=== PATIENT | female | born 1930 | race Caucasian/White ===

== ENCOUNTER 2016-08-04 22:02 | Inpatient (IN) | payer OTHER, BC ==
[2016-08-04] MEDS ORDERED: ONDANSETRON 4 MG/2 ML VIAL ONE (22:06)
[2016-08-04] MEDS ORDERED: FUROSEMIDE 40 MG/4 ML INJECTABLE VIAL ONE (22:06)
[2016-08-04] MEDS ORDERED: ALBUTEROL SO4 2.5/IPRATROPIUM 0.5 INH SOL 3 ML VIAL.NEB. NEB ONE ×3 (22:08→22:37)
--- NOTE | 2016-08-04 22:11 | PDOC ---
History of Present Illness <Lizette Ray - Last Filed: 08/05/16 00:10> - History of Present Illness Initial Comments: 08/04/16 22:55 The patient is a 85 year old female, with a significant past medical history of Afib (on pradaxa), possible CHF, hypertension, hyperlipidemia, and Gout, who presents to the emergency department with worsening shortness of breath since when she was on a cruise. She states she was on a cruise to [place] when she began to feel short of breath. She reports docking and going to a hospital where she was treated with 650 mg of levaquin. She states her symptoms have not subsided since the onset, and has worsened this evening. She states she was seen at her doctors office a week ago and started on furosemide. As per ems the patients O2 Saturation was 95% and brought up to 100% with use of Bipap. EMS reports administering 125 mg solumedrol in route after hearing bibasilar rales and rhonchi on lung exam. The patient reports feeling nauseous and was witnessed vomiting in the ER. She denies chest pain, headache and dizziness. She denies fever, chills, diarrhea and constipation. She denies dysuria, frequency, urgency and hematuria. Allergies: NKDA Past surgical history: cholecystectomy, right mastectomy, b/l cataract Social history: denies toxic habits PCP - Dr. Feliz Parker Target Protection Specialist: Dr. Askew <Cleo Funes - Last Filed: 08/05/16 00:16> - General Stated Complaint: DIFFICULTY BREATHING Time Seen by Provider: 08/04/16 22:11 Past History - Past Medical History Anemia: No Asthma: No Cancer: Yes (HX OF BREAST CANCER) Cardiac Disorders: Yes (AF, ASHD) CVA: No COPD: No CHF: No Dementia: No Diabetes: No GI Disorders: No Disorders: No HTN: Yes Hypercholesterolemia: Yes Liver Disease: Yes (HEPATITIS - ABNORMAL LFT) Seizures: No Thyroid Disease: No - Surgical History Abdominal Surgery: No Appendectomy: No Cardiac Surgery: Yes Cholecystectomy: No Lung Surgery: No Neurologic Surgery: No Orthopedic Surgery: No - Psycho/Social/Smoking Cessation Hx Smoking History: Former smoker Have you smoked in the past 12 months: No If you are a former smoker, when did you quit?: 45 YEARS Hx Alcohol Use: Yes (GLASS OF WINE EVERY NIGHT) Drug/Substance Use Hx: No <CoryLizette Sheron - Last Filed: 08/05/16 00:10> <Cleo Funes - Last Filed: 08/05/16 00:16> - Past Medical History Allergies/Adverse Reactions: Allergies Allergy/AdvReac Type Severity Reaction Status Date / Time codeine [Codeine] Allergy Severe Verified 08/04/16 22:15 timolol [Timolol] Allergy Verified 08/04/16 22:15 Home Medications: Ambulatory Orders Allopurinol [Zyloprim] 100 mg PO DAILY 04/27/12 Atorvastatin Calcium [Lipitor] 10 mg PO HS 04/27/12 Cholecalciferol (Vitamin D3) [Vitamin D3] 1,000 unit PO BID 04/27/12 Dabigatran Etexilate Mesylate [Pradaxa] 150 mg PO BID 04/27/12 Flecainide Acetate [Flecainide Acetate -] 100 mg PO BID 04/27/12 Quinapril HCl [Accupril] 20 mg PO DAILY 04/27/12 Review of Systems - Review of Systems Able to Perform ROS?: Yes Comments:: 08/04/16 22:55 CONSTITUTIONAL: Absent: fever, chills, diaphoresis, generalized weakness, malaise, loss of appetite HEENT: Absent: rhinorrhea, nasal congestion, throat pain, throat swelling, difficulty swallowing, mouth swelling, ear pain, eye pain, visual Changes CARDIOVASCULAR: Absent: chest pain, syncope, palpitations, irregular heart rate, lightheadedness , peripheral edema RESPIRATORY: (+) shortness of breath, Absent: cough, dyspnea with exertion, orthopnea, wheezing, stridor, hemoptysis GASTROINTESTINAL: Absent: abdominal pain, abdominal distension, nausea, vomiting, diarrhea, constipation, melena, hematochezia GENITOURINARY: Absent: dysuria, frequency, urgency, hesitancy, hematuria, flank pain, genital pain MUSCULOSKELETAL: Absent: myalgia, arthralgia, joint swelling SKIN: Absent: rash, itching, pallor HEMATOLOGIC/IMMUNOLOGIC: Absent: easy bleeding, easy bruising, lymphadenopathy, frequent infections ENDOCRINE: Absent: unexplained weight gain, unexplained weight loss, heat intolerance, cold intolerance NEUROLOGIC: Absent: headache, focal weakness or paresthesias, dizziness, unsteady gait, seizure, mental status changes, bladder or bowel incontinence PSYCHIATRIC: Absent: anxiety, depression, suicidal or homicidal ideation, hallucinations. <Cleo Funes - Last Filed: 08/05/16 00:16> *Physical Exam - Vital Signs Last Vital Signs Temp Pulse Resp BP Pulse Ox 120 H 22 159/116 95 08/04/16 22:12 08/04/16 22:12 08/04/16 22:12 08/04/16 22:12 - Physical Exam Comments: 08/04/16 22:55 GENERAL: Well developed, well nourished. Awake and alert. HEENT: Normocephalic, atraumatic. PERRLA, EOMI. No conjunctival pallor. Sclera are non- icteric. Moist mucous membranes. Oropharynx is clear. NECK: Supple. Full ROM. No JVD. Carotid pulses 2+ and symmetric, without bruits. No thyromegaly. No lymphadenopathy. CARDIOVASCULAR: Regular rate and rhythm. No murmurs, rubs, or gallops. Distal pulses are 2+ and symmetric. PULMONARY: (+) Diffuse wheezing bilaterally. No rales or rhonchi. ABDOMINAL: Soft. Non-tender. Non-distended. No rebound or guarding. No organomegaly. Normoactive bowel sounds. MUSCULOSKELETAL Normal range of motion at all joints. No bony deformities or tenderness. No CVA tenderness. EXTREMITIES: No cyanosis. No clubbing. No edema. No calf tenderness. SKIN: Warm and dry. Normal capillary refill. No rashes. No jaundice. NEUROLOGICAL: Alert, awake, appropriate. Cranial nerves 2-12 intact. Normoreflexic in the upper and lower extremities. Normal speech. Toes are down-going bilaterally. Gait is normal without ataxia. PSYCHIATRIC: Cooperative. Good eye contact. Appropriate mood and affect. <Cleo Funes - Last Filed: 08/05/16 00:16> Heart Score/ECG Review - ECG Intrepretation Comment:: 08/04/16 23:05 EKG was read by Dr. Ray at 22:40 Impression: Atrial fibrillation with rapid ventricular response. ST & T wave abnormality, consider ischemia <Cleo Funes - Last Filed: 08/05/16 00:16> ED Treatment Course - LABORATORY CBC & Chemistry Diagram: 08/04/16 22:30 08/04/16 22:15 <Lizette Ray - Last Filed: 08/05/16 00:10> - LABORATORY CBC & Chemistry Diagram: 08/04/16 22:30 08/04/16 22:15 - ADDITIONAL ORDERS Additional order review: 08/04/16 22:30 RBC 5.40 H MCV 93.7 MCHC 32.1 RDW 14.7 MPV 9.6 Neutrophils % 81.9 Lymphocytes % 10.8 Monocytes % 6.7 Eosinophils % 0.1 Basophils % 0.5 <Cleo Funes - Last Filed: 08/05/16 00:16> Medical Decision Making - Medical Decision Making 08/04/16 23:56 Dr. Parker was paged at this time requesting a call back for doctor to doctor consult. Dr. Barry is director employee communications and will return our call as soon as possible. 08/05/16 00:16 Dr. Barry returned the call, the patient's case was discussed, and he accepts the patient's admission to telemtry. <Cleo Funes - Last Filed: 08/05/16 00:16> *DC/Admit/Observation/Transfer - Discharge Dispostion Admit: Yes <Lizette Ray - Last Filed: 08/05/16 00:10> - Attestations Scribe Attestion: 08/04/16 22:56 Documentation prepared by Cleo Funes, acting as territory sales manager medical for Lizette Ray MD <Cleo Funes - Last Filed: 08/05/16 00:16> Diagnosis at time of Disposition: Chronic atrial fibrillation CHF (congestive heart failure) Qualifiers: Congestive heart failure type: unspecified congestive heart failure type Congestive heart failure chronicity: acute Qualified Code(s): I50.9 - Heart failure, unspecified COPD (chronic obstructive pulmonary disease) Qualifiers: COPD type: unspecified COPD Qualified Code(s): J44.9 - Chronic obstructive pulmonary disease, unspecified - Referrals Referrals: Feliz Parker MD [Primary Care Provider] -
[2016-08-04] MEDS ORDERED: MAGNESIUM SULF 50% (8.12 MEQ/2 ML-1 GM VIAL) IVPB ONE (22:15)
[2016-08-04 22:30] VITALS: BMI 23.1
[2016-08-04] MEDS ORDERED: MAGNESIUM SULF 50% (8.12 MEQ/2 ML-1 GM VIAL) ONE (22:36)
[2016-08-04 22:43] LABS: BASOPHIL 0.5 % (0-2.0); EOSINOPHIL 0.1 % (0-4.5); MCH 30.1 pg (25.7-33.7); MCHC 32.1 g/dl (32.0-36.0); MEAN CELL VOLUME 93.7 fl (80-96); MEAN PLT VOLUME 9.6 fl (7.5-11.1); NEUTROPHILS 81.9 % (42.8-82.8); PLATELET COUNT 239 K/MM3 (134-434); RDW 14.7 % (11.6-15.6); WHITE BLOOD COUNT 13.5 K/mm3 (4.0-10.0)
[2016-08-04 23:21] LABS: INR 1.45 (0.82-1.09); PROTHROMBIN TIME (PATIENT) 16.1 SEC (9.98-11.88)
[2016-08-04 23:21] LABS: ALBUMIN 3.8 g/dl (3.4-5.0); ALK PHOS 151 U/L (45-117); ANION GAP 13 (8-16); BILIRUBIN,TOTAL 0.8 mg/dL (0.2-1.0); CALCIUM 9.6 mg/dL (8.5-10.1); CO2 24 mmol/L (21-32); CREATININE 0.8 mg/dL (0.55-1.02); GLUCOSE,RANDOM 184 mg/dL (74-106); SGOT/AST 24 U/L (15-37); SGPT/ALT 44 U/L (12-78); TOT PROT 6.9 g/dl (6.4-8.2)
[2016-08-04 23:24] LABS: TROPONIN I 0.06 ng/ml (0.00-0.05)
[2016-08-04] MEDS ORDERED: ONDANSETRON 4 MG/2 ML VIAL IVPUSH ONE (23:56)
[2016-08-05] MEDS ORDERED: ALBUTEROL SO4 2.5/IPRATROPIUM 0.5 INH SOL 3 ML VIAL.NEB. NEB PRN (00:15)
[2016-08-05] MEDS ORDERED: PIPERACILLIN/TAZOB 2.25 GM 50 ML IVPB ONE (00:45)
[2016-08-05] MEDS ORDERED: PIPERACILLIN/TAZOB 4.5 GM 100 ML IVPB ONE (01:03)
[2016-08-05 01:40] LABS: URINE APPEARANCE CLEAR; URINE BILIRUBIN NEGATIVE (NEGATIVE); URINE BLOOD NEGATIVE (NEGATIVE); URINE COLOR STRAW; URINE GLUCOSE (UA) NEGATIVE (NEGATIVE); URINE KETONE NEGATIVE (NEGATIVE); URINE LEUK ESTERASE NEGATIVE (NEGATIVE); URINE NITRITE NEGATIVE (NEGATIVE); URINE PROTEIN NEGATIVE (NEGATIVE); URINE UROBILINOGEN NEGATIVE E.U./dl (0.2-1.0)
[2016-08-05] MEDS ORDERED: ACETAMINOPHEN 325 MG TABLET (FP) ONE (01:57)
[2016-08-05] MEDS ORDERED: PIPERACILLIN/TAZOB 2.25 GM 50 ML IVPB SCH (02:00)
[2016-08-05] MEDS: ALBUTEROL SO4 2.5/IPRATROPIUM 0.5 INH SOL 3 ML VIAL.NEB. NEB SCH ×3 (06:30→18:54)
[2016-08-05 09:21] LABS: TROPONIN I 0.22 ng/ml (0.00-0.05)
[2016-08-05] MEDS ORDERED: PT OWN MED DRAWER 7, Y5N ONE ×3 (10:30→21:20)
[2016-08-05] MEDS: CHOLECALCIFEROL (VITAMIN D3) 1,000 UNIT TABLET (FP) PO SCH ×2 (10:42→21:23)
[2016-08-05] MEDS: methylPREDNISolone NA SUCC 125 MG/2 ML VIAL IVPB SCH ×2 (10:43→21:24)
[2016-08-05] MEDS: QUINAPRIL HCL 20 MG TABLET (FP) PO SCH (10:43)
[2016-08-05] MEDS: FUROSEMIDE 40 MG/4 ML INJECTABLE VIAL IVPUSH SCH (10:43)
[2016-08-05] MEDS: DABIGATRAN ETEXILATE MESYLATE 150 MG CAPSULE PO SCH ×2 (10:43→21:23)
[2016-08-05] MEDS: ALLOPURINOL 100 MG TABLET (FP) PO SCH (10:44)
[2016-08-05] MEDS: FLECAINIDE ACETATE 100 MG TABLET PO SCH ×2 (10:44→21:23)
--- NOTE | 2016-08-05 12:03 | CON.CARD ---
Cardiology Consult (text) - Consultation Consultation Note: cc: sob, cough hpi: 85 f hx afib, hld, htn, breast ca here with sob, cough. Was on cruise last week and developed sob, cough. Seen by berny WILLETT and given course of abx. Sxs persisted when came home and progressed to productive cough and chest congestion despite abx and increased lasix. Due to worsening sxs came to ER. No cp, dizzy, loc, pnd, orthopnea, le edema. Found to have bl pna, now on iv abx. Sees dr garza for cardio. pmh: per hpi psh: cholecystectomy, cataract surgery social: ex tob fam: no premature cad ros: per hpi; no nvd, rash, wt loss, gib, hematuria, vision changes, muscle pain meds: Medication Instructions Recorded Allopurinol [Zyloprim] 100 mg PO DAILY 04/27/12 Atorvastatin Calcium [Lipitor] 10 mg PO HS 04/27/12 Cholecalciferol (Vitamin D3) 1,000 unit PO BID 04/27/12 [Vitamin D3] Dabigatran Etexilate Mesylate 150 mg PO BID 04/27/12 [Pradaxa] Flecainide Acetate [Flecainide 100 mg PO BID 04/27/12 Acetate -] Quinapril HCl [Accupril] 20 mg PO DAILY 04/27/12 pe: Vital Signs Period Temp Pulse Resp BP Sys/Bender Pulse Ox Last 24 Hr 97 F-97.8 F 90-120 20-22 91-159/57-116 95-100 nad, no jvd irreg, s1s2 no mrg scattered rhonchi bl, nl eff no le e/c/c abd nt nd pos bs aaox3 no jaundice diaphoresis pos dp pt no carotid bruits Laboratory Last Values WBC 13.5 K/mm3 (4.0-10.0) H 08/04/16 22:30 RBC 5.40 M/mm3 (3.60-5.2) H 08/04/16 22:30 Hgb 16.3 GM/dL (10.7-15.3) H 08/04/16 22:30 Hct 50.6 % (32.4-45.2) H 08/04/16 22:30 MCV 93.7 fl (80-96) 08/04/16 22:30 MCHC 32.1 g/dl (32.0-36.0) 08/04/16 22:30 RDW 14.7 % (11.6-15.6) 08/04/16 22:30 Plt Count 239 K/MM3 (134-434) 08/04/16 22:30 MPV 9.6 fl (7.5-11.1) 08/04/16 22:30 Neutrophils % 81.9 % (42.8-82.8) 08/04/16 22:30 Lymphocytes % 10.8 % (8-40) 08/04/16 22:30 Monocytes % 6.7 % (3.8-10.2) 08/04/16 22:30 Eosinophils % 0.1 % (0-4.5) 08/04/16 22:30 Basophils % 0.5 % (0-2.0) 08/04/16 22:30 INR 1.45 (0.82-1.09) H 08/04/16 22:30 Sodium 139 mmol/L (136-145) 08/04/16 22:15 Potassium 3.9 mmol/L (3.5-5.1) 08/04/16 22:15 Chloride 102 mmol/L (98-107) 08/04/16 22:15 Carbon Dioxide 24 mmol/L (21-32) 08/04/16 22:15 Anion Gap 13 (8-16) 08/04/16 22:15 BUN 25 mg/dL (7-18) H 08/04/16 22:15 Creatinine 0.8 mg/dL (0.55-1.02) 08/04/16 22:15 Creat Clearance w eGFR > 60 (>60) 08/04/16 22:15 Random Glucose 184 mg/dL (74-106) H 08/04/16 22:15 Calcium 9.6 mg/dL (8.5-10.1) 08/04/16 22:15 Total Bilirubin 0.8 mg/dL (0.2-1.0) 08/04/16 22:15 AST 24 U/L (15-37) 08/04/16 22:15 ALT 44 U/L (12-78) 08/04/16 22:15 Alkaline Phosphatase 151 U/L (45-117) H 08/04/16 22:15 Creatine Kinase 37 IU/L (26-192) 08/05/16 08:15 Troponin I 0.22 ng/ml (0.00-0.05) H 08/05/16 08:15 B-Natriuretic Peptide 4713.17 pg/ml (5-450) H 08/04/16 23:47 Total Protein 6.9 g/dl (6.4-8.2) 08/04/16 22:15 Albumin 3.8 g/dl (3.4-5.0) 08/04/16 22:15 Urine Color Straw 08/05/16 01:20 Urine Appearance Clear 08/05/16 01:20 Urine pH 5.0 (5.0-8.0) 08/05/16 01:20 Ur Specific [place] 1.008 (1.001-1.035) 08/05/16 01:20 Urine Protein Negative (NEGATIVE) 08/05/16 01:20 Urine Glucose (UA) Negative (NEGATIVE) 08/05/16 01:20 Urine Ketones Negative (NEGATIVE) 08/05/16 01:20 Urine Blood Negative (NEGATIVE) 08/05/16 01:20 Urine Nitrite Negative (NEGATIVE) 08/05/16 01:20 Urine Bilirubin Negative (NEGATIVE) 08/05/16 01:20 Urine Urobilinogen Negative E.U./dl (0.2-1.0) 08/05/16 01:20 Ur Leukocyte Esterase Negative (NEGATIVE) 08/05/16 01:20 cath 10/2009: non obstructive cad echo 03/2015: tds, nl lv/rv, mild lae, no sig valve path tele: afib, rate controlled ecg 08/04/16: afib, vr 110, nonspecific lateral st-t changes, nl qtc, no sig change 07/27/16 cxr: bl pna a/p: 85 f hx afib, hld, htn, breast ca here with sob, cough. sob, cough, pna, acute diastolic chf: -pt here with bl pna, likely main cause of sxs. cont abx. -likely some superimposed pulm congestion from dchf (elevated bnp also) as well so cont lasix iv for now, monitor daily chem7 -check updated echo afib: -has had several jorge/dccv in past but now back in afib -rate controlled but pt symptomatic in afib so plan was to cont her flecainide and have outpt jorge/dccv this wednesday -for now will cont current flecainide and monitor resp status--if stable will proceed with jorge/dccv wednesday as inpt -monitor on tele -cont home pradaxa hld: -cont statin htn: -stable on home meds elevated trops: -borderline elevated trops with nl ck and flat trend, not consistent with acs -ecg similar to priors -cont to trend ce's -check echo, monitor on tele
[2016-08-05] MEDS ORDERED: PIPERACILLIN/TAZOB 2.25 GM/50 ML PRE-DOCKED BAG IVPB ONE (12:45)
--- NOTE | 2016-08-05 12:59 | HP ---
Admitting History and Physical - Primary Care Physician PCP: Feliz Parker - Admission Chief Complaint: I was coughing and could not breathe History of Present Illness: Mrs Vasquez is a very pleasant 85 year old female who comes in with shortness of breath and coughing. She was recently on a cruise to [place] and after five days began to become very short of breath. She was seen on the ship and was started on levaquin and steroids. She was instructed to go to the hospital in [place] where she was seen. She was continued on levaquin and steroids and cleared to fly back. She was not feeling better and was seen as an outpatient. She was felt to have fluid overload and was given lasix. She lost 7lbs and was feeling better. However on Wednesday she began to feel worse again. She had cough productive of yellow sputum and also developed laryngitis. She began to have worsening shortness of breath and came in for further evaluation. She denies fevers, chills, chest pain, nausea, vomiting, diarrhea, constipation, difficulty or pain on urination, or current leg swelling. Her breathing is feeling better after being on BiPap overnight. History Source: Patient Limitations to Obtaining History: No Limitations - Past Medical History Cardiovascular: Yes: AFIB, CAD, HTN, Hyperlipdemia Gastrointestinal: Yes: GERD Rheumatology: Yes: Gout - Past Surgical History Past Surgical History: Yes: Appendectomy, Cholecystectomy - Smoking History Smoking history: Former smoker Have you smoked in the past 12 months: No If you are a former smoker, when did you quit?: 45 YEARS - Alcohol/Substance Use Hx Alcohol Use: Yes (GLASS OF WINE EVERY NIGHT) History of Substance Use: reports: None - Social History Usual Living Arrangement: Yes: With Spouse ADL: Independent History of Recent Travel: Yes Home Medications - Allergies Allergies/Adverse Reactions: Allergies Allergy/AdvReac Type Severity Reaction Status Date / Time codeine [Codeine] Allergy Severe Verified 08/04/16 22:15 timolol [Timolol] Allergy Verified 08/04/16 22:15 - Home Medications Home Medications: Ambulatory Orders Allopurinol [Zyloprim] 100 mg PO DAILY 04/27/12 Atorvastatin Calcium [Lipitor] 10 mg PO HS 04/27/12 Cholecalciferol (Vitamin D3) [Vitamin D3] 1,000 unit PO BID 04/27/12 Dabigatran Etexilate Mesylate [Pradaxa] 150 mg PO BID 04/27/12 Flecainide Acetate [Flecainide Acetate -] 100 mg PO BID 04/27/12 Quinapril HCl [Accupril] 20 mg PO DAILY 04/27/12 Family Disease History - Family Disease History Family History: Unremarkable Review of Systems Findings/Remarks: Full review of systems obtained, as per HPI and otherwise negative Physical Examination Vital Signs: Vital Signs Temperature 97 F L 08/05/16 05:00 Pulse Rate 90 08/05/16 12:04 Respiratory Rate 20 08/05/16 05:00 Blood Pressure 133/70 08/05/16 05:00 O2 Sat by Pulse Oximetry (%) 96 08/05/16 12:04 Problem List - Problems (1) Acute respiratory failure Assessment/Plan: -patient presents with hypoxic respiratory failure -? cardiac or infectious -weaned off of bipap -on antibiotics -cardiology and pulmonary following -continue nasal cannula Code(s): J96.00 - ACUTE RESPIRATORY FAILURE, UNSP W HYPOXIA OR HYPERCAPNIA Qualifiers: Respiratory failure complication: hypoxia Qualified Code(s): J96.01 - Acute respiratory failure with hypoxia (2) CHF (congestive heart failure) Assessment/Plan: -cardiology following -on IV lasix -monitor renal function Code(s): I50.9 - HEART FAILURE, UNSPECIFIED Qualifiers: Congestive heart failure type: unspecified congestive heart failure type Congestive heart failure chronicity: acute Qualified Code(s): I50.9 - Heart failure, unspecified (3) COPD (chronic obstructive pulmonary disease) Assessment/Plan: -on solumedrol -continue duonebs -wean oxygen as tolerated -pulmonary consulted Code(s): J44.9 - CHRONIC OBSTRUCTIVE PULMONARY DISEASE, UNSPECIFIED Qualifiers : COPD type: unspecified COPD Qualified Code(s): J44.9 - Chronic obstructive pulmonary disease, unspecified (4) Chronic atrial fibrillation Assessment/Plan: -continue flecainide and pradaxa Code(s): I48.2 - CHRONIC ATRIAL FIBRILLATION (5) Pneumonia Assessment/Plan: -unclear if current pneumonia or treated pnuemonia -also viral vs bacterial -ID consult Code(s): J18.9 - PNEUMONIA, UNSPECIFIED ORGANISM (6) HTN (hypertension) Assessment/Plan: -continue quinapril Code(s): I10 - ESSENTIAL (PRIMARY) HYPERTENSION (7) HLD (hyperlipidemia) Assessment/Plan: -continue statin Code(s): E78.5 - HYPERLIPIDEMIA, UNSPECIFIED (8) Gout Assessment/Plan: -continue allopurinol Code(s): M10.9 - GOUT, UNSPECIFIED
--- NOTE | 2016-08-05 13:08 | CON.PULM ---
Consult Reason for Consultation:: Dyspnea - History of Present Illness Chief Complaint: Shortness of breath History of Present Illness: 85 year old lady with history PAF, mild COPD, and H/O breast carcinoma developed increasing shortness of breath and cough while on a cruise. In [place] she was evaluated and treated with a course of oral steriods, Levaquin 750 mg x 5 days, and bronchodilators. She traveled home to [place] and was given diuretics by Dr. Parker one week ago .Oral steriod tx was completed about 5 days ago. PT. developed increasing, dyspnea, cough productive of yellow sputum and wheezing and was admitted. Pt put on BIPAP overnight.Today pt feels improved with decreased dyspnea. She has chest tightness. No hemoptysis. PMH: approx 6 mm lingular nodule- stable in size over multiple years ([id number]) approx.20 year pack year history cigarette smoking (stopped 1968) PAF- s/p cardioversion x 2;last time 2013 Anticoagulation with Pradaxa Breast Carcinoma Gout Polysomnography 02/2014: no evidence DEANNA (AHI 0) - History Source History Provided By: Patient, Medical Record Limitations to Obtaining History: No Limitations - Past Medical History Cardio/Vascular: Yes: AFIB, CAD, HTN, Hyperlipdemia Gastrointestinal: Yes: GERD Rheumatology: Yes: Gout - Past Surgical History Past Surgical History: Yes: Appendectomy, Cholecystectomy - Alcohol/Substance Use Hx Alcohol Use: Yes (GLASS OF WINE EVERY NIGHT) History of Substance Use: reports: None - Smoking History Smoking history: Former smoker Have you smoked in the past 12 months: No If you are a former smoker, when did you quit?: 45 YEARS - Social History ADL: Independent History of Recent Travel: Yes Home Medications - Allergies Allergies/Adverse Reactions: Allergies Allergy/AdvReac Type Severity Reaction Status Date / Time codeine [Codeine] Allergy Severe Verified 08/04/16 22:15 timolol [Timolol] Allergy Verified 08/04/16 22:15 - Home Medications Home Medications: Ambulatory Orders Allopurinol [Zyloprim] 100 mg PO DAILY 04/27/12 Atorvastatin Calcium [Lipitor] 10 mg PO HS 04/27/12 Cholecalciferol (Vitamin D3) [Vitamin D3] 1,000 unit PO BID 04/27/12 Dabigatran Etexilate Mesylate [Pradaxa] 150 mg PO BID 04/27/12 Flecainide Acetate [Flecainide Acetate -] 100 mg PO BID 04/27/12 Quinapril HCl [Accupril] 20 mg PO DAILY 04/27/12 Review of Systems - Review of Systems Constitutional: reports: Fever. denies: Chills HENT: reports: Hearing Loss Cardiovascular: reports: Edema, Palpitations, Shortness of Breath. denies: Chest Pain Respiratory: reports: Cough, SOB, Wheezing. denies: Hemoptysis Gastrointestinal: denies: Abdominal Pain, Rectal Bleeding, Vomiting Blood Neurological: denies: Confusion, Headache, Syncope Physical Exam Vital Sings: Vital Signs Temperature 97 F L 08/05/16 05:00 Pulse Rate 90 08/05/16 12:04 Respiratory Rate 20 08/05/16 05:00 Blood Pressure 133/70 08/05/16 05:00 O2 Sat by Pulse Oximetry (%) 96 08/05/16 12:04 Constitutional: Yes: Mild Distress Eyes: No: Sclera Icterus HENT: Yes: Atraumatic, Normocephalic Neck: Yes: Supple, Trachea Midline Cardiovascular: Yes: Pulse Irregular. No: JVD Respiratory: Yes: Rales (both bases right> left), Rhonchi (scattered), Wheezes ( bilateral) ...Percussion: No: Dullnes, Hyperresonance ...Clubbing: No Gastrointestinal: Yes: Soft. No: Hepatomegaly, Splenomegaly, Tenderness Extremities: No: Calf Tenderness Edema: No Neurological: Yes: Alert, Oriented Imaging - Results Chest X-ray: Report Reviewed, Image Reviewed (Portable CVXR: bilateral infiltrates-most dense left mid lung field periperally. Left upper lung field clear; suggestive PNA and CHF) Problem List - Problems (1) Acute respiratory failure Code(s): J96.00 - ACUTE RESPIRATORY FAILURE, UNSP W HYPOXIA OR HYPERCAPNIA Qualifiers: Respiratory failure complication: hypoxia Qualified Code(s): J96.01 - Acute respiratory failure with hypoxia (2) Acute exacerbation of chronic obstructive pulmonary disease Code(s): J44.1 - CHRONIC OBSTRUCTIVE PULMONARY DISEASE W (ACUTE) EXACERBATION (3) CHF (congestive heart failure) Code(s): I50.9 - HEART FAILURE, UNSPECIFIED Qualifiers: Congestive heart failure type: unspecified congestive heart failure type Congestive heart failure chronicity: acute Qualified Code(s): I50.9 - Heart failure, unspecified (4) Pneumonia Code(s): J18.9 - PNEUMONIA, UNSPECIFIED ORGANISM (5) Paroxysmal atrial fibrillation Code(s): I48.0 - PAROXYSMAL ATRIAL FIBRILLATION Assessment/Plan 85 year old lady with: Acute Respiratory Failure-required BIPAP over night: now improved and off BIPAP. Respiratory failure on admission due to a combination of COPD, pulmonary edema and probable pneumonia Acute Exacerbation COPD secondary to respiratory infection-possibly viral. CHF: improving post diuretics Pneumonia: Paroxysmal Atrial Fibrillation on Pradaxa Suggest: Antibiotics per I.D. O2 to maintain SaO2>90 Inhaled bronchodilators Diuretic anticoagulation ? cardioversion when medically stable IV steriods with tapering Repeat CXR-if infiltrates persist post diuresis will get CT chest. Thank you for referring this patient for consultation.
--- NOTE | 2016-08-05 13:40 | EKG ---
Test Reason : Blood Pressure : / mmHG Vent. Rate : 110 BPM Atrial Rate : 082 BPM P-R Int : 000 ms QRS Dur : 112 ms QT Int : 360 ms P-R-T Axes : 000 029 131 degrees QTc Int : 487 ms ATRIAL FIBRILLATION WITH RAPID VENTRICULAR RESPONSE ABNORMAL ECG WHEN COMPARED WITH ECG OF 05-APR-2014 14:31, ATRIAL FIBRILLATION HAS REPLACED SINUS RHYTHM VENT. RATE HAS INCREASED BY [address] NOW DEPRESSED IN INFERIOR LEADS Confirmed by ORLANDO MONTANEZ MD ([id number]) on 08/05/2016 1:40:38 PM Referred By: Confirmed By:ORLANDO MONTANEZ MD
[2016-08-05 16:22] LABS: TROPONIN I 0.15 ng/ml (0.00-0.05)
--- NOTE | 2016-08-05 16:46 | PN ---
Progress Note (short form) - Note Progress Note: ID consult dictated imp/reccd recent cruise to [place] recent levaquin 750 daily for 5 days and steroids- completed levaquin on now with yellow sputum, SOB, chest congestion for last two days needed bipap yesterday now better pneumonia chf copd vanco/zosyn cultures urinary antigen influenza screen repeat cxray in am consider chest ct in am d/w pulmonary
[2016-08-05] MEDS: VANCOMYCIN 1 GRAM (PRE-DOCKED) 1,000 MG/250 ML BAG IVPB SCH (16:55)
--- NOTE | 2016-08-05 17:50 | CONS ---
DATE OF CONSULTATION: DATE OF DICTATION: 08/05/2016 INFECTIOUS DISEASE CONSULTATION REQUESTING PHYSICIAN: Aki Pepper M.D. HISTORY OF PRESENT ILLNESS: This is an 85-year-old woman. She recently went on a cruise to [place] with her , they left on the and returned on the . After about 5-6 days on the cruise ship, she started having trouble with her breathing. She was treated on the ship with nebulizers. When they reached port in [place] on the , she went to the hospital there. She was placed on Levaquin 750 mg daily for 5 days along with a 5-day course of prednisone, and then she flew back to the , and she was cleared for discharge. She was told they were concerned that she was developing pneumonia. After discharge home, she saw her doctor a week ago, last Wednesday she was started on Lasix, and it was noted at that time she had swelling of both her legs, so she was taking her Lasix and Levaquin and steroids along with her usual medications. She completed the Levaquin on . The leg swelling improved with the diuretics. She dropped about 7 pounds, and she had less edema. She overall felt well and was on a prednisone taper throughout the weekend. She saw her chief librarian branch on Wednesday, who scheduled her for an elective cardioversion this week. Over the course of the weekend, she started feeling short of breath again. She started having nausea and yellow sputum. She has no hemoptysis. She also developed laryngitis. She denies any fevers, chills, chest pain. Per the ER note, there was 1 episode of vomiting. She was treated with BiPAP overnight and is feeling markedly improved. As well, she received steroids and was started on piperacillin and tazobactam. PAST MEDICAL HISTORY: Notable for atrial fibrillation, coronary artery disease, hypertension, hyperlipidemia. There is a history of GERD and gout. SURGICAL HISTORY: Notable for appendectomy and cholecystectomy. She has a history of breast cancer as well. ALLERGIES: CODEINE and TIMOLOL. MEDICATION: As an outpatient include allopurinol, Lipitor, vitamin D, Pradaxa, flecainide, and Accupril. She has had 2 prior cardioversions that have failed. FAMILY HISTORY: No history of smoking use. SOCIAL HISTORY: She is . Former tobacco user, stopped like 30 years ago. She is a former nurse. Her steroid use has been very intermittent in the past. Currently she is resting quite comfortably. She is up to date on vaccines. PHYSICAL EXAMINATION: Vital signs: Temperature 97.6, pulse 85, blood pressure 125/75, respiratory rate 20. She is saturating 96% on 2 L. HEENT: Normocephalic. Eyes are anicteric. She has no thrush. Neck: Supple. Lungs: Crackles throughout. Heart: Regular rate and rhythm. Abdomen: Soft, nontender. Extremities: Trace edema. LABORATORY: White count 13.5, hemoglobin 16.3, platelets 239. INR 1.4. BUN and creatinine are 25 and 0.8 with an alkaline phosphatase of 151. Troponins are 0.15. Her BNP is 4713. Urinalysis is negative. Blood cultures are pending. Chest x-ray is notable for bilateral infiltrates, interstitial and air space as well. IMPRESSION: In summary, this is an 85-year-old woman with pneumonia status post recent course of Levaquin with probably chronic obstructive pulmonary disease and congestive heart failure complicating the situation. Given the recent Levaquin use, would treat her with vancomycin and Zosyn at this time. Would obtain urinary legionella and pneumococcal antigen. Would also obtain a sputum culture as well as an influenza screen. Further recommendations to follow based on her clinical course. She is being treated with steroids and diuretics as well, and reports clinical improvement. Further recommendations to follow. Asha [id number]
[2016-08-05] MEDS: ACETAMINOPHEN 325 MG TABLET (FP) PO PRN (18:56)
[2016-08-05] MEDS: PIPERACILLIN/TAZOB 3.375 GM/50 ML PRE-DOCKED IVPB SCH (18:57)
[2016-08-05] MEDS: ATORVASTATIN CA 10 MG TABLET (FP) PO SCH (21:23)
[2016-08-05] MEDS: DORZOLAMIDE 2% HCL OPHTHALMIC SOLUTION 10 ML BOTTLE OU SCH (22:59)
[2016-08-06] MEDS: ALBUTEROL SO4 2.5/IPRATROPIUM 0.5 INH SOL 3 ML VIAL.NEB. NEB SCH ×5 (00:20→23:40)
[2016-08-06] MEDS: PIPERACILLIN/TAZOB 3.375 GM/50 ML PRE-DOCKED IVPB SCH ×2 (02:26→10:04)
[2016-08-06 07:36] LABS: MEAN PLT VOLUME 9.3 fl (7.5-11.1); NEUTROPHILS 94.7 % (42.8-82.8); PLATELET COUNT 154 K/MM3 (134-434); RDW 14.3 % (11.6-15.6); WHITE BLOOD COUNT 11.6 K/mm3 (4.0-10.0)
[2016-08-06 08:22] LABS: CALCIUM 8.5 mg/dL (8.5-10.1); CREATININE 0.8 mg/dL (0.55-1.02)
[2016-08-06] MEDS ORDERED: methylPREDNISolone NA SUCC 125 MG/2 ML VIAL ONE (09:34)
[2016-08-06] MEDS ORDERED: PT OWN MED DRAWER 7, Y5N ONE ×2 (09:36→22:05)
--- NOTE | 2016-08-06 10:00 | PN ---
Progress Note, Physician Chief Complaint: Very SOB Couph dry BIBAP Never febrile - Current Medication List Current Medications: Active Medications Acetaminophen (Tylenol -) 650 mg PO Q6H PRN PRN Reason: FEVER OR PAIN Last Admin: 08/05/16 18:56 Dose: 650 mg Albuterol/Ipratropium (Duoneb -) 1 amp NEB Q4H PRN PRN Reason: SHORT OF BREATH/WHEEZING Albuterol/Ipratropium (Duoneb -) 1 amp NEB QIDR [facility] Last Admin: 08/06/16 06:10 Dose: 1 amp Allopurinol (Zyloprim -) 100 mg PO DAILY [facility] Last Admin: 08/05/16 10:44 Dose: 100 mg Atorvastatin Calcium (Lipitor -) 10 mg PO HS [facility] Last Admin: 08/05/16 21:23 Dose: 10 mg Cholecalciferol (Vitamin D3 -) 1,000 unit PO BID [facility] Last Admin: 08/05/16 21:23 Dose: 1,000 unit Dabigatran (Pradaxa -) 150 mg PO BID [facility] Last Admin: 08/05/16 21:23 Dose: 150 mg Dorzolamide HCl (Trusopt 2%) 1 drop OU BID [facility] Last Admin: 08/05/16 22:59 Dose: 1 drop Flecainide Acetate (Tambacor -) 100 mg PO BID [facility] Last Admin: 08/05/16 21:23 Dose: 100 mg Furosemide (Lasix Injection -) 40 mg IVPUSH DAILY [facility] Last Admin: 08/05/16 10:43 Dose: 40 mg Methylprednisolone Sodium Succinate (Solu-Medrol -) 80 mg IVPB BID [facility] Last Admin: 08/05/16 21:24 Dose: 80 mg Piperacillin Sod/Tazobactam Sod (Zosyn 3.375gm Ivpb (Pre-Docked)) 3.375 gm IVPB Q8H-IV [facility] Last Admin: 08/06/16 02:26 Dose: 3.375 gm Quinapril HCl (Accupril -) 20 mg PO DAILY [facility] Last Admin: 08/05/16 10:43 Dose: 20 mg Vancomycin HCl (Vancomycin (Pre-Docked)) 1,000 mg IVPB Q24H [facility] Last Admin: 08/05/16 16:55 Dose: 1,000 mg - Objective Vital Signs: Vital Signs Temperature 98.5 F 08/06/16 08:10 Pulse Rate 100 H 08/06/16 08:10 Respiratory Rate 22 08/06/16 08:13 Blood Pressure 129/76 08/06/16 08:10 O2 Sat by Pulse Oximetry (%) 99 08/06/16 08:13 Constitutional: Yes: Moderate Distress Neck: Yes: WNL, Supple Cardiovascular: Yes: Pulse Irregular, S1, S2. No: Murmur Respiratory: Yes: WNL, Regular, CTA Bilaterally, Rhonchi, SOB. No: Rales Gastrointestinal: Yes: WNL, Normal Bowel Sounds, Soft. No: Tenderness, Tenderness, Epigastrium, Tenderness, Rebound Edema: No Labs: CBC, BMP 08/06/16 05:35 08/06/16 05:35 INR, PTT INR 1.45 (0.82-1.09) H 08/04/16 22:30 Assessment/Plan Assessment Pulmonary congestion has improved Unclear if pneumonia or all Congestive hear failure Plan Chest xray improving Will deescalate therapy Ceftriaxone 1 gra daily Lashanda WILLETT
[2016-08-06] MEDS: DABIGATRAN ETEXILATE MESYLATE 150 MG CAPSULE PO SCH ×2 (10:02→22:07)
[2016-08-06] MEDS: ALLOPURINOL 100 MG TABLET (FP) PO SCH (10:03)
[2016-08-06] MEDS: CHOLECALCIFEROL (VITAMIN D3) 1,000 UNIT TABLET (FP) PO SCH ×2 (10:03→22:06)
[2016-08-06] MEDS: FLECAINIDE ACETATE 100 MG TABLET PO SCH ×2 (10:03→22:07)
[2016-08-06] MEDS: methylPREDNISolone NA SUCC 125 MG/2 ML VIAL IVPB SCH ×2 (10:04→22:07)
[2016-08-06] MEDS: QUINAPRIL HCL 20 MG TABLET (FP) PO SCH (10:05)
[2016-08-06] MEDS: FUROSEMIDE 40 MG/4 ML INJECTABLE VIAL IVPUSH SCH ×2 (10:05→22:06)
[2016-08-06] MEDS: DORZOLAMIDE 2% HCL OPHTHALMIC SOLUTION 10 ML BOTTLE OU SCH ×2 (10:06→22:13)
[2016-08-06] MEDS ORDERED: CEFTRIAXONE 1 GM in DEXTROSE 5%-WATER - 50 ML IVPB SCH (10:15)
[2016-08-06] MEDS ORDERED: POTASSIUM CHLORIDE TABS 20 MEQ TABLET.ER (FP) PO ONE ×2 (10:44→15:00)
--- NOTE | 2016-08-06 10:51 | PN ---
Progress Note (short form) - Note Progress Note: s: still with sob and cough; no cp palps dizzy; requiring occ bipap o: Vital Signs Period Temp Pulse Resp BP Sys/Bender Pulse Ox Last 24 Hr 97.0 F-99.2 F 88-130 18-22 102-132/64-76 95-99 nad, no jvd irreg, s1s2 no mrg scattered rhonchi bl, nl eff no le e/c/c aaox3 no jaundice diaphoresis Current Medications Generic Name Dose Route Start Last Admin Trade Name Freq PRN Reason Stop Dose Admin Acetaminophen 650 mg 08/05/16 18:13 08/05/16 18:56 Tylenol - PO 650 mg Q6H PRN Administration FEVER OR PAIN Albuterol/Ipratropium 1 amp 08/05/16 00:15 Duoneb - NEB Q4H PRN SHORT OF BREATH/WHEEZING Albuterol/Ipratropium 1 amp 08/05/16 06:00 08/06/16 06:10 Duoneb - NEB 1 amp QIDR [facility] Administration Allopurinol 100 mg 08/05/16 10:00 08/06/16 10:03 Zyloprim - PO 100 mg DAILY [facility] Administration Atorvastatin Calcium 10 mg 08/05/16 22:00 08/05/16 21:23 Lipitor - PO 10 mg HS [facility] Administration Ceftriaxone Sodium 1 gm 08/06/16 10:15 Rocephin 1gm Ivpb (Pre-Docked) IVPB DAILY [facility] Cholecalciferol 1,000 unit 08/05/16 10:00 08/06/16 10:03 Vitamin D3 - PO 1,000 unit BID [facility] Administration Dabigatran 150 mg 08/05/16 10:00 08/06/16 10:02 Pradaxa - PO 150 mg BID [facility] Administration Dorzolamide HCl 1 drop 08/05/16 22:00 08/06/16 10:06 Trusopt 2% OU 1 drop BID [facility] Administration Flecainide Acetate 100 mg 08/05/16 10:00 08/06/16 10:03 Tambacor - PO 100 mg BID [facility] Administration Furosemide 40 mg 08/05/16 10:00 08/06/16 10:05 Lasix Injection - IVPUSH 40 mg DAILY [facility] Administration Furosemide 40 mg 08/06/16 16:00 Lasix Injection - IVPUSH 08/06/16 16:01 ONCE ONE Methylprednisolone Sodium Succinate 80 mg 08/05/16 10:00 08/06/16 10:04 Solu-Medrol - IVPB 80 mg BID [facility] Administration Potassium Chloride 40 meq 08/06/16 10:44 K-Dur - PO 08/06/16 10:45 ONCE ONE Potassium Chloride 40 meq 08/06/16 15:00 K-Dur - PO 08/06/16 15:01 ONCE ONE Quinapril HCl 20 mg 08/05/16 10:00 08/06/16 10:05 Accupril - PO 20 mg DAILY [facility] Administration Vancomycin HCl 1,000 mg 08/05/16 16:00 08/05/16 16:55 Vancomycin (Pre-Docked) IVPB 1,000 mg Q24H [facility] Administration CBC, BMP 08/06/16 05:35 08/06/16 05:35 cath 10/2009: non obstructive cad echo 03/2015: tds, nl lv/rv, mild lae, no sig valve path echo 08/2016: nl lv/rv, mod dwayne, mod-sev mr/tr, nl rvsp, mild-mod ar tele: afib, rate controlled ecg 08/04/16: afib, vr 110, nonspecific lateral st-t changes, nl qtc, no sig change 07/27/16 a/p: 85 f hx afib, hld, htn, breast ca here with sob, cough. sob, cough, pna, acute diastolic chf: -pt here with pna and dchf -after iv lasix cxr today shows improved congestion so will cont with iv lasix and give 40 bid today as she is still sob/congested. monitor daily chem7 -cont abx per ID as well afib: -has had several jorge/dccv in past but now back in afib -rate controlled but pt symptomatic in afib so plan was to cont her flecainide and have outpt jorge/dccv tomorrow -for now will cont current flecainide and monitor resp status--if improved will proceed with jorge/dccv tomorrow as inpt (will keep npo tonight in case) -monitor on tele -cont home pradaxa hld: -cont statin htn: -stable on home meds elevated trops: -borderline elevated trops with nl ck and flat trend, not consistent with acs -ecg similar to priors -echo with nl lvef, no wma's
[2016-08-06] MEDS: cefTRIAXone 1 GM/50 ML BAG (PRE-DOCKED) IVPB SCH (11:46)
[2016-08-06] MEDS: ACETAMINOPHEN 325 MG TABLET (FP) PO PRN (12:03)
--- NOTE | 2016-08-06 14:36 | PN ---
Progress Note, Physician Chief Complaint: Mrs Vasquez says she has coughing and shortness of breath with talking and minimal activity. No cp or n/v. - Current Medication List Current Medications: Active Medications Acetaminophen (Tylenol -) 650 mg PO Q6H PRN PRN Reason: FEVER OR PAIN Last Admin: 08/06/16 12:03 Dose: 650 mg Albuterol/Ipratropium (Duoneb -) 1 amp NEB Q4H PRN PRN Reason: SHORT OF BREATH/WHEEZING Albuterol/Ipratropium (Duoneb -) 1 amp NEB QIDR [facility] Last Admin: 08/06/16 12:29 Dose: 1 amp Allopurinol (Zyloprim -) 100 mg PO DAILY [facility] Last Admin: 08/06/16 10:03 Dose: 100 mg Atorvastatin Calcium (Lipitor -) 10 mg PO HS [facility] Last Admin: 08/05/16 21:23 Dose: 10 mg Ceftriaxone Sodium (Rocephin 1gm Ivpb (Pre-Docked)) 1 gm IVPB DAILY [facility] Last Admin: 08/06/16 11:46 Dose: 1 gm Cholecalciferol (Vitamin D3 -) 1,000 unit PO BID [facility] Last Admin: 08/06/16 10:03 Dose: 1,000 unit Dabigatran (Pradaxa -) 150 mg PO BID [facility] Last Admin: 08/06/16 10:02 Dose: 150 mg Dorzolamide HCl (Trusopt 2%) 1 drop OU BID [facility] Last Admin: 08/06/16 10:06 Dose: 1 drop Flecainide Acetate (Tambacor -) 100 mg PO BID [facility] Last Admin: 08/06/16 10:03 Dose: 100 mg Furosemide (Lasix Injection -) 40 mg IVPUSH DAILY [facility] Last Admin: 08/06/16 10:05 Dose: 40 mg Furosemide (Lasix Injection -) 40 mg IVPUSH ONCE ONE Stop: 08/06/16 16:01 Methylprednisolone Sodium Succinate (Solu-Medrol -) 80 mg IVPB BID [facility] Last Admin: 08/06/16 10:04 Dose: 80 mg Potassium Chloride (K-Dur -) 40 meq PO ONCE ONE Stop: 08/06/16 15:01 Quinapril HCl (Accupril -) 20 mg PO DAILY [facility] Last Admin: 08/06/16 10:05 Dose: 20 mg Vancomycin HCl (Vancomycin (Pre-Docked)) 1,000 mg IVPB Q24H [facility] Last Admin: 08/05/16 16:55 Dose: 1,000 mg - Objective Vital Signs: Vital Signs Temperature 98.4 F 08/06/16 12:59 Pulse Rate 101 H 08/06/16 12:59 Respiratory Rate 18 08/06/16 12:59 Blood Pressure 148/91 08/06/16 12:59 O2 Sat by Pulse Oximetry (%) 99 08/06/16 13:02 Constitutional: Yes: Well Nourished, No Distress, Calm Cardiovascular: Yes: Tachycardia, Pulse Irregular. No: Gallop, Murmur, Rub Respiratory: Yes: Regular, On Nasal O2, Rhonchi, Wheezes. No: Rales Gastrointestinal: Yes: Normal Bowel Sounds, Soft. No: Distention, Tenderness Extremities: Yes: WNL Edema: No Labs: CBC, BMP 08/06/16 05:35 08/06/16 05:35 INR, PTT INR 1.45 (0.82-1.09) H 08/04/16 22:30 Problem List - Problems (1) Acute respiratory failure Code(s): J96.00 - ACUTE RESPIRATORY FAILURE, UNSP W HYPOXIA OR HYPERCAPNIA Qualifiers: Respiratory failure complication: hypoxia Qualified Code(s): J96.01 - Acute respiratory failure with hypoxia (2) CHF (congestive heart failure) Code(s): I50.9 - HEART FAILURE, UNSPECIFIED Qualifiers: Congestive heart failure type: unspecified congestive heart failure type Congestive heart failure chronicity: acute Qualified Code(s): I50.9 - Heart failure, unspecified (3) COPD (chronic obstructive pulmonary disease) Code(s): J44.9 - CHRONIC OBSTRUCTIVE PULMONARY DISEASE, UNSPECIFIED Qualifiers : COPD type: unspecified COPD Qualified Code(s): J44.9 - Chronic obstructive pulmonary disease, unspecified (4) Chronic atrial fibrillation Code(s): I48.2 - CHRONIC ATRIAL FIBRILLATION (5) Pneumonia Code(s): J18.9 - PNEUMONIA, UNSPECIFIED ORGANISM (6) HTN (hypertension) Code(s): I10 - ESSENTIAL (PRIMARY) HYPERTENSION (7) HLD (hyperlipidemia) Code(s): E78.5 - HYPERLIPIDEMIA, UNSPECIFIED (8) Gout Code(s): M10.9 - GOUT, UNSPECIFIED Assessment/Plan (1) Acute respiratory failure Assessment/Plan: -appreciate pulmonary assistance -was on bipap this morning, now on NC -continue solumedrol -continue duonebs Code(s): J96.00 - ACUTE RESPIRATORY FAILURE, UNSP W HYPOXIA OR HYPERCAPNIA Qualifiers: Respiratory failure complication: hypoxia Qualified Code(s): J96.01 - Acute respiratory failure with hypoxia (2) CHF (congestive heart failure) Assessment/Plan: -chest x-ray improved -cardiology following and note reviewed -continue IV lasix Code(s): I50.9 - HEART FAILURE, UNSPECIFIED Qualifiers: Congestive heart failure type: unspecified congestive heart failure type Congestive heart failure chronicity: acute Qualified Code(s): I50.9 - Heart failure, unspecified (3) COPD (chronic obstructive pulmonary disease) Assessment/Plan: -pulmonary following -still with significant shortness of breath -continue oxygen support -continue solumedrol and duonebs Code(s): J44.9 - CHRONIC OBSTRUCTIVE PULMONARY DISEASE, UNSPECIFIED Qualifiers : COPD type: unspecified COPD Qualified Code(s): J44.9 - Chronic obstructive pulmonary disease, unspecified (4) Chronic atrial fibrillation Assessment/Plan: -continue flecainide and pradaxa -possible cardioversion per cardiology Code(s): I48.2 - CHRONIC ATRIAL FIBRILLATION (5) Pneumonia Assessment/Plan: -appreciate ID assistance -checking flu swab -zosyn changed to rocephin -continue vancomycin Code(s): J18.9 - PNEUMONIA, UNSPECIFIED ORGANISM (6) HTN (hypertension) Assessment/Plan: -continue quinapril Code(s): I10 - ESSENTIAL (PRIMARY) HYPERTENSION (7) HLD (hyperlipidemia) Assessment/Plan: -continue statin Code(s): E78.5 - HYPERLIPIDEMIA, UNSPECIFIED (8) Gout Assessment/Plan: -continue allopurinol Code(s): M10.9 - GOUT, UNSPECIFIED
[2016-08-06] MEDS ORDERED: FUROSEMIDE 40 MG/4 ML INJECTABLE VIAL IVPUSH ONE (16:00)
[2016-08-06] MEDS: VANCOMYCIN 1 GRAM (PRE-DOCKED) 1,000 MG/250 ML BAG IVPB SCH (16:19)
--- NOTE | 2016-08-06 17:45 | PN ---
Progress Note, Physician History of Present Illness: Pt more dyspneic this A.M. and needed BIPAP. Dyspnea improved after second dose Lasix this afternoon. Currently mildly dyspneic sitting up in a chair. - Current Medication List Current Medications: Active Medications Acetaminophen (Tylenol -) 650 mg PO Q6H PRN PRN Reason: FEVER OR PAIN Last Admin: 08/06/16 12:03 Dose: 650 mg Albuterol/Ipratropium (Duoneb -) 1 amp NEB Q4H PRN PRN Reason: SHORT OF BREATH/WHEEZING Albuterol/Ipratropium (Duoneb -) 1 amp NEB QIDR [facility] Last Admin: 08/06/16 12:29 Dose: 1 amp Allopurinol (Zyloprim -) 100 mg PO DAILY [facility] Last Admin: 08/06/16 10:03 Dose: 100 mg Atorvastatin Calcium (Lipitor -) 10 mg PO HS [facility] Last Admin: 08/05/16 21:23 Dose: 10 mg Ceftriaxone Sodium (Rocephin 1gm Ivpb (Pre-Docked)) 1 gm IVPB DAILY [facility] Last Admin: 08/06/16 11:46 Dose: 1 gm Cholecalciferol (Vitamin D3 -) 1,000 unit PO BID [facility] Last Admin: 08/06/16 10:03 Dose: 1,000 unit Dabigatran (Pradaxa -) 150 mg PO BID [facility] Last Admin: 08/06/16 10:02 Dose: 150 mg Dorzolamide HCl (Trusopt 2%) 1 drop OU BID [facility] Last Admin: 08/06/16 10:06 Dose: 1 drop Flecainide Acetate (Tambacor -) 100 mg PO BID [facility] Last Admin: 08/06/16 10:03 Dose: 100 mg Furosemide (Lasix Injection -) 40 mg IVPUSH DAILY [facility] Last Admin: 08/06/16 10:05 Dose: 40 mg Methylprednisolone Sodium Succinate (Solu-Medrol -) 80 mg IVPB BID [facility] Last Admin: 08/06/16 10:04 Dose: 80 mg Quinapril HCl (Accupril -) 20 mg PO DAILY [facility] Last Admin: 08/06/16 10:05 Dose: 20 mg Vancomycin HCl (Vancomycin (Pre-Docked)) 1,000 mg IVPB Q24H [facility] Last Admin: 08/06/16 16:19 Dose: 1,000 mg - Objective Vital Signs: Vital Signs Temperature 98.8 F 08/06/16 16:09 Pulse Rate 110 H 08/06/16 16:09 Respiratory Rate 20 08/06/16 16:09 Blood Pressure 120/78 08/06/16 16:09 O2 Sat by Pulse Oximetry (%) 99 08/06/16 13:02 Constitutional: Yes: No Distress Eyes: Yes: Conjunctiva Clear. No: Sclera Icterus HENT: Yes: Atraumatic, Normocephalic Neck: Yes: Supple, Trachea Midline Cardiovascular: Yes: Pulse Irregular Respiratory: Yes: Diminished (bilateral) Gastrointestinal: Yes: Soft. No: Tenderness Edema: No Neurological: Yes: Alert, Oriented Labs: CBC, BMP 08/06/16 05:35 08/06/16 05:35 INR, PTT INR 1.45 (0.82-1.09) H 08/04/16 22:30 - ....Imaging Chest X-ray: Report Reviewed, Image Reviewed (bilateral effusions/infiltrate/ congestion somewhat improved compared to yesterday.) Problem List - Problems (1) Acute respiratory failure Code(s): J96.00 - ACUTE RESPIRATORY FAILURE, UNSP W HYPOXIA OR HYPERCAPNIA Qualifiers: Respiratory failure complication: hypoxia Qualified Code(s): J96.01 - Acute respiratory failure with hypoxia (2) Acute exacerbation of chronic obstructive pulmonary disease Code(s): J44.1 - CHRONIC OBSTRUCTIVE PULMONARY DISEASE W (ACUTE) EXACERBATION (3) CHF (congestive heart failure) Code(s): I50.9 - HEART FAILURE, UNSPECIFIED Qualifiers: Congestive heart failure type: unspecified congestive heart failure type Congestive heart failure chronicity: acute Qualified Code(s): I50.9 - Heart failure, unspecified (4) Pneumonia Code(s): J18.9 - PNEUMONIA, UNSPECIFIED ORGANISM (5) Paroxysmal atrial fibrillation Code(s): I48.0 - PAROXYSMAL ATRIAL FIBRILLATION Assessment/Plan 85 year old lady with: CHF-CXR with some improvement this A.M. but pt had significant dyspnea this A.M. (requiring BIPAP) and improved this afternoon after second dose Furosemide. CHF appears to be a major factor in her dyspnea:will increase diuretic and get CT Chest in order to better visualize how much of the radiographic findings are due to pneumonia. Acute Exacerbation COPD secondary to respiratory infection-possibly viral. Pneumonia-case discussed with Dr. Pyle-antibiotic coverage to be narrowed Paroxysmal Atrial Fibrillation on Pradaxa Suggest: Antibiotics per I.D. O2 to maintain SaO2>90 Inhaled bronchodilators Diuretic anticoagulation ? cardioversion when medically stable IV steriods with tapering Furosemide BID CT Chest without contrast
[2016-08-06] MEDS: ATORVASTATIN CA 10 MG TABLET (FP) PO SCH (22:06)
[2016-08-07] MEDS: ALBUTEROL SO4 2.5/IPRATROPIUM 0.5 INH SOL 3 ML VIAL.NEB. NEB SCH ×4 (06:27→23:31)
[2016-08-07] MEDS: FUROSEMIDE 40 MG/4 ML INJECTABLE VIAL IVPUSH SCH ×2 (07:02→14:03)
[2016-08-07] MEDS ORDERED: PT OWN MED DRAWER 7, Y5N ONE ×3 (07:19→21:56)
[2016-08-07 07:55] LABS: BASOPHIL 0.1 % (0-2.0); MCH 30.5 pg (25.7-33.7); MCHC 32.3 g/dl (32.0-36.0); MEAN CELL VOLUME 94.4 fl (80-96); MEAN PLT VOLUME 9.8 fl (7.5-11.1); NEUTROPHILS 93.2 % (42.8-82.8); PLATELET COUNT 153 K/MM3 (134-434); RDW 14.3 % (11.6-15.6); WHITE BLOOD COUNT 9.8 K/mm3 (4.0-10.0)
[2016-08-07 08:38] LABS: CALCIUM 9.2 mg/dL (8.5-10.1)
[2016-08-07 08:43] LABS: CREATININE 0.8 mg/dL (0.55-1.02); MAGNESIUM 2.1 mg/dL (1.8-2.4); PHOSPHOROUS 3.9 mg/dL (2.5-4.9)
[2016-08-07] MEDS ORDERED: POTASSIUM CHLORIDE TABS 20 MEQ TABLET.ER (FP) PO ONE (09:10)
[2016-08-07] MEDS: methylPREDNISolone NA SUCC 125 MG/2 ML VIAL IVPB SCH (09:44)
[2016-08-07] MEDS: cefTRIAXone 1 GM/50 ML BAG (PRE-DOCKED) IVPB SCH (09:44)
[2016-08-07] MEDS: DORZOLAMIDE 2% HCL OPHTHALMIC SOLUTION 10 ML BOTTLE OU SCH ×2 (09:45→23:12)
[2016-08-07] MEDS: CHOLECALCIFEROL (VITAMIN D3) 1,000 UNIT TABLET (FP) PO SCH ×2 (09:45→23:08)
[2016-08-07] MEDS: QUINAPRIL HCL 20 MG TABLET (FP) PO SCH (09:45)
[2016-08-07] MEDS: ALLOPURINOL 100 MG TABLET (FP) PO SCH (09:45)
[2016-08-07] MEDS: DABIGATRAN ETEXILATE MESYLATE 150 MG CAPSULE PO SCH ×2 (09:48→23:08)
[2016-08-07] MEDS: FLECAINIDE ACETATE 100 MG TABLET PO SCH ×2 (09:48→23:11)
--- NOTE | 2016-08-07 10:35 | PN ---
Progress Note (short form) - Note Progress Note: breathing improved still with dry cough, sob with minimal effort chest ct with patchy airspace opacities bilateral Vital Signs Period Temp Pulse Resp BP Sys/Bender Pulse Ox Last 24 Hr 97.2 F-98.8 F 101-110 18-22 115-150/66-100 98-100 cor-rrr lungs decreased bs at bases abd soft,nt ext no edema CBC, BMP 08/07/16 05:36 08/07/16 05:36 Microbiology 08/04/16 22:30 Blood - Peripheral Venous Blood Culture - Preliminary NO GROWTH OBTAINED AFTER 48 HOURS, INCUBATION TO CONTINUE FOR 3 DAYS. 08/04/16 23:00 Blood - Peripheral Venous Blood Culture - Preliminary NO GROWTH OBTAINED AFTER 48 HOURS, INCUBATION TO CONTINUE FOR 3 DAYS. 08/05/16 05:35 Nasopharyngeal Swab Respiratory Virus Panel - Preliminary 08/05/16 23:00 Urine For Antigen Detection Legionella Antigen - Final 08/05/16 23:00 Urine For Antigen Detection Streptococcus pneumoniae Antigen (M - Final 08/05/16 05:35 Nasopharyngeal Swab Influenza Types A,B Antigen (DREAD) - Final 08/05/16 05:35 Nasopharyngeal Swab - Final a/p CHF/Pneumonia continue rocephin f/u cultures
--- NOTE | 2016-08-07 10:39 | PN ---
Progress Note (short form) - Note Progress Note: s: still with sob and cough, on nc now but needed bipap overnight; no cp palps dizzy o: Vital Signs Period Temp Pulse Resp BP Sys/Bender Pulse Ox Last 24 Hr 97.2 F-98.8 F 101-110 18-22 115-150/66-100 98-100 nad, no jvd irreg, s1s2 no mrg scattered rhonchi bl, nl eff no le e/c/c aaox3 no jaundice diaphoresis Current Medications Generic Name Dose Route Start Last Admin Trade Name Freq PRN Reason Stop Dose Admin Acetaminophen 650 mg 08/05/16 18:13 08/06/16 12:03 Tylenol - PO 650 mg Q6H PRN Administration FEVER OR PAIN Albuterol/Ipratropium 1 amp 08/05/16 00:15 Duoneb - NEB Q4H PRN SHORT OF BREATH/WHEEZING Albuterol/Ipratropium 1 amp 08/05/16 06:00 08/07/16 06:27 Duoneb - NEB 1 amp QIDR [facility] Administration Allopurinol 100 mg 08/05/16 10:00 08/07/16 09:45 Zyloprim - PO 100 mg DAILY [facility] Administration Atorvastatin Calcium 10 mg 08/05/16 22:00 08/06/16 22:06 Lipitor - PO 10 mg HS [facility] Administration Ceftriaxone Sodium 1 gm 08/06/16 10:15 08/07/16 09:44 Rocephin 1gm Ivpb (Pre-Docked) IVPB 1 gm DAILY [facility] Administration Cholecalciferol 1,000 unit 08/05/16 10:00 08/07/16 09:45 Vitamin D3 - PO 1,000 unit BID [facility] Administration Dabigatran 150 mg 08/05/16 10:00 08/07/16 09:48 Pradaxa - PO 150 mg BID [facility] Administration Dorzolamide HCl 1 drop 08/05/16 22:00 08/07/16 09:45 Trusopt 2% OU 1 drop BID [facility] Administration Flecainide Acetate 100 mg 08/05/16 10:00 08/07/16 09:48 Tambacor - PO 100 mg BID [facility] Administration Furosemide 40 mg 08/06/16 22:00 08/07/16 07:02 Lasix Injection - IVPUSH 40 mg BIDLASIX [facility] Administration Methylprednisolone Sodium Succinate 80 mg 08/05/16 10:00 08/07/16 09:44 Solu-Medrol - IVPB 80 mg BID [facility] Administration Quinapril HCl 20 mg 08/05/16 10:00 08/07/16 09:45 Accupril - PO 20 mg DAILY [facility] Administration CBC, BMP 08/07/16 05:36 08/07/16 05:36 cath 10/2009: non obstructive cad echo 03/2015: tds, nl lv/rv, mild lae, no sig valve path echo 08/2016: nl lv/rv, mod dwayne, mod-sev mr/tr, nl rvsp, mild-mod ar...on my review trace ar, mod mr, mild tr tele: afib, rate controlled ecg 08/04/16: afib, vr 110, nonspecific lateral st-t changes, nl qtc, no sig change 07/27/16 ct chest: bl pna, no chf a/p: 85 f hx afib, hld, htn, breast ca here with sob, cough. sob, cough, pna, acute diastolic chf: -pt here with pna and dchf, getting iv abx, steroids, iv lasix -ct chest 08/06/16 reports bl pna, no chf -echo 08/2016 reports: nl lv/rv, mod dwayne, mod-sev mr/tr, nl rvsp, mild-mod ar....on my review only trace ar, mod mr, mild tr -can continue iv lasix for now, monitor daily chem7, reduce dose if cr starts to rise -cont abx per ID as well afib: -has had several jorge/dccv in past but now back in afib -rate controlled but pt symptomatic in afib so plan was to cont her flecainide and have outpt jorge/dccv this week but was admitted for pna/chf instead -for now will cont current flecainide and monitor resp status--when improved will proceed with jorge/dccv (inpt vs outpt depending on clinical course) -monitor on tele -cont home pradaxa hld: -cont statin htn: -stable on home meds elevated trops: -borderline elevated trops with nl ck and flat trend, not consistent with acs -ecg similar to priors -echo with nl lvef, no wma's
--- NOTE | 2016-08-07 12:55 | PN ---
Progress Note, Physician Chief Complaint: Mrs Vasquez complains of cramping, says she is very constipated and uncomfortable. Says her breathing is slightly improved. No cp. - Current Medication List Current Medications: Active Medications Acetaminophen (Tylenol -) 650 mg PO Q6H PRN PRN Reason: FEVER OR PAIN Last Admin: 08/06/16 12:03 Dose: 650 mg Albuterol/Ipratropium (Duoneb -) 1 amp NEB Q4H PRN PRN Reason: SHORT OF BREATH/WHEEZING Albuterol/Ipratropium (Duoneb -) 1 amp NEB QIDR [facility] Last Admin: 08/07/16 06:27 Dose: 1 amp Allopurinol (Zyloprim -) 100 mg PO DAILY [facility] Last Admin: 08/07/16 09:45 Dose: 100 mg Atorvastatin Calcium (Lipitor -) 10 mg PO HS [facility] Last Admin: 08/06/16 22:06 Dose: 10 mg Ceftriaxone Sodium (Rocephin 1gm Ivpb (Pre-Docked)) 1 gm IVPB DAILY [facility] Last Admin: 08/07/16 09:44 Dose: 1 gm Cholecalciferol (Vitamin D3 -) 1,000 unit PO BID [facility] Last Admin: 08/07/16 09:45 Dose: 1,000 unit Dabigatran (Pradaxa -) 150 mg PO BID [facility] Last Admin: 08/07/16 09:48 Dose: 150 mg Dorzolamide HCl (Trusopt 2%) 1 drop OU BID [facility] Last Admin: 08/07/16 09:45 Dose: 1 drop Flecainide Acetate (Tambacor -) 100 mg PO BID [facility] Last Admin: 08/07/16 09:48 Dose: 100 mg Furosemide (Lasix Injection -) 40 mg IVPUSH BIDLASIX [facility] Last Admin: 08/07/16 07:02 Dose: 40 mg Methylprednisolone Sodium Succinate (Solu-Medrol -) 80 mg IVPB BID [facility] Last Admin: 08/07/16 09:44 Dose: 80 mg Quinapril HCl (Accupril -) 20 mg PO DAILY [facility] Last Admin: 08/07/16 09:45 Dose: 20 mg - Objective Vital Signs: Vital Signs Temperature 97.2 F L 08/07/16 07:56 Pulse Rate 110 H 08/07/16 07:56 Respiratory Rate 20 08/07/16 07:59 Blood Pressure 140/79 08/07/16 07:56 O2 Sat by Pulse Oximetry (%) 98 08/07/16 07:59 Constitutional: Yes: Well Nourished, Mild Distress Cardiovascular: Yes: Pulse Irregular. No: Gallop, Murmur, Rub Respiratory: Yes: On Nasal O2, Rhonchi, Tachypnea, Wheezes Gastrointestinal: Yes: Normal Bowel Sounds, Soft, Distention (slight). No: Tenderness Extremities: Yes: WNL Edema: No Labs: CBC, BMP 08/07/16 05:36 08/07/16 05:36 INR, PTT INR 1.45 (0.82-1.09) H 08/04/16 22:30 Problem List - Problems (1) Acute respiratory failure Code(s): J96.00 - ACUTE RESPIRATORY FAILURE, UNSP W HYPOXIA OR HYPERCAPNIA Qualifiers: Respiratory failure complication: hypoxia Qualified Code(s): J96.01 - Acute respiratory failure with hypoxia (2) CHF (congestive heart failure) Code(s): I50.9 - HEART FAILURE, UNSPECIFIED Qualifiers: Congestive heart failure type: unspecified congestive heart failure type Congestive heart failure chronicity: acute Qualified Code(s): I50.9 - Heart failure, unspecified (3) COPD (chronic obstructive pulmonary disease) Code(s): J44.9 - CHRONIC OBSTRUCTIVE PULMONARY DISEASE, UNSPECIFIED Qualifiers : COPD type: unspecified COPD Qualified Code(s): J44.9 - Chronic obstructive pulmonary disease, unspecified (4) Chronic atrial fibrillation Code(s): I48.2 - CHRONIC ATRIAL FIBRILLATION (5) Pneumonia Code(s): J18.9 - PNEUMONIA, UNSPECIFIED ORGANISM (6) HTN (hypertension) Code(s): I10 - ESSENTIAL (PRIMARY) HYPERTENSION (7) HLD (hyperlipidemia) Code(s): E78.5 - HYPERLIPIDEMIA, UNSPECIFIED (8) Gout Code(s): M10.9 - GOUT, UNSPECIFIED Assessment/Plan (1) Acute respiratory failure Assessment/Plan: -pulmonary following -on nasal cannula -secondary to pneumonia and COPD exacerbation -slowly improving Code(s): J96.00 - ACUTE RESPIRATORY FAILURE, UNSP W HYPOXIA OR HYPERCAPNIA Qualifiers: Respiratory failure complication: hypoxia Qualified Code(s): J96.01 - Acute respiratory failure with hypoxia (2) CHF (congestive heart failure) Assessment/Plan: -cardiology following and note reviewed -continue IV lasix -monitor renal function Code(s): I50.9 - HEART FAILURE, UNSPECIFIED Qualifiers: Congestive heart failure type: unspecified congestive heart failure type Congestive heart failure chronicity: acute Qualified Code(s): I50.9 - Heart failure, unspecified (3) COPD (chronic obstructive pulmonary disease) Assessment/Plan: -pulmonary following and case discussed -still with significant shortness of breath -continue oxygen support -continue solumedrol and duonebs Code(s): J44.9 - CHRONIC OBSTRUCTIVE PULMONARY DISEASE, UNSPECIFIED Qualifiers : COPD type: unspecified COPD Qualified Code(s): J44.9 - Chronic obstructive pulmonary disease, unspecified (4) Chronic atrial fibrillation Assessment/Plan: -continue flecainide and pradaxa -possible cardioversion per cardiology when lungs stabilize Code(s): I48.2 - CHRONIC ATRIAL FIBRILLATION (5) Pneumonia Assessment/Plan: -appreciate ID assistance -flu swab negative -vancomycin stopped -continue rocephin Code(s): J18.9 - PNEUMONIA, UNSPECIFIED ORGANISM (6) HTN (hypertension) Assessment/Plan: -continue quinapril Code(s): I10 - ESSENTIAL (PRIMARY) HYPERTENSION (7) HLD (hyperlipidemia) Assessment/Plan: -continue statin Code(s): E78.5 - HYPERLIPIDEMIA, UNSPECIFIED (8) Gout Assessment/Plan: -continue allopurinol Code(s): M10.9 - GOUT, UNSPECIFIED (9) Constipation -added miralax and colace -mineral oil enema
[2016-08-07] MEDS ORDERED: MINERAL OIL ENEMA 133 ML ENEMA PR ONE (13:10)
[2016-08-07] MEDS: POLYETHYLENE GLYCOL 3350 119 GM BTL PO SCH ×2 (13:42→23:11)
[2016-08-07] MEDS: DOCUSATE SODIUM 100 MG CAPSULE (FP) PO SCH ×2 (13:42→23:08)
[2016-08-07] MEDS: ATORVASTATIN CA 10 MG TABLET (FP) PO SCH (23:08)
[2016-08-08] MEDS: ALBUTEROL SO4 2.5/IPRATROPIUM 0.5 INH SOL 3 ML VIAL.NEB. NEB SCH ×3 (06:12→18:56)
[2016-08-08] MEDS: DOCUSATE SODIUM 100 MG CAPSULE (FP) PO SCH ×4 (06:22→21:40)
[2016-08-08 07:50] LABS: BASOPHIL 0.1 % (0-2.0); MCH 30.5 pg (25.7-33.7); MCHC 32.4 g/dl (32.0-36.0); MEAN CELL VOLUME 93.9 fl (80-96); MEAN PLT VOLUME 9.7 fl (7.5-11.1); NEUTROPHILS 89.5 % (42.8-82.8); PLATELET COUNT 148 K/MM3 (134-434); RDW 14.2 % (11.6-15.6); WHITE BLOOD COUNT 10.7 K/mm3 (4.0-10.0)
[2016-08-08] MEDS ORDERED: PT OWN MED DRAWER 7, Y5N ONE ×2 (09:11→20:36)
[2016-08-08 09:12] LABS: CALCIUM 9.1 mg/dL (8.5-10.1); CREATININE 0.7 mg/dL (0.55-1.02); MAGNESIUM 2.1 mg/dL (1.8-2.4); PHOSPHOROUS 3.8 mg/dL (2.5-4.9)
[2016-08-08] MEDS: ALLOPURINOL 100 MG TABLET (FP) PO SCH (09:14)
[2016-08-08] MEDS: CHOLECALCIFEROL (VITAMIN D3) 1,000 UNIT TABLET (FP) PO SCH ×2 (09:16→21:40)
[2016-08-08] MEDS: POLYETHYLENE GLYCOL 3350 119 GM BTL PO SCH ×2 (09:17→21:40)
[2016-08-08] MEDS: QUINAPRIL HCL 20 MG TABLET (FP) PO SCH (09:17)
[2016-08-08] MEDS: FUROSEMIDE 40 MG/4 ML INJECTABLE VIAL IVPUSH SCH (09:17)
[2016-08-08] MEDS: methylPREDNISolone NA SUCC 125 MG/2 ML VIAL IVPB SCH ×2 (09:18→21:40)
[2016-08-08] MEDS: cefTRIAXone 1 GM/50 ML BAG (PRE-DOCKED) IVPB SCH (09:18)
[2016-08-08] MEDS: FLECAINIDE ACETATE 100 MG TABLET PO SCH ×2 (09:18→21:49)
[2016-08-08] MEDS: DABIGATRAN ETEXILATE MESYLATE 150 MG CAPSULE PO SCH ×2 (09:18→21:53)
[2016-08-08] MEDS: DORZOLAMIDE 2% HCL OPHTHALMIC SOLUTION 10 ML BOTTLE OU SCH ×2 (09:21→21:58)
--- NOTE | 2016-08-08 10:43 | PN ---
Progress Note, Physician Chief Complaint: Still SOB on any exertion but had large BM. History of Present Illness: Patient admitted with severe SOB and Rapid A. Fib is being treated for probable bilateral Pneumonia as per Chest CAT Scan. On IV antibiotics and finally had large BM and feels a little better. Sore throat complicated by thrush. Used BiPaP at nite. Had Echo showing moderate to severe MR and TR but right sided pressure normal which I would not expect. - Current Medication List Current Medications: Active Medications Acetaminophen (Tylenol -) 650 mg PO Q6H PRN PRN Reason: FEVER OR PAIN Last Admin: 08/06/16 12:03 Dose: 650 mg Albuterol/Ipratropium (Duoneb -) 1 amp NEB Q4H PRN PRN Reason: SHORT OF BREATH/WHEEZING Albuterol/Ipratropium (Duoneb -) 1 amp NEB QIDR [facility] Last Admin: 08/08/16 06:12 Dose: 1 amp Allopurinol (Zyloprim -) 100 mg PO DAILY [facility] Last Admin: 08/08/16 09:14 Dose: 100 mg Atorvastatin Calcium (Lipitor -) 10 mg PO HS [facility] Last Admin: 08/07/16 23:08 Dose: 10 mg Ceftriaxone Sodium (Rocephin 1gm Ivpb (Pre-Docked)) 1 gm IVPB DAILY [facility] Last Admin: 08/08/16 09:18 Dose: 1 gm Cholecalciferol (Vitamin D3 -) 1,000 unit PO BID [facility] Last Admin: 08/08/16 09:16 Dose: 1,000 unit Dabigatran (Pradaxa -) 150 mg PO BID [facility] Last Admin: 08/08/16 09:18 Dose: 150 mg Docusate Sodium (Colace -) 100 mg PO TID [facility] Last Admin: 08/08/16 06:22 Dose: 100 mg Dorzolamide HCl (Trusopt 2%) 1 drop OU BID [facility] Last Admin: 08/08/16 09:21 Dose: 1 drop Flecainide Acetate (Tambacor -) 100 mg PO BID [facility] Last Admin: 08/08/16 09:18 Dose: 100 mg Furosemide (Lasix Injection -) 40 mg IVPUSH DAILY [facility] Last Admin: 08/08/16 09:17 Dose: 40 mg Methylprednisolone Sodium Succinate (Solu-Medrol -) 60 mg IVPB BID [facility] Last Admin: 08/08/16 09:18 Dose: 60 mg Polyethylene Glycol (Miralax (For Daily Use) -) 17 gm PO BID [facility] Last Admin: 08/08/16 09:17 Dose: Not Given Quinapril HCl (Accupril -) 20 mg PO DAILY [facility] Last Admin: 08/08/16 09:17 Dose: 20 mg - Objective Vital Signs: Vital Signs Temperature 98.2 F 08/08/16 09:05 Pulse Rate 106 H 08/08/16 09:05 Respiratory Rate 20 08/08/16 09:05 Blood Pressure 120/77 08/08/16 09:05 O2 Sat by Pulse Oximetry (%) 97 08/08/16 06:14 Constitutional: Yes: Calm Eyes: Yes: PERRL HENT: Yes: Thrush Cardiovascular: Yes: Pulse Irregular Respiratory: Yes: Diminished, Rhonchi (few on both sides) Gastrointestinal: Yes: Soft. No: Distention, Tenderness Genitourinary: No: Ochoa Present Edema: No Neurological: Yes: Alert, Oriented Labs: CBC, BMP 08/08/16 05:55 08/08/16 05:55 INR, PTT INR 1.45 (0.82-1.09) H 08/04/16 22:30 - ....Imaging Cat Scan: Report Reviewed EKG: Report Reviewed (Echo noted) Problem List - Problems (1) Pneumonia Assessment/Plan: Documented on Chest CT scan. On IV antibiotics and followed by Pulmonary MD. Code(s): J18.9 - PNEUMONIA, UNSPECIFIED ORGANISM Qualifiers: Laterality: bilateral (2) Acute exacerbation of chronic obstructive pulmonary disease Assessment/Plan: On IV antibiotics and steroids. Slightly less SOB but needed BiPaP at nite. Code(s): J44.1 - CHRONIC OBSTRUCTIVE PULMONARY DISEASE W (ACUTE) EXACERBATION (3) CHF (congestive heart failure) Assessment/Plan: No pedal edema but on IV Lasix and nota great deal of urinary output. Code(s): I50.9 - HEART FAILURE, UNSPECIFIED Qualifiers: Congestive heart failure type: unspecified congestive heart failure type Congestive heart failure chronicity: acute Qualified Code(s): I50.9 - Heart failure, unspecified (4) Chronic atrial fibrillation Assessment/Plan: On Pradaxa; followed by Cardiology; Troponins were elevated on admission. Code(s): I48.2 - CHRONIC ATRIAL FIBRILLATION (5) HTN (hypertension) Assessment/Plan: Stable on Rx. Code(s): I10 - ESSENTIAL (PRIMARY) HYPERTENSION (6) Thrush Assessment/Plan: Nystatin ordered Code(s): B37.0 - CANDIDAL STOMATITIS
--- NOTE | 2016-08-08 11:37 | PN ---
Progress Note, Physician History of Present Illness: Awake, responsive + dry cough Dyspneic at rest No c/o chest pain Afebrile - Current Medication List Current Medications: Active Medications Acetaminophen (Tylenol -) 650 mg PO Q6H PRN PRN Reason: FEVER OR PAIN Last Admin: 08/06/16 12:03 Dose: 650 mg Albuterol/Ipratropium (Duoneb -) 1 amp NEB Q4H PRN PRN Reason: SHORT OF BREATH/WHEEZING Albuterol/Ipratropium (Duoneb -) 1 amp NEB QIDR [facility] Last Admin: 08/08/16 06:12 Dose: 1 amp Allopurinol (Zyloprim -) 100 mg PO DAILY [facility] Last Admin: 08/08/16 09:14 Dose: 100 mg Atorvastatin Calcium (Lipitor -) 10 mg PO HS [facility] Last Admin: 08/07/16 23:08 Dose: 10 mg Ceftriaxone Sodium (Rocephin 1gm Ivpb (Pre-Docked)) 1 gm IVPB DAILY [facility] Last Admin: 08/08/16 09:18 Dose: 1 gm Cholecalciferol (Vitamin D3 -) 1,000 unit PO BID [facility] Last Admin: 08/08/16 09:16 Dose: 1,000 unit Dabigatran (Pradaxa -) 150 mg PO BID [facility] Last Admin: 08/08/16 09:18 Dose: 150 mg Docusate Sodium (Colace -) 100 mg PO TID [facility] Last Admin: 08/08/16 06:22 Dose: 100 mg Dorzolamide HCl (Trusopt 2%) 1 drop OU BID [facility] Last Admin: 08/08/16 09:21 Dose: 1 drop Flecainide Acetate (Tambacor -) 100 mg PO BID [facility] Last Admin: 08/08/16 09:18 Dose: 100 mg Furosemide (Lasix Injection -) 40 mg IVPUSH DAILY [facility] Last Admin: 08/08/16 09:17 Dose: 40 mg Methylprednisolone Sodium Succinate (Solu-Medrol -) 60 mg IVPB BID [facility] Last Admin: 08/08/16 09:18 Dose: 60 mg Nystatin (Nystatin Oral Suspension -) 500,000 units PO Q6HPO [facility] Polyethylene Glycol (Miralax (For Daily Use) -) 17 gm PO BID [facility] Last Admin: 08/08/16 09:17 Dose: Not Given Quinapril HCl (Accupril -) 20 mg PO DAILY [facility] Last Admin: 08/08/16 09:17 Dose: 20 mg - Objective Vital Signs: Vital Signs Temperature 98.2 F 08/08/16 09:05 Pulse Rate 106 H 08/08/16 09:05 Respiratory Rate 20 08/08/16 09:05 Blood Pressure 120/77 08/08/16 09:05 O2 Sat by Pulse Oximetry (%) 97 08/08/16 09:00 Constitutional: Yes: No Distress Eyes: Yes: Conjunctiva Clear Cardiovascular: Yes: S1, S2. No: Regular Rate and Rhythm Respiratory: Yes: Rhonchi Gastrointestinal: Yes: Normal Bowel Sounds, Soft. No: Tenderness Edema: No Labs: CBC, BMP 08/08/16 05:55 08/08/16 05:55 INR, PTT INR 1.45 (0.82-1.09) H 08/04/16 22:30 Assessment/Plan Bilateral pneumonia COPD CHF Continue empiric ceftriaxone
[2016-08-08] MEDS: NYSTATIN 500,000 UNITS/5 ML SUSPENSION PO SCH ×2 (13:16→17:09)
--- NOTE | 2016-08-08 13:16 | PN ---
Progress Note (short form) - Note Progress Note: CC: Sob s: still with sob and cough, on nc. sob again overnight, improved with bipap. + sweats. chronic orthostatic sx's unchanged. no cp palps orthopnea. received bid lasix yesterday, today written for daily lasix. o: Current Medications Acetaminophen (Tylenol -) 650 mg PO Q6H PRN PRN Reason: FEVER OR PAIN Last Admin: 08/06/16 12:03 Dose: 650 mg Albuterol/Ipratropium (Duoneb -) 1 amp NEB Q4H PRN PRN Reason: SHORT OF BREATH/WHEEZING Albuterol/Ipratropium (Duoneb -) 1 amp NEB QIDR [facility] Last Admin: 08/08/16 11:11 Dose: 1 amp Allopurinol (Zyloprim -) 100 mg PO DAILY [facility] Last Admin: 08/08/16 09:14 Dose: 100 mg Atorvastatin Calcium (Lipitor -) 10 mg PO HS [facility] Last Admin: 08/07/16 23:08 Dose: 10 mg Ceftriaxone Sodium (Rocephin 1gm Ivpb (Pre-Docked)) 1 gm IVPB DAILY [facility] Last Admin: 08/08/16 09:18 Dose: 1 gm Cholecalciferol (Vitamin D3 -) 1,000 unit PO BID [facility] Last Admin: 08/08/16 09:16 Dose: 1,000 unit Dabigatran (Pradaxa -) 150 mg PO BID [facility] Last Admin: 08/08/16 09:18 Dose: 150 mg Docusate Sodium (Colace -) 100 mg PO TID [facility] Last Admin: 08/08/16 06:22 Dose: 100 mg Dorzolamide HCl (Trusopt 2%) 1 drop OU BID [facility] Last Admin: 08/08/16 09:21 Dose: 1 drop Flecainide Acetate (Tambacor -) 100 mg PO BID [facility] Last Admin: 08/08/16 09:18 Dose: 100 mg Furosemide (Lasix Injection -) 40 mg IVPUSH DAILY [facility] Last Admin: 08/08/16 09:17 Dose: 40 mg Methylprednisolone Sodium Succinate (Solu-Medrol -) 60 mg IVPB BID [facility] Last Admin: 08/08/16 09:18 Dose: 60 mg Nystatin (Nystatin Oral Suspension -) 500,000 units PO Q6HPO [facility] Polyethylene Glycol (Miralax (For Daily Use) -) 17 gm PO BID [facility] Last Admin: 08/08/16 09:17 Dose: Not Given Quinapril HCl (Accupril -) 20 mg PO DAILY [facility] Last Admin: 08/08/16 09:17 Dose: 20 mg Vital Signs - 24 hr 08/07/16 08/07/16 08/07/16 14:35 17:15 18:00 Temperature 97.3 F L 97.0 F L Pulse Rate 96 H 99 H Respiratory 20 19 Rate Blood Pressure 130/78 124/73 O2 Sat by Pulse 98 Oximetry (%) 08/07/16 08/07/16 08/07/16 21:00 22:00 22:37 Temperature 97.5 F L Pulse Rate 95 H Respiratory 20 Rate Blood Pressure 127/75 O2 Sat by Pulse 97 97 97 Oximetry (%) 08/08/16 08/08/16 08/08/16 02:00 06:00 06:14 Temperature 97.8 F 97.7 F Pulse Rate 100 H 68 Respiratory 20 16 Rate Blood Pressure 116/89 140/78 O2 Sat by Pulse 97 Oximetry (%) 08/08/16 08/08/16 08/08/16 09:00 09:05 10:00 Temperature 98.2 F Pulse Rate 106 H Respiratory 20 Rate Blood Pressure 120/77 O2 Sat by Pulse 97 97 Oximetry (%) Intake & Output 08/06/16 08/07/16 08/08/16 08/09/16 07:59 07:59 07:59 07:59 Intake Total 360 700 720 Output Total 1850 400 Balance 360 -1150 320 Weight 136 lb 2 oz 0 oz 136 lb 3 oz nad, no jvd irreg, s1s2 no mrg scattered rhonchi bl, nl eff no le e/c/c aaox3 no jaundice diaphoresis CBC, BMP 08/08/16 05:55 08/08/16 05:55 cath 10/2009: non obstructive cad echo 03/2015: tds, nl lv/rv, mild lae, no sig valve path echo 08/2016: nl lv/rv, mod dwayne, mod-sev mr/tr, nl rvsp, mild-mod ar...on my review trace ar, mod mr, mild tr tele: afib, rate controlled around 100's. ecg 08/04/16: afib, vr 110, nonspecific lateral st-t changes, nl qtc, no sig change 07/27/16 ct chest: bl pna, no chf a/p: 85 f hx afib, hld, htn, breast ca here with sob, cough. sob, cough, pna, acute diastolic chf: -pt here with pna and dchf, getting iv abx, steroids, iv lasix -ct chest 08/06/16 reports bl pna, no chf -echo 08/2016 reports: nl lv/rv, mod dwayne, mod-sev mr/tr, nl rvsp, mild-mod ar....on my review only trace ar, mod mr, mild tr -on daily lasix, but received bid lasix on 08/07 (weight unchanged today). Can continue iv lasix for now while on IV steroids, but low threshold to stop if cr starts to rise, orthostatic sx's worsen or bp drops. con't daily weights and monitor daily chem7 -cont abx per ID as well afib: -has had several jorge/dccv in past but now back in afib -rate controlled but pt symptomatic in afib so plan was to cont her flecainide and have outpt jorge/dccv this week but was admitted for pna/chf instead -for now will cont current flecainide and monitor resp status--when improved will proceed with jorge/dccv (inpt vs outpt depending on clinical course) -monitor on tele -cont home pradaxa hld: -cont statin htn: -stable on home meds elevated trops: -borderline elevated trops with nl ck and flat trend, not consistent with acs -ecg similar to priors -echo with nl lvef, no wma's
[2016-08-08] MEDS: ATORVASTATIN CA 10 MG TABLET (FP) PO SCH (21:40)
[2016-08-09] MEDS: ALBUTEROL SO4 2.5/IPRATROPIUM 0.5 INH SOL 3 ML VIAL.NEB. NEB SCH ×5 (00:26→18:15)
[2016-08-09] MEDS: DOCUSATE SODIUM 100 MG CAPSULE (FP) PO SCH ×3 (06:09→21:27)
[2016-08-09] MEDS: NYSTATIN 500,000 UNITS/5 ML SUSPENSION PO SCH ×3 (06:09→13:50)
[2016-08-09 08:15] LABS: MCH 30.6 pg (25.7-33.7); MCHC 32.8 g/dl (32.0-36.0); MEAN CELL VOLUME 93.2 fl (80-96); MEAN PLT VOLUME 9.6 fl (7.5-11.1); NEUTROPHILS 93.9 % (42.8-82.8); PLATELET COUNT 151 K/MM3 (134-434)
[2016-08-09 08:51] LABS: CALCIUM 8.9 mg/dL (8.5-10.1); CREATININE 0.6 mg/dL (0.55-1.02)
[2016-08-09] MEDS: cefTRIAXone 1 GM/50 ML BAG (PRE-DOCKED) IVPB SCH (09:42)
[2016-08-09] MEDS: FUROSEMIDE 40 MG/4 ML INJECTABLE VIAL IVPUSH SCH (09:45)
[2016-08-09] MEDS: QUINAPRIL HCL 20 MG TABLET (FP) PO SCH (09:45)
[2016-08-09] MEDS: methylPREDNISolone NA SUCC 125 MG/2 ML VIAL IVPB SCH ×2 (09:45→21:28)
[2016-08-09] MEDS: DORZOLAMIDE 2% HCL OPHTHALMIC SOLUTION 10 ML BOTTLE OU SCH ×2 (09:46→21:29)
[2016-08-09] MEDS: POLYETHYLENE GLYCOL 3350 119 GM BTL PO SCH ×2 (09:46→21:28)
[2016-08-09] MEDS: DABIGATRAN ETEXILATE MESYLATE 150 MG CAPSULE PO SCH ×2 (09:46→21:28)
[2016-08-09] MEDS: ALLOPURINOL 100 MG TABLET (FP) PO SCH (09:47)
[2016-08-09] MEDS: CHOLECALCIFEROL (VITAMIN D3) 1,000 UNIT TABLET (FP) PO SCH ×2 (09:47→21:28)
[2016-08-09] MEDS: FLECAINIDE ACETATE 100 MG TABLET PO SCH ×2 (10:21→21:28)
--- NOTE | 2016-08-09 11:26 | PN ---
Progress Note, Physician Chief Complaint: Tired, coughing and was not able to sleep last estrellita. History of Present Illness: Patient with COPD came to ER with severe SOB and rapid A. Fib . Workup revealed bilateral infiltrates, acute exacerbation of COPD and moderate to severe MR and TR on Echo. She is is still coughing and SOB but doesn't feel as sick as she was in the ER. Followed by Pulmonary, ID and Cardiology MD's. - Current Medication List Current Medications: Active Medications Acetaminophen (Tylenol -) 650 mg PO Q6H PRN PRN Reason: FEVER OR PAIN Last Admin: 08/06/16 12:03 Dose: 650 mg Albuterol/Ipratropium (Duoneb -) 1 amp NEB Q4H PRN PRN Reason: SHORT OF BREATH/WHEEZING Albuterol/Ipratropium (Duoneb -) 1 amp NEB QIDR [facility] Last Admin: 08/09/16 06:22 Dose: 1 amp Allopurinol (Zyloprim -) 100 mg PO DAILY [facility] Last Admin: 08/09/16 09:47 Dose: 100 mg Atorvastatin Calcium (Lipitor -) 10 mg PO HS [facility] Last Admin: 08/08/16 21:40 Dose: 10 mg Ceftriaxone Sodium (Rocephin 1gm Ivpb (Pre-Docked)) 1 gm IVPB DAILY [facility] Last Admin: 08/09/16 09:42 Dose: 1 gm Cholecalciferol (Vitamin D3 -) 1,000 unit PO BID [facility] Last Admin: 08/09/16 09:47 Dose: 1,000 unit Dabigatran (Pradaxa -) 150 mg PO BID [facility] Last Admin: 08/09/16 09:46 Dose: 150 mg Docusate Sodium (Colace -) 100 mg PO TID [facility] Last Admin: 08/09/16 06:09 Dose: 100 mg Dorzolamide HCl (Trusopt 2%) 1 drop OU BID [facility] Last Admin: 08/09/16 09:46 Dose: 1 drop Flecainide Acetate (Tambacor -) 100 mg PO BID [facility] Last Admin: 08/09/16 10:21 Dose: 100 mg Furosemide (Lasix Injection -) 40 mg IVPUSH DAILY [facility] Last Admin: 08/09/16 09:45 Dose: 40 mg Methylprednisolone Sodium Succinate (Solu-Medrol -) 60 mg IVPB BID [facility] Last Admin: 08/09/16 09:45 Dose: 60 mg Nystatin (Nystatin Oral Suspension -) 500,000 units PO Q6HPO [facility] Last Admin: 08/09/16 06:09 Dose: 500,000 units Polyethylene Glycol (Miralax (For Daily Use) -) 17 gm PO BID [facility] Last Admin: 08/09/16 09:46 Dose: 17 grams Quinapril HCl (Accupril -) 20 mg PO DAILY [facility] Last Admin: 08/09/16 09:45 Dose: 20 mg - Objective Vital Signs: Vital Signs Temperature 97.4 F L 08/09/16 05:57 Pulse Rate 101 H 08/09/16 09:41 Respiratory Rate 24 08/09/16 09:41 Blood Pressure 120/57 08/09/16 09:41 O2 Sat by Pulse Oximetry (%) 98 08/08/16 20:00 Constitutional: Yes: Mild Distress Eyes: Yes: Conjunctiva Clear Cardiovascular: Yes: Pulse Irregular Respiratory: Yes: Rales, Rhonchi (both bases) Gastrointestinal: Yes: Soft. No: Tenderness Genitourinary: No: Ochoa Present Edema: No Neurological: Yes: Alert, Oriented Labs: CBC, BMP 08/09/16 05:50 08/09/16 05:50 INR, PTT INR 1.45 (0.82-1.09) H 08/04/16 22:30 Problem List - Problems (1) Pneumonia Assessment/Plan: Very slow to clear with continuing rales and rhonchi in both lung echeverria. On IV antibiotics as per ID MD. Code(s): J18.9 - PNEUMONIA, UNSPECIFIED ORGANISM Qualifiers: Laterality: bilateral (2) Acute exacerbation of chronic obstructive pulmonary disease Assessment/Plan: On IV steroids. Code(s): J44.1 - CHRONIC OBSTRUCTIVE PULMONARY DISEASE W (ACUTE) EXACERBATION (3) CHF (congestive heart failure) Assessment/Plan: Seen by Dr. Bone; Echo noted. Code(s): I50.9 - HEART FAILURE, UNSPECIFIED Qualifiers: Congestive heart failure type: unspecified congestive heart failure type Congestive heart failure chronicity: acute Qualified Code(s): I50.9 - Heart failure, unspecified (4) Chronic atrial fibrillation Assessment/Plan: On Rx with Pradaxa Code(s): I48.2 - CHRONIC ATRIAL FIBRILLATION (5) HTN (hypertension) Assessment/Plan: Stable. Code(s): I10 - ESSENTIAL (PRIMARY) HYPERTENSION (6) Thrush Code(s): B37.0 - CANDIDAL STOMATITIS
[2016-08-09] MEDS ORDERED: POTASSIUM CHLORIDE 40 MEQ/30 ML UNIT DOSE CUP PO ONE (13:23)
--- NOTE | 2016-08-09 13:30 | PN ---
Progress Note (short form) - Note Progress Note: CC: Sob s: still with sob and cough, on nc. sob again overnight, not as much improvement with bipap. chronic orthostatic sx's unchanged. no cp palps. possible orthopnea states breathing better sitting up. o: Current Medications Acetaminophen (Tylenol -) 650 mg PO Q6H PRN PRN Reason: FEVER OR PAIN Last Admin: 08/06/16 12:03 Dose: 650 mg Albuterol/Ipratropium (Duoneb -) 1 amp NEB Q4H PRN PRN Reason: SHORT OF BREATH/WHEEZING Albuterol/Ipratropium (Duoneb -) 1 amp NEB QIDR [facility] Last Admin: 08/09/16 12:45 Dose: 1 amp Allopurinol (Zyloprim -) 100 mg PO DAILY [facility] Last Admin: 08/09/16 09:47 Dose: 100 mg Atorvastatin Calcium (Lipitor -) 10 mg PO HS [facility] Last Admin: 08/08/16 21:40 Dose: 10 mg Ceftriaxone Sodium (Rocephin 1gm Ivpb (Pre-Docked)) 1 gm IVPB DAILY [facility] Last Admin: 08/09/16 09:42 Dose: 1 gm Cholecalciferol (Vitamin D3 -) 1,000 unit PO BID [facility] Last Admin: 08/09/16 09:47 Dose: 1,000 unit Dabigatran (Pradaxa -) 150 mg PO BID [facility] Last Admin: 08/09/16 09:46 Dose: 150 mg Docusate Sodium (Colace -) 100 mg PO TID [facility] Last Admin: 08/09/16 06:09 Dose: 100 mg Dorzolamide HCl (Trusopt 2%) 1 drop OU BID [facility] Last Admin: 08/09/16 09:46 Dose: 1 drop Flecainide Acetate (Tambacor -) 100 mg PO BID [facility] Last Admin: 08/09/16 10:21 Dose: 100 mg Furosemide (Lasix Injection -) 40 mg IVPUSH DAILY [facility] Last Admin: 08/09/16 09:45 Dose: 40 mg Methylprednisolone Sodium Succinate (Solu-Medrol -) 60 mg IVPB BID [facility] Last Admin: 08/09/16 09:45 Dose: 60 mg Nystatin (Nystatin Oral Suspension -) 500,000 units PO Q6HPO [facility] Last Admin: 08/09/16 06:09 Dose: 500,000 units Polyethylene Glycol (Miralax (For Daily Use) -) 17 gm PO BID [facility] Last Admin: 08/09/16 09:46 Dose: 17 grams Potassium Chloride (Kcl Oral Solution -) 40 meq PO ONCE ONE Stop: 08/09/16 13:24 Quinapril HCl (Accupril -) 20 mg PO DAILY [facility] Last Admin: 08/09/16 09:45 Dose: 20 mg Vital Signs - 24 hr 08/08/16 08/08/16 08/08/16 14:16 17:00 18:56 Temperature 98.5 F 97.0 F L Pulse Rate 98 H 94 H Respiratory 22 18 Rate Blood Pressure 114/65 138/76 O2 Sat by Pulse 100 Oximetry (%) 08/08/16 08/09/16 08/09/16 20:00 00:46 01:59 Temperature 97.3 F L 97 F L Pulse Rate 86 98 H 107 H Respiratory 18 20 20 Rate Blood Pressure 145/77 130/70 138/85 O2 Sat by Pulse 98 Oximetry (%) 08/09/16 08/09/16 05:57 09:41 Temperature 97.4 F L Pulse Rate 104 H 101 H Respiratory 18 24 Rate Blood Pressure 140/82 120/57 O2 Sat by Pulse Oximetry (%) Intake & Output 08/07/16 08/08/16 08/09/16 08/10/16 07:59 07:59 07:59 07:59 Intake Total 700 720 410 Output Total 1850 400 500 Balance -1150 320 -90 Weight 0 oz 136 lb 3 oz nad, no jvd irreg, s1s2 no mrg scattered rhonchi bl, nl eff no le e/c/c aaox3 no jaundice diaphoresis CBC, BMP 08/09/16 05:50 08/09/16 05:50 Laboratory Tests 08/09/16 05:50 Hemoglobin A1c % 6.5 H cath 10/2009: non obstructive cad echo 03/2015: tds, nl lv/rv, mild lae, no sig valve path echo 08/2016: nl lv/rv, mod dwayne, mod-sev mr/tr, nl rvsp, mild-mod ar...on my review trace ar, mod mr, mild tr tele: afib, rate controlled around 100's. ecg 1/31/17: afib, vr 110, nonspecific lateral st-t changes, nl qtc, no sig change 07/27/16 ct chest: bl pna, no chf a/p: 85 f hx afib, hld, htn, breast ca here with sob, cough. sob, cough, pna, acute diastolic chf: -pt here with pna and dchf, getting iv abx, steroids, iv lasix -ct chest 08/06/16 reports bl pna, no chf -echo 08/2016 reports: nl lv/rv, mod dwayne, mod-sev mr/tr, nl rvsp, mild-mod ar....on my review only trace ar, mod mr, mild tr -on daily lasix, but received bid lasix on 08/07 (weight unchanged today). Can continue iv lasix for now while on IV steroids, but low threshold to stop if cr starts to rise, orthostatic sx's worsen or bp drops. Daily weights and monitor daily chem7 -cont abx per ID as well afib: -has had several jorge/dccv in past but now back in afib -rate controlled but pt symptomatic in afib so plan was to cont her flecainide and have outpt jorge/dccv this week but was admitted for pna/chf instead -for now will cont current flecainide and monitor resp status--when improved will proceed with jorge/dccv (inpt vs outpt depending on clinical course) -monitor on tele -cont home pradaxa hld: -cont statin htn: -stable on home meds elevated trops: -borderline elevated trops with nl ck and flat trend, not consistent with acs -ecg similar to priors -echo with nl lvef, no wma's
[2016-08-09] MEDS ORDERED: POTASSIUM CHLORIDE 40 MEQ/30 ML UNIT DOSE CUP ONE (13:53)
[2016-08-09] MEDS ORDERED: PT OWN MED DRAWER 7, Y5N ONE (20:43)
[2016-08-09] MEDS: ATORVASTATIN CA 10 MG TABLET (FP) PO SCH (21:27)
[2016-08-10] MEDS: DOCUSATE SODIUM 100 MG CAPSULE (FP) PO SCH ×3 (06:14→21:49)
[2016-08-10] MEDS: NYSTATIN 500,000 UNITS/5 ML SUSPENSION PO SCH ×4 (06:14→18:04)
[2016-08-10 07:13] LABS: BASOPHIL 0.1 % (0-2.0); MCH 30.9 pg (25.7-33.7); MCHC 33.2 g/dl (32.0-36.0); MEAN CELL VOLUME 93.1 fl (80-96); MEAN PLT VOLUME 9.7 fl (7.5-11.1); NEUTROPHILS 93.9 % (42.8-82.8); PLATELET COUNT 163 K/MM3 (134-434); RDW 13.9 % (11.6-15.6); WHITE BLOOD COUNT 9.2 K/mm3 (4.0-10.0)
[2016-08-10 07:43] LABS: CALCIUM 9.3 mg/dL (8.5-10.1); CREATININE 0.8 mg/dL (0.55-1.02)
--- NOTE | 2016-08-10 09:20 | PN ---
Progress Note, Physician Chief Complaint: resp distress/pna History of Present Illness: having coughing fits today, can't bring up any phlegm; no cp, palpit, syncoe - Current Medication List Current Medications: Active Medications Acetaminophen (Tylenol -) 650 mg PO Q6H PRN PRN Reason: FEVER OR PAIN Last Admin: 08/06/16 12:03 Dose: 650 mg Albuterol/Ipratropium (Duoneb -) 1 amp NEB Q4H PRN PRN Reason: SHORT OF BREATH/WHEEZING Albuterol/Ipratropium (Duoneb -) 1 amp NEB QIDR [facility] Last Admin: 08/10/16 00:00 Dose: 1 amp Allopurinol (Zyloprim -) 100 mg PO DAILY [facility] Last Admin: 08/09/16 09:47 Dose: 100 mg Atorvastatin Calcium (Lipitor -) 10 mg PO HS [facility] Last Admin: 08/09/16 21:27 Dose: 10 mg Ceftriaxone Sodium (Rocephin 1gm Ivpb (Pre-Docked)) 1 gm IVPB DAILY [facility] Last Admin: 08/09/16 09:42 Dose: 1 gm Cholecalciferol (Vitamin D3 -) 1,000 unit PO BID [facility] Last Admin: 08/09/16 21:28 Dose: 1,000 unit Dabigatran (Pradaxa -) 150 mg PO BID [facility] Last Admin: 08/09/16 21:28 Dose: 150 mg Docusate Sodium (Colace -) 100 mg PO TID [facility] Last Admin: 08/10/16 06:14 Dose: 100 mg Dorzolamide HCl (Trusopt 2%) 1 drop OU BID [facility] Last Admin: 08/09/16 21:29 Dose: 1 drop Flecainide Acetate (Tambacor -) 100 mg PO BID [facility] Last Admin: 08/09/16 21:28 Dose: 100 mg Furosemide (Lasix Injection -) 40 mg IVPUSH DAILY [facility] Last Admin: 08/09/16 09:45 Dose: 40 mg Methylprednisolone Sodium Succinate (Solu-Medrol -) 60 mg IVPB BID [facility] Last Admin: 08/09/16 21:28 Dose: 60 mg Nystatin (Nystatin Oral Suspension -) 500,000 units PO Q6HPO [facility] Last Admin: 08/10/16 06:14 Dose: 500,000 units Polyethylene Glycol (Miralax (For Daily Use) -) 17 gm PO BID [facility] Last Admin: 08/09/16 21:28 Dose: Not Given Quinapril HCl (Accupril -) 20 mg PO DAILY [facility] Last Admin: 08/09/16 09:45 Dose: 20 mg - Objective Vital Signs: Vital Signs Temperature 97.8 F 08/10/16 06:00 Pulse Rate 102 H 08/10/16 06:00 Respiratory Rate 18 08/10/16 06:00 Blood Pressure 152/86 08/10/16 06:00 O2 Sat by Pulse Oximetry (%) 97 08/09/16 22:00 Constitutional: Yes: Well Nourished, No Distress, Calm Cardiovascular: Yes: Pulse Irregular, S1, S2. No: JVD, Gallop, Murmur Respiratory: Yes: Regular, Rhonchi, Wheezes (scattered/brief). No: Accessory Muscle Use, Rales Extremities: No: Cold Edema: No Neurological: Yes: Alert, Oriented Psychiatric: No: Agitated Labs: CBC, BMP 08/10/16 05:35 08/10/16 05:35 INR, PTT INR 1.45 (0.82-1.09) H 08/04/16 22:30 - ....Imaging Chest X-ray: Report Reviewed, Image Reviewed EKG: Other (tele: afib, good HRs) Assessment/Plan echo 03/2015: tds, nl lv/rv, mild lae, no sig valve path echo 08/2016: nl lv/rv, mod dwayne, mod-sev mr/tr, nl rvsp, mild-mod ar...on my review trace ar, mod mr, mild tr tele: afib, rate controlled around 100's. ecg 08/04/16: afib, vr 110, nonspecific lateral st-t changes, nl qtc, no sig change 07/27/16 ct chest: bl pna, no chf a/p: 85 f hx afib, hld, htn, breast ca here with sob, cough. a.e. copd, bilat PNA, acute diastolic chf: -developed acute HFpEF on cruise, ? triggered by pneumonitis then--7 lb wt loss in few days on lasix 20 qd in office -now here with worsening resp status, mostly due to recurrent lung infxn/a.e. copd--abx, iv steroids, BDs per pulm/ID -ct chest 08/06/16 reports bl pna, no chf -suspect "mod-sev" MR and TR on echo report here is over-read--no prior h/o signif valve dysfunction--will await JORGE at time of cardioversion for more accurate assesment of valves -continuing iv lasix while on IV steroids, but low threshold to stop if cr starts to rise, orthostatic sx's worsen or bp drops. -bun trending up --? steroid effect; bicarb up slightly; Na down slightly today- -if trend continues tomorrow, will probably change to po lasix (want to wait until clearly vol depletion trend to make sure chf is as optimized as possible) -08/10 cxr reviewed: infiltrates improving bilat (mirella on R lower/mid lung echeverria) , ? if vascular redistrib present -? mucolytic/chest PT--per dr luna afib: -has had several jorge/dccv in past but now back in afib, on maintenance flecainide 100 bid x several years -for JORGE/DCCV once resp status improved (inpt vs outpt depending on clinical course) -monitor on tele -cont home pradaxa hld: -cont statin htn: -stable on home meds elevated trops: -intermediate-range trops without accompanying s/sx to suggest ACS -ecg similar to priors -echo with nl lvef, no wma's
--- NOTE | 2016-08-10 09:50 | PN ---
Progress Note, Physician History of Present Illness: Pt less dyspneic though used Bipap for several hours last night. No chest pain. Little sputum production - Current Medication List Current Medications: Active Medications Acetaminophen (Tylenol -) 650 mg PO Q6H PRN PRN Reason: FEVER OR PAIN Last Admin: 08/06/16 12:03 Dose: 650 mg Albuterol/Ipratropium (Duoneb -) 1 amp NEB Q4H PRN PRN Reason: SHORT OF BREATH/WHEEZING Albuterol/Ipratropium (Duoneb -) 1 amp NEB QIDR [facility] Last Admin: 08/10/16 00:00 Dose: 1 amp Allopurinol (Zyloprim -) 100 mg PO DAILY [facility] Last Admin: 08/09/16 09:47 Dose: 100 mg Atorvastatin Calcium (Lipitor -) 10 mg PO HS [facility] Last Admin: 08/09/16 21:27 Dose: 10 mg Ceftriaxone Sodium (Rocephin 1gm Ivpb (Pre-Docked)) 1 gm IVPB DAILY [facility] Last Admin: 08/09/16 09:42 Dose: 1 gm Cholecalciferol (Vitamin D3 -) 1,000 unit PO BID [facility] Last Admin: 08/09/16 21:28 Dose: 1,000 unit Dabigatran (Pradaxa -) 150 mg PO BID [facility] Last Admin: 08/09/16 21:28 Dose: 150 mg Docusate Sodium (Colace -) 100 mg PO TID [facility] Last Admin: 08/10/16 06:14 Dose: 100 mg Dorzolamide HCl (Trusopt 2%) 1 drop OU BID [facility] Last Admin: 08/09/16 21:29 Dose: 1 drop Flecainide Acetate (Tambacor -) 100 mg PO BID [facility] Last Admin: 08/09/16 21:28 Dose: 100 mg Furosemide (Lasix Injection -) 40 mg IVPUSH DAILY [facility] Last Admin: 08/09/16 09:45 Dose: 40 mg Methylprednisolone Sodium Succinate (Solu-Medrol -) 60 mg IVPB BID [facility] Last Admin: 08/09/16 21:28 Dose: 60 mg Nystatin (Nystatin Oral Suspension -) 500,000 units PO Q6HPO [facility] Last Admin: 08/10/16 06:14 Dose: 500,000 units Polyethylene Glycol (Miralax (For Daily Use) -) 17 gm PO BID [facility] Last Admin: 02/05/17 21:28 Dose: Not Given Quinapril HCl (Accupril -) 20 mg PO DAILY [facility] Last Admin: 08/09/16 09:45 Dose: 20 mg - Objective Vital Signs: Vital Signs Temperature 97.8 F 08/10/16 06:00 Pulse Rate 102 H 08/10/16 06:00 Respiratory Rate 18 08/10/16 06:00 Blood Pressure 152/86 08/10/16 06:00 O2 Sat by Pulse Oximetry (%) 97 08/09/16 22:00 Constitutional: Yes: Mild Distress (secondary to cough) Eyes: No: Sclera Icterus HENT: Yes: Atraumatic, Normocephalic Neck: Yes: Supple, Trachea Midline Cardiovascular: Yes: Pulse Irregular Respiratory: Yes: Rhonchi (bilateral) Gastrointestinal: Yes: Soft. No: Tenderness Extremities: No: Calf Tenderness Edema: No Neurological: Yes: Alert, Oriented Labs: CBC, BMP 08/10/16 05:35 08/10/16 05:35 INR, PTT INR 1.45 (0.82-1.09) H 08/04/16 22:30 Problem List - Problems (1) Acute respiratory failure Code(s): J96.00 - ACUTE RESPIRATORY FAILURE, UNSP W HYPOXIA OR HYPERCAPNIA Qualifiers: Respiratory failure complication: hypoxia Qualified Code(s): J96.01 - Acute respiratory failure with hypoxia (2) Acute exacerbation of chronic obstructive pulmonary disease Code(s): J44.1 - CHRONIC OBSTRUCTIVE PULMONARY DISEASE W (ACUTE) EXACERBATION (3) CHF (congestive heart failure) Code(s): I50.9 - HEART FAILURE, UNSPECIFIED Qualifiers: Congestive heart failure type: unspecified congestive heart failure type Congestive heart failure chronicity: acute Qualified Code(s): I50.9 - Heart failure, unspecified (4) Pneumonia Code(s): J18.9 - PNEUMONIA, UNSPECIFIED ORGANISM Qualifiers: Laterality: bilateral (5) Paroxysmal atrial fibrillation Code(s): I48.0 - PAROXYSMAL ATRIAL FIBRILLATION Assessment/Plan 85 year old lady with: Acute Exacerbation COPD secondary to respiratory infection-probably viral and CHF CHF- appears improved clinically but will repeat CXR Pneumonia Paroxysmal Atrial Fibrillation on Pradaxa Suggest: Antibiotics per I.D. O2 to maintain SaO2>90 Inhaled bronchodilators Diuretic anticoagulation ? cardioversion when medically stable IV steriods CXR
[2016-08-10] MEDS ORDERED: PT OWN MED DRAWER 7, Y5N ONE ×2 (10:18→21:13)
[2016-08-10] MEDS: FUROSEMIDE 40 MG/4 ML INJECTABLE VIAL IVPUSH SCH (11:08)
[2016-08-10] MEDS: POLYETHYLENE GLYCOL 3350 119 GM BTL PO SCH ×2 (11:08→21:49)
[2016-08-10] MEDS: QUINAPRIL HCL 20 MG TABLET (FP) PO SCH (11:08)
[2016-08-10] MEDS: cefTRIAXone 1 GM/50 ML BAG (PRE-DOCKED) IVPB SCH (11:11)
[2016-08-10] MEDS: DABIGATRAN ETEXILATE MESYLATE 150 MG CAPSULE PO SCH ×2 (11:11→21:50)
[2016-08-10] MEDS: methylPREDNISolone NA SUCC 125 MG/2 ML VIAL IVPB SCH ×2 (11:11→21:50)
[2016-08-10] MEDS: FLECAINIDE ACETATE 100 MG TABLET PO SCH ×2 (11:11→21:49)
[2016-08-10] MEDS: ALLOPURINOL 100 MG TABLET (FP) PO SCH (11:12)
[2016-08-10] MEDS: CHOLECALCIFEROL (VITAMIN D3) 1,000 UNIT TABLET (FP) PO SCH ×2 (11:12→21:49)
[2016-08-10] MEDS: DORZOLAMIDE 2% HCL OPHTHALMIC SOLUTION 10 ML BOTTLE OU SCH ×2 (11:12→21:50)
[2016-08-10] MEDS: ALBUTEROL SO4 2.5/IPRATROPIUM 0.5 INH SOL 3 ML VIAL.NEB. NEB SCH ×3 (11:54→17:40)
--- NOTE | 2016-08-10 14:06 | PN ---
Progress Note (short form) - Note Progress Note: still with episodes of dry cough, when she coughs she can't catch her breath used bipap last night Vital Signs Period Temp Pulse Resp BP Sys/Bender Pulse Ox Last 24 Hr 97.2 F-98.1 F 85-110 2-22 122-152/64-87 97-98 cor-rrr lungs decreased bs at bases abd soft,nt ext no edema CBC, BMP 08/10/16 05:35 08/10/16 05:35 Microbiology 08/04/16 22:30 Blood - Peripheral Venous Blood Culture - Final NO GROWTH AFTER 5 DAYS INCUBATION 08/04/16 23:00 Blood - Peripheral Venous Blood Culture - Final NO GROWTH AFTER 5 DAYS INCUBATION 08/07/16 13:00 Sputum - Expectorated Gram Stain - Final 08/07/16 13:00 Sputum - Expectorated Sputum Culture - Final NORMAL RESPIRATORY CORA 08/05/16 05:35 Nasopharyngeal Swab Respiratory Virus Panel - Preliminary 08/05/16 23:00 Urine For Antigen Detection Legionella Antigen - Final 08/05/16 23:00 Urine For Antigen Detection Streptococcus pneumoniae Antigen (M - Final 08/05/16 05:35 Nasopharyngeal Swab Influenza Types A,B Antigen (DREAD) - Final 08/05/16 05:35 Nasopharyngeal Swab - Final cxray improved a/p chf pneumonia copd improved continue ceftriaxone day #6 antibiotics, d/c antibiotics after am dose
--- NOTE | 2016-08-10 15:32 | PN ---
Progress Note, Physician Chief Complaint: Mrs Vasquez says she is having bronchospasms but she is feeling much improved from last week. Breathing is much better. No cp or n/v. - Current Medication List Current Medications: Active Medications Acetaminophen (Tylenol -) 650 mg PO Q6H PRN PRN Reason: FEVER OR PAIN Last Admin: 08/06/16 12:03 Dose: 650 mg Albuterol/Ipratropium (Duoneb -) 1 amp NEB Q4H PRN PRN Reason: SHORT OF BREATH/WHEEZING Albuterol/Ipratropium (Duoneb -) 1 amp NEB QIDR [facility] Last Admin: 08/10/16 11:54 Dose: 1 amp Allopurinol (Zyloprim -) 100 mg PO DAILY [facility] Last Admin: 08/10/16 11:12 Dose: 100 mg Atorvastatin Calcium (Lipitor -) 10 mg PO HS [facility] Last Admin: 08/09/16 21:27 Dose: 10 mg Ceftriaxone Sodium (Rocephin 1gm Ivpb (Pre-Docked)) 1 gm IVPB DAILY [facility] Last Admin: 08/10/16 11:11 Dose: 1 gm Cholecalciferol (Vitamin D3 -) 1,000 unit PO BID [facility] Last Admin: 08/10/16 11:12 Dose: 1,000 unit Dabigatran (Pradaxa -) 150 mg PO BID [facility] Last Admin: 08/10/16 11:11 Dose: 150 mg Docusate Sodium (Colace -) 100 mg PO TID [facility] Last Admin: 08/10/16 06:14 Dose: 100 mg Dorzolamide HCl (Trusopt 2%) 1 drop OU BID [facility] Last Admin: 08/10/16 11:12 Dose: 1 drop Flecainide Acetate (Tambacor -) 100 mg PO BID [facility] Last Admin: 08/10/16 11:11 Dose: 100 mg Furosemide (Lasix Injection -) 40 mg IVPUSH DAILY [facility] Last Admin: 08/10/16 11:08 Dose: 40 mg Methylprednisolone Sodium Succinate (Solu-Medrol -) 60 mg IVPB BID [facility] Last Admin: 08/10/16 11:11 Dose: 60 mg Nystatin (Nystatin Oral Suspension -) 500,000 units PO Q6HPO [facility] Last Admin: 08/10/16 11:07 Dose: 500,000 units Polyethylene Glycol (Miralax (For Daily Use) -) 17 gm PO BID [facility] Last Admin: 08/10/16 11:08 Dose: 17 grams Quinapril HCl (Accupril -) 20 mg PO DAILY [facility] Last Admin: 08/10/16 11:08 Dose: 20 mg - Objective Vital Signs: Vital Signs Temperature 98.0 F 08/10/16 14:04 Pulse Rate 93 H 08/10/16 14:04 Respiratory Rate 20 08/10/16 14:04 Blood Pressure 109/54 08/10/16 14:04 O2 Sat by Pulse Oximetry (%) 97 08/10/16 13:58 Constitutional: Yes: Well Nourished, No Distress, Calm Cardiovascular: Yes: Regular Rate and Rhythm. No: Gallop, Murmur, Rub Respiratory: Yes: Regular, On Nasal O2, Rhonchi, Wheezes. No: Rales Gastrointestinal: Yes: Normal Bowel Sounds, Soft. No: Distention, Tenderness Extremities: Yes: WNL Edema: No Labs: CBC, BMP 08/10/16 05:35 08/10/16 05:35 INR, PTT INR 1.45 (0.82-1.09) H 08/04/16 22:30 Problem List - Problems (1) Acute respiratory failure Code(s): J96.00 - ACUTE RESPIRATORY FAILURE, UNSP W HYPOXIA OR HYPERCAPNIA Qualifiers: Respiratory failure complication: hypoxia Qualified Code(s): J96.01 - Acute respiratory failure with hypoxia (2) CHF (congestive heart failure) Code(s): I50.9 - HEART FAILURE, UNSPECIFIED Qualifiers: Congestive heart failure type: unspecified congestive heart failure type Congestive heart failure chronicity: acute Qualified Code(s): I50.9 - Heart failure, unspecified (3) COPD (chronic obstructive pulmonary disease) Code(s): J44.9 - CHRONIC OBSTRUCTIVE PULMONARY DISEASE, UNSPECIFIED Qualifiers : COPD type: unspecified COPD Qualified Code(s): J44.9 - Chronic obstructive pulmonary disease, unspecified (4) Chronic atrial fibrillation Code(s): I48.2 - CHRONIC ATRIAL FIBRILLATION (5) Pneumonia Code(s): J18.9 - PNEUMONIA, UNSPECIFIED ORGANISM Qualifiers: Laterality: bilateral (6) HTN (hypertension) Code(s): I10 - ESSENTIAL (PRIMARY) HYPERTENSION (7) HLD (hyperlipidemia) Code(s): E78.5 - HYPERLIPIDEMIA, UNSPECIFIED (8) Gout Code(s): M10.9 - GOUT, UNSPECIFIED Assessment/Plan (1) Acute respiratory failure Assessment/Plan: -much improved today -pulmonary following -continue solumedrol per pulmonary -continue duonebs Code(s): J96.00 - ACUTE RESPIRATORY FAILURE, UNSP W HYPOXIA OR HYPERCAPNIA Qualifiers: Respiratory failure complication: hypoxia Qualified Code(s): J96.01 - Acute respiratory failure with hypoxia (2) CHF (congestive heart failure) Assessment/Plan: -cardiology following and note reviewed -continue IV lasix -monitor renal function Code(s): I50.9 - HEART FAILURE, UNSPECIFIED Qualifiers: Congestive heart failure type: unspecified congestive heart failure type Congestive heart failure chronicity: acute Qualified Code(s): I50.9 - Heart failure, unspecified (3) COPD (chronic obstructive pulmonary disease) Assessment/Plan: -much improved -continue solumedrol and duonebs -continue oxygen Code(s): J44.9 - CHRONIC OBSTRUCTIVE PULMONARY DISEASE, UNSPECIFIED Qualifiers : COPD type: unspecified COPD Qualified Code(s): J44.9 - Chronic obstructive pulmonary disease, unspecified (4) Chronic atrial fibrillation Assessment/Plan: -continue flecainide and pradaxa -cardioversion per cardiology Code(s): I48.2 - CHRONIC ATRIAL FIBRILLATION (5) Pneumonia Assessment/Plan: -appreciate ID assistance -continue rocephin currently Code(s): J18.9 - PNEUMONIA, UNSPECIFIED ORGANISM (6) HTN (hypertension) Assessment/Plan: -continue quinapril Code(s): I10 - ESSENTIAL (PRIMARY) HYPERTENSION (7) HLD (hyperlipidemia) Assessment/Plan: -continue statin Code(s): E78.5 - HYPERLIPIDEMIA, UNSPECIFIED (8) Gout Assessment/Plan: -continue allopurinol Code(s): M10.9 - GOUT, UNSPECIFIED (9) Constipation -resolved
[2016-08-10] MEDS: ATORVASTATIN CA 10 MG TABLET (FP) PO SCH (21:49)
[2016-08-11] MEDS: NYSTATIN 500,000 UNITS/5 ML SUSPENSION PO SCH ×4 (00:10→17:27)
[2016-08-11] MEDS: ALBUTEROL SO4 2.5/IPRATROPIUM 0.5 INH SOL 3 ML VIAL.NEB. NEB SCH ×4 (06:00→19:00)
[2016-08-11] MEDS: DOCUSATE SODIUM 100 MG CAPSULE (FP) PO SCH ×3 (06:30→22:10)
[2016-08-11 07:22] LABS: MCH 30.6 pg (25.7-33.7); MCHC 32.7 g/dl (32.0-36.0); MEAN CELL VOLUME 93.6 fl (80-96); MEAN PLT VOLUME 9.6 fl (7.5-11.1); NEUTROPHILS 94.3 % (42.8-82.8); PLATELET COUNT 172 K/MM3 (134-434); RDW 14.1 % (11.6-15.6); WHITE BLOOD COUNT 11.4 K/mm3 (4.0-10.0)
[2016-08-11 07:38] LABS: CALCIUM 8.7 mg/dL (8.5-10.1); CREATININE 0.8 mg/dL (0.55-1.02); MAGNESIUM 1.9 mg/dL (1.8-2.4); PHOSPHOROUS 3.6 mg/dL (2.5-4.9)
[2016-08-11] MEDS ORDERED: PT OWN MED DRAWER 7, Y5N ONE ×3 (08:33→22:07)
[2016-08-11] MEDS: POLYETHYLENE GLYCOL 3350 119 GM BTL PO SCH ×2 (09:44→22:10)
[2016-08-11] MEDS: FUROSEMIDE 40 MG/4 ML INJECTABLE VIAL IVPUSH SCH (09:44)
[2016-08-11] MEDS: QUINAPRIL HCL 20 MG TABLET (FP) PO SCH (09:44)
[2016-08-11] MEDS: FLECAINIDE ACETATE 100 MG TABLET PO SCH ×2 (09:45→22:10)
[2016-08-11] MEDS: DORZOLAMIDE 2% HCL OPHTHALMIC SOLUTION 10 ML BOTTLE OU SCH ×2 (09:45→22:10)
[2016-08-11] MEDS: DABIGATRAN ETEXILATE MESYLATE 150 MG CAPSULE PO SCH ×2 (09:45→22:10)
[2016-08-11] MEDS: methylPREDNISolone NA SUCC 125 MG/2 ML VIAL IVPB SCH ×2 (09:45→22:10)
[2016-08-11] MEDS: cefTRIAXone 1 GM/50 ML BAG (PRE-DOCKED) IVPB SCH (09:45)
[2016-08-11] MEDS: ALLOPURINOL 100 MG TABLET (FP) PO SCH (09:50)
[2016-08-11] MEDS: CHOLECALCIFEROL (VITAMIN D3) 1,000 UNIT TABLET (FP) PO SCH ×2 (09:50→22:17)
--- NOTE | 2016-08-11 10:54 | PN ---
Progress Note (short form) - Note Progress Note: still with episodes of dry cough, when she coughs she can't catch her breath used bipap last night Vital Signs Period Temp Pulse Resp BP Sys/Bender Pulse Ox Last 24 Hr 98.0 F-98.7 F 88-101 18-20 107-147/54-87 94-97 cor-rrr lungs bibasilar crackles abd soft,nt ext no edema CBC, BMP 08/11/16 05:35 08/11/16 05:35 Microbiology 08/05/16 05:35 Nasopharyngeal Swab Respiratory Virus Panel - Preliminary 08/04/16 22:30 Blood - Peripheral Venous Blood Culture - Final NO GROWTH AFTER 5 DAYS INCUBATION 08/04/16 23:00 Blood - Peripheral Venous Blood Culture - Final NO GROWTH AFTER 5 DAYS INCUBATION 08/07/16 13:00 Sputum - Expectorated Gram Stain - Final 08/07/16 13:00 Sputum - Expectorated Sputum Culture - Final NORMAL RESPIRATORY CORA 08/05/16 23:00 Urine For Antigen Detection Legionella Antigen - Final 08/05/16 23:00 Urine For Antigen Detection Streptococcus pneumoniae Antigen (M - Final 08/05/16 05:35 Nasopharyngeal Swab Influenza Types A,B Antigen (DREAD) - Final 08/05/16 05:35 Nasopharyngeal Swab - Final cxray improved a/p chf pneumonia copd positive RSV- suspect this is the etiology for her bronchospasm and cough improved continue ceftriaxone day #7 antibiotics, d/c antibiotics today
--- NOTE | 2016-08-11 11:31 | PN ---
Progress Note (short form) - Note Progress Note: Chief Complaint: resp distress/pna History of Present Illness: still coughing, can't bring up any phlegm; no cp, palpit, syncope. chronic orthostatic sx's unchanged. Current Medications Acetaminophen (Tylenol -) 650 mg PO Q6H PRN PRN Reason: FEVER OR PAIN Last Admin: 08/06/16 12:03 Dose: 650 mg Albuterol/Ipratropium (Duoneb -) 1 amp NEB Q4H PRN PRN Reason: SHORT OF BREATH/WHEEZING Last Admin: 08/11/16 09:00 Dose: 1 amp Albuterol/Ipratropium (Duoneb -) 1 amp NEB QIDR [facility] Last Admin: 08/11/16 00:00 Dose: 1 amp Allopurinol (Zyloprim -) 100 mg PO DAILY [facility] Last Admin: 08/11/16 09:50 Dose: 100 mg Atorvastatin Calcium (Lipitor -) 10 mg PO HS [facility] Last Admin: 08/10/16 21:49 Dose: 10 mg Cholecalciferol (Vitamin D3 -) 1,000 unit PO BID [facility] Last Admin: 08/11/16 09:50 Dose: 1,000 unit Dabigatran (Pradaxa -) 150 mg PO BID [facility] Last Admin: 08/11/16 09:45 Dose: 150 mg Docusate Sodium (Colace -) 100 mg PO TID [facility] Last Admin: 08/11/16 06:30 Dose: 100 mg Dorzolamide HCl (Trusopt 2%) 1 drop OU BID [facility] Last Admin: 08/11/16 09:45 Dose: 1 drop Flecainide Acetate (Tambacor -) 100 mg PO BID [facility] Last Admin: 08/11/16 09:45 Dose: 100 mg Furosemide (Lasix Injection -) 40 mg IVPUSH DAILY [facility] Last Admin: 08/11/16 09:44 Dose: 40 mg Methylprednisolone Sodium Succinate (Solu-Medrol -) 60 mg IVPB BID [facility] Last Admin: 08/11/16 09:45 Dose: 60 mg Nystatin (Nystatin Oral Suspension -) 500,000 units PO Q6HPO [facility] Last Admin: 08/11/16 06:30 Dose: 500,000 units Polyethylene Glycol (Miralax (For Daily Use) -) 17 gm PO BID [facility] Last Admin: 08/11/16 09:44 Dose: 17 grams Quinapril HCl (Accupril -) 20 mg PO DAILY [facility] Last Admin: 08/11/16 09:44 Dose: 20 mg Vital Signs - 24 hr 08/10/16 08/10/16 08/10/16 13:58 14:04 16:00 Temperature 98.0 F Pulse Rate 88 93 H Respiratory 20 Rate Blood Pressure 109/54 O2 Sat by Pulse 97 97 Oximetry (%) 08/10/16 08/10/16 08/10/16 18:00 21:00 22:00 Temperature 98.4 F Pulse Rate 99 H 98 H Respiratory 18 20 Rate Blood Pressure 135/83 107/73 O2 Sat by Pulse 94 L Oximetry (%) 08/11/16 02:34 Temperature 98.7 F Pulse Rate 101 H Respiratory 20 Rate Blood Pressure 147/87 O2 Sat by Pulse Oximetry (%) Intake & Output 08/09/16 08/10/16 08/11/16 08/12/16 07:59 07:59 07:59 07:59 Intake Total 410 1150 1180 Output Total 500 650 Balance -90 500 1180 Weight 137 lb 135 lb 8 oz Constitutional: Yes: Well Nourished, No Distress, Calm Cardiovascular: Yes: Pulse Irregular, S1, S2. No: JVD, Gallop, Murmur Respiratory: Yes: Regular, Rhonchi, Wheezes (scattered/brief). No: Accessory Muscle Use, Rales Extremities: No: Cold Edema: No Neurological: Yes: Alert, Oriented Psychiatric: No: Agitated Labs: CBC, BMP 08/11/16 05:35 08/11/16 05:35 - ....Imaging Chest X-ray: Report Reviewed, Image Reviewed EKG: Other (tele: afib, HRs 90's-100's) Assessment/Plan echo 03/2015: tds, nl lv/rv, mild lae, no sig valve path echo 08/2016: nl lv/rv, mod dwayne, mod-sev mr/tr, nl rvsp, mild-mod ar...on my review trace ar, mod mr, mild tr tele: afib, rate controlled around 100's. ecg 08/04/16: afib, vr 110, nonspecific lateral st-t changes, nl qtc, no sig change 07/27/16 ct chest: bl pna, no chf a/p: 85 f hx afib, hld, htn, breast ca here with sob, cough. a.e. copd, bilat PNA (+ RSV), acute diastolic chf: -developed acute HFpEF on cruise, ? triggered by pneumonitis then--7 lb wt loss in few days on lasix 20 qd in office -now here with worsening resp status, mostly due to recurrent lung infxn/a.e. copd--abx, iv steroids, BDs per pulm/ID -ct chest 08/06/16 reports bl pna, no chf -suspect "mod-sev" MR and TR on echo report here is over-read--no prior h/o signif valve dysfunction--will await JORGE at time of cardioversion for more accurate assesment of valves -continuing iv lasix while on IV steroids, but low threshold to stop if cr starts to rise, orthostatic sx's worsen or bp drops. -bun trending up --? steroid effect; bicarb up slightly; Na down slightly today- -if trend continues tomorrow, will probably change to po lasix (want to wait until clearly vol depletion trend to make sure chf is as optimized as possible) -08/10 cxr reviewed: infiltrates improving bilat (mirella on R lower/mid lung ceheverria) , ? if vascular redistrib present -? mucolytic/chest PT--per dr luna - 08/11: sodium and bp dropping. + RSV. Euvolemic. Will stop IV lasix. afib: -has had several jorge/dccv in past but now back in afib, on maintenance flecainide 100 bid x several years. Reasonable rate control given clinical condition. -for JORGE/DCCV once resp status improved (inpt vs outpt depending on clinical course) -monitor on tele -cont home pradaxa hld: -cont statin htn: -stable on home meds. stopping lasix as mentioned above. elevated trops: -intermediate-range trops without accompanying s/sx to suggest ACS -ecg similar to priors -echo with nl lvef, no wma's
--- NOTE | 2016-08-11 11:48 | PN ---
Progress Note, Physician Chief Complaint: Mrs Vasquez says she is having coughing with deep breathing, cough is non- productive. Still feeling very weak. States her breathing is improved, except when she is coughing. No cp or n/v. - Current Medication List Current Medications: Active Medications Acetaminophen (Tylenol -) 650 mg PO Q6H PRN PRN Reason: FEVER OR PAIN Last Admin: 08/06/16 12:03 Dose: 650 mg Albuterol/Ipratropium (Duoneb -) 1 amp NEB Q4H PRN PRN Reason: SHORT OF BREATH/WHEEZING Last Admin: 08/11/16 09:00 Dose: 1 amp Albuterol/Ipratropium (Duoneb -) 1 amp NEB QIDR [facility] Last Admin: 08/11/16 11:31 Dose: 1 amp Allopurinol (Zyloprim -) 100 mg PO DAILY [facility] Last Admin: 08/11/16 09:50 Dose: 100 mg Atorvastatin Calcium (Lipitor -) 10 mg PO HS [facility] Last Admin: 08/10/16 21:49 Dose: 10 mg Cholecalciferol (Vitamin D3 -) 1,000 unit PO BID [facility] Last Admin: 08/11/16 09:50 Dose: 1,000 unit Dabigatran (Pradaxa -) 150 mg PO BID [facility] Last Admin: 08/11/16 09:45 Dose: 150 mg Docusate Sodium (Colace -) 100 mg PO TID [facility] Last Admin: 08/11/16 06:30 Dose: 100 mg Dorzolamide HCl (Trusopt 2%) 1 drop OU BID [facility] Last Admin: 08/11/16 09:45 Dose: 1 drop Flecainide Acetate (Tambacor -) 100 mg PO BID [facility] Last Admin: 08/11/16 09:45 Dose: 100 mg Methylprednisolone Sodium Succinate (Solu-Medrol -) 60 mg IVPB BID [facility] Last Admin: 08/11/16 09:45 Dose: 60 mg Nystatin (Nystatin Oral Suspension -) 500,000 units PO Q6HPO [facility] Last Admin: 08/11/16 06:30 Dose: 500,000 units Polyethylene Glycol (Miralax (For Daily Use) -) 17 gm PO BID [facility] Last Admin: 08/11/16 09:44 Dose: 17 grams Quinapril HCl (Accupril -) 20 mg PO DAILY [facility] Last Admin: 08/11/16 09:44 Dose: 20 mg - Objective Vital Signs: Vital Signs Temperature 98.7 F 08/11/16 02:34 Pulse Rate 101 H 08/11/16 02:34 Respiratory Rate 20 08/11/16 02:34 Blood Pressure 147/87 08/11/16 02:34 O2 Sat by Pulse Oximetry (%) 94 L 08/10/16 21:00 Constitutional: Yes: Well Nourished, No Distress, Calm Cardiovascular: Yes: Pulse Irregular. No: Gallop, Murmur, Rub Respiratory: Yes: Regular, CTA Bilaterally, On Nasal O2, Other (fair air movement but still tight). No: Rales, Rhonchi, Wheezes Gastrointestinal: Yes: Normal Bowel Sounds, Soft. No: Distention, Tenderness Extremities: Yes: WNL Edema: No Labs: CBC, BMP 08/11/16 05:35 08/11/16 05:35 INR, PTT INR 1.45 (0.82-1.09) H 08/04/16 22:30 Problem List - Problems (1) Acute respiratory failure Code(s): J96.00 - ACUTE RESPIRATORY FAILURE, UNSP W HYPOXIA OR HYPERCAPNIA Qualifiers: Respiratory failure complication: hypoxia Qualified Code(s): J96.01 - Acute respiratory failure with hypoxia (2) CHF (congestive heart failure) Code(s): I50.9 - HEART FAILURE, UNSPECIFIED Qualifiers: Congestive heart failure type: unspecified congestive heart failure type Congestive heart failure chronicity: acute Qualified Code(s): I50.9 - Heart failure, unspecified (3) COPD (chronic obstructive pulmonary disease) Code(s): J44.9 - CHRONIC OBSTRUCTIVE PULMONARY DISEASE, UNSPECIFIED Qualifiers : COPD type: COPD with acute exacerbation Qualified Code(s): J44.1 - Chronic obstructive pulmonary disease with (acute) exacerbation (4) Chronic atrial fibrillation Code(s): I48.2 - CHRONIC ATRIAL FIBRILLATION (5) Pneumonia Code(s): J18.9 - PNEUMONIA, UNSPECIFIED ORGANISM Qualifiers: Laterality: bilateral (6) HTN (hypertension) Code(s): I10 - ESSENTIAL (PRIMARY) HYPERTENSION (7) HLD (hyperlipidemia) Code(s): E78.5 - HYPERLIPIDEMIA, UNSPECIFIED (8) Gout Code(s): M10.9 - GOUT, UNSPECIFIED Assessment/Plan (1) Acute respiratory failure Assessment/Plan: -continues to improve -still requiring oxygen -continue solumedrol and duonebs per pulmonary Code(s): J96.00 - ACUTE RESPIRATORY FAILURE, UNSP W HYPOXIA OR HYPERCAPNIA Qualifiers: Respiratory failure complication: hypoxia Qualified Code(s): J96.01 - Acute respiratory failure with hypoxia (2) CHF (congestive heart failure) Assessment/Plan: -euvolemic -case d/w cardiology -can stop IV lasix today Code(s): I50.9 - HEART FAILURE, UNSPECIFIED Qualifiers: Congestive heart failure type: unspecified congestive heart failure type Congestive heart failure chronicity: acute Qualified Code(s): I50.9 - Heart failure, unspecified (3) COPD (chronic obstructive pulmonary disease) with exacerbation Assessment/Plan: -improving but still significant -continue duonebs and solumedrol Code(s): J44.9 - CHRONIC OBSTRUCTIVE PULMONARY DISEASE, UNSPECIFIED Qualifiers : COPD type: unspecified COPD Qualified Code(s): J44.9 - Chronic obstructive pulmonary disease, unspecified (4) Chronic atrial fibrillation Assessment/Plan: -continue flecainide and pradaxa -cardioversion per cardiology Code(s): I48.2 - CHRONIC ATRIAL FIBRILLATION (5) Pneumonia Assessment/Plan: -secondary to RSV -case d/w Dr Cerrato -can stop rocephin Code(s): J18.9 - PNEUMONIA, UNSPECIFIED ORGANISM (6) HTN (hypertension) Assessment/Plan: -continue quinapril Code(s): I10 - ESSENTIAL (PRIMARY) HYPERTENSION (7) HLD (hyperlipidemia) Assessment/Plan: -continue statin Code(s): E78.5 - HYPERLIPIDEMIA, UNSPECIFIED (8) Gout Assessment/Plan: -continue allopurinol Code(s): M10.9 - GOUT, UNSPECIFIED (9) Constipation -resolved
--- NOTE | 2016-08-11 12:57 | PN ---
Progress Note, Physician History of Present Illness: Pt less short of breath but still has episodes of frequent non-productive cough. No chest pain or palpitations. - Current Medication List Current Medications: Active Medications Acetaminophen (Tylenol -) 650 mg PO Q6H PRN PRN Reason: FEVER OR PAIN Last Admin: 08/06/16 12:03 Dose: 650 mg Albuterol/Ipratropium (Duoneb -) 1 amp NEB Q4H PRN PRN Reason: SHORT OF BREATH/WHEEZING Last Admin: 08/11/16 09:00 Dose: 1 amp Albuterol/Ipratropium (Duoneb -) 1 amp NEB QIDR [facility] Last Admin: 08/11/16 11:31 Dose: 1 amp Allopurinol (Zyloprim -) 100 mg PO DAILY [facility] Last Admin: 08/11/16 09:50 Dose: 100 mg Atorvastatin Calcium (Lipitor -) 10 mg PO HS [facility] Last Admin: 08/10/16 21:49 Dose: 10 mg Cholecalciferol (Vitamin D3 -) 1,000 unit PO BID [facility] Last Admin: 08/11/16 09:50 Dose: 1,000 unit Dabigatran (Pradaxa -) 150 mg PO BID [facility] Last Admin: 08/11/16 09:45 Dose: 150 mg Docusate Sodium (Colace -) 100 mg PO TID [facility] Last Admin: 08/11/16 06:30 Dose: 100 mg Dorzolamide HCl (Trusopt 2%) 1 drop OU BID [facility] Last Admin: 08/11/16 09:45 Dose: 1 drop Flecainide Acetate (Tambacor -) 100 mg PO BID [facility] Last Admin: 08/11/16 09:45 Dose: 100 mg Methylprednisolone Sodium Succinate (Solu-Medrol -) 60 mg IVPB BID [facility] Last Admin: 08/11/16 09:45 Dose: 60 mg Nystatin (Nystatin Oral Suspension -) 500,000 units PO Q6HPO [facility] Last Admin: 08/11/16 06:30 Dose: 500,000 units Polyethylene Glycol (Miralax (For Daily Use) -) 17 gm PO BID [facility] Last Admin: 08/11/16 09:44 Dose: 17 grams Quinapril HCl (Accupril -) 20 mg PO DAILY [facility] Last Admin: 08/11/16 09:44 Dose: 20 mg - Objective Vital Signs: Vital Signs Temperature 98.8 F 08/11/16 10:00 Pulse Rate 102 H 08/11/16 10:00 Respiratory Rate 20 08/11/16 10:00 Blood Pressure 148/79 08/11/16 10:00 O2 Sat by Pulse Oximetry (%) 96 08/11/16 09:00 Constitutional: Yes: No Distress Eyes: No: Sclera Icterus HENT: Yes: Atraumatic Neck: Yes: Supple, Trachea Midline Cardiovascular: Yes: Pulse Irregular. No: JVD Respiratory: Yes: Rhonchi (scattered bilateral) Gastrointestinal: Yes: Soft. No: Tenderness Edema: No Neurological: Yes: Alert, Oriented Labs: CBC, BMP 08/11/16 05:35 08/11/16 05:35 INR, PTT INR 1.45 (0.82-1.09) H 08/04/16 22:30 - ....Imaging Chest X-ray: Report Reviewed, Image Reviewed (improved aeration, atelecatasis/ infiltrates right base> left base) Problem List - Problems (1) Acute respiratory failure Code(s): J96.00 - ACUTE RESPIRATORY FAILURE, UNSP W HYPOXIA OR HYPERCAPNIA Qualifiers: Respiratory failure complication: hypoxia Qualified Code(s): J96.01 - Acute respiratory failure with hypoxia (2) Acute exacerbation of chronic obstructive pulmonary disease Code(s): J44.1 - CHRONIC OBSTRUCTIVE PULMONARY DISEASE W (ACUTE) EXACERBATION (3) CHF (congestive heart failure) Code(s): I50.9 - HEART FAILURE, UNSPECIFIED Qualifiers: Congestive heart failure type: unspecified congestive heart failure type Congestive heart failure chronicity: acute Qualified Code(s): I50.9 - Heart failure, unspecified (4) Pneumonia Code(s): J18.9 - PNEUMONIA, UNSPECIFIED ORGANISM Qualifiers: Laterality: bilateral (5) Paroxysmal atrial fibrillation Code(s): I48.0 - PAROXYSMAL ATRIAL FIBRILLATION Assessment/Plan 85 year old lady with: Acute Exacerbation COPD secondary to respiratory infection-probably viral- and also CHF CHF- improved: pt is off diuretic Pneumonia Paroxysmal Atrial Fibrillation on Pradaxa Suggest: O2 to maintain SaO2>90 Inhaled bronchodilators anticoagulation ? cardioversion when medically stable IV steriods Bedside spirometry
[2016-08-11] MEDS: ATORVASTATIN CA 10 MG TABLET (FP) PO SCH (22:10)
[2016-08-12 00:06] LABS: INFLUENZA ANTIBODY TYPE B 1:32 (Neg:<1:8)
[2016-08-12] MEDS: NYSTATIN 500,000 UNITS/5 ML SUSPENSION PO SCH ×4 (01:40→17:32)
[2016-08-12] MEDS: ALBUTEROL SO4 2.5/IPRATROPIUM 0.5 INH SOL 3 ML VIAL.NEB. NEB SCH ×3 (06:10→11:20)
[2016-08-12] MEDS: DOCUSATE SODIUM 100 MG CAPSULE (FP) PO SCH ×3 (06:24→22:25)
[2016-08-12 07:50] LABS: MCH 30.5 pg (25.7-33.7); MCHC 32.6 g/dl (32.0-36.0); MEAN CELL VOLUME 93.4 fl (80-96); MEAN PLT VOLUME 9.5 fl (7.5-11.1); NEUTROPHILS 91.3 % (42.8-82.8); PLATELET COUNT 173 K/MM3 (134-434); WHITE BLOOD COUNT 9.3 K/mm3 (4.0-10.0)
[2016-08-12 08:33] LABS: CALCIUM 9.3 mg/dL (8.5-10.1); CREATININE 0.9 mg/dL (0.55-1.02); MAGNESIUM 2.1 mg/dL (1.8-2.4); PHOSPHOROUS 4.2 mg/dL (2.5-4.9)
[2016-08-12] MEDS: CHOLECALCIFEROL (VITAMIN D3) 1,000 UNIT TABLET (FP) PO SCH ×2 (10:21→22:26)
[2016-08-12] MEDS: QUINAPRIL HCL 20 MG TABLET (FP) PO SCH (10:23)
[2016-08-12] MEDS: POLYETHYLENE GLYCOL 3350 119 GM BTL PO SCH ×2 (10:24→22:26)
[2016-08-12] MEDS: DABIGATRAN ETEXILATE MESYLATE 150 MG CAPSULE PO SCH ×2 (10:26→22:25)
[2016-08-12] MEDS: methylPREDNISolone NA SUCC 125 MG/2 ML VIAL IVPB SCH ×2 (10:27→22:26)
[2016-08-12] MEDS: ALLOPURINOL 100 MG TABLET (FP) PO SCH (10:29)
[2016-08-12] MEDS: DORZOLAMIDE 2% HCL OPHTHALMIC SOLUTION 10 ML BOTTLE OU SCH ×2 (10:34→22:26)
--- NOTE | 2016-08-12 10:35 | PN ---
Progress Note (short form) - Note Progress Note: s: no cp palps dizzy; still with cough and sob but improving; still needed bipap last night and on nc today o: Vital Signs Period Temp Pulse Resp BP Sys/Bender Pulse Ox Last 24 Hr 97.2 F-98.2 F 89-113 20-20 109-142/64-85 95-98 Constitutional: Yes: Well Nourished, No Distress, Calm Cardiovascular: Yes: Pulse Irregular, S1, S2. No: JVD, Gallop, Murmur Respiratory: Yes: Regular, Rhonchi, Wheezes (scattered/brief). No: Accessory Muscle Use, Rales Extremities: No: Cold Edema: No e/c/c Neurological: Yes: Alert, Oriented Psychiatric: No: Agitated no jaundice diaphoresis Current Medications Generic Name Dose Route Start Last Admin Trade Name Freq PRN Reason Stop Dose Admin Acetaminophen 650 mg 08/05/16 18:13 08/06/16 12:03 Tylenol - PO 650 mg Q6H PRN Administration FEVER OR PAIN Albuterol/Ipratropium 1 amp 08/05/16 00:15 08/11/16 09:00 Duoneb - NEB 1 amp Q4H PRN Administration SHORT OF BREATH/WHEEZING Albuterol/Ipratropium 1 amp 08/05/16 06:00 08/12/16 06:10 Duoneb - NEB 1 amp QIDR [facility] Administration Allopurinol 100 mg 08/05/16 10:00 08/12/16 10:29 Zyloprim - PO 100 mg DAILY [facility] Administration Atorvastatin Calcium 10 mg 08/05/16 22:00 08/11/16 22:10 Lipitor - PO 10 mg HS [facility] Administration Cholecalciferol 1,000 unit 08/05/16 10:00 08/12/16 10:21 Vitamin D3 - PO 1,000 unit BID [facility] Administration Dabigatran 150 mg 08/05/16 10:00 08/12/16 10:26 Pradaxa - PO 150 mg BID [facility] Administration Docusate Sodium 100 mg 08/07/16 14:00 08/12/16 06:24 Colace - PO 100 mg TID [facility] Administration Dorzolamide HCl 1 drop 08/05/16 22:00 08/11/16 22:10 Trusopt 2% OU 1 drop BID [facility] Administration Flecainide Acetate 100 mg 08/05/16 10:00 08/11/16 22:10 Tambacor - PO 100 mg BID [facility] Administration Methylprednisolone Sodium Succinate 60 mg 08/07/16 22:46 08/12/16 10:27 Solu-Medrol - IVPB 60 mg BID [facility] Administration Nystatin 500,000 units 08/08/16 12:00 08/12/16 06:24 Nystatin Oral Suspension - PO 500,000 units Q6HPO [facility] Administration Polyethylene Glycol 17 gm 08/07/16 13:15 08/12/16 10:24 Miralax (For Daily Use) - PO 17 grams BID [facility] Administration Quinapril HCl 20 mg 08/05/16 10:00 08/12/16 10:23 Accupril - PO 20 mg DAILY [facility] Administration CBC, BMP 08/12/16 05:45 08/12/16 08:20 EKG: Other (tele: afib, HRs 90's-100's) echo 03/2015: tds, nl lv/rv, mild lae, no sig valve path echo 08/2016: nl lv/rv, mod dwayne, mod-sev mr/tr, nl rvsp, mild-mod ar...on my review trace ar, mod mr, mild tr tele: afib, rate controlled around 100's. ecg 08/04/16: afib, vr 110, nonspecific lateral st-t changes, nl qtc, no sig change 07/27/16 ct chest: bl pna, no chf a/p: 85 f hx afib, hld, htn, breast ca here with sob, cough. a.e. copd, bilat PNA (+ RSV), acute diastolic chf: -developed acute HFpEF on cruise, ? triggered by pneumonitis then--7 lb wt loss in few days on lasix 20 qd in office -now here with worsening resp status, mostly due to recurrent lung infxn/a.e. copd--abx, iv steroids, BDs per pulm/ID -ct chest 08/06/16 reports bl pna, no chf -suspect "mod-sev" MR and TR on echo report here is over-read--no prior h/o signif valve dysfunction--will await JORGE at time of cardioversion for more accurate assesment of valves -got iv lasix initially until showed signs of vol depletion, now lasix stopped. Will hold home po lasix for now as well. afib: -has had several jorge/dccv in past but now back in afib, on maintenance flecainide 100 bid x several years. Reasonable rate control given clinical condition. -for JORGE/DCCV once resp status improved (inpt vs outpt depending on clinical course) -monitor on tele -cont home pradaxa hld: -cont statin htn: -stable on home meds. elevated trops: -intermediate-range trops without accompanying s/sx to suggest ACS -ecg similar to priors -echo with nl lvef, no wma's
[2016-08-12] MEDS: FLECAINIDE ACETATE 100 MG TABLET PO SCH ×2 (10:40→22:26)
--- NOTE | 2016-08-12 11:48 | PN ---
Progress Note (short form) - Note Progress Note: still with episodes of dry cough, but improved ambulated with PT used bipap last night Vital Signs Period Temp Pulse Resp BP Sys/Bender Pulse Ox Last 24 Hr 97.2 F-98.2 F 89-113 20-28 109-142/64-85 95-98 cor-rrr lungs scattered rhonchi abd soft,nt ext no edema CBC, BMP 08/12/16 05:45 08/12/16 08:20 cxray improved a/p chf pneumonia copd positive RSV- suspect this is the etiology for her bronchospasm and cough improving stable off antibiotics please call back if needed d/w Dr Pepper
--- NOTE | 2016-08-12 11:56 | PN ---
Progress Note, Physician Chief Complaint: Mrs Vasquez says she is feeling better, having less bronchospasm. Walking with PT without difficulty. Still with some shortness of breath but improved. No cp or n/v. - Current Medication List Current Medications: Active Medications Acetaminophen (Tylenol -) 650 mg PO Q6H PRN PRN Reason: FEVER OR PAIN Last Admin: 08/06/16 12:03 Dose: 650 mg Albuterol/Ipratropium (Duoneb -) 1 amp NEB Q4H PRN PRN Reason: SHORT OF BREATH/WHEEZING Last Admin: 08/11/16 09:00 Dose: 1 amp Albuterol/Ipratropium (Duoneb -) 1 amp NEB QIDR [facility] Last Admin: 08/12/16 11:20 Dose: 1 amp Allopurinol (Zyloprim -) 100 mg PO DAILY [facility] Last Admin: 08/12/16 10:29 Dose: 100 mg Atorvastatin Calcium (Lipitor -) 10 mg PO HS [facility] Last Admin: 08/11/16 22:10 Dose: 10 mg Cholecalciferol (Vitamin D3 -) 1,000 unit PO BID [facility] Last Admin: 08/12/16 10:21 Dose: 1,000 unit Dabigatran (Pradaxa -) 150 mg PO BID [facility] Last Admin: 08/12/16 10:26 Dose: 150 mg Docusate Sodium (Colace -) 100 mg PO TID [facility] Last Admin: 08/12/16 06:24 Dose: 100 mg Dorzolamide HCl (Trusopt 2%) 1 drop OU BID [facility] Last Admin: 08/12/16 10:34 Dose: 1 drop Flecainide Acetate (Tambacor -) 100 mg PO BID [facility] Last Admin: 08/12/16 10:40 Dose: 100 mg Methylprednisolone Sodium Succinate (Solu-Medrol -) 60 mg IVPB BID [facility] Last Admin: 08/12/16 10:27 Dose: 60 mg Nystatin (Nystatin Oral Suspension -) 500,000 units PO Q6HPO [facility] Last Admin: 08/12/16 06:24 Dose: 500,000 units Polyethylene Glycol (Miralax (For Daily Use) -) 17 gm PO BID [facility] Last Admin: 08/12/16 10:24 Dose: 17 grams Quinapril HCl (Accupril -) 20 mg PO DAILY [facility] Last Admin: 08/12/16 10:23 Dose: 20 mg - Objective Vital Signs: Vital Signs Temperature 98.1 F 08/12/16 09:40 Pulse Rate 92 H 08/12/16 10:32 Respiratory Rate 28 H 08/12/16 09:40 Blood Pressure 135/84 08/12/16 09:40 O2 Sat by Pulse Oximetry (%) 98 08/12/16 10:32 Constitutional: Yes: Well Nourished, No Distress, Calm Cardiovascular: Yes: Pulse Irregular. No: Gallop, Murmur, Rub Respiratory: Yes: Regular, Cough (dry), On Nasal O2, Rhonchi (coarse), Other ( improving air movement). No: Rales, Wheezes Gastrointestinal: Yes: Normal Bowel Sounds, Soft. No: Distention, Tenderness Extremities: Yes: WNL Edema: No Labs: CBC, BMP 08/12/16 05:45 08/12/16 08:20 INR, PTT INR 1.45 (0.82-1.09) H 08/04/16 22:30 Problem List - Problems (1) Acute respiratory failure Code(s): J96.00 - ACUTE RESPIRATORY FAILURE, UNSP W HYPOXIA OR HYPERCAPNIA Qualifiers: Respiratory failure complication: hypoxia Qualified Code(s): J96.01 - Acute respiratory failure with hypoxia (2) CHF (congestive heart failure) Code(s): I50.9 - HEART FAILURE, UNSPECIFIED Qualifiers: Congestive heart failure type: unspecified congestive heart failure type Congestive heart failure chronicity: acute Qualified Code(s): I50.9 - Heart failure, unspecified (3) COPD (chronic obstructive pulmonary disease) Code(s): J44.9 - CHRONIC OBSTRUCTIVE PULMONARY DISEASE, UNSPECIFIED Qualifiers : COPD type: COPD with acute exacerbation Qualified Code(s): J44.1 - Chronic obstructive pulmonary disease with (acute) exacerbation (4) Chronic atrial fibrillation Code(s): I48.2 - CHRONIC ATRIAL FIBRILLATION (5) Pneumonia Code(s): J18.9 - PNEUMONIA, UNSPECIFIED ORGANISM Qualifiers: Laterality: bilateral (6) HTN (hypertension) Code(s): I10 - ESSENTIAL (PRIMARY) HYPERTENSION (7) HLD (hyperlipidemia) Code(s): E78.5 - HYPERLIPIDEMIA, UNSPECIFIED (8) Gout Code(s): M10.9 - GOUT, UNSPECIFIED Assessment/Plan (1) Acute respiratory failure Assessment/Plan: -continues to improve -still requiring oxygen -continue solumedrol and duonebs per pulmonary Code(s): J96.00 - ACUTE RESPIRATORY FAILURE, UNSP W HYPOXIA OR HYPERCAPNIA Qualifiers: Respiratory failure complication: hypoxia Qualified Code(s): J96.01 - Acute respiratory failure with hypoxia (2) CHF (congestive heart failure) Assessment/Plan: -euvolemic -currently holding oral lasix Code(s): I50.9 - HEART FAILURE, UNSPECIFIED Qualifiers: Congestive heart failure type: unspecified congestive heart failure type Congestive heart failure chronicity: acute Qualified Code(s): I50.9 - Heart failure, unspecified (3) COPD (chronic obstructive pulmonary disease) with exacerbation Assessment/Plan: -continues to improve today -continue duonebs and solumedrol Code(s): J44.9 - CHRONIC OBSTRUCTIVE PULMONARY DISEASE, UNSPECIFIED Qualifiers : COPD type: unspecified COPD Qualified Code(s): J44.9 - Chronic obstructive pulmonary disease, unspecified (4) Chronic atrial fibrillation Assessment/Plan: -continue flecainide and pradaxa -cardioversion per cardiology Code(s): I48.2 - CHRONIC ATRIAL FIBRILLATION (5) Pneumonia Assessment/Plan: -secondary to RSV -case d/w Dr Cerrato -supportive care -influenza titers noted, but lower suspicion this is influenza Code(s): J18.9 - PNEUMONIA, UNSPECIFIED ORGANISM (6) HTN (hypertension) Assessment/Plan: -continue quinapril Code(s): I10 - ESSENTIAL (PRIMARY) HYPERTENSION (7) HLD (hyperlipidemia) Assessment/Plan: -continue statin Code(s): E78.5 - HYPERLIPIDEMIA, UNSPECIFIED (8) Gout Assessment/Plan: -continue allopurinol Code(s): M10.9 - GOUT, UNSPECIFIED (9) Constipation -resolved
--- NOTE | 2016-08-12 15:40 | PN ---
Progress Note, Physician History of Present Illness: Pt less short of breath but still has episodes of frequent non-productive cough. No chest pain or palpitations. She was able to walk on the [place]. - Current Medication List Current Medications: Active Medications Acetaminophen (Tylenol -) 650 mg PO Q6H PRN PRN Reason: FEVER OR PAIN Last Admin: 08/06/16 12:03 Dose: 650 mg Albuterol/Ipratropium (Duoneb -) 1 amp NEB Q4H PRN PRN Reason: SHORT OF BREATH/WHEEZING Last Admin: 08/11/16 09:00 Dose: 1 amp Albuterol/Ipratropium (Duoneb -) 1 amp NEB QIDR [facility] Last Admin: 08/12/16 11:20 Dose: 1 amp Allopurinol (Zyloprim -) 100 mg PO DAILY [facility] Last Admin: 08/12/16 10:29 Dose: 100 mg Atorvastatin Calcium (Lipitor -) 10 mg PO HS [facility] Last Admin: 08/11/16 22:10 Dose: 10 mg Cholecalciferol (Vitamin D3 -) 1,000 unit PO BID [facility] Last Admin: 08/12/16 10:21 Dose: 1,000 unit Dabigatran (Pradaxa -) 150 mg PO BID [facility] Last Admin: 08/12/16 10:26 Dose: 150 mg Docusate Sodium (Colace -) 100 mg PO TID [facility] Last Admin: 08/12/16 14:35 Dose: 100 mg Dorzolamide HCl (Trusopt 2%) 1 drop OU BID [facility] Last Admin: 08/12/16 10:34 Dose: 1 drop Flecainide Acetate (Tambacor -) 100 mg PO BID [facility] Last Admin: 08/12/16 10:40 Dose: 100 mg Methylprednisolone Sodium Succinate (Solu-Medrol -) 60 mg IVPB BID [facility] Last Admin: 08/12/16 10:27 Dose: 60 mg Nystatin (Nystatin Oral Suspension -) 500,000 units PO Q6HPO [facility] Last Admin: 08/12/16 12:59 Dose: 500,000 units Polyethylene Glycol (Miralax (For Daily Use) -) 17 gm PO BID [facility] Last Admin: 08/12/16 10:24 Dose: 17 grams Quinapril HCl (Accupril -) 20 mg PO DAILY [facility] Last Admin: 08/12/16 10:23 Dose: 20 mg - Objective Vital Signs: Vital Signs Temperature 98.2 F 08/12/16 14:00 Pulse Rate 96 H 08/12/16 14:00 Respiratory Rate 22 08/12/16 14:00 Blood Pressure 129/72 08/12/16 14:00 O2 Sat by Pulse Oximetry (%) 99 08/12/16 12:05 Constitutional: Yes: Mild Distress (intermittantly secondary to non-productive cough) Eyes: No: Sclera Icterus HENT: Yes: Atraumatic, Normocephalic Neck: Yes: Supple, Trachea Midline Cardiovascular: Yes: Pulse Irregular Respiratory: Yes: CTA Bilaterally Edema: No Labs: CBC, BMP 08/12/16 05:45 08/12/16 08:20 INR, PTT INR 1.45 (0.82-1.09) H 08/04/16 22:30 Problem List - Problems (1) Acute respiratory failure Code(s): J96.00 - ACUTE RESPIRATORY FAILURE, UNSP W HYPOXIA OR HYPERCAPNIA Qualifiers: Respiratory failure complication: hypoxia Qualified Code(s): J96.01 - Acute respiratory failure with hypoxia (2) Acute exacerbation of chronic obstructive pulmonary disease Code(s): J44.1 - CHRONIC OBSTRUCTIVE PULMONARY DISEASE W (ACUTE) EXACERBATION (3) CHF (congestive heart failure) Code(s): I50.9 - HEART FAILURE, UNSPECIFIED Qualifiers: Congestive heart failure type: unspecified congestive heart failure type Congestive heart failure chronicity: acute Qualified Code(s): I50.9 - Heart failure, unspecified (4) Pneumonia Code(s): J18.9 - PNEUMONIA, UNSPECIFIED ORGANISM Qualifiers: Laterality: bilateral (5) Paroxysmal atrial fibrillation Code(s): I48.0 - PAROXYSMAL ATRIAL FIBRILLATION Assessment/Plan 85 year old lady with: Acute Exacerbation COPD secondary to respiratory infection-probably viral CHF- improved: pt is off diuretic Pneumonia Paroxysmal Atrial Fibrillation on Pradaxa Suggest: O2 to maintain SaO2>90 Inhaled bronchodilators anticoagulation ? cardioversion when medically stable IV steriods Bedside spirometry
[2016-08-12] MEDS ORDERED: ALBUTEROL SO4 0.083% IH SOL 2.5 MG/3 ML VIAL.NEB. NEB PRN (15:47)
[2016-08-12] MEDS: TIOTROPIUM BROMIDE 18 MCG/INH (DEVICE W/ 5 CAPSULES) IH SCH ×2 (17:32→17:37)
[2016-08-12] MEDS: ARFORMOTEROL TARTRATE 15 MCG/2 ML VIAL NEB SCH (21:46)
[2016-08-12] MEDS ORDERED: PT OWN MED DRAWER 7, Y5N ONE (22:23)
[2016-08-12] MEDS: ATORVASTATIN CA 10 MG TABLET (FP) PO SCH (22:26)
[2016-08-13] MEDS: NYSTATIN 500,000 UNITS/5 ML SUSPENSION PO SCH ×4 (00:39→18:22)
[2016-08-13] MEDS: DOCUSATE SODIUM 100 MG CAPSULE (FP) PO SCH ×3 (05:41→21:33)
[2016-08-13 08:30] LABS: MCH 30.5 pg (25.7-33.7); MCHC 32.7 g/dl (32.0-36.0); MEAN CELL VOLUME 93.1 fl (80-96); MEAN PLT VOLUME 9.6 fl (7.5-11.1); NEUTROPHILS 91.9 % (42.8-82.8); PLATELET COUNT 196 K/MM3 (134-434)
--- NOTE | 2016-08-13 08:45 | PN ---
Progress Note (short form) - Note Progress Note: s: no cp palps dizzy; still with cough and sob but improving; still needed bipap last night and on nc today o: Vital Signs Period Temp Pulse Resp BP Sys/Bender Pulse Ox Last 24 Hr 96.1 F-98.2 F 83-111 20-28 115-148/58-84 95-99 Constitutional: Yes: Well Nourished, No Distress, Calm Cardiovascular: Yes: Pulse Irregular, S1, S2. No: JVD, Gallop, Murmur Respiratory: Yes: Regular, Rhonchi, Wheezes (scattered/brief). No: Accessory Muscle Use, Rales Extremities: No: Cold Edema: No e/c/c Neurological: Yes: Alert, Oriented Psychiatric: No: Agitated no jaundice diaphoresis Current Medications Generic Name Dose Route Start Last Admin Trade Name Freq PRN Reason Stop Dose Admin Acetaminophen 650 mg 08/05/16 18:13 08/06/16 12:03 Tylenol - PO 650 mg Q6H PRN Administration FEVER OR PAIN Albuterol Sulfate 1 amp 08/12/16 15:47 Ventolin 0.083% Nebulizer Soln - NEB Q4H PRN SHORT OF BREATH/WHEEZING Allopurinol 100 mg 08/05/16 10:00 08/12/16 10:29 Zyloprim - PO 100 mg DAILY [facility] Administration Arformoterol Tartrate 1 amp 08/12/16 22:00 08/12/16 21:46 Brovana (Restricted To Pulmonology/Resp) - NEB 1 amp BID [facility] Administration Atorvastatin Calcium 10 mg 08/05/16 22:00 08/12/16 22:26 Lipitor - PO 10 mg HS [facility] Administration Cholecalciferol 1,000 unit 08/05/16 10:00 08/12/16 22:26 Vitamin D3 - PO 1,000 unit BID [facility] Administration Dabigatran 150 mg 08/05/16 10:00 08/12/16 22:25 Pradaxa - PO 150 mg BID [facility] Administration Docusate Sodium 100 mg 08/07/16 14:00 08/13/16 05:41 Colace - PO 100 mg TID [facility] Administration Dorzolamide HCl 1 drop 08/05/16 22:00 08/12/16 22:26 Trusopt 2% OU 1 drop BID [facility] Administration Flecainide Acetate 100 mg 08/05/16 10:00 08/12/16 22:26 Tambacor - PO 100 mg BID [facility] Administration Methylprednisolone Sodium Succinate 60 mg 08/07/16 22:46 08/12/16 22:26 Solu-Medrol - IVPB 60 mg BID [facility] Administration Nystatin 500,000 units 08/08/16 12:00 08/13/16 05:41 Nystatin Oral Suspension - PO 500,000 units Q6HPO [facility] Administration Polyethylene Glycol 17 gm 08/07/16 13:15 08/12/16 22:26 Miralax (For Daily Use) - PO 17 grams BID [facility] Administration Quinapril HCl 20 mg 08/05/16 10:00 08/12/16 10:23 Accupril - PO 20 mg DAILY [facility] Administration Tiotropium [place] 1 puff 08/12/16 15:45 08/12/16 17:37 Spiriva - IH Not Given DAILY [facility] CBC, BMP 08/13/16 06:00 (tele: afib,rate controlled) echo 03/2015: tds, nl lv/rv, mild lae, no sig valve path echo 08/2016: nl lv/rv, mod dwayne, mod-sev mr/tr, nl rvsp, mild-mod ar...on my review trace ar, mod mr, mild tr tele: afib, rate controlled around 100's. ecg 08/04/16: afib, vr 110, nonspecific lateral st-t changes, nl qtc, no sig change 07/27/16 ct chest: bl pna, no chf a/p: 85 f hx afib, hld, htn, breast ca here with sob, cough. a.e. copd, bilat PNA (+ RSV), acute diastolic chf: -developed acute HFpEF on cruise, ? triggered by pneumonitis then--7 lb wt loss in few days on lasix 20 qd in office -now here with worsening resp status, mostly due to recurrent lung infxn/a.e. copd--abx, iv steroids, BDs per pulm/ID -ct chest 08/06/16 reports bl pna, no chf -suspect "mod-sev" MR and TR on echo report here is over-read--no prior h/o signif valve dysfunction--will await JORGE at time of cardioversion for more accurate assesment of valves -got iv lasix initially until showed signs of vol depletion, now lasix stopped. Will hold home po lasix for now as well. afib: -has had several jorge/dccv in past but now back in afib, on maintenance flecainide 100 bid x several years. Reasonable rate control given clinical condition. -for JORGE/DCCV once resp status improved (inpt vs outpt depending on clinical course) -monitor on tele -cont home pradaxa hld: -cont statin htn: -stable on home meds. elevated trops: -intermediate-range trops without accompanying s/sx to suggest ACS -ecg similar to priors -echo with nl lvef, no wma's
[2016-08-13 08:57] LABS: CALCIUM 8.5 mg/dL (8.5-10.1); MAGNESIUM 2.2 mg/dL (1.8-2.4)
[2016-08-13 08:59] LABS: CREATININE 0.8 mg/dL (0.55-1.02); PHOSPHOROUS 4.1 mg/dL (2.5-4.9)
[2016-08-13] MEDS: ARFORMOTEROL TARTRATE 15 MCG/2 ML VIAL NEB SCH ×2 (09:19→22:50)
[2016-08-13] MEDS ORDERED: PT OWN MED DRAWER 7, Y5N ONE ×2 (09:44→21:27)
[2016-08-13] MEDS: methylPREDNISolone NA SUCC 125 MG/2 ML VIAL IVPB SCH ×2 (09:51→21:34)
[2016-08-13] MEDS: TIOTROPIUM BROMIDE 18 MCG/INH (DEVICE W/ 5 CAPSULES) IH SCH (09:51)
[2016-08-13] MEDS: DORZOLAMIDE 2% HCL OPHTHALMIC SOLUTION 10 ML BOTTLE OU SCH ×2 (09:51→21:35)
[2016-08-13] MEDS: ALLOPURINOL 100 MG TABLET (FP) PO SCH (09:52)
[2016-08-13] MEDS: POLYETHYLENE GLYCOL 3350 119 GM BTL PO SCH ×2 (09:52→21:34)
[2016-08-13] MEDS: DABIGATRAN ETEXILATE MESYLATE 150 MG CAPSULE PO SCH ×2 (09:52→21:34)
[2016-08-13] MEDS: CHOLECALCIFEROL (VITAMIN D3) 1,000 UNIT TABLET (FP) PO SCH ×2 (09:52→21:35)
[2016-08-13] MEDS: QUINAPRIL HCL 20 MG TABLET (FP) PO SCH (09:52)
[2016-08-13] MEDS: FLECAINIDE ACETATE 100 MG TABLET PO SCH ×2 (09:53→21:35)
--- NOTE | 2016-08-13 10:48 | PN ---
Progress Note (short form) - Note Progress Note: Patient seen and examined Chart reviewed at length. Patient and recent history well known to me. Currently sitting up in bed with less dyspnea and cough after having received a respiratory treatment one hour ago. Still having a difficult time sleeping due to cough and congestion with improvement after utilizing the Bi-Pap apparatus. No new chest discomfort or pre-syncope. Labs and franchise consultant notes appreciated. Selected Entries 08/13/16 08/13/16 06:06 09:00 Temperature 98.2 F Pulse Rate 110 H Respiratory 19 Rate Blood Pressure 122/56 O2 Sat by Pulse 99 Oximetry (%) Oxygen Delivery Nasal Cannula Method Oxygen Flow 3 Rate Laboratory Tests 08/13/16 08/13/16 06:00 06:00 WBC 9.0 Hgb 14.0 Hct 42.7 Plt Count 196 Sodium 136 Potassium 4.4 Chloride 97 L Carbon Dioxide 29 BUN 27 H Creatinine 0.8 Random Glucose 233 H Calcium 8.5 Phosphorus 4.1 Magnesium 2.2 Chest Scattered rhonchi reduced this AM (one hour after nebulizer therapy) with minimal end-expiratory wheezing Cough decreased Cor Irregular Telemetry Afib with rates in 90-100 range Abd Soft Mildly distended Non-tender Ext No edema Less dependent rubor Neuro No new focal deficit Assessment and Plan Pneumonitis Bilateral infiltrates on CT likley related to RSV infection Respiratory insufficiency Improved Stilll requires Bi-Pap therapy at night CHF Diastolic dysfunction Now off of furosemide AFib Chronic persistent May be another contributing factor to recent CHF, along with the pneumonitis. 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
[2016-08-13] MEDS: ATORVASTATIN CA 10 MG TABLET (FP) PO SCH (21:34)
[2016-08-14] MEDS: NYSTATIN 500,000 UNITS/5 ML SUSPENSION PO SCH ×4 (00:30→17:58)
[2016-08-14] MEDS: DOCUSATE SODIUM 100 MG CAPSULE (FP) PO SCH ×3 (06:03→22:13)
[2016-08-14 07:11] LABS: BASOPHIL 0.1 % (0-2.0); MCH 30.2 pg (25.7-33.7); MCHC 32.6 g/dl (32.0-36.0); MEAN CELL VOLUME 92.9 fl (80-96); MEAN PLT VOLUME 9.3 fl (7.5-11.1); NEUTROPHILS 91.8 % (42.8-82.8); PLATELET COUNT 212 K/MM3 (134-434); RDW 13.8 % (11.6-15.6); WHITE BLOOD COUNT 9.9 K/mm3 (4.0-10.0)
[2016-08-14 07:44] LABS: ALBUMIN 2.8 g/dl (3.4-5.0); ANION GAP 10 (8-16); CALCIUM 8.5 mg/dL (8.5-10.1); CO2 28 mmol/L (21-32); GLUCOSE,RANDOM 243 mg/dL (74-106); SGOT/AST 18 U/L (15-37); SGPT/ALT 64 U/L (12-78)
[2016-08-14 07:46] LABS: ALK PHOS 122 U/L (45-117); BILIRUBIN,TOTAL 0.9 mg/dL (0.2-1.0); CREATININE 0.8 mg/dL (0.55-1.02); TOT PROT 5.3 g/dl (6.4-8.2)
[2016-08-14] MEDS: methylPREDNISolone NA SUCC 125 MG/2 ML VIAL IVPB SCH (10:00)
[2016-08-14] MEDS: CHOLECALCIFEROL (VITAMIN D3) 1,000 UNIT TABLET (FP) PO SCH ×2 (10:00→22:14)
[2016-08-14] MEDS: FLECAINIDE ACETATE 50 MG TABLET PO SCH ×2 (10:00→22:14)
[2016-08-14] MEDS: DABIGATRAN ETEXILATE MESYLATE 150 MG CAPSULE PO SCH ×2 (10:00→22:13)
[2016-08-14] MEDS: QUINAPRIL HCL 20 MG TABLET (FP) PO SCH (10:00)
[2016-08-14] MEDS: DORZOLAMIDE 2% HCL OPHTHALMIC SOLUTION 10 ML BOTTLE OU SCH ×2 (10:00→22:14)
[2016-08-14] MEDS: ALLOPURINOL 100 MG TABLET (FP) PO SCH (10:00)
[2016-08-14] MEDS ORDERED: ARFORMOTEROL TARTRATE 15 MCG/2 ML VIAL NEB ONE (10:18)
--- NOTE | 2016-08-14 10:27 | PN ---
Progress Note (short form) - Note Progress Note: Patient seen and examined Chart reviewed at length. Patient and recent history well known to me. Currently sitting up on bedside commode with less dyspnea and cough, overall. Les difficulty sleeping due to cough and congestion with improvement after utilizing the Bi-Pap apparatus, although required a shorter course last PM. No new chest discomfort or pre-syncope. Labs and senior management consultant notes appreciated. Selected Entries 08/14/16 06:00 Temperature 97.2 F L Pulse Rate 86 Respiratory 20 Rate Blood Pressure 132/88 Weight 135 lb Laboratory Tests 08/14/16 08/14/16 05:35 05:35 WBC 9.9 Hgb 14.2 Hct 43.6 Plt Count 212 Sodium 135 L Potassium 4.3 Chloride 97 L Carbon Dioxide 28 BUN 27 H Creatinine 0.8 Random Glucose 243 H Calcium 8.5 Total Bilirubin 0.9 AST 18 D ALT 64 D Alkaline Phosphatase 122 H Total Protein 5.3 L D Albumin 2.8 L D Chest Scattered rhonchi reduced again this AM with minimal end-expiratory wheezing Cough decreased Cor Irregular Telemetry Afib with rates in 80-100 range Abd Soft Mildly distended Non-tender Ext No edema Less dependent rubor Neuro No new focal deficit Assessment and Plan Pneumonitis Bilateral infiltrates on CT likley related to RSV infection Respiratory insufficiency Improved Stilll requires Bi-Pap therapy at night CHF Diastolic dysfunction Now off of furosemide AFib Chronic persistent May be another contributing factor to recent CHF, along with the pneumonitis. 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
[2016-08-14] MEDS: ARFORMOTEROL TARTRATE 15 MCG/2 ML VIAL NEB SCH ×2 (10:52→22:53)
--- NOTE | 2016-08-14 11:34 | PN ---
Progress Note (short form) - Note Progress Note: s: no cp palps dizzy; cough and sob cont to improve; still used bipap overnight but only briefly o: Vital Signs Period Temp Pulse Resp BP Sys/Bender Pulse Ox Last 24 Hr 97.2 F-97.9 F 75-94 18-20 111-132/48-88 96-99 Constitutional: Yes: Well Nourished, No Distress, Calm Cardiovascular: Yes: Pulse Irregular, S1, S2. No: JVD, Gallop, Murmur Respiratory: Yes: cta bl nl eff. No: Accessory Muscle Use, Rales Extremities: No: Cold Edema: No e/c/c Neurological: Yes: Alert, Oriented Psychiatric: No: Agitated no jaundice diaphoresis Current Medications Generic Name Dose Route Start Last Admin Trade Name Freq PRN Reason Stop Dose Admin Acetaminophen 650 mg 08/05/16 18:13 08/06/16 12:03 Tylenol - PO 650 mg Q6H PRN Administration FEVER OR PAIN Albuterol Sulfate 1 amp 08/12/16 15:47 Ventolin 0.083% Nebulizer Soln - NEB Q4H PRN SHORT OF BREATH/WHEEZING Allopurinol 100 mg 08/05/16 10:00 08/13/16 09:52 Zyloprim - PO 100 mg DAILY [facility] Administration Arformoterol Tartrate 1 amp 08/12/16 22:00 08/13/16 22:50 Brovana (Restricted To Pulmonology/Resp) - NEB 1 amp BID [facility] Administration Atorvastatin Calcium 10 mg 08/05/16 22:00 08/13/16 21:34 Lipitor - PO 10 mg HS [facility] Administration Cholecalciferol 1,000 unit 08/05/16 10:00 08/13/16 21:35 Vitamin D3 - PO 1,000 unit BID [facility] Administration Dabigatran 150 mg 08/05/16 10:00 08/13/16 21:34 Pradaxa - PO 150 mg BID [facility] Administration Docusate Sodium 100 mg 08/07/16 14:00 08/14/16 06:03 Colace - PO 100 mg TID [facility] Administration Dorzolamide HCl 1 drop 08/05/16 22:00 08/13/16 21:35 Trusopt 2% OU 1 drop BID [facility] Administration Flecainide Acetate 100 mg 08/14/16 10:00 Tambacor - PO BID [facility] Methylprednisolone Sodium Succinate 40 mg 08/14/16 11:00 Solu-Medrol - IVPB BID [facility] Nystatin 500,000 units 08/08/16 12:00 08/14/16 06:00 Nystatin Oral Suspension - PO 500,000 units Q6HPO [facility] Administration Polyethylene Glycol 17 gm 08/07/16 13:15 08/13/16 21:34 Miralax (For Daily Use) - PO 17 grams BID [facility] Administration Quinapril HCl 20 mg 08/05/16 10:00 08/13/16 09:52 Accupril - PO 20 mg DAILY [facility] Administration Tiotropium [place] 1 puff 08/12/16 15:45 08/13/16 09:51 Spiriva - IH Not Given DAILY [facility] CBC, BMP 08/14/16 05:35 08/14/16 05:35 tele: afib,rate controlled echo 03/2015: tds, nl lv/rv, mild lae, no sig valve path echo 08/2016: nl lv/rv, mod dwayne, mod-sev mr/tr, nl rvsp, mild-mod ar...on my review trace ar, mod mr, mild tr tele: afib, rate controlled around 100's. ecg 08/04/16: afib, vr 110, nonspecific lateral st-t changes, nl qtc, no sig change 07/27/16 ct chest: bl pna, no chf a/p: 85 f hx afib, hld, htn, breast ca here with sob, cough. a.e. copd, bilat PNA (+ RSV), acute diastolic chf: -developed acute HFpEF on cruise, ? triggered by pneumonitis then--7 lb wt loss in few days on lasix 20 qd in office -now here with worsening resp status, mostly due to recurrent lung infxn/a.e. copd--abx, iv steroids, BDs per pulm/ID -ct chest 08/06/16 reports bl pna, no chf -suspect "mod-sev" MR and TR on echo report here is over-read--no prior h/o signif valve dysfunction--will await JORGE at time of cardioversion for more accurate assesment of valves -got iv lasix initially until showed signs of vol depletion, now lasix stopped. afib: -has had several jorge/dccv in past but now back in afib, on maintenance flecainide 100 bid x several years. Rate controlled here. -plan is for JORGE/DCCV once resp status improved. likely would be ready for next week. possibly could be done as inpt if still here through the weekend, otherwise will be arranged as outpt (this was original plan and rate is controlled here) -cont home pradaxa hld: -cont statin htn: -stable on home meds. elevated trops: -intermediate-range trops without accompanying s/sx to suggest ACS -ecg similar to priors -echo with nl lvef, no wma's
[2016-08-14] MEDS: TIOTROPIUM BROMIDE 18 MCG/INH (DEVICE W/ 5 CAPSULES) IH SCH (12:16)
[2016-08-14] MEDS: POLYETHYLENE GLYCOL 3350 119 GM BTL PO SCH ×2 (12:16→22:13)
[2016-08-14] MEDS: methylPREDNISolone NA SUCC 40 MG/1 ML VIAL IVPB SCH ×2 (12:19→22:13)
--- NOTE | 2016-08-14 15:46 | PN ---
Progress Note, Physician History of Present Illness: Dyspnea and cough decreased - Current Medication List Current Medications: Active Medications Acetaminophen (Tylenol -) 650 mg PO Q6H PRN PRN Reason: FEVER OR PAIN Last Admin: 08/06/16 12:03 Dose: 650 mg Albuterol Sulfate (Ventolin 0.083% Nebulizer Soln -) 1 amp NEB Q4H PRN PRN Reason: SHORT OF BREATH/WHEEZING Allopurinol (Zyloprim -) 100 mg PO DAILY [facility] Last Admin: 08/14/16 10:00 Dose: 100 mg Arformoterol Tartrate (Brovana (Restricted To Pulmonology/Resp) -) 1 amp NEB BID [facility] Last Admin: 08/14/16 10:52 Dose: 1 amp Atorvastatin Calcium (Lipitor -) 10 mg PO HS [facility] Last Admin: 08/13/16 21:34 Dose: 10 mg Cholecalciferol (Vitamin D3 -) 1,000 unit PO BID [facility] Last Admin: 08/14/16 10:00 Dose: 1,000 unit Dabigatran (Pradaxa -) 150 mg PO BID [facility] Last Admin: 08/14/16 10:00 Dose: 150 mg Docusate Sodium (Colace -) 100 mg PO TID [facility] Last Admin: 08/14/16 13:23 Dose: Not Given Dorzolamide HCl (Trusopt 2%) 1 drop OU BID [facility] Last Admin: 08/14/16 10:00 Dose: 1 drop Flecainide Acetate (Tambacor -) 100 mg PO BID [facility] Last Admin: 08/14/16 10:00 Dose: 100 mg Methylprednisolone Sodium Succinate (Solu-Medrol -) 40 mg IVPB BID [facility] Last Admin: 08/14/16 12:19 Dose: Not Given Nystatin (Nystatin Oral Suspension -) 500,000 units PO Q6HPO [facility] Last Admin: 08/14/16 12:19 Dose: Not Given Polyethylene Glycol (Miralax (For Daily Use) -) 17 gm PO BID [facility] Last Admin: 08/14/16 12:16 Dose: Not Given Quinapril HCl (Accupril -) 20 mg PO DAILY [facility] Last Admin: 08/14/16 10:00 Dose: 20 mg Tiotropium [place] (Spiriva -) 1 puff IH DAILY [facility] Last Admin: 08/14/16 12:16 Dose: Not Given - Objective Vital Signs: Vital Signs Temperature 98 F 08/14/16 10:00 Pulse Rate 93 H 08/14/16 14:35 Respiratory Rate 18 08/14/16 10:00 Blood Pressure 130/76 08/14/16 10:00 O2 Sat by Pulse Oximetry (%) 96 08/14/16 14:35 Constitutional: Yes: No Distress Eyes: No: Sclera Icterus HENT: Yes: Normocephalic Neck: Yes: Supple, Trachea Midline Cardiovascular: Yes: Pulse Irregular. No: JVD Respiratory: Yes: CTA Bilaterally Gastrointestinal: Yes: Soft Extremities: No: Calf Tenderness Edema: No Neurological: Yes: Alert, Oriented Labs: CBC, BMP 08/14/16 05:35 08/14/16 05:35 INR, PTT INR 1.45 (0.82-1.09) H 08/04/16 22:30 Problem List - Problems (1) Acute respiratory failure Code(s): J96.00 - ACUTE RESPIRATORY FAILURE, UNSP W HYPOXIA OR HYPERCAPNIA Qualifiers: Respiratory failure complication: hypoxia Qualified Code(s): J96.01 - Acute respiratory failure with hypoxia (2) Acute exacerbation of chronic obstructive pulmonary disease Code(s): J44.1 - CHRONIC OBSTRUCTIVE PULMONARY DISEASE W (ACUTE) EXACERBATION (3) CHF (congestive heart failure) Code(s): I50.9 - HEART FAILURE, UNSPECIFIED Qualifiers: Congestive heart failure type: unspecified congestive heart failure type Congestive heart failure chronicity: acute Qualified Code(s): I50.9 - Heart failure, unspecified (4) Pneumonia Code(s): J18.9 - PNEUMONIA, UNSPECIFIED ORGANISM Qualifiers: Laterality: bilateral (5) Paroxysmal atrial fibrillation Code(s): I48.0 - PAROXYSMAL ATRIAL FIBRILLATION Assessment/Plan 85 year old lady with: Acute Exacerbation COPD secondary to respiratory infection-probably viral. Respiratory status improving. Spirometry close to normal. CHF- improved: pt is off diuretic Pneumonia Paroxysmal Atrial Fibrillation on Pradaxa Suggest: O2 to maintain SaO2>90 Inhaled bronchodilators anticoagulation ? cardioversion when medically stable Steriod taper in progress CXR
[2016-08-14] MEDS ORDERED: PT OWN MED DRAWER 7, Y5N ONE (22:10)
[2016-08-14] MEDS: ATORVASTATIN CA 10 MG TABLET (FP) PO SCH (22:13)
[2016-08-15] MEDS: NYSTATIN 500,000 UNITS/5 ML SUSPENSION PO SCH ×5 (00:40→21:53)
[2016-08-15] MEDS: DOCUSATE SODIUM 100 MG CAPSULE (FP) PO SCH ×3 (06:15→21:50)
[2016-08-15 07:44] LABS: BASOPHIL 0.1 % (0-2.0); MCH 30.5 pg (25.7-33.7); MCHC 32.8 g/dl (32.0-36.0); MEAN CELL VOLUME 92.9 fl (80-96); MEAN PLT VOLUME 9.4 fl (7.5-11.1); NEUTROPHILS 90.1 % (42.8-82.8); PLATELET COUNT 220 K/MM3 (134-434); RDW 13.9 % (11.6-15.6)
[2016-08-15 08:18] LABS: ALBUMIN 2.7 g/dl (3.4-5.0); ALK PHOS 124 U/L (45-117); ANION GAP 11 (8-16); BILIRUBIN,TOTAL 0.8 mg/dL (0.2-1.0); CALCIUM 8.6 mg/dL (8.5-10.1); CO2 28 mmol/L (21-32); CREATININE 0.8 mg/dL (0.55-1.02); GLUCOSE,RANDOM 198 mg/dL (74-106); MAGNESIUM 2.2 mg/dL (1.8-2.4); SGOT/AST 16 U/L (15-37); SGPT/ALT 59 U/L (12-78); TOT PROT 4.9 g/dl (6.4-8.2)
--- NOTE | 2016-08-15 08:19 | PN ---
Progress Note, Physician Chief Complaint: copd History of Present Illness: cough better, bringing up the phlegm now; much less sob, walking longer in halls; no palpit, cp - Current Medication List Current Medications: Active Medications Acetaminophen (Tylenol -) 650 mg PO Q6H PRN PRN Reason: FEVER OR PAIN Last Admin: 08/06/16 12:03 Dose: 650 mg Albuterol Sulfate (Ventolin 0.083% Nebulizer Soln -) 1 amp NEB Q4H PRN PRN Reason: SHORT OF BREATH/WHEEZING Allopurinol (Zyloprim -) 100 mg PO DAILY [facility] Last Admin: 08/14/16 10:00 Dose: 100 mg Arformoterol Tartrate (Brovana (Restricted To Pulmonology/Resp) -) 1 amp NEB BID [facility] Last Admin: 08/14/16 22:53 Dose: 1 amp Atorvastatin Calcium (Lipitor -) 10 mg PO HS [facility] Last Admin: 08/14/16 22:13 Dose: 10 mg Cholecalciferol (Vitamin D3 -) 1,000 unit PO BID [facility] Last Admin: 08/14/16 22:14 Dose: 1,000 unit Dabigatran (Pradaxa -) 150 mg PO BID [facility] Last Admin: 08/14/16 22:13 Dose: 150 mg Docusate Sodium (Colace -) 100 mg PO TID [facility] Last Admin: 08/15/16 06:15 Dose: Not Given Dorzolamide HCl (Trusopt 2%) 1 drop OU BID [facility] Last Admin: 08/14/16 22:14 Dose: 1 drop Flecainide Acetate (Tambacor -) 100 mg PO BID [facility] Last Admin: 08/14/16 22:14 Dose: 100 mg Methylprednisolone Sodium Succinate (Solu-Medrol -) 40 mg IVPB BID [facility] Last Admin: 08/14/16 22:13 Dose: 40 mg Nystatin (Nystatin Oral Suspension -) 500,000 units PO Q6HPO [facility] Last Admin: 08/15/16 06:14 Dose: 500,000 units Polyethylene Glycol (Miralax (For Daily Use) -) 17 gm PO BID [facility] Last Admin: 08/14/16 22:13 Dose: Not Given Quinapril HCl (Accupril -) 20 mg PO DAILY [facility] Last Admin: 08/14/16 10:00 Dose: 20 mg Tiotropium [place] (Spiriva -) 1 puff IH DAILY [facility] Last Admin: 08/14/16 12:16 Dose: Not Given - Objective Vital Signs: Vital Signs Temperature 97.0 F L 08/15/16 05:49 Pulse Rate 84 08/15/16 05:49 Respiratory Rate 20 08/15/16 05:49 Blood Pressure 131/77 08/15/16 05:49 O2 Sat by Pulse Oximetry (%) 100 08/14/16 22:00 Constitutional: Yes: Well Nourished, No Distress, Calm Cardiovascular: Yes: Pulse Irregular, S1, S2. No: Gallop, Murmur Respiratory: Yes: Regular. No: Accessory Muscle Use, Rales, Wheezes Extremities: No: Cold Edema: No Neurological: Yes: Alert, Oriented Psychiatric: No: Agitated Labs: CBC, BMP 08/15/16 06:00 INR, PTT INR 1.45 (0.82-1.09) H 08/04/16 22:30 - ....Imaging EKG: Other (tele: AF, good HRs) Assessment/Plan echo 03/2015: tds, nl lv/rv, mild lae, no sig valve path echo 08/2016: nl lv/rv, mod dwayne, mod-sev mr/tr, nl rvsp, mild-mod ar...on my review trace ar, mod mr, mild tr ct chest: bl pna, no chf a/p: 85 f hx afib, hld, htn, breast ca here with sob, cough. a.e. copd, bilat PNA (+ RSV), acute diastolic chf: -developed acute HFpEF on [place], ? triggered by pneumonitis then--7 lb wt loss in few days at home in response to lasix 20 qd when got back from cruise -admitted currently with worsening resp status, mostly due to recurrent lung infxn/a.e. 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 on echo report here is over-read--no prior h/o signif valve dysfunction and no pathological sounding murmurs on exam--will await JORGE at time of cardioversion for more accurate assesment of valves -BNP 4K here, no priors to compare -rx'd with iv lasix initially (40 iv qd) until labs began to trend in direction of vol depletion (with wt stable, down from prior)--now lasix on hold afib: -has had several jorge/dccv in past but now back in afib, on maintenance flecainide 100 bid x several years. Rate controlled here. -plan is for JORGE/DCCV once resp status improved--given this is completely elective, i would prefer her phlegm/cough is minimal prior to proceeding-- suspect will not be ready until wed or next week...will do as outpt if ready to go home sooner -cont home pradaxa hld: -cont statin htn: -stable on home meds. elevated trops: -intermediate-range trops without accompanying s/sx to suggest ACS -ecg similar to priors -echo with nl lvef, no wma's
[2016-08-15] MEDS: POLYETHYLENE GLYCOL 3350 119 GM BTL PO SCH ×2 (09:56→21:50)
[2016-08-15] MEDS: QUINAPRIL HCL 20 MG TABLET (FP) PO SCH (09:56)
[2016-08-15] MEDS: TIOTROPIUM BROMIDE 18 MCG/INH (DEVICE W/ 5 CAPSULES) IH SCH (09:59)
[2016-08-15] MEDS: methylPREDNISolone NA SUCC 40 MG/1 ML VIAL IVPB SCH ×2 (09:59→21:52)
[2016-08-15] MEDS: ALLOPURINOL 100 MG TABLET (FP) PO SCH (10:00)
[2016-08-15] MEDS: CHOLECALCIFEROL (VITAMIN D3) 1,000 UNIT TABLET (FP) PO SCH ×2 (10:00→21:52)
[2016-08-15] MEDS: FLECAINIDE ACETATE 50 MG TABLET PO SCH ×2 (10:00→21:52)
[2016-08-15] MEDS: ARFORMOTEROL TARTRATE 15 MCG/2 ML VIAL NEB SCH ×2 (10:02→21:35)
[2016-08-15] MEDS: DORZOLAMIDE 2% HCL OPHTHALMIC SOLUTION 10 ML BOTTLE OU SCH ×2 (10:07→21:52)
[2016-08-15] MEDS: DABIGATRAN ETEXILATE MESYLATE 150 MG CAPSULE PO SCH ×2 (10:19→21:50)
--- NOTE | 2016-08-15 12:16 | PN ---
Progress Note, Physician Chief Complaint: Patient is feeling less SOB and walking + PT in hallways yesterday. History of Present Illness: Patient admitted with acute illness last week and diagnosed with COPD with Acute Exacerbation, Atrial Fibrillation and Bilateral Pneumonia. Did not use BiPaP last nite and starting to walk + assist with PT. Still on steroid and aerosol Rx. Will probably need SNF post hospital. - Current Medication List Current Medications: Active Medications Acetaminophen (Tylenol -) 650 mg PO Q6H PRN PRN Reason: FEVER OR PAIN Last Admin: 08/06/16 12:03 Dose: 650 mg Albuterol Sulfate (Ventolin 0.083% Nebulizer Soln -) 1 amp NEB Q4H PRN PRN Reason: SHORT OF BREATH/WHEEZING Allopurinol (Zyloprim -) 100 mg PO DAILY [facility] Last Admin: 08/15/16 10:00 Dose: 100 mg Arformoterol Tartrate (Brovana (Restricted To Pulmonology/Resp) -) 1 amp NEB BID [facility] Last Admin: 08/14/16 22:53 Dose: 1 amp Atorvastatin Calcium (Lipitor -) 10 mg PO HS [facility] Last Admin: 08/14/16 22:13 Dose: 10 mg Cholecalciferol (Vitamin D3 -) 1,000 unit PO BID [facility] Last Admin: 08/15/16 10:00 Dose: 1,000 unit Dabigatran (Pradaxa -) 150 mg PO BID [facility] Last Admin: 08/15/16 10:19 Dose: 150 mg Docusate Sodium (Colace -) 100 mg PO TID [facility] Last Admin: 08/15/16 06:15 Dose: Not Given Dorzolamide HCl (Trusopt 2%) 1 drop OU BID [facility] Last Admin: 08/15/16 10:07 Dose: 1 drop Flecainide Acetate (Tambacor -) 100 mg PO BID [facility] Last Admin: 08/15/16 10:00 Dose: 100 mg Methylprednisolone Sodium Succinate (Solu-Medrol -) 40 mg IVPB BID [facility] Last Admin: 08/15/16 09:59 Dose: 40 mg Nystatin (Nystatin Oral Suspension -) 500,000 units PO Q6HPO [facility] Last Admin: 08/15/16 06:14 Dose: 500,000 units Polyethylene Glycol (Miralax (For Daily Use) -) 17 gm PO BID [facility] Last Admin: 08/15/16 09:56 Dose: Not Given Quinapril HCl (Accupril -) 20 mg PO DAILY [facility] Last Admin: 08/15/16 09:56 Dose: 20 mg Tiotropium [place] (Spiriva -) 1 puff IH DAILY [facility] Last Admin: 08/15/16 09:59 Dose: 1 puff - Objective Vital Signs: Vital Signs Temperature 97.0 F L 08/15/16 05:49 Pulse Rate 84 08/15/16 05:49 Respiratory Rate 20 08/15/16 05:49 Blood Pressure 131/77 08/15/16 05:49 O2 Sat by Pulse Oximetry (%) 100 08/14/16 22:00 Constitutional: Yes: Calm, Pallor Cardiovascular: Yes: Pulse Irregular Respiratory: Yes: Diminished, Rales, Rhonchi (few rales and rhonchi at bases on deep inspiration.) Gastrointestinal: Yes: Soft Genitourinary: No: [place] Present Edema: No Neurological: Yes: Alert, Oriented Labs: CBC, BMP 08/15/16 06:00 08/15/16 06:00 INR, PTT INR 1.45 (0.82-1.09) H 08/04/16 22:30 - ....Imaging Chest X-ray: Report Reviewed Problem List - Problems (1) Pneumonia Assessment/Plan: Still with some basilar congestion but afebrile. Code(s): J18.9 - PNEUMONIA, UNSPECIFIED ORGANISM Qualifiers: Laterality: bilateral (2) Acute exacerbation of chronic obstructive pulmonary disease Assessment/Plan: Seen by Pulmonary MD and improving Re: SOB. Code(s): J44.1 - CHRONIC OBSTRUCTIVE PULMONARY DISEASE W (ACUTE) EXACERBATION (3) CHF (congestive heart failure) Assessment/Plan: Followed by Cardiology. Code(s): I50.9 - HEART FAILURE, UNSPECIFIED Qualifiers: Congestive heart failure type: unspecified congestive heart failure type Congestive heart failure chronicity: acute Qualified Code(s): I50.9 - Heart failure, unspecified (4) Chronic atrial fibrillation Assessment/Plan: On NOAC Code(s): I48.2 - CHRONIC ATRIAL FIBRILLATION (5) HTN (hypertension) Assessment/Plan: 130/77 on Rx. Code(s): I10 - ESSENTIAL (PRIMARY) HYPERTENSION (6) Thrush Assessment/Plan: On Rx. Code(s): B37.0 - CANDIDAL STOMATITIS
[2016-08-15] MEDS: ATORVASTATIN CA 10 MG TABLET (FP) PO SCH (21:50)
[2016-08-16] MEDS: NYSTATIN 500,000 UNITS/5 ML SUSPENSION PO SCH ×4 (01:01→17:26)
[2016-08-16] MEDS: DOCUSATE SODIUM 100 MG CAPSULE (FP) PO SCH ×5 (05:48→21:18)
--- NOTE | 2016-08-16 08:39 | PN ---
Progress Note, Physician Chief Complaint: sob History of Present Illness: more sob today; coughing is about the same but feels she isn't able to bring up the phlegm like yesterday; no cp, palpitations no wheezing - Current Medication List Current Medications: Active Medications Acetaminophen (Tylenol -) 650 mg PO Q6H PRN PRN Reason: FEVER OR PAIN Last Admin: 08/06/16 12:03 Dose: 650 mg Albuterol Sulfate (Ventolin 0.083% Nebulizer Soln -) 1 amp NEB Q4H PRN PRN Reason: SHORT OF BREATH/WHEEZING Allopurinol (Zyloprim -) 100 mg PO DAILY [facility] Last Admin: 08/15/16 10:00 Dose: 100 mg Arformoterol Tartrate (Brovana (Restricted To Pulmonology/Resp) -) 1 amp NEB BID [facility] Last Admin: 08/15/16 21:35 Dose: 1 amp Atorvastatin Calcium (Lipitor -) 10 mg PO HS [facility] Last Admin: 08/15/16 21:50 Dose: 10 mg Cholecalciferol (Vitamin D3 -) 1,000 unit PO BID [facility] Last Admin: 08/15/16 21:52 Dose: 1,000 unit Dabigatran (Pradaxa -) 150 mg PO BID [facility] Last Admin: 08/15/16 21:50 Dose: 150 mg Docusate Sodium (Colace -) 100 mg PO TID [facility] Last Admin: 08/16/16 05:49 Dose: Not Given Dorzolamide HCl (Trusopt 2%) 1 drop OU BID [facility] Last Admin: 08/15/16 21:52 Dose: 1 drop Flecainide Acetate (Tambacor -) 100 mg PO BID [facility] Last Admin: 08/15/16 21:52 Dose: 100 mg Methylprednisolone Sodium Succinate (Solu-Medrol -) 40 mg IVPB BID [facility] Last Admin: 08/15/16 21:52 Dose: 40 mg Nystatin (Nystatin Oral Suspension -) 500,000 units PO Q6HPO [facility] Last Admin: 08/16/16 05:48 Dose: 500,000 units Polyethylene Glycol (Miralax (For Daily Use) -) 17 gm PO BID [facility] Last Admin: 08/15/16 21:50 Dose: 17 grams Quinapril HCl (Accupril -) 20 mg PO DAILY [facility] Last Admin: 08/15/16 09:56 Dose: 20 mg Tiotropium [place] (Spiriva -) 1 puff IH DAILY [facility] Last Admin: 08/15/16 09:59 Dose: 1 puff - Objective Vital Signs: Vital Signs Temperature 97.0 F L 08/16/16 05:47 Pulse Rate 90 08/16/16 05:47 Respiratory Rate 20 08/16/16 05:47 Blood Pressure 148/94 08/16/16 05:47 O2 Sat by Pulse Oximetry (%) 98 08/16/16 06:40 Constitutional: Yes: Well Nourished, No Distress, Calm Cardiovascular: Yes: Pulse Irregular, S1, S2. No: JVD, Gallop, Murmur Respiratory: Yes: Regular, CTA Bilaterally. No: Accessory Muscle Use, Rales, Wheezes Extremities: No: Cold Edema: No Neurological: Yes: Alert, Oriented Psychiatric: No: Agitated Labs: CBC, BMP 08/15/16 06:00 08/15/16 06:00 INR, PTT INR 1.45 (0.82-1.09) H 08/04/16 22:30 - ....Imaging EKG: Other (tele: AF, good HRs) Assessment/Plan echo 03/2015: tds, nl lv/rv, mild lae, no sig valve path echo 08/2016: nl lv/rv, mod dwayne, mod-sev mr/tr, nl rvsp, mild-mod ar...on my review trace ar, mod mr, mild tr ct chest: bl pna, no chf a/p: 85 f hx afib, hld, htn, breast ca here with sob, cough. a.e. copd, bilat PNA (+ RSV), acute diastolic chf: -developed acute HFpEF on cruise, ? triggered by pneumonitis then--7 lb wt loss in few days at home in response to lasix 20 qd when got back from cruise -admitted currently with worsening resp status, mostly due to recurrent lung infxn/a.e. 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 on echo report here is over-read--no prior h/o signif valve dysfunction and no pathological sounding murmurs on exam--will await JORGE at time of cardioversion for more accurate assesment of valves -BNP 4K here, no priors to compare -rx'd with iv lasix initially (40 iv qd) until labs began to trend in direction of vol depletion (with wt stable, down from prior)--now lasix on hold -08/16: incr sob today, no JVD and lungs clear without wheezing or rhonchi-- suspect this is sec to waxing and waning airways dz/decr mobilization of phlegm; -will give one dose iv lasix now, cxr being repeated afib: -has had several jorge/dccv in past but now back in afib, on maintenance flecainide 100 bid x several years. Rate controlled here. -plan is for JORGE/DCCV once resp status improved--given this is completely elective, i would prefer her phlegm/cough is minimal prior to proceeding, to minimize risks of aspiration and/or triggering bronchospasm--suspect will not be ready until wed or next week...will do as outpt if ready to go home sooner -cont home pradaxa hld: -cont statin htn: -stable on home meds. elevated trops: -intermediate-range trops without accompanying s/sx to suggest ACS -ecg similar to priors -echo with nl lvef, no wma's
[2016-08-16] MEDS: ARFORMOTEROL TARTRATE 15 MCG/2 ML VIAL NEB SCH ×2 (10:02→21:40)
[2016-08-16] MEDS: QUINAPRIL HCL 20 MG TABLET (FP) PO SCH (10:19)
[2016-08-16] MEDS: POLYETHYLENE GLYCOL 3350 119 GM BTL PO SCH ×2 (10:19→21:18)
[2016-08-16] MEDS: FLECAINIDE ACETATE 50 MG TABLET PO SCH ×2 (10:20→21:19)
[2016-08-16] MEDS: CHOLECALCIFEROL (VITAMIN D3) 1,000 UNIT TABLET (FP) PO SCH ×2 (10:21→21:19)
[2016-08-16] MEDS: DORZOLAMIDE 2% HCL OPHTHALMIC SOLUTION 10 ML BOTTLE OU SCH ×2 (10:28→21:24)
--- NOTE | 2016-08-16 10:43 | PN ---
Progress Note, Physician Chief Complaint: More SOB today. History of Present Illness: Patient with Bilateral pneumonia; A.Fib and COPD with exacerbation feels more SOB today. Didn't sleep well last nite and had some orthopnea. Some coughing when she takes a deep breath.No chest pain; still having periods of rapid A. Fib.on monitor. I believe she has more basilar rales today so I will Rx. with 1 dose 40mg Lasix IV and repeat CXR. - Current Medication List Current Medications: Active Medications Acetaminophen (Tylenol -) 650 mg PO Q6H PRN PRN Reason: FEVER OR PAIN Last Admin: 08/06/16 12:03 Dose: 650 mg Albuterol Sulfate (Ventolin 0.083% Nebulizer Soln -) 1 amp NEB Q4H PRN PRN Reason: SHORT OF BREATH/WHEEZING Allopurinol (Zyloprim -) 100 mg PO DAILY [facility] Last Admin: 08/15/16 10:00 Dose: 100 mg Arformoterol Tartrate (Brovana (Restricted To Pulmonology/Resp) -) 1 amp NEB BID [facility] Last Admin: 08/15/16 21:35 Dose: 1 amp Atorvastatin Calcium (Lipitor -) 10 mg PO HS [facility] Last Admin: 08/15/16 21:50 Dose: 10 mg Cholecalciferol (Vitamin D3 -) 1,000 unit PO BID [facility] Last Admin: 08/15/16 21:52 Dose: 1,000 unit Dabigatran (Pradaxa -) 150 mg PO BID [facility] Last Admin: 08/15/16 21:50 Dose: 150 mg Docusate Sodium (Colace -) 100 mg PO TID [facility] Last Admin: 08/16/16 05:49 Dose: Not Given Dorzolamide HCl (Trusopt 2%) 1 drop OU BID [facility] Last Admin: 08/15/16 21:52 Dose: 1 drop Flecainide [place]etate (Tambacor -) 100 mg PO BID [facility] Last Admin: 08/15/16 21:52 Dose: 100 mg Furosemide (Lasix Injection -) 40 mg IVPUSH ONCE ONE Stop: 08/16/16 10:37 Methylprednisolone Sodium Succinate (Solu-Medrol -) 40 mg IVPB BID [facility] Last Admin: 08/15/16 21:52 Dose: 40 mg Nystatin (Nystatin Oral Suspension -) 500,000 units PO Q6HPO [facility] Last Admin: 08/16/16 05:48 Dose: 500,000 units Polyethylene Glycol (Miralax (For Daily Use) -) 17 gm PO BID [facility] Last Admin: 08/15/16 21:50 Dose: 17 grams Quinapril HCl (Accupril -) 20 mg PO DAILY [facility] Last Admin: 08/15/16 09:56 Dose: 20 mg Tiotropium [place] (Spiriva -) 1 puff IH DAILY [facility] Last Admin: 08/15/16 09:59 Dose: 1 puff - Objective Vital Signs: Vital Signs Temperature 97.0 F L 08/16/16 05:47 Pulse Rate 90 08/16/16 05:47 Respiratory Rate 20 08/16/16 05:47 Blood Pressure 148/94 08/16/16 05:47 O2 Sat by Pulse Oximetry (%) 98 08/16/16 06:40 Constitutional: Yes: Anxious, Mild Distress Cardiovascular: Yes: Tachycardia, Pulse Irregular Respiratory: Yes: Rales (both bases.), SOB Gastrointestinal: Yes: Soft (Had BM) Edema: No Integumentary: Yes: Rash (? eczema lower left leg tibia.) Neurological: Yes: Alert, Oriented Labs: CBC, BMP 08/15/16 06:00 08/15/16 06:00 INR, PTT INR 1.45 (0.82-1.09) H 08/04/16 22:30 Problem List - Problems (1) Pneumonia Assessment/Plan: Off antibiotics but CXR to be repeated due to increasing SOB. Code(s): J18.9 - PNEUMONIA, UNSPECIFIED ORGANISM Qualifiers: Laterality: bilateral (2) Acute exacerbation of chronic obstructive pulmonary disease Assessment/Plan: Still on IV steroids; didn't use BiPaP last nite; still SOB but not wheezing. Code(s): J44.1 - CHRONIC OBSTRUCTIVE PULMONARY DISEASE W (ACUTE) EXACERBATION (3) CHF (congestive heart failure) Assessment/Plan: With SOB and increased rales on exam will give dose of Lasix 40mg IV once. Code(s): I50.9 - HEART FAILURE, UNSPECIFIED Qualifiers: Congestive heart failure type: unspecified congestive heart failure type Congestive heart failure chronicity: acute Qualified Code(s): I50.9 - Heart failure, unspecified (4) Chronic atrial fibrillation Assessment/Plan: Still paroxysms of rapid A. Fib Code(s): I48.2 - CHRONIC ATRIAL FIBRILLATION (5) HTN (hypertension) Assessment/Plan: Stable on Rx. Code(s): I10 - ESSENTIAL (PRIMARY) HYPERTENSION (6) Thrush Assessment/Plan: On Rx. Code(s): B37.0 - CANDIDAL STOMATITIS
[2016-08-16] MEDS ORDERED: FUROSEMIDE 40 MG/4 ML INJECTABLE VIAL IVPUSH ONE (11:00)
[2016-08-16] MEDS: ALLOPURINOL 100 MG TABLET (FP) PO SCH (11:17)
[2016-08-16] MEDS: DABIGATRAN ETEXILATE MESYLATE 150 MG CAPSULE PO SCH ×2 (11:18→21:18)
[2016-08-16] MEDS: methylPREDNISolone NA SUCC 40 MG/1 ML VIAL IVPB SCH ×2 (11:19→21:19)
[2016-08-16] MEDS: TIOTROPIUM BROMIDE 18 MCG/INH (DEVICE W/ 5 CAPSULES) IH SCH (11:28)
[2016-08-16] MEDS ORDERED: PT OWN MED DRAWER 7, Y5N ONE (21:11)
[2016-08-16] MEDS: ATORVASTATIN CA 10 MG TABLET (FP) PO SCH (21:18)
[2016-08-17] MEDS: NYSTATIN 500,000 UNITS/5 ML SUSPENSION PO SCH ×4 (01:10→17:19)
[2016-08-17] MEDS: DOCUSATE SODIUM 100 MG CAPSULE (FP) PO SCH ×3 (05:54→21:32)
[2016-08-17 07:22] LABS: BASOPHIL 0.1 % (0-2.0); MCH 30.7 pg (25.7-33.7); MEAN CELL VOLUME 93.3 fl (80-96); MEAN PLT VOLUME 9.1 fl (7.5-11.1); NEUTROPHILS 92.4 % (42.8-82.8); PLATELET COUNT 219 K/MM3 (134-434); RDW 13.8 % (11.6-15.6); WHITE BLOOD COUNT 11.2 K/mm3 (4.0-10.0)
[2016-08-17 07:47] LABS: CALCIUM 8.6 mg/dL (8.5-10.1); CREATININE 0.9 mg/dL (0.55-1.02)
[2016-08-17] MEDS: ARFORMOTEROL TARTRATE 15 MCG/2 ML VIAL NEB SCH ×2 (09:10→22:25)
--- NOTE | 2016-08-17 09:24 | PN ---
Progress Note, Physician Chief Complaint: PNA, chf History of Present Illness: much less cough; sob resolved vs yest; O2 sat was good in halls ambulating with resp therapy she says no cp, palpit - Current Medication List Current Medications: Active Medications Acetaminophen (Tylenol -) 650 mg PO Q6H PRN PRN Reason: FEVER OR PAIN Last Admin: 08/06/16 12:03 Dose: 650 mg Albuterol Sulfate (Ventolin 0.083% Nebulizer Soln -) 1 amp NEB Q4H PRN PRN Reason: SHORT OF BREATH/WHEEZING Allopurinol (Zyloprim -) 100 mg PO DAILY [facility] Last Admin: 08/16/16 11:17 Dose: 100 mg Arformoterol Tartrate (Brovana (Restricted To Pulmonology/Resp) -) 1 amp NEB BID [facility] Last Admin: 08/16/16 21:40 Dose: 1 amp Atorvastatin Calcium (Lipitor -) 10 mg PO HS [facility] Last Admin: 08/16/16 21:18 Dose: 10 mg Cholecalciferol (Vitamin D3 -) 1,000 unit PO BID [facility] Last Admin: 08/16/16 21:19 Dose: 1,000 unit Dabigatran (Pradaxa -) 150 mg PO BID [facility] Last Admin: 08/16/16 21:18 Dose: 150 mg Docusate Sodium (Colace -) 100 mg PO TID [facility] Last Admin: 08/17/16 05:54 Dose: Not Given Dorzolamide HCl (Trusopt 2%) 1 drop OU BID [facility] Last Admin: 08/16/16 21:24 Dose: 1 drop Flecainide Acetate (Tambacor -) 100 mg PO BID [facility] Last Admin: 08/16/16 21:19 Dose: 100 mg Methylprednisolone Sodium Succinate (Solu-Medrol -) 40 mg IVPB BID [facility] Last Admin: 08/16/16 21:19 Dose: 40 mg Nystatin (Nystatin Oral Suspension -) 500,000 units PO Q6HPO [facility] Last Admin: 08/17/16 05:53 Dose: Not Given Polyethylene Glycol (Miralax (For Daily Use) -) 17 gm PO BID [facility] Last Admin: 08/16/16 21:18 Dose: Not Given Quinapril HCl (Accupril -) 20 mg PO DAILY [facility] Last Admin: 08/16/16 10:19 Dose: 20 mg Tiotropium [place] (Spiriva -) 1 puff IH DAILY [facility] Last Admin: 08/16/16 11:28 Dose: Not Given - Objective Vital Signs: Vital Signs Temperature 97.0 F L 08/17/16 05:54 Pulse Rate 88 08/17/16 05:54 Respiratory Rate 20 08/17/16 05:54 Blood Pressure 127/75 08/17/16 05:54 O2 Sat by Pulse Oximetry (%) 100 08/16/16 22:00 Constitutional: Yes: No Distress, Calm Eyes: No: Sclera Icterus HENT: No: Nasal Congestion Cardiovascular: Yes: Pulse Irregular, S1, S2, Other (PMI non diplaced). No: JVD , Gallop, Murmur Respiratory: Yes: CTA Bilaterally, Rhonchi (few). No: Accessory Muscle Use, Rales, Wheezes Gastrointestinal: Yes: Normal Bowel Sounds, Soft. No: Tenderness Musculoskeletal: Yes: Other (No kyphosis) Extremities: No: Cold Edema: No Integumentary: No: Jaundice Neurological: Yes: Alert, Oriented (x3) Psychiatric: No: Agitated Labs: CBC, BMP 08/17/16 05:35 08/17/16 05:35 INR, PTT INR 1.45 (0.82-1.09) H 08/04/16 22:30 - ....Imaging EKG: Other (tele: AF, HRs good) Assessment/Plan echo 03/2015: tds, nl lv/rv, mild lae, no sig valve path echo 08/2016: nl lv/rv, mod dwayne, mod-sev mr/tr, nl rvsp, mild-mod ar...on my review trace ar, mod mr, mild tr ct chest: bl pna, no chf a/p: 85 f hx afib, hld, htn, breast ca here with sob, cough. a.e. copd, bilat PNA (+ RSV), acute diastolic chf: -developed acute HFpEF on cruise, ? triggered by pneumonitis then--7 lb wt loss in few days at home in response to lasix 20 qd when got back from cruise -admitted currently with worsening resp status, mostly due to recurrent lung infxn/a.e. 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 on echo report here is over-read--no prior h/o signif valve dysfunction and no pathological sounding murmurs on exam--will await JORGE at time of cardioversion for more accurate assesment of valves -BNP 4K here, no priors to compare -rx'd with iv lasix initially (40 iv qd) until labs began to trend in direction of vol depletion (with wt stable, down from prior)--now lasix on hold -08/16: incr sob today, no JVD and lungs clear without wheezing or rhonchi-- suspect this is sec to waxing and waning airways dz/decr mobilization of phlegm; -given one dose iv lasix 40 -CXR was unchanged, with no signs infiltrate or chf -06/16: sob improved s/p lasix, wt down 2 lbs; will cont lasix 40 po daily afib: -has had several jorge/dccv in past but now back in afib, on maintenance flecainide 100 bid x several years. Rate controlled here. -plan is for JORGE/DCCV once resp status improved--given this is completely elective, i would prefer her phlegm/cough is minimal prior to proceeding, to minimize risks of aspiration and/or triggering bronchospasm--will plan to arrange as outpt once resp sx's have completely resolved -cont home pradaxa hld: -cont statin htn: -stable on home meds. elevated trops: -intermediate-range trops without accompanying s/sx to suggest ACS -ecg similar to priors -echo with nl lvef, no wma's
[2016-08-17] MEDS: QUINAPRIL HCL 20 MG TABLET (FP) PO SCH (09:42)
[2016-08-17] MEDS: methylPREDNISolone NA SUCC 40 MG/1 ML VIAL IVPB SCH ×2 (09:42→21:34)
[2016-08-17] MEDS: ALLOPURINOL 100 MG TABLET (FP) PO SCH (09:42)
[2016-08-17] MEDS: DORZOLAMIDE 2% HCL OPHTHALMIC SOLUTION 10 ML BOTTLE OU SCH ×2 (09:44→21:32)
[2016-08-17] MEDS: POLYETHYLENE GLYCOL 3350 119 GM BTL PO SCH ×2 (09:44→21:33)
[2016-08-17] MEDS: TIOTROPIUM BROMIDE 18 MCG/INH (DEVICE W/ 5 CAPSULES) IH SCH (09:44)
[2016-08-17] MEDS: CHOLECALCIFEROL (VITAMIN D3) 1,000 UNIT TABLET (FP) PO SCH ×2 (09:47→21:37)
--- NOTE | 2016-08-17 09:57 | PN ---
Progress Note (short form) - Note Progress Note: Patient seen and examined Chart reviewed at length. Patient and recent history well known to me. Currently sitting up in bed with less dyspnea and cough, overall. Less difficulty sleeping due to cough and congestion with less dependence on the Bi-Pap apparatus. No new chest discomfort or pre-syncope. Labs and consumer services consultant notes appreciated. Selected Entries 08/17/16 08/17/16 06:00 09:00 Pulse Rate 94 H Blood Pressure 154/76 Weight 133 lb Laboratory Tests 08/17/16 08/17/16 05:35 05:35 WBC 11.2 H Hgb 13.7 Hct 41.7 Plt Count 219 Sodium 137 Potassium 4.3 Chloride 96 L Carbon Dioxide 31 BUN 28 H Creatinine 0.9 Random Glucose 221 H Calcium 8.6 Chest Scattered bibasilar rhonchi reduced again this AM with no end-expiratory wheezing Cough decreased Cor Irregular Telemetry Afib with rates in 80-100 range Abd Soft Mildly distended Non-tender Ext No edema Less dependent rubor Neuro No new focal deficit Assessment and Plan Pneumonitis Bilateral infiltrates on CT likely related to RSV infection Improved overall Respiratory insufficiency Improved CHF Diastolic dysfunction Furosemide as needed AFib Chronic persistent May be another contributing factor to recent CHF, along with the pneumonitis. Plan cardioversion as per cardiologists ASHD Recent mild elevation of troponins likely demand ischemia ECHO with normal LVEF and no significant WMAs COPD Underlying pathology with recent exacerbation Taper steroid dose HTN Stable HPL Stable Breast Cancer Bilateral mastectomies Stable Followed at [facility] IGT Exacerbated by corticosteroid use HBA1c elevated at 6.5 will follow Gout Stable Valvular heart disease MR and TR Reassess with CHARLES Continue current Rx Discuss timing of cardioversion
[2016-08-17] MEDS: DABIGATRAN ETEXILATE MESYLATE 150 MG CAPSULE PO SCH ×2 (11:56→21:34)
[2016-08-17] MEDS: FUROSEMIDE 40 MG TABLET (FP) PO SCH (11:56)
[2016-08-17] MEDS: FLECAINIDE ACETATE 50 MG TABLET PO SCH ×2 (11:56→21:36)
--- NOTE | 2016-08-17 15:44 | PN ---
Progress Note, Physician History of Present Illness: Dyspnea and cough decreased, still feels weak. Pt can ambulate . - Current Medication List Current Medications: Active Medications Acetaminophen (Tylenol -) 650 mg PO Q6H PRN PRN Reason: FEVER OR PAIN Last Admin: 08/06/16 12:03 Dose: 650 mg Albuterol Sulfate (Ventolin 0.083% Nebulizer Soln -) 1 amp NEB Q4H PRN PRN Reason: SHORT OF BREATH/WHEEZING Allopurinol (Zyloprim -) 100 mg PO DAILY [facility] Last Admin: 08/17/16 09:42 Dose: 100 mg Arformoterol Tartrate (Brovana (Restricted To Pulmonology/Resp) -) 1 amp NEB BID [facility] Last Admin: 08/17/16 09:10 Dose: 1 amp Atorvastatin Calcium (Lipitor -) 10 mg PO HS [facility] Last Admin: 08/16/16 21:18 Dose: 10 mg Cholecalciferol (Vitamin D3 -) 1,000 unit PO BID [facility] Last Admin: 08/17/16 09:47 Dose: 1,000 unit Dabigatran (Pradaxa -) 150 mg PO BID [facility] Last Admin: 08/17/16 11:56 Dose: 150 mg Docusate Sodium (Colace -) 100 mg PO TID [facility] Last Admin: 08/17/16 14:01 Dose: 100 mg Dorzolamide HCl (Trusopt 2%) 1 drop OU BID [facility] Last Admin: 08/17/16 09:44 Dose: 1 drop Flecainide Acetate (Tambacor -) 100 mg PO BID [facility] Last Admin: 08/17/16 11:56 Dose: 100 mg Furosemide (Lasix -) 40 mg PO DAILY [facility] Last Admin: 08/17/16 11:56 Dose: 40 mg Methylprednisolone Sodium Succinate (Solu-Medrol -) 40 mg IVPB BID [facility] Last Admin: 08/17/16 09:42 Dose: 40 mg Nystatin (Nystatin Oral Suspension -) 500,000 units PO Q6HPO [facility] Last Admin: 08/17/16 11:57 Dose: 500,000 units Polyethylene Glycol (Miralax (For Daily Use) -) 17 gm PO BID [facility] Last Admin: 08/17/16 09:44 Dose: Not Given Quinapril HCl (Accupril -) 20 mg PO DAILY [facility] Last Admin: 08/17/16 09:42 Dose: 20 mg Tiotropium [place] (Spiriva -) 1 puff IH DAILY [facility] Last Admin: 08/17/16 09:44 Dose: Not Given - Objective Vital Signs: Vital Signs Temperature 97.6 F 08/17/16 15:03 Pulse Rate 82 08/17/16 15:03 Respiratory Rate 20 08/17/16 15:03 Blood Pressure 130/78 08/17/16 15:03 O2 Sat by Pulse Oximetry (%) 95 08/17/16 11:27 Constitutional: Yes: No Distress Eyes: Yes: Sclera Icterus HENT: Yes: Atraumatic, Normocephalic Neck: Yes: Supple, Trachea Midline Cardiovascular: Yes: Pulse Irregular. No: JVD Respiratory: Yes: CTA Bilaterally Gastrointestinal: Yes: Soft. No: Tenderness Extremities: No: Calf Tenderness Edema: No Neurological: Yes: Alert, Oriented Labs: CBC, BMP 08/17/16 05:35 08/17/16 05:35 INR, PTT INR 1.45 (0.82-1.09) H 08/04/16 22:30 - ....Imaging Chest X-ray: Report Reviewed, Image Reviewed (improved aeration) Problem List - Problems (1) Acute respiratory failure Code(s): J96.00 - ACUTE RESPIRATORY FAILURE, UNSP W HYPOXIA OR HYPERCAPNIA Qualifiers: Respiratory failure complication: hypoxia Qualified Code(s): J96.01 - Acute respiratory failure with hypoxia (2) Acute exacerbation of chronic obstructive pulmonary disease Code(s): J44.1 - CHRONIC OBSTRUCTIVE PULMONARY DISEASE W (ACUTE) EXACERBATION (3) CHF (congestive heart failure) Code(s): I50.9 - HEART FAILURE, UNSPECIFIED Qualifiers: Congestive heart failure type: unspecified congestive heart failure type Congestive heart failure chronicity: acute Qualified Code(s): I50.9 - Heart failure, unspecified (4) Pneumonia Code(s): J18.9 - PNEUMONIA, UNSPECIFIED ORGANISM Qualifiers: Laterality: bilateral (5) Paroxysmal atrial fibrillation Code(s): I48.0 - PAROXYSMAL ATRIAL FIBRILLATION Assessment/Plan 85 year old lady with: Acute Exacerbation COPD secondary to respiratory infection-probably viral. Respiratory status continues to improve. Spirometry close to normal. CHF- improved: received diuretic Pneumonia Paroxysmal Atrial Fibrillation on Pradaxa Suggest: O2 to maintain SaO2>90 Inhaled bronchodilators anticoagulation ? cardioversion when medically stable Steroid taper in progress
[2016-08-17] MEDS: ATORVASTATIN CA 10 MG TABLET (FP) PO SCH (21:33)
[2016-08-18] MEDS: NYSTATIN 500,000 UNITS/5 ML SUSPENSION PO SCH ×4 (01:01→18:43)
[2016-08-18] MEDS: DOCUSATE SODIUM 100 MG CAPSULE (FP) PO SCH ×3 (06:08→21:32)
[2016-08-18 07:34] LABS: BASOPHIL 0.2 % (0-2.0); MCH 30.5 pg (25.7-33.7); MCHC 33.1 g/dl (32.0-36.0); MEAN CELL VOLUME 91.9 fl (80-96); MEAN PLT VOLUME 8.8 fl (7.5-11.1); NEUTROPHILS 90.6 % (42.8-82.8); PLATELET COUNT 219 K/MM3 (134-434); RDW 13.8 % (11.6-15.6); WHITE BLOOD COUNT 11.5 K/mm3 (4.0-10.0)
[2016-08-18 08:00] LABS: ALBUMIN 2.8 g/dl (3.4-5.0); ANION GAP 9 (8-16); CALCIUM 8.5 mg/dL (8.5-10.1); CO2 28 mmol/L (21-32); CREATININE 0.7 mg/dL (0.55-1.02); GLUCOSE,RANDOM 146 mg/dL (74-106); MAGNESIUM 2.1 mg/dL (1.8-2.4); SGOT/AST 16 U/L (15-37); SGPT/ALT 54 U/L (12-78)
[2016-08-18 08:01] LABS: ALK PHOS 118 U/L (45-117)
--- NOTE | 2016-08-18 08:26 | PN ---
Progress Note (short form) - Note Progress Note: Patient seen and examined Chart reviewed at length. Patient and recent history well known to me. Currently lying supine in bed with less dyspnea and cough, but complaining of dizziness after getting up OOB to go to bathroom. Overall improement in cough and congestion. Not dependent on the Bi-Pap apparatus. No new chest discomfort or pre-syncope. Labs and biztalk consultant notes appreciated. Moved off of telemetry Selected Entries 08/17/16 08/17/16 08/18/16 21:00 22:00 06:00 Temperature 97.9 F Pulse Rate 100 H Respiratory 18 Rate Blood Pressure 166/96 O2 Sat by Pulse 98 Oximetry (%) Oxygen Delivery Room Air Method Weight 131 lb 7 oz Laboratory Tests 08/18/16 05:35 WBC 11.5 H Hgb 13.7 Hct 41.3 Plt Count 219 CMP Pending O2 saturation on RA at rest was 99 with pulse of 90 After walking ( and having to stop to rest several times) the SAO2 fell only to 95 but pulse ramiro to 150 Chest Minimal bibasilar rhonchi reduced again this AM with no end-expiratory wheezing Cough decreased Cor Irregular Abd Soft Mildly distended Non-tender Ext No edema Less dependent rubor Neuro No new focal deficit Assessment and Plan Pneumonitis Bilateral infiltrates on CT likely related to RSV infection Improved overall Respiratory insufficiency Improved See yesterday's Pre/Post exertion O2 saturations and pulse change CHF Diastolic dysfunction Furosemide as ordered AFib Chronic persistent May be another contributing factor to recent CHF, along with the pneumonitis. Plan cardioversion as outpatient as per cardiologists Note rise in pulse with exertion of walking in hallway yesterday ASHD Recent mild elevation of troponins likely demand ischemia ECHO with normal LVEF and no significant WMAs COPD Underlying pathology with recent exacerbation Taper steroid dose HTN Stable HPL Stable Breast Cancer Bilateral mastectomies Stable Followed at [facility] IGT Exacerbated by corticosteroid use HBA1c elevated at 6.5 will follow Gout Stable Valvular heart disease MR and TR Reassess with CHARLES Continue current Rx Review medical regimen Observe today due to weakness and dizziness Discharge planning for the next 24 - 48 hours hopefully with V[facility]
[2016-08-18] MEDS ORDERED: PT OWN MED DRAWER 7, Y5N ONE ×3 (10:45→21:28)
[2016-08-18] MEDS: methylPREDNISolone NA SUCC 40 MG/1 ML VIAL IVPB SCH ×2 (10:48→21:31)
[2016-08-18] MEDS: DABIGATRAN ETEXILATE MESYLATE 150 MG CAPSULE PO SCH ×2 (10:48→21:32)
[2016-08-18] MEDS: CHOLECALCIFEROL (VITAMIN D3) 1,000 UNIT TABLET (FP) PO SCH ×2 (10:48→21:32)
[2016-08-18] MEDS: FLECAINIDE ACETATE 50 MG TABLET PO SCH ×2 (10:49→21:33)
[2016-08-18] MEDS: ALLOPURINOL 100 MG TABLET (FP) PO SCH (10:50)
[2016-08-18] MEDS: FUROSEMIDE 40 MG TABLET (FP) PO SCH (10:50)
[2016-08-18] MEDS: POLYETHYLENE GLYCOL 3350 119 GM BTL PO SCH ×2 (10:50→21:58)
[2016-08-18] MEDS: DORZOLAMIDE 2% HCL OPHTHALMIC SOLUTION 10 ML BOTTLE OU SCH ×2 (11:01→21:59)
[2016-08-18] MEDS: TIOTROPIUM BROMIDE 18 MCG/INH (DEVICE W/ 5 CAPSULES) IH SCH (11:02)
[2016-08-18] MEDS: ARFORMOTEROL TARTRATE 15 MCG/2 ML VIAL NEB SCH ×2 (11:19→22:38)
--- NOTE | 2016-08-18 12:09 | PN ---
Progress Note (short form) - Note Progress Note: Chief Complaint: PNA, chf History of Present Illness: much less cough; no cp, mild palpitations, orthostatic sx's overnight, but no recurrence when ambulating this morning. Current Medications Acetaminophen (Tylenol -) 650 mg PO Q6H PRN PRN Reason: FEVER OR PAIN Last Admin: 08/06/16 12:03 Dose: 650 mg Albuterol Sulfate (Ventolin 0.083% Nebulizer Soln -) 1 amp NEB Q4H PRN PRN Reason: SHORT OF BREATH/WHEEZING Allopurinol (Zyloprim -) 100 mg PO DAILY [facility] Last Admin: 08/18/16 10:50 Dose: 100 mg Arformoterol Tartrate (Brovana (Restricted To Pulmonology/Resp) -) 1 amp NEB BID [facility] Last Admin: 08/18/16 11:19 Dose: 1 amp Atorvastatin Calcium (Lipitor -) 10 mg PO HS [facility] Last Admin: 08/17/16 21:33 Dose: 10 mg Cholecalciferol (Vitamin D3 -) 1,000 unit PO BID [facility] Last Admin: 08/18/16 10:48 Dose: 1,000 unit Dabigatran (Pradaxa -) 150 mg PO BID [facility] Last Admin: 08/18/16 10:48 Dose: 150 mg Docusate Sodium (Colace -) 100 mg PO TID [facility] Last Admin: 08/18/16 06:08 Dose: 100 mg Dorzolamide HCl (Trusopt 2%) 1 drop OU BID [facility] Last Admin: 08/18/16 11:01 Dose: 1 drop Flecainide Acetate (Tambacor -) 100 mg PO BID [facility] Last Admin: 08/18/16 10:49 Dose: 100 mg Furosemide (Lasix -) 40 mg PO DAILY [facility] Last Admin: 08/17/16 11:56 Dose: 40 mg Methylprednisolone Sodium Succinate (Solu-Medrol -) 20 mg IVPB BID [facility] Last Admin: 08/18/16 10:48 Dose: 20 mg Nystatin (Nystatin Oral Suspension -) 500,000 units PO Q6HPO [facility] Last Admin: 08/18/16 06:08 Dose: 500,000 units Polyethylene Glycol (Miralax (For Daily Use) -) 17 gm PO BID [facility] Last Admin: 08/17/16 21:33 Dose: 17 grams Quinapril HCl (Accupril -) 20 mg PO DAILY [facility] Last Admin: 08/17/16 09:42 Dose: 20 mg Tiotropium [place] (Spiriva -) 1 puff IH DAILY [facility] Last Admin: 08/18/16 11:02 Dose: Not Given Vital Signs - 24 hr 08/17/16 08/17/16 08/17/16 15:03 18:00 18:40 Temperature 97.6 F 97.6 F 98.5 F Pulse Rate 82 90 95 H Respiratory 20 18 20 Rate Blood Pressure 130/78 125/84 116/60 O2 Sat by Pulse Oximetry (%) 08/17/16 08/17/16 08/18/16 21:00 22:00 09:11 Temperature 97.9 F Pulse Rate 100 H 78 Respiratory 18 Rate Blood Pressure 166/96 O2 Sat by Pulse 98 97 Oximetry (%) 08/18/16 08/18/16 10:39 11:26 Temperature 97.4 F L Pulse Rate 90 88 Respiratory 24 Rate Blood Pressure 131/79 O2 Sat by Pulse 97 Oximetry (%) Intake & Output 08/16/16 08/17/16 08/18/16 08/19/16 07:59 07:59 07:59 07:59 Intake Total 120 830 290 Balance 120 830 290 Weight 135 lb 8 oz 133 lb 131 lb 7 oz Constitutional: Yes: No Distress, Calm Eyes: No: Sclera Icterus HENT: No: Nasal Congestion Cardiovascular: Yes: Pulse Irregular, S1, S2, Other (PMI non diplaced). No: JVD , Gallop, Murmur Respiratory: Yes: CTA Bilaterally, Rhonchi (few). No: Accessory Muscle Use, Rales, Wheezes Gastrointestinal: Yes: Normal Bowel Sounds, Soft. No: Tenderness Musculoskeletal: Yes: Other (No kyphosis) Extremities: No: Cold Edema: No Integumentary: No: Jaundice Neurological: Yes: Alert, Oriented (x3) Psychiatric: No: Agitated Labs: CBC, BMP 08/18/16 05:35 08/18/16 05:35 Laboratory Tests 08/18/16 05:35 Total Bilirubin 1.0 D AST 16 ALT 54 Alkaline Phosphatase 118 H Albumin 2.8 L - ....Imaging EKG: Other (prior tele: AF, HRs good) Assessment/Plan echo 03/2015: tds, nl lv/rv, mild lae, no sig valve path echo 08/2016: nl lv/rv, mod dwayne, mod-sev mr/tr, nl rvsp, mild-mod ar...on my review trace ar, mod mr, mild tr ct chest: bl pna, no chf a/p: 85 f hx afib, hld, htn, breast ca here with sob, cough. a.e. copd, bilat PNA (+ RSV), acute diastolic chf: -developed acute HFpEF on [place], ? triggered by pneumonitis then--7 lb wt loss in few days at home in response to lasix 20 qd when got back from [place] -admitted currently with worsening resp status, mostly due to recurrent lung infxn/a.e. 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 on echo report here is over-read--no prior h/o signif valve dysfunction and no pathological sounding murmurs on exam--will await JORGE at time of cardioversion for more accurate assesment of valves -BNP 4K here, no priors to compare -rx'd with iv lasix initially (40 iv qd) until labs began to trend in direction of vol depletion (with wt stable, down from prior)--now lasix on hold -08/16: incr sob today, no JVD and lungs clear without wheezing or rhonchi-- suspect this is sec to waxing and waning airways dz/decr mobilization of phlegm; -given one dose iv lasix 40 -CXR was unchanged, with no signs infiltrate or chf -06/16-06/17: sob improved s/p lasix, wt down; will cont lasix 40 po daily. If orthostatic symptoms recur, can consider decreasing lasix dose to 20 mg/day but will con't at current dose for now. afib: -has had several jorge/dccv in past but now back in afib, on maintenance flecainide 100 bid x several years. Rate controlled here. -plan is for JORGE/DCCV once resp status improved--given this is completely elective, i would prefer her phlegm/cough is minimal prior to proceeding, to minimize risks of aspiration and/or triggering bronchospasm--will plan to arrange as outpt once resp sx's have completely resolved -cont home pradaxa hld: -cont statin htn: -overall controlled on home meds. elevated trops: -intermediate-range trops without accompanying s/sx to suggest ACS -ecg similar to priors -echo with nl lvef, no wma's
--- NOTE | 2016-08-18 13:41 | PN ---
Progress Note, Physician History of Present Illness: Dyspnea and cough decreased, still feels weak. Pt can ambulate . - Current Medication List Current Medications: Active Medications Acetaminophen (Tylenol -) 650 mg PO Q6H PRN PRN Reason: FEVER OR PAIN Last Admin: 08/06/16 12:03 Dose: 650 mg Albuterol Sulfate (Ventolin 0.083% Nebulizer Soln -) 1 amp NEB Q4H PRN PRN Reason: SHORT OF BREATH/WHEEZING Allopurinol (Zyloprim -) 100 mg PO DAILY [facility] Last Admin: 08/18/16 10:50 Dose: 100 mg Arformoterol Tartrate (Brovana (Restricted To Pulmonology/Resp) -) 1 amp NEB BID [facility] Last Admin: 08/18/16 11:19 Dose: 1 amp Atorvastatin Calcium (Lipitor -) 10 mg PO HS [facility] Last Admin: 08/17/16 21:33 Dose: 10 mg Cholecalciferol (Vitamin D3 -) 1,000 unit PO BID [facility] Last Admin: 08/18/16 10:48 Dose: 1,000 unit Dabigatran (Pradaxa -) 150 mg PO BID [facility] Last Admin: 08/18/16 10:48 Dose: 150 mg Docusate Sodium (Colace -) 100 mg PO TID [facility] Last Admin: 08/18/16 06:08 Dose: 100 mg Dorzolamide HCl (Trusopt 2%) 1 drop OU BID [facility] Last Admin: 08/18/16 11:01 Dose: 1 drop Flecainide [place]etate (Tambacor -) 100 mg PO BID [facility] Last Admin: 08/18/16 10:49 Dose: 100 mg Furosemide (Lasix -) 40 mg PO DAILY [facility] Last Admin: 08/17/16 11:56 Dose: 40 mg Methylprednisolone Sodium Succinate (Solu-Medrol -) 20 mg IVPB BID [facility] Last Admin: 08/18/16 10:48 Dose: 20 mg Nystatin (Nystatin Oral Suspension -) 500,000 units PO Q6HPO [facility] Last Admin: 08/18/16 06:08 Dose: 500,000 units Polyethylene Glycol (Miralax (For Daily Use) -) 17 gm PO BID [facility] Last Admin: 08/17/16 21:33 Dose: 17 grams Quinapril HCl (Accupril -) 20 mg PO DAILY [facility] Last Admin: 08/17/16 09:42 Dose: 20 mg Tiotropium [place] (Spiriva -) 1 puff IH DAILY [facility] Last Admin: 08/18/16 11:02 Dose: Not Given - Objective Vital Signs: Vital Signs Temperature 97.4 F L 08/18/16 10:39 Pulse Rate 88 08/18/16 11:26 Respiratory Rate 24 08/18/16 10:39 Blood Pressure 131/79 08/18/16 10:39 O2 Sat by Pulse Oximetry (%) 97 08/18/16 11:26 Constitutional: Yes: No Distress Eyes: No: Sclera Icterus Neck: Yes: Supple Cardiovascular: Yes: Regular Rate and Rhythm. No: JVD Respiratory: Yes: CTA Bilaterally Gastrointestinal: Yes: Soft Extremities: No: Calf Tenderness Edema: No Neurological: Yes: Alert, Oriented Labs: CBC, BMP 08/18/16 05:35 08/18/16 05:35 INR, PTT INR 1.45 (0.82-1.09) H 08/04/16 22:30 Problem List - Problems (1) Acute respiratory failure Code(s): J96.00 - ACUTE RESPIRATORY FAILURE, UNSP W HYPOXIA OR HYPERCAPNIA Qualifiers: Respiratory failure complication: hypoxia Qualified Code(s): J96.01 - Acute respiratory failure with hypoxia (2) Acute exacerbation of chronic obstructive pulmonary disease Code(s): J44.1 - CHRONIC OBSTRUCTIVE PULMONARY DISEASE W (ACUTE) EXACERBATION (3) CHF (congestive heart failure) Code(s): I50.9 - HEART FAILURE, UNSPECIFIED Qualifiers: Congestive heart failure type: unspecified congestive heart failure type Congestive heart failure chronicity: acute Qualified Code(s): I50.9 - Heart failure, unspecified (4) Pneumonia Code(s): J18.9 - PNEUMONIA, UNSPECIFIED ORGANISM Qualifiers: Laterality: bilateral (5) Paroxysmal atrial fibrillation Code(s): I48.0 - PAROXYSMAL ATRIAL FIBRILLATION Assessment/Plan 85 year old lady with: Acute Exacerbation COPD secondary to respiratory infection-probably viral. Respiratory status continues improved. Spirometry close to normal. CHF- improved: received diuretic Pneumonia Paroxysmal Atrial Fibrillation on Pradaxa Suggest: O2 to maintain SaO2>90 Inhaled bronchodilators anticoagulation ? cardioversion when medically stable Steroid taper in progress; switch to Prednisone.
[2016-08-18] MEDS: QUINAPRIL HCL 20 MG TABLET (FP) PO SCH (14:20)
[2016-08-18] MEDS: ATORVASTATIN CA 10 MG TABLET (FP) PO SCH (21:32)
[2016-08-19] MEDS: NYSTATIN 500,000 UNITS/5 ML SUSPENSION PO SCH ×4 (01:16→17:55)
[2016-08-19] MEDS: DOCUSATE SODIUM 100 MG CAPSULE (FP) PO SCH ×3 (06:01→22:59)
[2016-08-19 07:55] LABS: BASOPHIL 0.3 % (0-2.0); EOSINOPHIL 0.2 % (0-4.5); MCH 30.5 pg (25.7-33.7); MCHC 32.8 g/dl (32.0-36.0); MEAN CELL VOLUME 92.8 fl (80-96); MEAN PLT VOLUME 8.7 fl (7.5-11.1); PLATELET COUNT 208 K/MM3 (134-434); RDW 14.1 % (11.6-15.6); WHITE BLOOD COUNT 9.8 K/mm3 (4.0-10.0)
[2016-08-19 09:11] LABS: ALBUMIN 2.7 g/dl (3.4-5.0); ALK PHOS 108 U/L (45-117); ANION GAP 11 (8-16); BILIRUBIN,TOTAL 0.9 mg/dL (0.2-1.0); CALCIUM 8.5 mg/dL (8.5-10.1); CO2 26 mmol/L (21-32); CREATININE 0.7 mg/dL (0.55-1.02); GLUCOSE,RANDOM 127 mg/dL (74-106); SGOT/AST 22 U/L (15-37); SGPT/ALT 56 U/L (12-78); TOT PROT 4.9 g/dl (6.4-8.2)
[2016-08-19] MEDS ORDERED: PT OWN MED DRAWER 7, Y5N ONE ×2 (09:28→21:42)
[2016-08-19] MEDS: ARFORMOTEROL TARTRATE 15 MCG/2 ML VIAL NEB SCH ×2 (09:30→22:32)
[2016-08-19] MEDS: FUROSEMIDE 40 MG TABLET (FP) PO SCH (09:33)
[2016-08-19] MEDS: QUINAPRIL HCL 20 MG TABLET (FP) PO SCH (09:33)
[2016-08-19] MEDS: DABIGATRAN ETEXILATE MESYLATE 150 MG CAPSULE PO SCH ×2 (09:34→23:01)
[2016-08-19] MEDS: FLECAINIDE ACETATE 50 MG TABLET PO SCH ×2 (09:35→23:01)
[2016-08-19] MEDS: methylPREDNISolone NA SUCC 40 MG/1 ML VIAL IVPB SCH (09:35)
[2016-08-19] MEDS: POLYETHYLENE GLYCOL 3350 119 GM BTL PO SCH ×2 (09:36→23:01)
[2016-08-19] MEDS: CHOLECALCIFEROL (VITAMIN D3) 1,000 UNIT TABLET (FP) PO SCH ×2 (09:36→23:01)
[2016-08-19] MEDS: ALLOPURINOL 100 MG TABLET (FP) PO SCH (09:36)
[2016-08-19] MEDS: TIOTROPIUM BROMIDE 18 MCG/INH (DEVICE W/ 5 CAPSULES) IH SCH (09:37)
[2016-08-19] MEDS: DORZOLAMIDE 2% HCL OPHTHALMIC SOLUTION 10 ML BOTTLE OU SCH ×2 (09:39→23:01)
--- NOTE | 2016-08-19 11:14 | PN ---
Progress Note (short form) - Note Progress Note: s: no cp palps dizzy; cough better; has some donnelly but improving, not requiring o2 as much. o: Vital Signs Period Temp Pulse Resp BP Sys/Bender Pulse Ox Last 24 Hr 97.5 F-98.2 F 74-103 18-28 115-158/73-100 95-97 Constitutional: Yes: Well Nourished, No Distress, Calm Cardiovascular: Yes: Pulse Irregular, S1, S2. No: JVD, Gallop, Murmur Respiratory: Yes: cta bl nl eff. No: Accessory Muscle Use, Rales Extremities: No: Cold Edema: No e/c/c Neurological: Yes: Alert, Oriented Psychiatric: No: Agitated no jaundice diaphoresis Current Medications Generic Name Dose Route Start Last Admin Trade Name Freq PRN Reason Stop Dose Admin Acetaminophen 650 mg 08/05/16 18:13 08/06/16 12:03 Tylenol - PO 650 mg Q6H PRN Administration FEVER OR PAIN Albuterol Sulfate 1 amp 08/12/16 15:47 Ventolin 0.083% Nebulizer Soln - NEB Q4H PRN SHORT OF BREATH/WHEEZING Allopurinol 100 mg 08/05/16 10:00 08/19/16 09:36 Zyloprim - PO 100 mg DAILY ROSALIA Administration Arformoterol Tartrate 1 amp 08/12/16 22:00 08/18/16 22:38 Brovana (Restricted To Pulmonology/Resp) - NEB 1 amp BID ROSALIA Administration Atorvastatin Calcium 10 mg 08/05/16 22:00 08/18/16 21:32 Lipitor - PO 10 mg HS ROSALIA Administration Cholecalciferol 1,000 unit 08/05/16 10:00 08/19/16 09:36 Vitamin D3 - PO 1,000 unit BID ROSALIA Administration Dabigatran 150 mg 08/05/16 10:00 08/19/16 09:34 Pradaxa - PO 150 mg BID ROSALIA Administration Docusate Sodium 100 mg 08/07/16 14:00 08/19/16 06:01 Colace - PO Not Given TID ROSALIA Dorzolamide HCl 1 drop 08/05/16 22:00 08/19/16 09:39 Trusopt 2% OU 1 drop BID ROSALIA Administration Flecainide Acetate 100 mg 08/14/16 10:00 08/19/16 09:35 Tambacor - PO 100 mg BID ROSALIA Administration Furosemide 40 mg 08/17/16 11:00 08/19/16 09:33 Lasix - PO 40 mg DAILY ROSALIA Administration Methylprednisolone Sodium Succinate 20 mg 08/18/16 10:00 08/19/16 09:35 Solu-Medrol - IVPB 20 mg BID ROSALIA Administration Nystatin 500,000 units 08/08/16 12:00 08/19/16 06:01 Nystatin Oral Suspension - PO Not Given Q6HPO ROSALIA Polyethylene Glycol 17 gm 08/07/16 13:15 08/19/16 09:36 Miralax (For Daily Use) - PO Not Given BID ROSALIA Quinapril HCl 20 mg 08/05/16 10:00 08/19/16 09:33 Accupril - PO 20 mg DAILY ROSALIA Administration Tiotropium [place] 1 puff 08/12/16 15:45 08/19/16 09:37 Spiriva - IH Not Given DAILY ROSALIA CBC, BMP 08/19/16 06:15 08/19/16 06:15 echo 03/2015: tds, nl lv/rv, mild lae, no sig valve path echo 08/2016: nl lv/rv, mod dwayne, mod-sev mr/tr, nl rvsp, mild-mod ar...on my review trace ar, mod mr, mild tr tele: afib, rate controlled around 100's. ecg 08/04/16: afib, vr 110, nonspecific lateral st-t changes, nl qtc, no sig change 07/27/16 ct chest: bl pna, no chf a/p: 85 f hx afib, hld, htn, breast ca here with sob, cough. a.e. copd, bilat PNA (+ RSV), acute diastolic chf: -developed acute HFpEF on cruise, ? triggered by pneumonitis then--7 lb wt loss in few days at home in response to lasix 20 qd when got back from cruise -admitted currently with worsening resp status, mostly due to recurrent lung infxn/a.e. 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 on echo report here is over-read--no prior h/o signif valve dysfunction and no pathological sounding murmurs on exam--will await JORGE at time of cardioversion for more accurate assesment of valves -BNP 4K here, no priors to compare -rx'd with iv lasix initially (40 iv qd) until labs began to trend in direction of vol depletion (with wt stable, down from prior)--now lasix on hold -08/16: incr sob today, no JVD and lungs clear without wheezing or rhonchi-- suspect this is sec to waxing and waning airways dz/decr mobilization of phlegm; -given one dose iv lasix 40 -CXR was unchanged, with no signs infiltrate or chf -08/17-06/18: sob improved, cont lasix 40 po daily. If orthostatic symptoms recur, can consider decreasing lasix dose to 20 mg/day but will con't at current dose for now. afib: -has had several jorge/dccv in past but now back in afib, on maintenance flecainide 100 bid x several years. -Rate acceptably controlled here considering acute resp illness. -plan is for JORGE/DCCV once resp status improved--given this is completely elective, i would prefer her phlegm/cough is minimal prior to proceeding, to minimize risks of aspiration and/or triggering bronchospasm--will plan to arrange as outpt once resp sx's have completely resolved -cont home pradaxa hld: -cont statin htn: -overall controlled on home meds. elevated trops: -intermediate-range trops without accompanying s/sx to suggest ACS -ecg similar to priors -echo with nl lvef, no wma's
--- NOTE | 2016-08-19 16:15 | PN ---
Progress Note, Physician Chief Complaint: Mrs Vasquez says she is feeling better, says her breathing is close to baseline. Still with some weakness on walking but better. No cp or n/v. - Current Medication List Current Medications: Active Medications Acetaminophen (Tylenol -) 650 mg PO Q6H PRN PRN Reason: FEVER OR PAIN Last Admin: 08/06/16 12:03 Dose: 650 mg Albuterol Sulfate (Ventolin 0.083% Nebulizer Soln -) 1 amp NEB Q4H PRN PRN Reason: SHORT OF BREATH/WHEEZING Allopurinol (Zyloprim -) 100 mg PO DAILY [facility] Last Admin: 08/19/16 09:36 Dose: 100 mg Arformoterol Tartrate (Brovana (Restricted To Pulmonology/Resp) -) 1 amp NEB BID [facility] Last Admin: 08/19/16 09:30 Dose: 1 amp Atorvastatin Calcium (Lipitor -) 10 mg PO HS [facility] Last Admin: 08/18/16 21:32 Dose: 10 mg Cholecalciferol (Vitamin D3 -) 1,000 unit PO BID [facility] Last Admin: 08/19/16 09:36 Dose: 1,000 unit Dabigatran (Pradaxa -) 150 mg PO BID [facility] Last Admin: 08/19/16 09:34 Dose: 150 mg Docusate Sodium (Colace -) 100 mg PO TID [facility] Last Admin: 08/19/16 13:03 Dose: 100 mg Dorzolamide HCl (Trusopt 2%) 1 drop OU BID [facility] Last Admin: 08/19/16 09:39 Dose: 1 drop Flecainide Acetate (Tambacor -) 100 mg PO BID [facility] Last Admin: 08/19/16 09:35 Dose: 100 mg Furosemide (Lasix -) 40 mg PO DAILY [facility] Last Admin: 08/19/16 09:33 Dose: 40 mg Methylprednisolone Sodium Succinate (Solu-Medrol -) 20 mg IVPB BID [facility] Last Admin: 08/19/16 09:35 Dose: 20 mg Nystatin (Nystatin Oral Suspension -) 500,000 units PO Q6HPO [facility] Last Admin: 08/19/16 13:03 Dose: 500,000 units Polyethylene Glycol (Miralax (For Daily Use) -) 17 gm PO BID [facility] Last Admin: 08/19/16 09:36 Dose: Not Given Quinapril HCl (Accupril -) 20 mg PO DAILY [facility] Last Admin: 08/19/16 09:33 Dose: 20 mg Tiotropium [place] (Spiriva -) 1 puff IH DAILY [facility] Last Admin: 08/19/16 09:37 Dose: Not Given - Objective Vital Signs: Vital Signs Temperature 97.6 F 08/19/16 14:06 Pulse Rate 80 08/19/16 14:06 Respiratory Rate 18 08/19/16 14:06 Blood Pressure 110/47 08/19/16 14:06 O2 Sat by Pulse Oximetry (%) 97 08/19/16 10:00 Constitutional: Yes: Well Nourished, No Distress, Calm Cardiovascular: Yes: Regular Rate and Rhythm. No: Gallop, Murmur, Rub Respiratory: Yes: Regular, CTA Bilaterally. No: Rales, Rhonchi, Wheezes Gastrointestinal: Yes: Normal Bowel Sounds, Soft. No: Distention, Tenderness Extremities: Yes: WNL Edema: No Labs: CBC, BMP 08/19/16 06:15 08/19/16 06:15 INR, PTT INR 1.45 (0.82-1.09) H 08/04/16 22:30 Problem List - Problems (1) Acute respiratory failure Code(s): J96.00 - ACUTE RESPIRATORY FAILURE, UNSP W HYPOXIA OR HYPERCAPNIA Qualifiers: Respiratory failure complication: hypoxia Qualified Code(s): J96.01 - Acute respiratory failure with hypoxia (2) CHF (congestive heart failure) Code(s): I50.9 - HEART FAILURE, UNSPECIFIED Qualifiers: Congestive heart failure type: unspecified congestive heart failure type Congestive heart failure chronicity: acute Qualified Code(s): I50.9 - Heart failure, unspecified (3) COPD (chronic obstructive pulmonary disease) Code(s): J44.9 - CHRONIC OBSTRUCTIVE PULMONARY DISEASE, UNSPECIFIED Qualifiers : COPD type: COPD with acute exacerbation Qualified Code(s): J44.1 - Chronic obstructive pulmonary disease with (acute) exacerbation (4) Chronic atrial fibrillation Code(s): I48.2 - CHRONIC ATRIAL FIBRILLATION (5) Pneumonia Code(s): J18.9 - PNEUMONIA, UNSPECIFIED ORGANISM Qualifiers: Laterality: bilateral (6) HTN (hypertension) Code(s): I10 - ESSENTIAL (PRIMARY) HYPERTENSION (7) HLD (hyperlipidemia) Code(s): E78.5 - HYPERLIPIDEMIA, UNSPECIFIED (8) Gout Code(s): M10.9 - GOUT, UNSPECIFIED Assessment/Plan (1) Acute respiratory failure Assessment/Plan: -resolved Code(s): J96.00 - ACUTE RESPIRATORY FAILURE, UNSP W HYPOXIA OR HYPERCAPNIA Qualifiers: Respiratory failure complication: hypoxia Qualified Code(s): J96.01 - Acute respiratory failure with hypoxia (2) CHF (congestive heart failure) Assessment/Plan: -cardiology following -continue oral lasix Code(s): I50.9 - HEART FAILURE, UNSPECIFIED Qualifiers: Congestive heart failure type: unspecified congestive heart failure type Congestive heart failure chronicity: acute Qualified Code(s): I50.9 - Heart failure, unspecified (3) COPD (chronic obstructive pulmonary disease) with exacerbation Assessment/Plan: -exacerbation resolved -continue current management -change to oral prednisone taper on discharge Code(s): J44.9 - CHRONIC OBSTRUCTIVE PULMONARY DISEASE, UNSPECIFIED Qualifiers : COPD type: unspecified COPD Qualified Code(s): J44.9 - Chronic obstructive pulmonary disease, unspecified (4) Chronic atrial fibrillation Assessment/Plan: -continue flecainide and pradaxa -cardioversion as an outpatient per cardiology Code(s): I48.2 - CHRONIC ATRIAL FIBRILLATION (5) Pneumonia Assessment/Plan: -secondary to RSV -resolved Code(s): J18.9 - PNEUMONIA, UNSPECIFIED ORGANISM (6) HTN (hypertension) Assessment/Plan: -continue quinapril Code(s): I10 - ESSENTIAL (PRIMARY) HYPERTENSION (7) HLD (hyperlipidemia) Assessment/Plan: -continue statin Code(s): E78.5 - HYPERLIPIDEMIA, UNSPECIFIED (8) Gout Assessment/Plan: -continue allopurinol Code(s): M10.9 - GOUT, UNSPECIFIED (9) Constipation -resolved
--- NOTE | 2016-08-19 17:34 | PN ---
Progress Note, Physician History of Present Illness: Dyspnea and cough improved. - Current Medication List Current Medications: Active Medications Acetaminophen (Tylenol -) 650 mg PO Q6H PRN PRN Reason: FEVER OR PAIN Last Admin: 08/06/16 12:03 Dose: 650 mg Albuterol Sulfate (Ventolin 0.083% Nebulizer Soln -) 1 amp NEB Q4H PRN PRN Reason: SHORT OF BREATH/WHEEZING Allopurinol (Zyloprim -) 100 mg PO DAILY [facility] Last Admin: 08/19/16 09:36 Dose: 100 mg Arformoterol Tartrate (Brovana (Restricted To Pulmonology/Resp) -) 1 amp NEB BID [facility] Last Admin: 08/19/16 09:30 Dose: 1 amp Atorvastatin Calcium (Lipitor -) 10 mg PO HS [facility] Last Admin: 08/18/16 21:32 Dose: 10 mg Cholecalciferol (Vitamin D3 -) 1,000 unit PO BID [facility] Last Admin: 08/19/16 09:36 Dose: 1,000 unit Dabigatran (Pradaxa -) 150 mg PO BID [facility] Last Admin: 08/19/16 09:34 Dose: 150 mg Docusate Sodium (Colace -) 100 mg PO TID [facility] Last Admin: 08/19/16 13:03 Dose: 100 mg Dorzolamide HCl (Trusopt 2%) 1 drop OU BID [facility] Last Admin: 08/19/16 09:39 Dose: 1 drop Flecainide Acetate (Tambacor -) 100 mg PO BID [facility] Last Admin: 08/19/16 09:35 Dose: 100 mg Furosemide (Lasix -) 40 mg PO DAILY [facility] Last Admin: 08/19/16 09:33 Dose: 40 mg Methylprednisolone Sodium Succinate (Solu-Medrol -) 20 mg IVPB BID [facility] Last Admin: 08/19/16 09:35 Dose: 20 mg Nystatin (Nystatin Oral Suspension -) 500,000 units PO Q6HPO [facility] Last Admin: 08/19/16 13:03 Dose: 500,000 units Polyethylene Glycol (Miralax (For Daily Use) -) 17 gm PO BID [facility] Last Admin: 08/19/16 09:36 Dose: Not Given Quinapril HCl (Accupril -) 20 mg PO DAILY [facility] Last Admin: 08/19/16 09:33 Dose: 20 mg Tiotropium [place] (Spiriva -) 1 puff IH DAILY [facility] Last Admin: 08/19/16 09:37 Dose: Not Given - Objective Vital Signs: Vital Signs Temperature 97.6 F 08/19/16 14:06 Pulse Rate 80 08/19/16 14:06 Respiratory Rate 18 08/19/16 14:06 Blood Pressure 110/47 08/19/16 14:06 O2 Sat by Pulse Oximetry (%) 97 08/19/16 10:00 Constitutional: Yes: No Distress Eyes: No: Sclera Icterus HENT: Yes: Atraumatic, Normocephalic Neck: Yes: Supple, Trachea Midline Cardiovascular: Yes: Regular Rate and Rhythm. No: JVD Respiratory: Yes: CTA Bilaterally Gastrointestinal: Yes: Soft. No: Tenderness Extremities: No: Calf Tenderness Edema: No Labs: CBC, BMP 08/19/16 06:15 08/19/16 06:15 INR, PTT INR 1.45 (0.82-1.09) H 08/04/16 22:30 Problem List - Problems (1) Acute respiratory failure Code(s): J96.00 - ACUTE RESPIRATORY FAILURE, UNSP W HYPOXIA OR HYPERCAPNIA Qualifiers: Respiratory failure complication: hypoxia Qualified Code(s): J96.01 - Acute respiratory failure with hypoxia (2) Acute exacerbation of chronic obstructive pulmonary disease Code(s): J44.1 - CHRONIC OBSTRUCTIVE PULMONARY DISEASE W (ACUTE) EXACERBATION (3) CHF (congestive heart failure) Code(s): I50.9 - HEART FAILURE, UNSPECIFIED Qualifiers: Congestive heart failure type: unspecified congestive heart failure type Congestive heart failure chronicity: acute Qualified Code(s): I50.9 - Heart failure, unspecified (4) Pneumonia Code(s): J18.9 - PNEUMONIA, UNSPECIFIED ORGANISM Qualifiers: Laterality: bilateral (5) Paroxysmal atrial fibrillation Code(s): I48.0 - PAROXYSMAL ATRIAL FIBRILLATION Assessment/Plan 85 year old lady with: Acute Exacerbation COPD secondary to respiratory infection-probably viral. Respiratory status improved. Spirometry close to normal. CHF- improved Pneumonia: improved Paroxysmal Atrial Fibrillation on Pradaxa Suggest: O2 to maintain SaO2>90 Inhaled bronchodilators anticoagulation ? cardioversion when medically stable Steroid taper in progress: switch to Prednisone.
[2016-08-19] MEDS: ATORVASTATIN CA 10 MG TABLET (FP) PO SCH (23:01)
[2016-08-20] MEDS: NYSTATIN 500,000 UNITS/5 ML SUSPENSION PO SCH ×4 (01:22→17:57)
[2016-08-20] MEDS: DOCUSATE SODIUM 100 MG CAPSULE (FP) PO SCH ×2 (06:26→14:00)
[2016-08-20 08:17] LABS: BASOPHIL 0.1 % (0-2.0); EOSINOPHIL 1.2 % (0-4.5); MCH 30.8 pg (25.7-33.7); MCHC 33.1 g/dl (32.0-36.0); MEAN CELL VOLUME 93.1 fl (80-96); MEAN PLT VOLUME 8.8 fl (7.5-11.1); NEUTROPHILS 80.2 % (42.8-82.8); PLATELET COUNT 180 K/MM3 (134-434); WHITE BLOOD COUNT 7.9 K/mm3 (4.0-10.0)
[2016-08-20 08:28] LABS: CREATININE 0.7 mg/dL (0.55-1.02); PHOSPHOROUS 2.9 mg/dL (2.5-4.9)
[2016-08-20] MEDS ORDERED: predniSONE 10 MG TABLET (UD) PO SCH (10:00)
[2016-08-20] MEDS: ARFORMOTEROL TARTRATE 15 MCG/2 ML VIAL NEB SCH (10:20)
[2016-08-20] MEDS ORDERED: PT OWN MED DRAWER 7, Y5N ONE ×2 (10:24→10:32)
[2016-08-20] MEDS: FUROSEMIDE 40 MG TABLET (FP) PO SCH (10:26)
[2016-08-20] MEDS: ALLOPURINOL 100 MG TABLET (FP) PO SCH (10:26)
[2016-08-20] MEDS: QUINAPRIL HCL 20 MG TABLET (FP) PO SCH (10:26)
[2016-08-20] MEDS: DABIGATRAN ETEXILATE MESYLATE 150 MG CAPSULE PO SCH (10:27)
[2016-08-20] MEDS: TIOTROPIUM BROMIDE 18 MCG/INH (DEVICE W/ 5 CAPSULES) IH SCH (10:27)
[2016-08-20] MEDS: POLYETHYLENE GLYCOL 3350 119 GM BTL PO SCH (10:27)
[2016-08-20] MEDS: FLECAINIDE ACETATE 50 MG TABLET PO SCH (10:27)
[2016-08-20] MEDS: DORZOLAMIDE 2% HCL OPHTHALMIC SOLUTION 10 ML BOTTLE OU SCH (10:32)
[2016-08-20] MEDS: CHOLECALCIFEROL (VITAMIN D3) 1,000 UNIT TABLET (FP) PO SCH (10:32)
--- NOTE | 2016-08-20 14:11 | PN ---
Progress Note (short form) - Note Progress Note: s: no cp palps dizzy; cough better; has some donnelly but improving, able to walk [place] with PT o: Vital Signs Period Temp Pulse Resp BP Sys/Bender Pulse Ox Last 24 Hr 97.3 F-98.5 F 78-83 20-20 128-140/55-69 96-97 Constitutional: Yes: Well Nourished, No Distress, Calm Cardiovascular: Yes: Pulse Irregular, S1, S2. No: JVD, Gallop, Murmur Respiratory: Yes: cta bl nl eff. No: Accessory Muscle Use, Rales Extremities: No: Cold Edema: No e/c/c Neurological: Yes: Alert, Oriented Psychiatric: No: Agitated no jaundice diaphoresis Current Medications Generic Name Dose Route Start Last Admin Trade Name Freq PRN Reason Stop Dose Admin Acetaminophen 650 mg 08/05/16 18:13 08/06/16 12:03 Tylenol - PO 650 mg Q6H PRN Administration FEVER OR PAIN Albuterol Sulfate 1 amp 08/12/16 15:47 Ventolin 0.083% Nebulizer Soln - NEB Q4H PRN SHORT OF BREATH/WHEEZING Allopurinol 100 mg 08/05/16 10:00 08/20/16 10:26 Zyloprim - PO 100 mg DAILY ROSALIA Administration Arformoterol Tartrate 1 amp 08/12/16 22:00 08/20/16 10:20 Brovana (Restricted To Pulmonology/Resp) - NEB 1 amp BID ROSALIA Administration Atorvastatin Calcium 10 mg 08/05/16 22:00 08/19/16 23:01 Lipitor - PO 10 mg HS ROSALIA Administration Cholecalciferol 1,000 unit 08/05/16 10:00 08/20/16 10:32 Vitamin D3 - PO 1,000 unit BID ROSALIA Administration Dabigatran 150 mg 08/05/16 10:00 08/20/16 10:27 Pradaxa - PO 150 mg BID ROSALIA Administration Docusate Sodium 100 mg 08/07/16 14:00 08/20/16 14:00 Colace - PO Not Given TID ROSALIA Dorzolamide HCl 1 drop 08/05/16 22:00 08/20/16 10:32 Trusopt 2% OU 1 drop BID [facility]ALIA Administration Flecainide Acetate 100 mg 08/14/16 10:00 08/20/16 10:27 Tambacor - PO 100 mg BID ROSALIA Administration Furosemide 40 mg 08/17/16 11:00 08/20/16 10:26 Lasix - PO 40 mg DAILY ROSALIA Administration Nystatin 500,000 units 08/08/16 12:00 08/20/16 12:31 Nystatin Oral Suspension - PO 500,000 units Q6HPO ROSALIA Administration Polyethylene Glycol 17 gm 08/07/16 13:15 08/20/16 10:27 Miralax (For Daily Use) - PO Not Given BID ROSALIA Prednisone 30 mg 08/20/16 10:00 08/20/16 10:25 Deltasone - PO 30 mg DAILY [facility]IA Administration Quinapril HCl 20 mg 08/05/16 10:00 08/20/16 10:26 Accupril - PO 20 mg DAILY [facility]IA Administration Tiotropium [place] 1 puff 08/12/16 15:45 08/20/16 10:27 Spiriva - IH Not Given DAILY ROSALIA CBC, BMP 08/20/16 06:00 08/20/16 06:00 echo 03/2015: tds, nl lv/rv, mild lae, no sig valve path echo 08/2016: nl lv/rv, mod dwayne, mod-sev mr/tr, nl rvsp, mild-mod ar...on my review trace ar, mod mr, mild tr tele: afib, rate controlled around 100's. ecg 08/04/16: afib, vr 110, nonspecific lateral st-t changes, nl qtc, no sig change 07/27/16 ct chest: bl pna, no chf a/p: 85 f hx afib, hld, htn, breast ca here with sob, cough. a.e. copd, bilat PNA (+ RSV), acute diastolic chf: -developed acute HFpEF on [place], ? triggered by pneumonitis then--7 lb wt loss in few days at home in response to lasix 20 qd when got back from [place] -admitted currently with worsening resp status, mostly due to recurrent lung infxn/a.e. 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 on echo report here is over-read--no prior h/o signif valve dysfunction and no pathological sounding murmurs on exam--will await JORGE at time of cardioversion for more accurate assesment of valves -BNP 4K here, no priors to compare -rx'd with iv lasix initially (40 iv qd) until labs began to trend in direction of vol depletion (with wt stable, down from prior)--now lasix on hold -08/16: incr sob today, no JVD and lungs clear without wheezing or rhonchi-- suspect this is sec to waxing and waning airways dz/decr mobilization of phlegm; -given one dose iv lasix 40 -CXR was unchanged, with no signs infiltrate or chf -08/17-06/19: sob improved, cont lasix 40 po daily. afib: -has had several jorge/dccv in past but now back in afib, on maintenance flecainide 100 bid x several years. -Rate acceptably controlled here considering acute resp illness. -plan is for JORGE/DCCV once resp status improved--given this is completely elective, i would prefer her phlegm/cough is minimal prior to proceeding, to minimize risks of aspiration and/or triggering bronchospasm--will plan to arrange as outpt once resp sx's have completely resolved -cont home pradaxa hld: -cont statin htn: -overall controlled on home meds. elevated trops: -intermediate-range trops without accompanying s/sx to suggest ACS -ecg similar to priors -echo with nl lvef, no wma's cardiac maxwell stable for dc
[2016-08-20 15:40] VITALS: BP 115/51; PULSE 82; TEMP 97.6
--- NOTE | 2016-08-20 15:51 | DS ---
Physical Examination Vital Signs: Vital Signs Temperature 97.6 F 08/20/16 15:38 Pulse Rate 82 08/20/16 15:38 Respiratory Rate 19 08/20/16 15:38 Blood Pressure 115/51 08/20/16 15:38 O2 Sat by Pulse Oximetry (%) 96 08/20/16 11:18 Constitutional: Yes: Well Nourished, No Distress, Calm Cardiovascular: Yes: Regular Rate and Rhythm. No: Gallop, Murmur, Rub Respiratory: Yes: Regular, CTA Bilaterally. No: Rales, Rhonchi, Wheezes Gastrointestinal: Yes: Normal Bowel Sounds, Soft. No: Distention, Tenderness Extremities: Yes: WNL Edema: No Labs: CBC, BMP 08/20/16 06:00 08/20/16 06:00 Discharge Summary Reason For Visit: CHF [employer] CHRONIC ATRIAL FIBRILLATION Current Active Problems Acute exacerbation of chronic obstructive pulmonary disease (Acute) Acute respiratory failure (Acute) CHF (congestive heart failure) (Acute) COPD (chronic obstructive pulmonary disease) (Acute) Chronic atrial fibrillation (Acute) Gout (Acute) HLD (hyperlipidemia) (Acute) HTN (hypertension) (Acute) Paroxysmal atrial fibrillation (Acute) Pneumonia (Acute) Thrush (Acute) Hospital Course: (1) Acute respiratory failure Code(s): J96.00 - ACUTE RESPIRATORY FAILURE, UNSP W HYPOXIA OR HYPERCAPNIA Qualifiers: Respiratory failure complication: hypoxia Qualified Code(s): J96.01 - Acute respiratory failure with hypoxia (2) CHF (congestive heart failure) Code(s): I50.9 - HEART FAILURE, UNSPECIFIED Qualifiers: Congestive heart failure type: unspecified congestive heart failure type Congestive heart failure chronicity: acute Qualified Code(s): I50.9 - Heart failure, unspecified (3) COPD (chronic obstructive pulmonary disease) Code(s): J44.9 - CHRONIC OBSTRUCTIVE PULMONARY DISEASE, UNSPECIFIED Qualifiers : COPD type: COPD with acute exacerbation Qualified Code(s): J44.1 - Chronic obstructive pulmonary disease with (acute) exacerbation (4) Chronic atrial fibrillation Code(s): I48.2 - CHRONIC ATRIAL FIBRILLATION (5) Pneumonia Code(s): J18.9 - PNEUMONIA, UNSPECIFIED ORGANISM Qualifiers: Laterality: bilateral (6) HTN (hypertension) Code(s): I10 - ESSENTIAL (PRIMARY) HYPERTENSION (7) HLD (hyperlipidemia) Code(s): E78.5 - HYPERLIPIDEMIA, UNSPECIFIED (8) Gout Code(s): M10.9 - GOUT, UNSPECIFIED Mrs Vasquez is a very pleasant 85 year old female who comes in with acute respiratory failure secondary to RSV pneumonitis. she was admitted to the hospital and seen by pulmonary and ID. She was started on empiric antibiotics until RSV came back positive. Antibiotics were discontinued. She was treated with IV solumedrol and bronchodilators. She improved slowly. She was also seen by cardiology for atrial fibrillation with RVR. At first it was thought this was contributing, however it appeared it was mainly secondary to RSV. Cardioversion was planned, but this will be performed as an outpatient after patient is optimized. Continue rhythm control. She had aspect of CHF and was diuresed. Currently she is stable on oral lasix. She is doing well and safe for discharge home. 35 minutes spent in preparation of this discharge Condition: Good - Instructions Diet, Activity, Other Instructions: resume previous diet and activity Referrals: Feliz Parker MD [Primary Care Provider] - [place] MD [Staff Physician] - Disposition: [facility]/HOME HEALTH CARE - Home Medications Comprehensive Discharge Medication List: Ambulatory Orders Allopurinol [Zyloprim -] 100 mg PO DAILY 04/27/12 Atorvastatin Calcium [Lipitor] 10 mg PO HS 04/27/12 Cholecalciferol (Vitamin D3) [Vitamin D3 -] 1,000 unit PO BID 04/27/12 Dabigatran Etexilate Mesylate [Pradaxa] 150 mg PO BID 04/27/12 Flecainide Acetate [Flecainide Acetate -] 100 mg PO BID 04/27/12 Quinapril HCl [Accupril -] 20 mg PO DAILY 04/27/12 Albuterol 0.083% Nebulizer [place] [Ventolin 0.083% Nebulizer Soln -] 1 amp NEB Q4H PRN #30 amp 08/20/16 Arformoterol Tartrate [Brovana -] 1 amp NEB BID #60 amp 08/20/16 Dorzolamide HCl [Trusopt 2% -] 1 drop OU BID #1 bottle 08/20/16 Furosemide [Lasix -] 40 mg PO DAILY #30 tablet 08/20/16 Nebulizer [Compact Compressor Nebulizer] 1 each ASDIR #1 each 08/20/16 Prednisone [Deltasone -] 30 mg PO DAILY #20 tablet 08/20/16 Tiotropium [place] [Spiriva] 1 puff IH DAILY #1 inh 08/20/16
--- NOTE | 2016-08-20 17:33 | PN ---
Progress Note, Physician History of Present Illness: Dyspnea and cough improved. - Current Medication List Current Medications: Active Medications Acetaminophen (Tylenol -) 650 mg PO Q6H PRN PRN Reason: FEVER OR PAIN Last Admin: 08/06/16 12:03 Dose: 650 mg Albuterol Sulfate (Ventolin 0.083% Nebulizer Soln -) 1 amp NEB Q4H PRN PRN Reason: SHORT OF BREATH/WHEEZING Allopurinol (Zyloprim -) 100 mg PO DAILY [facility] Last Admin: 08/20/16 10:26 Dose: 100 mg Arformoterol Tartrate (Brovana (Restricted To Pulmonology/Resp) -) 1 amp NEB BID [facility] Last Admin: 08/20/16 10:20 Dose: 1 amp Atorvastatin Calcium (Lipitor -) 10 mg PO HS [facility] Last Admin: 08/19/16 23:01 Dose: 10 mg Cholecalciferol (Vitamin D3 -) 1,000 unit PO BID [facility] Last Admin: 08/20/16 10:32 Dose: 1,000 unit Dabigatran (Pradaxa -) 150 mg PO BID [facility] Last Admin: 08/20/16 10:27 Dose: 150 mg Docusate Sodium (Colace -) 100 mg PO TID [facility] Last Admin: 08/20/16 14:00 Dose: Not Given Dorzolamide HCl (Trusopt 2%) 1 drop OU BID [facility] Last Admin: 08/20/16 10:32 Dose: 1 drop Flecainide Acetate (Tambacor -) 100 mg PO BID [facility] Last Admin: 08/20/16 10:27 Dose: 100 mg Furosemide (Lasix -) 40 mg PO DAILY [facility] Last Admin: 08/20/16 10:26 Dose: 40 mg Nystatin (Nystatin Oral Suspension -) 500,000 units PO Q6HPO [facility] Last Admin: 08/20/16 12:31 Dose: 500,000 units Polyethylene Glycol (Miralax (For Daily Use) -) 17 gm PO BID [facility] Last Admin: 08/20/16 10:27 Dose: Not Given Prednisone (Deltasone -) 30 mg PO DAILY [facility] Last Admin: 08/20/16 10:25 Dose: 30 mg Quinapril HCl (Accupril -) 20 mg PO DAILY [facility] Last Admin: 08/20/16 10:26 Dose: 20 mg Tiotropium [place] (Spiriva -) 1 puff IH DAILY [facility] Last Admin: 08/20/16 10:27 Dose: Not Given - Objective Vital Signs: Vital Signs Temperature 97.6 F 08/20/16 15:38 Pulse Rate 82 08/20/16 15:38 Respiratory Rate 19 08/20/16 15:38 Blood Pressure 115/51 08/20/16 15:38 O2 Sat by Pulse Oximetry (%) 96 08/20/16 11:18 Constitutional: Yes: No Distress Eyes: No: Sclera Icterus HENT: Yes: Atraumatic, Normocephalic Neck: Yes: Supple, Trachea Midline Cardiovascular: Yes: Regular Rate and Rhythm. No: JVD Respiratory: Yes: Rales (bibasila) Gastrointestinal: Yes: Soft. No: Tenderness Edema: No Neurological: Yes: Alert, Oriented Labs: CBC, BMP 08/20/16 06:00 08/20/16 06:00 INR, PTT INR 1.45 (0.82-1.09) H 08/04/16 22:30 Problem List - Problems (1) Acute respiratory failure Code(s): J96.00 - ACUTE RESPIRATORY FAILURE, UNSP W HYPOXIA OR HYPERCAPNIA Qualifiers: Respiratory failure complication: hypoxia Qualified Code(s): J96.01 - Acute respiratory failure with hypoxia (2) Acute exacerbation of chronic obstructive pulmonary disease Code(s): J44.1 - CHRONIC OBSTRUCTIVE PULMONARY DISEASE W (ACUTE) EXACERBATION (3) CHF (congestive heart failure) Code(s): I50.9 - HEART FAILURE, UNSPECIFIED Qualifiers: Congestive heart failure type: unspecified congestive heart failure type Congestive heart failure chronicity: acute Qualified Code(s): I50.9 - Heart failure, unspecified (4) Pneumonia Code(s): J18.9 - PNEUMONIA, UNSPECIFIED ORGANISM Qualifiers: Laterality: bilateral (5) Paroxysmal atrial fibrillation Code(s): I48.0 - PAROXYSMAL ATRIAL FIBRILLATION Assessment/Plan 85 year old lady with: Acute Exacerbation COPD secondary to respiratory infection-probably viral. Respiratory status improved. Spirometry close to normal. CHF- improved Pneumonia: improved Paroxysmal Atrial Fibrillation on Pradaxa Suggest: O2 to maintain SaO2>90 Inhaled bronchodilators anticoagulation ? cardioversion when medically stable Steroid taper in progress Discharge planning in progress
== END 2016-08-20 19:19 | disposition home health service (06) | DRG 193 ==
LOC: JER 22:02 → JERBED 08-05 00:11 → UNDOADMIN 08-05 00:48 → JERBED 08-05 00:48 → J4W 08-05 02:18 → JERBED 08-05 02:18 → J5S 08-17 18:50
PROVIDERS: ADMIT Specialist; ATTEND Specialist
PROC: 5A09557 Assistance with Respiratory Ventilation, Greater than 96 Consecutive Hours, Continuous Positive Airway Pressure (ICD-10-PCS; principal; 2016-08-04)
DX: J12.1 Respiratory syncytial virus pneumonia (principal); I50.31 Acute diastolic (congestive) heart failure; J96.01 Acute respiratory failure with hypoxia; J44.1 Chronic obstructive pulmonary disease with (acute) exacerbation; B37.0 Candidal stomatitis; E78.5 Hyperlipidemia, unspecified; I11.0 Hypertensive heart disease with heart failure; I48.0 Paroxysmal atrial fibrillation; I25.10 Atherosclerotic heart disease of native coronary artery without angina pectoris; K21.9 Gastro-esophageal reflux disease without esophagitis; M10.9 Gout, unspecified; J18.9 Pneumonia, unspecified organism; R91.1 Solitary pulmonary nodule; K59.09 Other constipation; Z85.3 Personal history of malignant neoplasm of breast; Z87.891 Personal history of nicotine dependence
CPT/HCPCS: 36415; 71010-TC; 71250-TC; 80048; 80053; 81003; 82550; 83036; 83735; 83880; 84100; 84484; 85025; 85610; 86710; 87040; 87070; 87205; 87254; 87804; 87899; 93005; 93010; 93306-TC; 94010; 94640; 94660; 94761; 97116-GP; 97161-GP; 99284-25

== ENCOUNTER → 2016-09-16 | Day surgery (SDC) | payer OTHER, BC ==
[~2016-09-16] MED LIST: LIDOCAINE VISCOUS 2% ORAL/TOP 20 ML UNIT-DOSE CUP MM ONE
[2016-09-16 10:26] VITALS: BMI 21.9
--- NOTE | 2016-09-16 11:34 | PROC ---
Cardioversion Risks and Benefits Explained: Yes Consent on Chart: Yes CHARLES done prior to Cardioversion: Yes CHARLES findings: No intracardiac thrombus Patient anticoagulated: Yes - Procedure Anesthesiologist present: Yes Medication given: propofol Joules delivered: 120 x1 Rhythm post cardioversion: SR Remarks: Pt tolerated procedure well without complications.
[2016-09-16 11:35] VITALS: TEMP 97.6
[2016-09-16 12:51] VITALS: BP 135/67; PULSE 76
--- NOTE | 2016-09-16 13:32 | EKG ---
Test Reason : Blood Pressure : / mmHG Vent. Rate : 075 BPM Atrial Rate : 075 BPM P-R Int : 000 ms QRS Dur : 118 ms QT Int : 418 ms P-R-T Axes : 086 040 104 degrees QTc Int : 466 ms SINUS RHYTHM WITH 1ST DEGREE A-V BLOCK INCOMPLETE LEFT BUNDLE BRANCH BLOCK ABNORMAL ECG WHEN COMPARED WITH ECG OF 04-AUG-2016 22:39, SINUS RHYTHM HAS REPLACED ATRIAL FIBRILLATION ST NO LONGER DEPRESSED IN INFERIOR LEADS Confirmed by LISSETH WILLETT, ORLANDO ([id number]) on 09/16/2016 1:32:25 PM Referred By: Hector Lezama Confirmed By:ORLANDO MONTANEZ MD
== END | disposition home or self-care (01) ==
LOC: JASU-ENDO 09:44
PROVIDERS: ATTEND Internal Medicine Cardiovascular Disease
PROC: 5A2204Z Restoration of Cardiac Rhythm, Single (ICD-10-PCS; 2016-09-16)
PROC: B246ZZ4 Ultrasonography of Right and Left Heart, Transesophageal (ICD-10-PCS; principal; 2016-09-16 10:00)
DX: I48.91 Unspecified atrial fibrillation (principal)
CPT/HCPCS: 93005; 93010; 93312; 93325

== ENCOUNTER 2016-11-27 10:35 | Day surgery (SDC) | payer OTHER, BC ==
[2016-11-27] MEDS ORDERED: TETRACAINE/BENZOCAINE/BUTAMBEN 20 GM SPR TP ONE (11:10)
[2016-11-27] MEDS ORDERED: PROPOFOL 20 ML ONE ×2 (11:11)
[2016-11-27 11:28] VITALS: BMI 22.8
--- NOTE | 2016-11-27 12:20 | PROC ---
Cardioversion Indication: Atrial fibrillation Risks and Benefits Explained: Yes Consent on Chart: Yes CHARLES done prior to Cardioversion: Yes CHARLES findings: No intracardiac thrombus Patient anticoagulated: Yes - Procedure Anesthesiologist present: Yes Medication given: propofol Joules delivered: 120x1 Rhythm post cardioversion: sr Remarks: Patient tolerated procedure well without complication.
[2016-11-27 12:26] VITALS: TEMP 97.7
[2016-11-27 13:31] VITALS: BP 126/85; PULSE 67
--- NOTE | 2016-11-29 22:16 | EKG ---
Test Reason : Blood Pressure : / mmHG Vent. Rate : 069 BPM Atrial Rate : 069 BPM P-R Int : 238 ms QRS Dur : 102 ms QT Int : 438 ms P-R-T Axes : 082 018 126 degrees QTc Int : 469 ms SINUS RHYTHM WITH 1ST DEGREE A-V BLOCK NONSPECIFIC ST AND T WAVE ABNORMALITY ABNORMAL ECG WHEN COMPARED WITH ECG OF 16-SEP-2016 11:42, NO SIGNIFICANT CHANGE WAS FOUND Confirmed by KRISTIN WILLETT, JOHANNY ([id number]) on 11/29/2016 10:16:20 PM Referred By: Hector Lezama Confirmed By:JOHANNY FOSTER MD
== END 2016-11-27 13:52 | disposition home or self-care (01) ==
LOC: JASU-ENDO 10:35
PROVIDERS: ATTEND Internal Medicine Cardiovascular Disease
PROC: 5A2204Z Restoration of Cardiac Rhythm, Single (ICD-10-PCS; 2016-11-27)
PROC: B246ZZ4 Ultrasonography of Right and Left Heart, Transesophageal (ICD-10-PCS; principal; 2016-11-27 11:30)
DX: I48.2 Chronic atrial fibrillation (principal)
CPT/HCPCS: 92960; 93005; 93010; 93312; 93325

== ENCOUNTER 2016-12-18 14:18 | Emergency (ER) | payer OTHER, BC ==
--- NOTE | 2016-12-18 14:47 | PDOC ---
History of Present Illness - General History Source: Patient Exam Limitations: No Limitations - History of Present Illness Initial Comments: 12/18/16 15:12 The patient is an 86 year old female with a significant past medical history of afib (on Pradaxa), CHF, hypertension, hyperlipidemia, pneumonia, and gout, who presents to the ER s/p witnessed fall earlier today. Patient states she fell as she was reaching to grab the pole outside. She says she landed on her buttock and denies any trauma to the head or neck. Patient complains of lower back pain , right knee pain, and right side pain. She states she was unable to walk s/p fall because she was shaking like a leaf. Patient was helped up with assistance and states she has difficulty shifting positions secondary to pain. Denies nausea, vomiting Denies fever, chills, cough Denies syncope Denies head or neck trauma Denies blurry vision Caridiologist: Dr. Askew <Jeanette Trujillo - Last Filed: 12/18/16 15:25> <Nadia Field - Last Filed: 12/18/16 17:36> - General Chief Complaint: Injury Stated Complaint: FALL Time Seen by Provider: 12/18/16 14:46 Past History <Jeanette Trujillo - Last Filed: 12/18/16 15:25> - Past Medical History Anemia: No Asthma: No Cancer: Yes (HX OF BREAST CANCER) Cardiac Disorders: Yes (AF, ASHD) CVA: No COPD: No (PNEUMONIA 08/05/2016) CHF: No (possible chf) Dementia: No Diabetes: No GI Disorders: No Disorders: No HTN: Yes Hypercholesterolemia: Yes Liver Disease: Yes (HEPATITIS - ABNORMAL LFT) Seizures: No Thyroid Disease: No - Surgical History Abdominal Surgery: No Appendectomy: No Cardiac Surgery: Yes Cholecystectomy: No Lung Surgery: No Neurologic Surgery: No Orthopedic Surgery: No - Psycho/Social/Smoking Cessation Hx Suicidal Ideation: No Smoking History: Former smoker Have you smoked in the past 12 months: No If you are a former smoker, when did you quit?: 45 YEARS Hx Alcohol Use: Yes (GLASS OF WINE EVERY NIGHT) Drug/Substance Use Hx: No Substance Use Type: None Hx Substance Use Treatment: No <Nadia Field - Last Filed: 12/18/16 17:36> - Past Medical History Allergies/Adverse Reactions: Allergies Allergy/AdvReac Type Severity Reaction Status Date / Time codeine [Codeine] Allergy Severe Verified 12/18/16 14:57 timolol [Timolol] Allergy Verified 12/18/16 14:57 Home Medications: Ambulatory Orders Allopurinol 300 mg PO DAILY 12/18/16 Amiodarone HCl 100 mg PO DAILY 12/18/16 Atorvastatin Ca [Lipitor] 10 mg PO HS 12/18/16 Cholecalciferol (Vitamin D3) [Vitamin D3] 2,000 unit PO BID 12/18/16 Dabigatran Etexilate Mesylate [Pradaxa -] 150 mg PO BID 12/18/16 Furosemide [Lasix -] 40 mg PO BID 12/18/16 Icosapent Ethyl [Vascepa] 1 gm PO DAILY 12/18/16 Potassium Chloride [Klor-Con 10] 40 meq PO BID 12/18/16 Review of Systems - Review of Systems Able to Perform ROS?: Yes Comments:: 12/18/16 15:13 GENERAL/CONSTITUTIONAL: No fever or chills. No weakness. HEAD, EYES, EARS, NOSE AND THROAT: No change in vision. No ear pain or discharge. No sore throat. CARDIOVASCULAR: No chest pain or shortness of breath. RESPIRATORY: No cough, wheezing, or hemoptysis. GASTROINTESTINAL: No nausea, vomiting, diarrhea or constipation. GENITOURINARY: No dysuria, frequency, or change in urination. MUSCULOSKELETAL: (+) Right knee pain. (+) Lower back pain. No joint or muscle swelling or pain. No neck pain. SKIN: No rash NEUROLOGIC: No headache, vertigo, loss of consciousness, or change in strength/ sensation. ENDOCRINE: No increased thirst. No abnormal weight change. HEMATOLOGIC/LYMPHATIC: No anemia, easy bleeding, or history of blood clots. ALLERGIC/IMMUNOLOGIC: No hives or skin allergy. <Uts,Jeanette - Last Filed: 12/18/16 15:25> *Physical Exam - Vital Signs Last Vital Signs Temp Pulse Resp BP Pulse Ox 97.6 F 77 16 138/66 96 12/18/16 14:57 12/18/16 14:57 12/18/16 14:57 12/18/16 14:57 12/18/16 14:57 - Physical Exam Comments: 12/18/16 15:14 GENERAL: Awake, alert, and fully oriented, in no acute distress HEAD: No signs of trauma EYES: PERRLA, EOMI, sclera anicteric, conjunctiva clear ENT: Auricles normal inspection, hearing grossly normal, nares patent, oropharynx clear without exudates. Moist mucosa NECK: Normal ROM, supple, no lymphadenopathy, JVD, or masses LUNGS: Breath sounds equal, clear to auscultation bilaterally. No wheezes, and no crackles HEART: Regular rate and rhythm, normal S1 and S2, no murmurs, rubs or gallops ABDOMEN: Soft, nontender, normoactive bowel sounds. No guarding, no rebound. No masses EXTREMITIES: Midline tenderness over lumbar spine Right knee mild medial tenderness without ecchymosis or edema No tenderness over tibial plateau NEUROLOGICAL: Cranial nerves II through XII grossly intact. Normal speech, normal gait SKIN: Warm, Dry, normal turgor, no rashes or lesions noted. <[facility],Jeanette - Last Filed: 12/18/16 15:25> Heart Score/ECG Review - [place] Comment: 12/18/16 15:20 EKG read and reviewed by Dr. Field: Sinus rhythm with 1st degree AV block. Nonspecific ST and T wave abnormality. Prolonged QT. QT: 442 Vent rate: 76 bpm, VT interval: 222 ms, QRS duration 104 ms <Uts,Jeanette - Last Filed: 12/18/16 15:25> Medical Decision Making - Medical Decision Making 12/18/16 15:37 Pt presents to the ED complaining of lower back pain and R knee pain after mechanical trip and fall from standing. Patient is on pradaxa but is adamant that she remained upright the entire time and did not hit her head. No signs of trauma above the clavicles. Denies LOC, chest or abdominal pain. + midline LS spine tenderness. Will check xrays of the lumbar spine to rule out fracture , xray of the R knee, give pain control, likely discharge if negative. 12/18/16 16:[address] Rose Marie Verdugo, who has evaluated the patient in the ED and feels that she should be admitted for pain control. Will check labs and give pain control and admit for observation. 12/18/16 17:22 Patient is now ambulatory- reports improvement her pain. Discussed with Dr. Rose Marie Verdugo, who agrees with discharging the patient home. Patient will follow up with PMDs office on Wednesday. <Nadia Field - Last Filed: 12/18/16 17:36> *DC/Admit/Observation/Transfer <Jeanette Trujillo - Last Filed: 12/18/16 15:25> - Discharge Dispostion Admit: No <Nadia Field - Last Filed: 12/18/16 17:36> Diagnosis at time of Disposition: Fall Qualifiers: Encounter type: initial encounter Qualified Code(s): W19.XXXA - Unspecified fall, initial encounter - Discharge Dispostion Disposition: HOME Condition at time of disposition: Good
[2016-12-18 15:07] VITALS: BP 138/66; PULSE 77; TEMP 97.6; BMI 22.4
[2016-12-18] MEDS ORDERED: ACETAMINOPHEN 325 MG TABLET (FP) PO ONE (15:43)
[2016-12-18] MEDS ORDERED: OXYCODONE/APAP 5/325MG COMBO TABLET PO ONE (16:54)
[2016-12-18] MEDS ORDERED: traMADol HCL 50 MG TABLET PO ONE (17:13)
[2016-12-18] MEDS ORDERED: traMADol HCL 50 MG TABLET ONE (17:29)
--- NOTE | 2016-12-18 17:43 | PDOC ---
*Physical Exam - Vital Signs Last Vital Signs Temp Pulse Resp BP Pulse Ox 97.6 F 77 16 138/66 96 12/18/16 14:57 12/18/16 14:57 12/18/16 14:57 12/18/16 14:57 12/18/16 14:57 ED Treatment Course - RADIOLOGY Radiology Studies Ordered: Category Date Time Status KNEE 3 POS-RIGHT [RAD] Stat Radiology 12/18/16 15:01 Completed SPINE- LUMBAR W/OB [RAD] Stat Radiology 12/18/16 15:01 Completed - Medications Given in the ED: ED Medications Discontinued Medications Generic Name Dose Route Start Last Admin Trade Name Freq PRN Reason Stop Dose Admin Acetaminophen 650 mg 12/18/16 15:43 12/18/16 16:06 Tylenol - PO 12/18/16 15:44 650 mg ONCE ONE Administration Tramadol HCl 50 mg 12/18/16 17:13 12/18/16 17:37 Ultram - PO 12/18/16 17:14 50 mg ONCE ONE Administration Medical Decision Making - Medical Decision Making 12/18/16 17:41 patient was to be admitted as per Dr. Rose Marie Verdugo for pain control. Patient is now ambulatory in the ED and is asking to go home. Will discharge the patient home with follow up in her PMD's office on Wednesday. This was discussed with Dr. Verdugo who agrees with the plan. *DC/Admit/Observation/Transfer Diagnosis at time of Disposition: Fall Qualifiers: Encounter type: initial encounter Qualified Code(s): W19.XXXA - Unspecified fall, initial encounter - Discharge Dispostion Disposition: HOME Condition at time of disposition: Good
[2016-12-18] MEDS ORDERED: POTASSIUM CHLORIDE TABS 20 MEQ TABLET.ER (FP) PO SCH (22:00)
[2016-12-18] MEDS ORDERED: FUROSEMIDE 40 MG TABLET (FP) PO SCH (22:00)
[2016-12-18] MEDS ORDERED: ATORVASTATIN CA 10 MG TABLET (FP) PO SCH (22:00)
[2016-12-18] MEDS ORDERED: CHOLECALCIFEROL (VITAMIN D3) 1,000 UNIT TABLET (FP) PO SCH (22:00)
[2016-12-18] MEDS ORDERED: DABIGATRAN ETEXILATE MESYLATE 150 MG CAPSULE PO SCH (22:00)
[2016-12-19] MEDS ORDERED: PATIENT'S OWN MEDICATION (NON-FORMULARY) (Icosapent Ethyl [Vascepa] 1 GM) PO SCH (10:00)
[2016-12-19] MEDS ORDERED: AMIODARONE HCL 200 MG TABLET (FP) PO SCH (10:00)
[2016-12-19] MEDS ORDERED: ALLOPURINOL 300 MG TABLET (FP) PO SCH (10:00)
--- NOTE | 2016-12-25 10:39 | EKG ---
Test Reason : Blood Pressure : / mmHG Vent. Rate : 076 BPM Atrial Rate : 076 BPM P-R Int : 222 ms QRS Dur : 104 ms QT Int : 442 ms P-R-T Axes : 083 002 107 degrees QTc Int : 497 ms SINUS RHYTHM WITH 1ST DEGREE A-V BLOCK NONSPECIFIC ST AND T WAVE ABNORMALITY PROLONGED QT ABNORMAL ECG Confirmed by CORAZON MEEKS MD ([id number]) on 12/25/2016 10:39:04 AM Referred By: Confirmed By:CORAZON MEEKS MD
== END 2016-12-18 18:05 | disposition home or self-care (01) ==
LOC: JER 14:18 → JERBED 16:47 → UNDOADMOB 16:47 → JER 18:05
DX: M54.5 Low back pain (principal); M25.561 Pain in right knee; I25.10 Atherosclerotic heart disease of native coronary artery without angina pectoris; I10 Essential (primary) hypertension; I48.91 Unspecified atrial fibrillation; Z79.01 Long term (current) use of anticoagulants; E78.00 Pure hypercholesterolemia, unspecified; E78.5 Hyperlipidemia, unspecified; Z85.3 Personal history of malignant neoplasm of breast; W19.XXXA Unspecified fall, initial encounter; Y93.89 Activity, other specified; Y92.018 Other place in single-family (private) house as the place of occurrence of the external cause
CPT/HCPCS: 72110-TC; 73562-TC-RT; 93005; 93010; 99281-25

== ENCOUNTER 2017-04-06 10:35 | Day surgery (SDC) | payer OTHER, BC ==
[2017-04-05 09:51] VITALS: BMI 22.4
[2017-04-06 11:12] LABS: INR 1.04 (0.82-1.09); PROTHROMBIN TIME (PATIENT) 11.5 SEC (9.98-11.88)
[2017-04-06] MEDS ORDERED: MIDAZOLAM HCL 2 MG/2 ML SINGLE DOSE VIAL ONE (12:22)
[2017-04-06] MEDS ORDERED: LIDOCAINE HCL/PF 2% SDV 5ML VIAL ONE (12:22)
[2017-04-06] MEDS ORDERED: PROPOFOL 20 ML ONE (12:22)
[2017-04-06] MEDS ORDERED: ceFAZolin SODIUM 1 GM VIAL ONE (12:39)
[2017-04-06] MEDS ORDERED: ceFAZolin SODIUM 1 GM VIAL IVPB ONE (12:45)
--- NOTE | 2017-04-06 12:47 | OP ---
Operative Note - Note: Operative Date: 04/06/17 Pre-Operative Diagnosis: Right ureteral calculus Operation: Right ureteroscopy Post-Operative Diagnosis: Same as Pre-op Surgeon: Reinier Mathur MD. Anesthesia: General Operative Report Dictated: Yes
[2017-04-06] MEDS ORDERED: IOHEXOL 300 MG/ML INFUS..BTL IV ONE (13:05)
[2017-04-06] MEDS ORDERED: morphine CARPU-JECT 2 MG/1 ML DISP.SYRIN IVPUSH PRN (13:33)
[2017-04-06] MEDS ORDERED: oxyCODONE HCL 5 MG TABLET PO PRN (13:33)
[2017-04-06] MEDS ORDERED: ONDANSETRON 4 MG/2 ML VIAL IVPUSH PRN (13:33)
[2017-04-06] MEDS ORDERED: ACETAMINOPHEN 325 MG TABLET (FP) PO PRN (13:33)
[2017-04-06] MEDS ORDERED: ACETAMINOPHEN 325 MG TABLET (FP) ONE (14:54)
[2017-04-06 16:18] VITALS: TEMP 98
[2017-04-06 17:03] VITALS: BP 155/82; PULSE 71
--- NOTE | 2017-04-22 09:52 | OP ---
DATE OF OPERATION: 04/06/2017 PREOPERATIVE DIAGNOSIS: Right ureteral calculus. POSTOPERATIVE DIAGNOSIS: Right ureteral calculus. PROCEDURE: Right ureteroscopy, holmium laser lithotripsy, stent placement. HISTORY: This is a pleasant 86-year-old female who was noted to have right-sided hydronephrosis and intermittent flank pain. After discussing treatment options, the patient elected to undergo the above-stated procedure. Risks and benefits of treatment and alternatives were discussed in detail and questions were answered. BRIEF OPERATIVE NOTE: Patient brought into the operating room and placed in the supine position. Once general anesthesia was administered, patient was transferred to the dorsal lithotomy position, prepped and draped per standard sterile fashion. Intravenous antibiotics were given. At this time, a 0.038 guidewire was passed into the right ureteral orifice and fluoroscopically confirmed to proceed up to the renal pelvis. At this time, a semirigid ureteroscope was then passed alongside the wire. The stone was visualized and using a 365-micron holmium laser fiber the stone was fragmented. A 6-Sinhala double-J stent was then passed over the guidewire and fluoroscopically confirmed to be in the normal position. The bladder was drained. The patient was brought to the recovery room in stable and satisfactory condition. Asha [id number]
== END 2017-04-06 16:30 | disposition home or self-care (01) ==
LOC: JASU-SURG 10:35
PROVIDERS: ATTEND Urology
PROC: 0TF68ZZ Fragmentation in Right Ureter, Via Natural or Artificial Opening Endoscopic (ICD-10-PCS; principal; 2017-04-06 12:00)
PROC: 0T768DZ Dilation of Right Ureter with Intraluminal Device, Via Natural or Artificial Opening Endoscopic (ICD-10-PCS; 2017-04-06 12:00)
DX: N20.1 Calculus of ureter (principal)
CPT/HCPCS: 36415; 76000-TC; 85610; 85730; 94760

== ENCOUNTER 2017-06-07 09:41 | Inpatient (IN) | payer OTHER, BC ==
--- NOTE | 2017-06-07 09:47 | PDOC ---
History of Present Illness <Saud Vaca - Last Filed: 06/07/17 11:56> - General History Source: Patient Exam Limitations: No Limitations - History of Present Illness Initial Comments: 06/07/17 10:11 The patient is a 86 year old female, with a significant past medical history of AFib(on Pradaxa), ASHD, CHF, breast cancer, pneumonia(hospitalization 08/05/16), hypertension, hyperlipidemia, and hepatitis, who presents to the emergency department with lightheadedness and cold symptoms for approximately 3 days. The patient reports she began to develop body aches and a cough on Wednesday after contact with her who had the flu. Patient reports her cough was productive of yellow sputum. She reports chills, but denies any fever or headache. Today, patient reports waking up feeling lightheaded and felt as if she was going to pass out, collapsed to the floor but did not actually lose consciousness. She denies any chest pain, shortness of breath, diaphoresis, or palpitations Allergies: Codeine, Adhesive, Timolol Past Surgical History: Appendectomy, Cholecystectomy, Cardioversion, Colon resection for endometriosis Social History: Former nurse. Former smoker. Daily glass of wine. No recreational drug use. PCP: Dr. Parker Metal Room Dental Technician: Dr. Lezama <Odell Huerta - Last Filed: 06/07/17 15:29> - General Chief Complaint: Lightheaded Stated Complaint: Lightheaded Time Seen by Provider: 06/07/17 09:46 Past History - Past Medical History Anemia: No Asthma: No Cancer: Yes (HX OF BREAST CANCER) Cardiac Disorders: Yes (AF, ASHD) CVA: No COPD: Yes (PNEUMONIA 08/05/2016) CHF: No (possible chf) Dementia: No Diabetes: No GI Disorders: No Disorders: No HTN: Yes Hypercholesterolemia: Yes Liver Disease: No (HEPATITIS - ABNORMAL LFT) Seizures: No Thyroid Disease: No - Surgical History Abdominal Surgery: No Appendectomy: Yes Cardiac Surgery: Yes (CARDIOVERSION) Cholecystectomy: Yes GI Surgery: Yes (colon resection, exploratory for endometriosis) Lung Surgery: No Neurologic Surgery: No Orthopedic Surgery: Yes - Suicide/Smoking/Psychosocial Hx Smoking History: Former smoker Have you smoked in the past 12 months: No If you are a former smoker, when did you quit?: 45 YEARS 'Breaking Loose' booklet given: 12/18/16 Hx Alcohol Use: Yes (GLASS OF WINE EVERY NIGHT) Drug/Substance Use Hx: No Substance Use Type: None Hx Substance Use Treatment: No <Saud Vaca - Last Filed: 06/07/17 11:56> <Odell Huerta - Last Filed: 06/07/17 15:29> - Past Medical History Allergies/Adverse Reactions: Allergies Allergy/AdvReac Type Severity Reaction Status Date / Time codeine [Codeine] Allergy Severe Verified 06/07/17 09:43 adhesive Allergy Intermediate Rash Verified 06/07/17 09:43 timolol [Timolol] Allergy Verified 06/07/17 09:43 Home Medications: Ambulatory Orders Allopurinol 300 mg PO DAILY 12/18/16 Amiodarone HCl 100 mg PO DAILY 12/18/16 Atorvastatin Ca [Lipitor] 10 mg PO HS 12/18/16 Cholecalciferol (Vitamin D3) [Vitamin D3] 2,000 unit PO BID 12/18/16 Furosemide [Lasix -] 10 mg PO DAILY 12/18/16 Potassium Chloride [Klor-Con 10] 10 meq PO BID 12/18/16 Brinzolamide [Azopt] 15 ml OU BID 04/05/17 Ubidecarenone [Coq-10] 100 mg PO DAILY 04/05/17 Dabigatran Etexilate Mesylate [Pradaxa -] 75 mg PO DAILY 04/06/17 Review of Systems - Review of Systems Able to Perform ROS?: Yes Comments:: 06/07/17 10:11 GENERAL/CONSTITUTIONAL: Yes chills, weakness. No fever. HEAD, EYES, EARS, NOSE AND THROAT: No change in vision. No ear pain or discharge. No sore throat. CARDIOVASCULAR: No chest pain or shortness of breath. RESPIRATORY: Yes cough productive of yellow sputum. No wheezing, or hemoptysis. GASTROINTESTINAL: No nausea, vomiting, diarrhea or constipation. GENITOURINARY: No dysuria, frequency, or change in urination. MUSCULOSKELETAL: No joint or muscle swelling or pain. No neck or back pain. SKIN: No rash NEUROLOGIC: Yes lightheadedness. No headache, vertigo, loss of consciousness. ENDOCRINE: No increased thirst. No abnormal weight change. HEMATOLOGIC/LYMPHATIC: No anemia, easy bleeding, or history of blood clots. ALLERGIC/IMMUNOLOGIC: No hives or skin allergy. <Odell Huerta - Last Filed: 06/07/17 15:29> *Physical Exam - Vital Signs Last Vital Signs Temp Pulse Resp BP Pulse Ox 97.8 F 62 20 126/50 100 06/07/17 09:49 06/07/17 09:49 06/07/17 09:49 06/07/17 09:49 06/07/17 09:49 - Physical Exam Comments: 06/07/17 10:11 GENERAL: Awake, alert, and fully oriented, in no acute distress HEAD: No signs of trauma EYES: PERRLA, EOMI, sclera anicteric, conjunctiva clear ENT: Auricles normal inspection, hearing grossly normal, nares patent, oropharynx clear without exudates. Moist mucosa NECK: Normal ROM, supple, no lymphadenopathy, JVD, or masses LUNGS: Diffuse ronchi bilaterally. No wheezes, and no crackles HEART: Regular rate and rhythm, normal S1 and S2, no murmurs, rubs or gallops ABDOMEN: Soft, nontender, normoactive bowel sounds. No guarding, no rebound. No masses EXTREMITIES: Normal range of motion, no edema. No clubbing or cyanosis. No cords, erythema, or tenderness NEUROLOGICAL: Cranial nerves II through XII grossly intact. Normal speech SKIN: Warm, Dry, normal turgor, no rashes or lesions noted. <Odell Huerta - Last Filed: 06/07/17 15:29> Heart Score/ECG Review - ECG Intrepretation Comment:: 06/07/17 10:13 Vent Rate: 63 bpm IMPRESSION: Sinus rhythm with 1st degree AV block. Nonspecific ST and T wave abnormality. Prolonged QT. <Yue Huertanehemiahshanaaliyah - Last Filed: 06/07/17 15:29> ED Treatment Course - LABORATORY CBC & Chemistry Diagram: 06/07/17 10:57 06/07/17 10:57 <Saud Vaca - Last Filed: 06/07/17 11:56> - LABORATORY CBC & Chemistry Diagram: 06/07/17 10:57 06/07/17 10:57 - RADIOLOGY Radiograph Interpretation: 06/07/17 11:24 EXAM: CXR INTERPRETED BY: Dr. Mejia REVIEWED BY: Dr. Vaca. IMPRESSION: No evidence of pneumonia, CHF, pneumothorax by Radiologist. However , per Dr. Vaca(ED attending) there is a right lower lobe infiltrate with evidence of pneumonia. <Odell Huerta - Last Filed: 06/07/17 15:29> Medical Decision Making - Medical Decision Making 06/07/17 11:56 Patient was coughing so hard she nearly passed out which is what ppt the call to 911. I have spoken with Radiology, and it looks like she could have an early infiltrate developing in the right lower lobe. In light of increase in neurtophils on the diff will treat for Pneumonia. Lactate is positive so will give fluids and solucortef.... gingerly as she has hixtory of CHF. Dr. Guillen is her wage conciliator. Spoke with Dr. Pepper, will admit to regular nursing floor for treatment of pneumonia. <Saud Vaca - Last Filed: 06/07/17 11:56> *DC/Admit/Observation/Transfer - Discharge Dispostion Admit: Yes - Attestations Physician Attestion: 06/07/17 09:47 I, Dr. Saud Vaca, attest that this document has been prepared under my direction and personally reviewed by me in its entirety. I further attest, that it accurately reflects all work, treatment, procedures and medical decision -making performed by me. <Saud Vaca - Last Filed: 06/07/17 11:56> - Attestations Scribe Attestion: 06/07/17 10:12 Documentation prepared by Odell Huerta, acting as medical secretary teacher for Sadu Vaca DO. <Odell Huerta - Last Filed: 06/07/17 15:29> Diagnosis at time of Disposition: Pneumonia Qualifiers: Pneumonia type: due to unspecified organism Laterality: right Lung location: lower lobe of lung Qualified Code(s): J18.1 - Lobar pneumonia, unspecified organism - Discharge Dispostion Condition at time of disposition: Improved
[2017-06-07] MEDS ORDERED: ALBUTEROL SO4 0.083% IH SOL 2.5 MG/3 ML VIAL.NEB. NEB ONE (10:02)
[2017-06-07] MEDS ORDERED: ALBUTEROL SO4 2.5/IPRATROPIUM 0.5 INH SOL 3 ML VIAL.NEB. NEB ONE ×2 (10:02→10:54)
[2017-06-07 10:03] VITALS: BMI 21.4
[2017-06-07 11:19] LABS: BASOPHIL 0.5 % (0-2.0); EOSINOPHIL 0.4 % (0-4.5); MCH 31.6 pg (25.7-33.7); MCHC 33.4 g/dl (32.0-36.0); MEAN CELL VOLUME 94.5 fl (80-96); MEAN PLT VOLUME 9.5 fl (7.5-11.1); PLATELET COUNT 175 K/MM3 (134-434); RDW 14.3 % (11.6-15.6); WHITE BLOOD COUNT 8.4 K/mm3 (4.0-10.0)
[2017-06-07 11:23] LABS: URINE APPEARANCE CLEAR; URINE BILIRUBIN NEGATIVE (NEGATIVE); URINE BLOOD NEGATIVE (NEGATIVE); URINE COLOR LTYELLOW; URINE GLUCOSE (UA) NEGATIVE (NEGATIVE); URINE KETONE NEGATIVE (NEGATIVE); URINE NITRITE NEGATIVE (NEGATIVE); URINE PROTEIN NEGATIVE (NEGATIVE); URINE UROBILINOGEN NEGATIVE mg/dL (0.2-1.0)
[2017-06-07] MEDS ORDERED: HYDROCORTISONE SOD SUCCINATE 100 MG/2 ML VIAL IVPUSH ONE (11:27)
[2017-06-07] MEDS ORDERED: methylPREDNISolone NA SUCC 125 MG/2 ML VIAL IVPUSH ONE (11:27)
[2017-06-07] MEDS ORDERED: CEFTRIAXONE 1 GM in DEXTROSE 5%-WATER - 50 ML IVPB ONE (11:27)
[2017-06-07] MEDS ORDERED: SODIUM CHLORIDE 500 ML IV STA (11:27)
[2017-06-07] MEDS ORDERED: AZITHROMYCIN IVPB 500 MG in DEXTROSE 5%-WATER - 250 ML IVPB ONE (11:27)
[2017-06-07 11:35] LABS: ALBUMIN 3.9 g/dl (3.4-5.0); ANION GAP 9 (8-16); BILIRUBIN,TOTAL 0.8 mg/dL (0.2-1.0); CALCIUM 9.4 mg/dL (8.5-10.1); CO2 27 mmol/L (21-32); CREATININE 0.8 mg/dL (0.55-1.02); GLUCOSE,RANDOM 120 mg/dL (74-106); SGPT/ALT 55 U/L (12-78); TOT PROT 6.6 g/dl (6.4-8.2)
[2017-06-07 11:37] LABS: ALK PHOS 133 U/L (45-117); CPK 66 IU/L (26-192); TROPONIN I 0.02 ng/ml (0.00-0.05)
[2017-06-07 11:38] LABS: SGOT/AST 42 U/L (15-37)
[2017-06-07] MEDS ORDERED: AZITHROMYCIN IVPB 250 ML IVPB ONE (11:45)
[2017-06-07] MEDS ORDERED: HYDROCORTISONE SOD SUCCINATE 2 ML ONE (11:46)
[2017-06-07] MEDS ORDERED: CEFTRIAXONE 1 GM/50 ML BAG ONE (11:46)
[2017-06-07] MEDS ORDERED: methylPREDNISolone NA SUCC 125 MG/2 ML VIAL ONE (11:46)
[2017-06-07 11:52] LABS: INR 1.56 (0.82-1.09); PROTHROMBIN TIME (PATIENT) 17.6 SEC (9.98-11.88)
--- NOTE | 2017-06-07 12:41 | EKG ---
Test Reason : Blood Pressure : / mmHG Vent. Rate : 063 BPM Atrial Rate : 063 BPM P-R Int : 240 ms QRS Dur : 106 ms QT Int : 478 ms P-R-T Axes : 089 040 076 degrees QTc Int : 489 ms SINUS RHYTHM WITH 1ST DEGREE A-V BLOCK NONSPECIFIC ST AND T WAVE ABNORMALITY PROLONGED QT ABNORMAL ECG WHEN COMPARED WITH ECG OF 18-DEC-2016 15:12, NO SIGNIFICANT CHANGE WAS FOUND Confirmed by ASIF WILLETT, GOPAL ([id number]) on 06/07/2017 12:40:33 PM Referred By: Confirmed By:GOPAL GOLD MD
[2017-06-07] MEDS ORDERED: ONDANSETRON 4 MG/2 ML VIAL IVPUSH PRN (13:05)
[2017-06-07] MEDS ORDERED: ALBUTEROL SO4 2.5/IPRATROPIUM 0.5 INH SOL 3 ML VIAL.NEB. NEB PRN (13:09)
--- NOTE | 2017-06-07 13:10 | HP ---
Admitting History and Physical - Primary Care Physician PCP: Feliz Parker - Admission Chief Complaint: I think I have pneumonia History of Present Illness: Mrs Vasquez is a very pleasant 86 year old female who comes in with 3 days of malaise. She says her originally was sick with a viral illness similar to a cold and she caught it as well. She says it started off as nasal congestion and dry cough. However it progressed to nasal drainage with a sore scratchy throat and productive cough with yellowish sputum. She says she also had general malaise and decrease in appetite with this. She says she has chills but no fevers, but also states she never mary a fever. She was planning to see Dr Parker today, however when she was sitting in the kitchen she felt very weak. She stood up and fell. She says she did not pass out or hit her head and she was not lightheaded prior to the fall. She also sustained no trauma and is not having any pain or bruising from the fall. She says she fell mainly because she was so weak and then she could not get up. She was helped up by her and some others who were nearby and decided to come in. She denies chest pain, shortness of breath, nausea, vomiting, difficulty or pain on urination, or swelling. She says she had her flu shot last and is up to date on her pneumonia shot. History Source: Patient Limitations to Obtaining History: No Limitations - Past Medical History Cardiovascular: Yes: AFIB, CAD, HTN, Hyperlipdemia Gastrointestinal: Yes: GERD Rheumatology: Yes: Gout - Past Surgical History Past Surgical History: Yes: Appendectomy, Cholecystectomy - Smoking History Smoking history: Former smoker Have you smoked in the past 12 months: No If you are a former smoker, when did you quit?: 45 YEARS - Alcohol/Substance Use Hx Alcohol Use: Yes (GLASS OF WINE EVERY NIGHT) History of Substance Use: reports: None - Social History Usual Living Arrangement: Yes: With Spouse ADL: Independent History of Recent Travel: Yes Home Medications - Allergies Allergies/Adverse Reactions: Allergies Allergy/AdvReac Type Severity Reaction Status Date / Time codeine [Codeine] Allergy Severe Verified 06/07/17 09:43 adhesive Allergy Intermediate Rash Verified 06/07/17 09:43 timolol [Timolol] Allergy Verified 06/07/17 09:43 - Home Medications Home Medications: Ambulatory Orders Allopurinol 300 mg PO DAILY 12/18/16 Amiodarone HCl 100 mg PO DAILY 12/18/16 Atorvastatin Ca [Lipitor] 10 mg PO HS 12/18/16 Cholecalciferol (Vitamin D3) [Vitamin D3] 2,000 unit PO BID 12/18/16 Furosemide [Lasix -] 10 mg PO DAILY 12/18/16 Potassium Chloride [Klor-Con 10] 10 meq PO BID 12/18/16 Brinzolamide [Azopt] 15 ml OU BID 04/05/17 Ubidecarenone [Coq-10] 100 mg PO DAILY 04/05/17 Dabigatran Etexilate Mesylate [Pradaxa -] 75 mg PO DAILY 04/06/17 Family Disease History - Family Disease History Family Disease History: Heart Disease: Sister (cardiomegaly), CA: Father (lung) , Other: Mother (CVA) Review of Systems Findings/Remarks: Full review of systems obtained, as per HPI and otherwise negative Physical Examination Vital Signs: Vital Signs Temperature 36.6 C 06/07/17 09:49 Pulse Rate 63 06/07/17 11:19 Respiratory Rate 20 06/07/17 09:49 Blood Pressure 133/51 06/07/17 11:19 O2 Sat by Pulse Oximetry (%) 100 06/07/17 10:39 Constitutional: Yes: Well Nourished, No Distress, Calm Eyes: Yes: Conjunctiva Clear, EOM Intact, PERRL HENT: Yes: Atraumatic, Normocephalic Cardiovascular: Yes: Regular Rate and Rhythm. No: Gallop, Murmur, Rub Respiratory: Yes: Regular, On Nasal O2, Rhonchi (slight, R base). No: CTA Bilaterally, Rales, Wheezes Gastrointestinal: Yes: Normal Bowel Sounds, Soft. No: Distention, Tenderness Extremities: Yes: WNL Edema: No Labs: CBC, BMP 06/07/17 10:57 06/07/17 10:57 Imaging - Results Chest X-ray: Report Reviewed, Image Reviewed Problem List - Problems (1) Pneumonia Assessment/Plan: -patient presents with CAP -will obtain urine for antigen detection -given rocephin and zithromax in the ED, will continue -day 1 of antibiotics Code(s): J18.9 - PNEUMONIA, UNSPECIFIED ORGANISM Qualifiers: Pneumonia type: due to unspecified organism Laterality: right Lung location: lower lobe of lung Qualified Code(s): J18.1 - Lobar pneumonia, unspecified organism (2) Weakness generalized Assessment/Plan: -secondary to infection -admit to hospital -PT consult -treat pneumonia Code(s): R53.1 - WEAKNESS (3) CHF (congestive heart failure) Assessment/Plan: -not in exacerbation -can continue lasix Code(s): I50.9 - HEART FAILURE, UNSPECIFIED Qualifiers: Congestive heart failure type: systolic Congestive heart failure chronicity : chronic Qualified Code(s): I50.22 - Chronic systolic (congestive) heart failure (4) COPD (chronic obstructive pulmonary disease) Assessment/Plan: -slight exacerbation secondary to pneumonia -received steroids in the ED, will not continue at this time -treat pneumonia -duonebs prn Code(s): J44.9 - CHRONIC OBSTRUCTIVE PULMONARY DISEASE, UNSPECIFIED Qualifiers: COPD type: COPD with acute exacerbation Qualified Code(s): J44.1 - Chronic obstructive pulmonary disease with (acute) exacerbation (5) Chronic atrial fibrillation Assessment/Plan: -cardioverted and now in sinus rhythm secondary to amiodarone -continue amiodarone -continue eliquis Code(s): I48.2 - CHRONIC ATRIAL FIBRILLATION (6) Gout Assessment/Plan: -not in exacerbation -continue allopurinol Code(s): M10.9 - GOUT, UNSPECIFIED (7) HLD (hyperlipidemia) Assessment/Plan: -continue statin Code(s): E78.5 - HYPERLIPIDEMIA, UNSPECIFIED (8) HTN (hypertension) Assessment/Plan: -well controlled -monitor Code(s): I10 - ESSENTIAL (PRIMARY) HYPERTENSION
[2017-06-07] MEDS ORDERED: ACETAMINOPHEN 325 MG TABLET (FP) ONE (14:02)
[2017-06-07] MEDS: ACETAMINOPHEN 325 MG TABLET (FP) PO PRN (14:09)
[2017-06-07 18:32] LABS: URINE LEUK ESTERASE Negative (NEGATIVE)
[2017-06-07] MEDS ORDERED: LISINOPRIL 10 MG TABLET (FP) PO ONE (21:12)
[2017-06-07] MEDS ORDERED: PT OWN MED DRAWER 7, Y5N ONE (21:18)
[2017-06-07] MEDS: LACTOBACILLUS ACIDOPHILUS 1 EACH TAB (FP) PO SCH (21:27)
[2017-06-07] MEDS: POTASSIUM CHLORIDE TABS 10 MEQ TABLET.ER (FP) PO SCH (21:28)
[2017-06-07] MEDS: CHOLECALCIFEROL (VITAMIN D3) 1,000 UNIT TABLET (FP) PO SCH (21:28)
[2017-06-07] MEDS: ATORVASTATIN CA 10 MG TABLET (FP) PO SCH (21:28)
[2017-06-08] MEDS: APIXABAN 5 MG TABLET PO SCH ×3 (00:08→21:20)
[2017-06-08 07:40] LABS: MCHC 33.2 g/dl (32.0-36.0); MEAN CELL VOLUME 93.1 fl (80-96); MEAN PLT VOLUME 8.6 fl (7.5-11.1); NEUTROPHILS 91.3 % (42.8-82.8); PLATELET COUNT 167 K/MM3 (134-434); RDW 14.3 % (11.6-15.6); WHITE BLOOD COUNT 11.6 K/mm3 (4.0-10.0)
[2017-06-08 08:15] LABS: ANION GAP 9 (8-16); CALCIUM 8.8 mg/dL (8.5-10.1); CO2 22 mmol/L (21-32); CREATININE 0.6 mg/dL (0.55-1.02); GLUCOSE,RANDOM 158 mg/dL (74-106); MAGNESIUM 1.9 mg/dL (1.8-2.4); PHOSPHOROUS 3.4 mg/dL (2.5-4.9)
[2017-06-08] MEDS ORDERED: AZITHROMYCIN IVPB 500 MG in DEXTROSE 5%-WATER - 250 ML IVPB SCH (10:00)
[2017-06-08] MEDS ORDERED: PT OWN MED DRAWER 7, Y5N ONE (10:18)
[2017-06-08] MEDS: CEFTRIAXONE 1 G/50 ML PREMIX 50 ML IVPB SCH (10:26)
[2017-06-08] MEDS: CHOLECALCIFEROL (VITAMIN D3) 1,000 UNIT TABLET (FP) PO SCH ×2 (10:27→21:20)
[2017-06-08] MEDS: FUROSEMIDE 20 MG TABLET (FP) PO SCH (10:28)
[2017-06-08] MEDS: LACTOBACILLUS ACIDOPHILUS 1 EACH TAB (FP) PO SCH (10:28)
[2017-06-08] MEDS: POTASSIUM CHLORIDE TABS 10 MEQ TABLET.ER (FP) PO SCH ×2 (10:28→21:20)
[2017-06-08] MEDS: ALLOPURINOL 300 MG TABLET (FP) PO SCH (10:30)
--- NOTE | 2017-06-08 13:28 | PN ---
Progress Note, Physician Chief Complaint: Mrs Vasquez says she is feeling much better. Says she is not short of breath. She is not feeling weak anymore. States cough is resolving. No cp or n/v. Patient does express concern over zithromax - Current Medication List Current Medications: Active Medications Acetaminophen (Tylenol -) 650 mg PO Q4H PRN PRN Reason: FEVER OR PAIN Last Admin: 06/07/17 14:09 Dose: 650 mg Albuterol/Ipratropium (Duoneb -) 1 amp NEB Q6H PRN PRN Reason: SHORTNESS OF BREATH Allopurinol (Zyloprim -) 300 mg PO DAILY [facility] Last Admin: 06/08/17 10:30 Dose: 300 mg Amiodarone HCl (Cordarone -) 100 mg PO DAILY [facility] Apixaban (Eliquis -) 5 mg PO BID [facility] Last Admin: 06/08/17 10:27 Dose: 5 mg Atorvastatin Calcium (Lipitor -) 10 mg PO HS [facility] Last Admin: 06/07/17 21:28 Dose: 10 mg Azithromycin (Zithromax -) 250 mg PO DAILY [facility] Cholecalciferol (Vitamin D3 -) 2,000 unit PO BID [facility] Last Admin: 06/08/17 10:27 Dose: 2,000 unit Furosemide (Lasix -) 10 mg PO DAILY [facility] Last Admin: 06/08/17 10:28 Dose: 10 mg CEFTRIAXONE 1 G/50 ML PREMIX (Ceftriaxone 1 Gm-D5w Bag) 50 mls @ 100 mls/hr IVPB DAILY [facility] Last Admin: 06/08/17 10:26 Dose: 100 mls/hr Lactobacillus Acidophilus (Bacid -) 1 tab PO DAILY [facility] Last Admin: 06/08/17 10:28 Dose: 1 tab Non-Formulary Medication (Brinzolamide [Azopt]) 15 ml OU BID [facility] Potassium Chloride (K-Dur -) 10 meq PO BID [facility] Last Admin: 06/08/17 10:28 Dose: 10 meq - Objective Vital Signs: Vital Signs Temperature 36.7 C 06/08/17 05:41 Pulse Rate 87 06/08/17 09:34 Respiratory Rate 18 06/08/17 09:34 Blood Pressure 138/64 06/08/17 09:34 O2 Sat by Pulse Oximetry (%) 100 06/07/17 21:33 Constitutional: Yes: Well Nourished, No Distress, Calm Cardiovascular: Yes: Regular Rate and Rhythm. No: Gallop, Murmur, Rub Respiratory: Yes: Regular, CTA Bilaterally. No: Rales, Rhonchi, Wheezes Gastrointestinal: Yes: Normal Bowel Sounds, Soft. No: Distention, Tenderness Extremities: Yes: WNL Edema: No Labs: CBC, BMP 06/08/17 06:00 06/08/17 06:00 INR, PTT INR 1.56 (0.82-1.09) H D 06/07/17 10:57 Problem List - Problems (1) Pneumonia Code(s): J18.9 - PNEUMONIA, UNSPECIFIED ORGANISM Qualifiers: Pneumonia type: due to unspecified organism Laterality: right Lung location: lower lobe of lung Qualified Code(s): J18.1 - Lobar pneumonia, unspecified organism (2) Weakness generalized Code(s): R53.1 - WEAKNESS (3) CHF (congestive heart failure) Code(s): I50.9 - HEART FAILURE, UNSPECIFIED Qualifiers: Congestive heart failure type: systolic Congestive heart failure chronicity : chronic Qualified Code(s): I50.22 - Chronic systolic (congestive) heart failure (4) COPD (chronic obstructive pulmonary disease) Code(s): J44.9 - CHRONIC OBSTRUCTIVE PULMONARY DISEASE, UNSPECIFIED Qualifiers: COPD type: COPD with acute exacerbation Qualified Code(s): J44.1 - Chronic obstructive pulmonary disease with (acute) exacerbation (5) Chronic atrial fibrillation Code(s): I48.2 - CHRONIC ATRIAL FIBRILLATION (6) Gout Code(s): M10.9 - GOUT, UNSPECIFIED (7) HLD (hyperlipidemia) Code(s): E78.5 - HYPERLIPIDEMIA, UNSPECIFIED (8) HTN (hypertension) Code(s): I10 - ESSENTIAL (PRIMARY) HYPERTENSION Assessment/Plan (1) Pneumonia Assessment/Plan: -patient presents with CAP -continue rocephin and zithromax day 2 -can change to zithromax 250mg po daily Code(s): J18.9 - PNEUMONIA, UNSPECIFIED ORGANISM Qualifiers: Pneumonia type: due to unspecified organism Laterality: right Lung location: lower lobe of lung Qualified Code(s): J18.1 - Lobar pneumonia, unspecified organism (2) Weakness generalized Assessment/Plan: -improving -secondary to pneumonia Code(s): R53.1 - WEAKNESS (3) CHF (congestive heart failure) Assessment/Plan: -not in exacerbation -can continue lasix Code(s): I50.9 - HEART FAILURE, UNSPECIFIED Qualifiers: Congestive heart failure type: systolic Congestive heart failure chronicity : chronic Qualified Code(s): I50.22 - Chronic systolic (congestive) heart failure (4) COPD (chronic obstructive pulmonary disease) Assessment/Plan: -slight exacerbation secondary to pneumonia -continue duonebs prn Code(s): J44.9 - CHRONIC OBSTRUCTIVE PULMONARY DISEASE, UNSPECIFIED Qualifiers: COPD type: COPD with acute exacerbation Qualified Code(s): J44.1 - Chronic obstructive pulmonary disease with (acute) exacerbation (5) Chronic atrial fibrillation Assessment/Plan: -cardioverted and now in sinus rhythm secondary to amiodarone -continue amiodarone -continue eliquis Code(s): I48.2 - CHRONIC ATRIAL FIBRILLATION (6) Gout Assessment/Plan: -not in exacerbation -continue allopurinol Code(s): M10.9 - GOUT, UNSPECIFIED (7) HLD (hyperlipidemia) Assessment/Plan: -continue statin Code(s): E78.5 - HYPERLIPIDEMIA, UNSPECIFIED (8) HTN (hypertension) Assessment/Plan: -well controlled -monitor Code(s): I10 - ESSENTIAL (PRIMARY) HYPERTENSION
[2017-06-08] MEDS: AZITHROMYCIN 250 MG TABLET PO SCH (13:33)
[2017-06-08] MEDS: AMIODARONE HCL 200 MG TABLET (FP) PO SCH (18:31)
[2017-06-08] MEDS: ATORVASTATIN CA 10 MG TABLET (FP) PO SCH (21:20)
[2017-06-09 07:30] LABS: BASOPHIL 0.3 % (0-2.0); EOSINOPHIL 0.2 % (0-4.5); MCH 31.5 pg (25.7-33.7); MCHC 33.3 g/dl (32.0-36.0); MEAN CELL VOLUME 94.6 fl (80-96); MEAN PLT VOLUME 9.2 fl (7.5-11.1); NEUTROPHILS 76.6 % (42.8-82.8); PLATELET COUNT 186 K/MM3 (134-434); RDW 14.3 % (11.6-15.6); WHITE BLOOD COUNT 10.2 K/mm3 (4.0-10.0)
[2017-06-09 07:57] LABS: CALCIUM 8.4 mg/dL (8.5-10.1)
[2017-06-09 08:01] LABS: ANION GAP 7 (8-16); CO2 25 mmol/L (21-32); CREATININE 0.7 mg/dL (0.55-1.02); GLUCOSE,RANDOM 91 mg/dL (74-106); PHOSPHOROUS 3.2 mg/dL (2.5-4.9)
[2017-06-09] MEDS: CEFTRIAXONE 1 G/50 ML PREMIX 50 ML IVPB SCH (09:55)
[2017-06-09] MEDS: APIXABAN 5 MG TABLET PO SCH ×2 (09:55→22:01)
[2017-06-09] MEDS: AZITHROMYCIN 250 MG TABLET PO SCH (09:55)
[2017-06-09] MEDS: CHOLECALCIFEROL (VITAMIN D3) 1,000 UNIT TABLET (FP) PO SCH ×2 (09:55→22:01)
[2017-06-09] MEDS: ALLOPURINOL 300 MG TABLET (FP) PO SCH (09:55)
[2017-06-09] MEDS: FUROSEMIDE 20 MG TABLET (FP) PO SCH (09:55)
[2017-06-09] MEDS: POTASSIUM CHLORIDE TABS 10 MEQ TABLET.ER (FP) PO SCH ×2 (09:55→22:01)
[2017-06-09] MEDS: LACTOBACILLUS ACIDOPHILUS 1 EACH TAB (FP) PO SCH (09:55)
[2017-06-09] MEDS: AMIODARONE HCL 200 MG TABLET (FP) PO SCH (09:56)
--- NOTE | 2017-06-09 15:12 | PN ---
Progress Note, Physician Chief Complaint: Mrs Vasquez says she is feeling better. Still with some weakness and productive cough but feels it is improving. Still have shortness of breath but improved as well. No cp or n/v. - Current Medication List Current Medications: Active Medications Acetaminophen (Tylenol -) 650 mg PO Q4H PRN PRN Reason: FEVER OR PAIN Last Admin: 06/07/17 14:09 Dose: 650 mg Albuterol/Ipratropium (Duoneb -) 1 amp NEB Q6H PRN PRN Reason: SHORTNESS OF BREATH Allopurinol (Zyloprim -) 300 mg PO DAILY [facility] Last Admin: 06/09/17 09:55 Dose: 300 mg Amiodarone HCl (Cordarone -) 100 mg PO DAILY [facility] Last Admin: 06/09/17 09:56 Dose: 100 mg Apixaban (Eliquis -) 5 mg PO BID [facility] Last Admin: 06/09/17 09:55 Dose: 5 mg Atorvastatin Calcium (Lipitor -) 10 mg PO HS [facility] Last Admin: 06/08/17 21:20 Dose: 10 mg Azithromycin (Zithromax -) 250 mg PO DAILY [facility] Last Admin: 06/09/17 09:55 Dose: 250 mg Cholecalciferol (Vitamin D3 -) 2,000 unit PO BID [facility] Last Admin: 06/09/17 09:55 Dose: 2,000 unit Furosemide (Lasix -) 10 mg PO DAILY [facility] Last Admin: 06/09/17 09:55 Dose: 10 mg CEFTRIAXONE 1 G/50 ML PREMIX (Ceftriaxone 1 Gm-D5w Bag) 50 mls @ 100 mls/hr IVPB DAILY [facility] Last Admin: 06/09/17 09:55 Dose: 100 mls/hr Lactobacillus Acidophilus (Bacid -) 1 tab PO DAILY [facility] Last Admin: 06/09/17 09:55 Dose: 1 tab Non-Formulary Medication (Brinzolamide [Azopt]) 15 ml OU BID [facility] Potassium Chloride (K-Dur -) 10 meq PO BID [facility] Last Admin: 06/09/17 09:55 Dose: 10 meq - Objective Vital Signs: Vital Signs Temperature 36.4 C L 06/09/17 14:55 Pulse Rate 68 06/09/17 14:55 Respiratory Rate 20 06/09/17 14:55 Blood Pressure 98/50 06/09/17 14:55 O2 Sat by Pulse Oximetry (%) 98 06/09/17 11:35 Constitutional: Yes: Well Nourished, No Distress, Calm Cardiovascular: Yes: Regular Rate and Rhythm. No: Gallop, Murmur, Rub Respiratory: Yes: Regular, CTA Bilaterally. No: Rales, Rhonchi, Wheezes Gastrointestinal: Yes: Normal Bowel Sounds, Soft. No: Distention, Tenderness Extremities: Yes: WNL Edema: No Labs: CBC, BMP 06/09/17 06:00 06/09/17 06:00 INR, PTT INR 1.56 (0.82-1.09) H D 06/07/17 10:57 Problem List - Problems (1) Pneumonia Code(s): J18.9 - PNEUMONIA, UNSPECIFIED ORGANISM Qualifiers: Pneumonia type: due to unspecified organism Laterality: right Lung location: lower lobe of lung Qualified Code(s): J18.1 - Lobar pneumonia, unspecified organism (2) Weakness generalized Code(s): R53.1 - WEAKNESS (3) CHF (congestive heart failure) Code(s): I50.9 - HEART FAILURE, UNSPECIFIED Qualifiers: Congestive heart failure type: systolic Congestive heart failure chronicity : chronic Qualified Code(s): I50.22 - Chronic systolic (congestive) heart failure (4) COPD (chronic obstructive pulmonary disease) Code(s): J44.9 - CHRONIC OBSTRUCTIVE PULMONARY DISEASE, UNSPECIFIED Qualifiers: COPD type: COPD with acute exacerbation Qualified Code(s): J44.1 - Chronic obstructive pulmonary disease with (acute) exacerbation (5) Chronic atrial fibrillation Code(s): I48.2 - CHRONIC ATRIAL FIBRILLATION (6) Gout Code(s): M10.9 - GOUT, UNSPECIFIED (7) HLD (hyperlipidemia) Code(s): E78.5 - HYPERLIPIDEMIA, UNSPECIFIED (8) HTN (hypertension) Code(s): I10 - ESSENTIAL (PRIMARY) HYPERTENSION Assessment/Plan (1) Pneumonia Assessment/Plan: -patient presents with CAP -continue rocephin and zithromax day 3 -continue oral zithromax secondary to patient's concern of interaction with amiodarone -possible discharge in 24-48 hours, pending improvement Code(s): J18.9 - PNEUMONIA, UNSPECIFIED ORGANISM Qualifiers: Pneumonia type: due to unspecified organism Laterality: right Lung location: lower lobe of lung Qualified Code(s): J18.1 - Lobar pneumonia, unspecified organism (2) Weakness generalized Assessment/Plan: -improving -secondary to pneumonia Code(s): R53.1 - WEAKNESS (3) CHF (congestive heart failure) Assessment/Plan: -not in exacerbation -can continue lasix Code(s): I50.9 - HEART FAILURE, UNSPECIFIED Qualifiers: Congestive heart failure type: systolic Congestive heart failure chronicity : chronic Qualified Code(s): I50.22 - Chronic systolic (congestive) heart failure (4) COPD (chronic obstructive pulmonary disease) Assessment/Plan: -slight exacerbation secondary to pneumonia -continue duonebs prn Code(s): J44.9 - CHRONIC OBSTRUCTIVE PULMONARY DISEASE, UNSPECIFIED Qualifiers: COPD type: COPD with acute exacerbation Qualified Code(s): J44.1 - Chronic obstructive pulmonary disease with (acute) exacerbation (5) Chronic atrial fibrillation Assessment/Plan: -cardioverted and now in sinus rhythm secondary to amiodarone -continue amiodarone -continue eliquis Code(s): I48.2 - CHRONIC ATRIAL FIBRILLATION (6) Gout Assessment/Plan: -not in exacerbation -continue allopurinol Code(s): M10.9 - GOUT, UNSPECIFIED (7) HLD (hyperlipidemia) Assessment/Plan: -continue statin Code(s): E78.5 - HYPERLIPIDEMIA, UNSPECIFIED (8) HTN (hypertension) Assessment/Plan: -well controlled -monitor Code(s): I10 - ESSENTIAL (PRIMARY) HYPERTENSION
[2017-06-09] MEDS: BRINZOLAMIDE 1% OU SCH (22:00)
[2017-06-09] MEDS: ATORVASTATIN CA 10 MG TABLET (FP) PO SCH (22:01)
[2017-06-10 06:59] LABS: BASOPHIL 0.8 % (0-2.0); EOSINOPHIL 1.3 % (0-4.5); MCH 31.4 pg (25.7-33.7); MCHC 33.5 g/dl (32.0-36.0); MEAN CELL VOLUME 93.8 fl (80-96); MEAN PLT VOLUME 8.3 fl (7.5-11.1); NEUTROPHILS 68.7 % (42.8-82.8); PLATELET COUNT 193 K/MM3 (134-434); RDW 14.4 % (11.6-15.6); WHITE BLOOD COUNT 7.5 K/mm3 (4.0-10.0)
[2017-06-10] MEDS: ACETAMINOPHEN 325 MG TABLET (FP) PO PRN (08:27)
[2017-06-10] MEDS ORDERED: PT OWN MED DRAWER 7, Y5N ONE (09:23)
[2017-06-10] MEDS: CEFTRIAXONE 1 G/50 ML PREMIX 50 ML IVPB SCH (10:01)
[2017-06-10] MEDS: BRINZOLAMIDE 1% OU SCH (10:01)
[2017-06-10] MEDS: LACTOBACILLUS ACIDOPHILUS 1 EACH TAB (FP) PO SCH (10:02)
[2017-06-10] MEDS: CHOLECALCIFEROL (VITAMIN D3) 1,000 UNIT TABLET (FP) PO SCH (10:02)
[2017-06-10] MEDS: ALLOPURINOL 300 MG TABLET (FP) PO SCH (10:02)
[2017-06-10] MEDS: FUROSEMIDE 20 MG TABLET (FP) PO SCH (10:02)
[2017-06-10] MEDS: AMIODARONE HCL 200 MG TABLET (FP) PO SCH (10:03)
[2017-06-10] MEDS: APIXABAN 5 MG TABLET PO SCH (10:03)
[2017-06-10] MEDS: POTASSIUM CHLORIDE TABS 10 MEQ TABLET.ER (FP) PO SCH (10:03)
[2017-06-10] MEDS: AZITHROMYCIN 250 MG TABLET PO SCH (10:03)
[2017-06-10 11:02] VITALS: BP 137/66; PULSE 75; TEMP 97.8
--- NOTE | 2017-06-10 12:40 | DS ---
Physical Examination Vital Signs: Vital Signs Temperature 36.6 C 06/10/17 09:00 Pulse Rate 75 06/10/17 09:00 Respiratory Rate 18 06/10/17 09:00 Blood Pressure 137/66 06/10/17 09:00 O2 Sat by Pulse Oximetry (%) 99 06/10/17 08:10 Constitutional: Yes: Well Nourished, No Distress, Calm Cardiovascular: Yes: Regular Rate and Rhythm. No: Gallop, Murmur, Rub Respiratory: Yes: Regular, CTA Bilaterally. No: Rales, Rhonchi, Wheezes Gastrointestinal: Yes: Normal Bowel Sounds, Soft. No: Distention, Tenderness Extremities: Yes: WNL Edema: No Labs: CBC, BMP 06/10/17 06:00 06/09/17 06:00 Discharge Summary Reason For Visit: PNEUMONIA Current Active Problems Pneumonia (Acute) Weakness generalized (Acute) Hospital Course: (1) Pneumonia Code(s): J18.9 - PNEUMONIA, UNSPECIFIED ORGANISM Qualifiers: Pneumonia type: due to unspecified organism Laterality: right Lung location: lower lobe of lung Qualified Code(s): J18.1 - Lobar pneumonia, unspecified organism (2) Weakness generalized Code(s): R53.1 - WEAKNESS (3) CHF (congestive heart failure) Code(s): I50.9 - HEART FAILURE, UNSPECIFIED Qualifiers: Congestive heart failure type: systolic Congestive heart failure chronicity : chronic Qualified Code(s): I50.22 - Chronic systolic (congestive) heart failure (4) COPD (chronic obstructive pulmonary disease) Code(s): J44.9 - CHRONIC OBSTRUCTIVE PULMONARY DISEASE, UNSPECIFIED Qualifiers: COPD type: COPD with acute exacerbation Qualified Code(s): J44.1 - Chronic obstructive pulmonary disease with (acute) exacerbation (5) Chronic atrial fibrillation Code(s): I48.2 - CHRONIC ATRIAL FIBRILLATION (6) Gout Code(s): M10.9 - GOUT, UNSPECIFIED (7) HLD (hyperlipidemia) Code(s): E78.5 - HYPERLIPIDEMIA, UNSPECIFIED (8) HTN (hypertension) Code(s): I10 - ESSENTIAL (PRIMARY) HYPERTENSION Mrs Vasquez is a very pleasant 86 year old female who comes in with CAP. She was admitted to the hospital and started on IV rocephin and zithromax. She expressed serious concerns with the zithromax considering her medical conditions (hearing loss, atrial fibrillation) and her medications (amiodarone) . To decrease risk she was changed to oral zithromax instead of IV but was continued on IV rocephin. She tolerated this regimen well and improved significantly. She remained afebrile while here and her leukocytosis resolved. She is currently no longer short of breath and ambulating without oxygen. She is safe for discharge home on augmentin and close follow up. 34 minutes spent in preparation of this discharge Condition: Good - Instructions Diet, Activity, Other Instructions: resume previous diet and activity Referrals: Feliz Parker MD [Primary Care Provider] - Disposition: [facility]/HOME HEALTH CARE - Home Medications Comprehensive Discharge Medication List: Ambulatory Orders Allopurinol 300 mg PO DAILY 12/18/16 Amiodarone HCl 100 mg PO DAILY 12/18/16 Atorvastatin Ca [Lipitor] 10 mg PO HS 12/18/16 Cholecalciferol (Vitamin D3) [Vitamin D3] 2,000 unit PO BID 12/18/16 Furosemide [Lasix -] 10 mg PO DAILY 12/18/16 Potassium Chloride [Klor-Con 10] 10 meq PO BID 12/18/16 Brinzolamide [Azopt] 15 ml OU BID 04/05/17 Ubidecarenone [Coq-10] 100 mg PO DAILY 04/05/17 Amoxicillin/Potassium Clav [Augmentin 875-125 Tablet] 1 each PO BID #8 tablet Apixaban [Eliquis -] 5 mg PO BID tablet 06/10/17 Ipratropium/Albuterol Sulfate [Combivent Respimat [place]] 4 gm IH TID PRN # 1 aer.w.adap 06/10/17 Lactobacillus Acidophilus [Bacid -] 1 tab PO DAILY #10 tab 06/10/17
== END 2017-06-10 13:54 | disposition home health service (06) | DRG 194 ==
LOC: JER 09:41 → JERBED 11:59 → J7W 20:53
PROVIDERS: ADMIT Internal Medicine; ATTEND Internal Medicine
DX: J18.1 Lobar pneumonia, unspecified organism (principal); J44.1 Chronic obstructive pulmonary disease with (acute) exacerbation; I11.0 Hypertensive heart disease with heart failure; I50.9 Heart failure, unspecified; I48.91 Unspecified atrial fibrillation; I25.10 Atherosclerotic heart disease of native coronary artery without angina pectoris; Z85.3 Personal history of malignant neoplasm of breast; Z79.01 Long term (current) use of anticoagulants; E78.5 Hyperlipidemia, unspecified; K75.9 Inflammatory liver disease, unspecified; Z90.49 Acquired absence of other specified parts of digestive tract; I44.0 Atrioventricular block, first degree; I45.81 Long QT syndrome; K21.9 Gastro-esophageal reflux disease without esophagitis; M10.9 Gout, unspecified; Z87.891 Personal history of nicotine dependence
CPT/HCPCS: 36415; 71010-TC; 80048; 80053; 81003; 82550; 83605; 83735; 83880; 84100; 84484; 85025; 85610; 87040; 87086; 87899; 93005; 93010; 97116-GP; 97161-GP; 99285-25

== ENCOUNTER 2017-09-28 10:25 | Day surgery (SDC) | payer OTHER, BC ==
[2017-09-27 17:27] VITALS: BMI 22.1
--- NOTE | 2017-09-28 11:59 | OP ---
Operative Note - Note: Operative Date: 09/28/17 Pre-Operative Diagnosis: left renal calculus Operation: Left ESWL Post-Operative Diagnosis: Same as Pre-op Surgeon: Reinier Mathur MD. Anesthesia: MAC Operative Report Dictated: Yes
[2017-09-28] MEDS ORDERED: ELECTROLYTE-148 SOLN 1,000 ML IV SCH (12:00)
[2017-09-28] MEDS ORDERED: MIDAZOLAM HCL 2 MG/2 ML SINGLE DOSE VIAL ONE (12:31)
[2017-09-28] MEDS ORDERED: ceFAZolin SODIUM 1 GM VIAL ONE (12:44)
[2017-09-28] MEDS ORDERED: ceFAZolin SODIUM 1 GM VIAL IVPB ONE (12:45)
[2017-09-28] MEDS ORDERED: LACTATED RINGERS SOLUTION 1,000 ML IV SCH (13:45)
[2017-09-28] MEDS ORDERED: ONDANSETRON 4 MG/2 ML VIAL IVPUSH PRN (13:45)
[2017-09-28 14:35] VITALS: TEMP 97.3
[2017-09-28] MEDS ORDERED: ACETAMINOPHEN 325 MG TABLET (FP) ONE (14:45)
[2017-09-28] MEDS ORDERED: ACETAMINOPHEN 325 MG TABLET (FP) PO ONE (15:03)
[2017-09-28 15:30] VITALS: BP 136/78; PULSE 58
== END 2017-09-28 15:40 | disposition home or self-care (01) ==
LOC: JASU-SURG 10:25
PROVIDERS: ATTEND Urology
PROC: 0TF4XZZ Fragmentation in Left Kidney Pelvis, External Approach (ICD-10-PCS; principal; 2017-09-28 11:45)
DX: N20.0 Calculus of kidney (principal)
CPT/HCPCS: 94760

== ENCOUNTER 2017-12-22 11:22 | Inpatient (IN) | payer OTHER, BC ==
[2017-12-22 12:06] LABS: BASO % 0.7 % (0-2.0); EOS % 5.9 % (0-4.5); HEMATOCRIT 40.4 % (32.4-45.2); HEMOGLOBIN 13.5 GM/dL (10.7-15.3); LYMPH % 9.1 % (8-40); MCH 30.9 pg (25.7-33.7); MCHC 33.4 g/dl (32.0-36.0); MEAN CELL VOLUME 92.6 fl (80-96); MEAN PLT VOLUME 7.8 fl (7.5-11.1); MONO % 8.5 % (3.8-10.2); NEUT % 75.8 % (42.8-82.8); PLATELET COUNT 349 K/MM3 (134-434); RBC 4.37 M/mm3 (3.60-5.2); RDW 14.5 % (11.6-15.6); WHITE BLOOD COUNT 7.7 K/mm3 (4.0-10.0)
--- NOTE | 2017-12-22 12:06 | PDOC ---
History of Present Illness - General History Source: Patient Exam Limitations: No Limitations - History of Present Illness Initial Comments: 12/22/17 12:08 The patient is a 86 year old female, with a significant past medical history of AFib(on Eliquis), ASHD, CHF, breast cancer, pneumonia(hospitalization 08/05/16), COPD, hypertension, hyperlipidemia, gout, and hepatitis, who presents to the emergency department with acute onset of right sided nasal bleeding earlier this morning. The patient reports she was in bed when she spontaneously began to bleed from the right nostril. Patient reports associated headache over the past week, but denies any changes in vision, dizziness, lightheadedness, or head trauma. Patient endorses decreased appetite and constipation over the past couple a weeks, as well as a 30 pound weight loss in the past couple of months. She reports associated lower abdominal pain, but denies any nausea, vomiting, diarrhea, melena or hematochezia. She reports some fatigue, leg weakness, and dyspnea on exertion, but denies any chest pain, diaphoresis, palpitations, or lower extremity edema. She denies any recent fever or chills. She denies any dysuria, hematuria, frequency, or urgency. She denies any recent travel or sick contacts. Allergies: Codeine, Adhesive, Timolol Past Surgical History: Appendectomy, Cholecystectomy, Cardioversion, Colon resection for endometriosis. Breast reconstruction. Social History: Former nurse. Former smoker. Daily glass of wine. No recreational drug use. PCP: Dr. Parker Dean: Dr. Lezama <Odell Huerta - Last Filed: 12/22/17 17:43> - General History Source: Patient Exam Limitations: No Limitations <Jeanne Liu - Last Filed: 12/22/17 18:00> - General Chief Complaint: Nasal Bleeding Stated Complaint: NOSE BLEEDING (BLOOD THINNERS)/H.A Past History <Odell Huerta - Last Filed: 12/22/17 17:43> - Past Medical History Anemia: No Asthma: No Cancer: Yes (BREAST CA, left breast mastectomy) Cardiac Disorders: Yes (A Fib cardioversion) CVA: No COPD: Yes (PNEUMONIA 08/05/2016) CHF: Yes Dementia: No Diabetes: No GI Disorders: No Disorders: Yes (kidney stones) HTN: Yes Hypercholesterolemia: Yes Liver Disease: No Seizures: No Thyroid Disease: No - Surgical History Abdominal Surgery: Yes (exp lap) Appendectomy: Yes Cardiac Surgery: Yes (CARDIOVERSION x 3) Cholecystectomy: Yes GI Surgery: Yes (colon resection, exploratory for endometriosis) Lung Surgery: No Neurologic Surgery: No Orthopedic Surgery: Yes (left arthoscopy) - Suicide/Smoking/Psychosocial Hx Smoking History: Former smoker Have you smoked in the past 12 months: No If you are a former smoker, when did you quit?: 1968 Information on smoking cessation initiated: No 'Breaking Loose' booklet given: 12/18/16 Hx Alcohol Use: Yes (GLASS OF WINE EVERY NIGHT) Drug/Substance Use Hx: No Substance Use Type: None Hx Substance Use Treatment: No <Jeanne Liu - Last Filed: 12/22/17 18:00> - Past Medical History Allergies/Adverse Reactions: Allergies Allergy/AdvReac Type Severity Reaction Status Date / Time codeine [Codeine] Allergy Severe Verified 12/22/17 11:24 timolol [Timolol] Allergy Severe Verified 12/22/17 11:24 adhesive Allergy Intermediate Rash Verified 12/22/17 11:24 Home Medications: Ambulatory Orders Allopurinol 300 mg PO DAILY 12/18/16 Amiodarone HCl 200 mg PO DAILY 12/18/16 Atorvastatin Ca [Lipitor] 10 mg PO HS 12/18/16 Cholecalciferol (Vitamin D3) [Vitamin D3] 2,000 unit PO BID 12/18/16 Furosemide [Lasix -] 20 mg PO DAILY 12/18/16 Potassium Chloride [Klor-Con 10] 10 meq PO BID 12/18/16 Brinzolamide [Azopt] 15 ml OU BID 04/05/17 Ubidecarenone [Coq-10] 100 mg PO DAILY 04/05/17 Apixaban [Eliquis -] 5 mg PO BID tablet 06/10/17 Review of Systems - Review of Systems Able to Perform ROS?: Yes Comments:: 12/22/17 12:09 GENERAL/CONSTITUTIONAL: +Fatigue. No fever or chills. HEAD, EYES, EARS, NOSE AND THROAT: +Right nostril bleed. No change in vision. No ear pain or discharge. No sore throat. CARDIOVASCULAR: No chest pain or shortness of breath. RESPIRATORY: +Dyspnea on exertion. No cough, wheezing, or hemoptysis. GASTROINTESTINAL: +Lower abdominal pain, constipation. No nausea, vomiting, diarrhea, melena, or hematochezia. GENITOURINARY: No dysuria, frequency, or change in urination. MUSCULOSKELETAL: No joint or muscle swelling or pain. No neck or back pain. SKIN: No rash NEUROLOGIC: +Headache, leg weakness. No, vertigo, loss of consciousness, or change in sensation. ENDOCRINE: +Decreased appetite, 30 pound weight loss. No increased thirst. HEMATOLOGIC/LYMPHATIC: No anemia, easy bleeding, or history of blood clots. ALLERGIC/IMMUNOLOGIC: No hives or skin allergy. <Odell Huerta - Last Filed: 12/22/17 17:43> *Physical Exam - Vital Signs Last Vital Signs Temp Pulse Resp BP Pulse Ox 98.0 F 94 H 18 172/99 100 12/22/17 11:25 12/22/17 11:25 12/22/17 11:25 12/22/17 11:25 12/22/17 11:25 - Physical Exam Comments: 12/22/17 12:09 GENERAL: Awake, alert, and fully oriented, in no acute distress HEAD: No signs of trauma EYES: PERRLA, EOMI, sclera anicteric, conjunctiva clear ENT: +Crusted blood with scabbing, but no active bleeding in right nares. Auricles normal inspection, hearing grossly normal. Moist mucosa. Posterior oropharynx is clear without blood. NECK: Normal ROM, supple, no lymphadenopathy, JVD, or masses LUNGS: +Decreased breath sounds at right side with scant wheezing. No crackles HEART: Regular rate and rhythm, normal S1 and S2, no murmurs, rubs or gallops ABDOMEN: +Left lower quadrant tenderness. Soft, normoactive bowel sounds. No guarding, no rebound. No masses EXTREMITIES: Normal range of motion, no edema. No clubbing or cyanosis. No cords, erythema, or tenderness. DP/PT pulses 2+ and symmetric. Warm and well perfused. NEUROLOGICAL: Moves all extremities. Normal speech. 5/5 at all 4 extremities. SKIN: Warm, Dry, normal turgor, no rashes or lesions noted. <Odell Huerta - Last Filed: 12/22/17 17:43> - Vital Signs Last Vital Signs Temp Pulse Resp BP Pulse Ox 98.0 F 94 H 18 172/99 100 12/22/17 11:25 12/22/17 11:25 12/22/17 11:25 12/22/17 11:25 12/22/17 11:25 <TeocelesteJeanne - Last Filed: 12/22/17 18:00> Heart Score/ECG Review #1 General ECG Interpretation: Normal Rate (79), Normal Intervals, No acute ischemic changes - ECG Intrepretation Rhythm: Irregularly Irregular - Drewsey Drewsey: Normal - ECG Impressions Tachycardia: Afib w/controlled rate <Jeanne Liu - Last Filed: 12/22/17 18:00> ED Treatment Course - LABORATORY CBC & Chemistry Diagram: 12/22/17 11:49 12/22/17 11:49 - ADDITIONAL ORDERS Additional order review: 12/22/17 11:49 RBC 4.37 MCV 92.6 MCHC 33.4 RDW 14.5 MPV 7.8 Neutrophils % 75.8 Lymphocytes % 9.1 D Monocytes % 8.5 Eosinophils % 5.9 H D Basophils % 0.7 - RADIOLOGY Radiograph Interpretation: 12/22/17 17:43 EXAM: CXR INTERPRETED BY: Dr. Mckeon REVIEWED BY: Dr. Liu IMPRESSION: New congestive and infiltrative changes with some pleural fluid. Bilateral breast implants. Large heart. Sclerotic knob. EXAM: CT Abdomen and Pelvis INTERPRETED BY: Dr. Sherwood REVIEWED BY: Dr. Liu IMPRESSION: No definite CT findings of acute pathology are identified. In comparison to a prior CT exam of 03/26/2017 there has been interval passage/ removal of a distal right ureteral calculus with resolution of mild ipsilateral hydronephrosis. The remainder of the exam demonstrates no definite interval change. Several punctate 1 to 2 mm nonobstructing left renal calculi identified on the previous exam cannot be appreciated on the current contrast-enhanced study. Minimal to mild sigmoid diverticulosis. Stable 2 cm splenic artery aneurysm to Status post cholecystectomy. Mild stable common bile duct dilatation. Clinical/laboratory correlation is suggested. Hepatic cysts. EXAM: Head CT INTERPRETED BY: Dr. Schulz REVIEWED BY: Dr. Liu IMPRESSION: Moderate atrophy and chronic microvascular ischemic disease changes. Interval small focal low-attenuation density in the right frontal lobe along the anteroinferior margin of the right basal ganglia suggestive of focal encephalomalacia/chronic infarct. Correlate clinically for further evaluation and follow-up. <Odell Huerta - Last Filed: 12/22/17 17:43> - LABORATORY CBC & Chemistry Diagram: 12/22/17 11:49 12/22/17 11:49 - RADIOLOGY Radiology Studies Ordered: Category Date Time Status HEAD CT WITHOUT CONTRAST [CT] Stat CT Scan 12/22/17 11:41 Ordered <Jeanne Liu - Last Filed: 12/22/17 18:00> Medical Decision Making - Medical Decision Making 12/22/17 12:03 79-year-old female history of A. fib, CHF, on [place], hypertension hyperlipidemia here today complaining of spontaneous nosebleed. Patient states started [place] has since stopped in addition she has complains of decreased appetite for several weeks over 30 pound weight loss exertional fatigue and dyspnea denies melena or urinary complaints no vomiting is also experiencing some vague lower abdominal pain. On physical exam patient states right David has some crusted blood with scabbing no active bleeding pharynx is clear without blood lungs are noted for decreased breath sounds at the right side heart is irregular no murmurs rubs or gallops abdomen is noted for some left lower quadrant tenderness no rebound no guarding experience differential includes pneumonia, anemia, epistaxis secondary to outplace, other blood dyscrasia such as lymphoma electrolyte abnormality as the patient is on Lasix such as hyponatremia or hypokalemia plan CT abdomen to rule out diverticulitis or other intra-abdominal pathology, CT head to rule out ICH chest x-ray basic labs and UA EKG and reassess patient follows with Dr. parker <Jeanne Liu - Last Filed: 12/22/17 18:00> *DC/Admit/Observation/Transfer - Attestations Scribe Attestion: 12/22/17 12:09 Documentation prepared by Odell Huerta, acting as medical coding manager for Jeanne Liu MD. <Odell Huerta - Last Filed: 12/22/17 17:43> - Discharge Dispostion Decision to Admit order: Yes <Jeanne Liu - Last Filed: 12/22/17 18:00> Diagnosis at time of Disposition: Pneumonia - Referrals Referrals: Feliz Parker MD [Primary Care Provider] - - Patient Instructions - Post Discharge Activity
[2017-12-22 12:31] LABS: INR 1.49 (0.82-1.09); PROTHROMBIN TIME (PATIENT) 16.8 SEC (9.7-13.0)
[2017-12-22 12:33] LABS: ACTIVATED PTT 35.5 SECONDS (25.2-36.5)
[2017-12-22 13:07] LABS: ALBUMIN 3.2 g/dl (3.4-5.0); ANION GAP 10 (8-16); BLOOD UREA NITROGEN 15 mg/dL (7-18); CALCIUM 8.9 mg/dL (8.5-10.1); CHLORIDE 103 mmol/L (98-107); CO2 26 mmol/L (21-32); CREATININE 0.7 mg/dL (0.55-1.02); GLUCOSE,RANDOM 93 mg/dL (74-106); POTASSIUM 3.9 mmol/L (3.5-5.1); SGOT/AST 54 U/L (15-37); SGPT/ALT 85 U/L (12-78); SODIUM 139 mmol/L (136-145)
[2017-12-22 13:08] LABS: ALK PHOS 147 U/L (45-117); BILIRUBIN,TOTAL 0.4 mg/dL (0.2-1.0); TOT PROT 6.6 g/dl (6.4-8.2)
[2017-12-22 15:05] LABS: URINE APPEARANCE CLEAR; URINE BILIRUBIN NEGATIVE (<2.0 mg/dL); URINE COLOR STRAW; URINE GLUCOSE (UA) NEGATIVE (NEGATIVE); URINE KETONE NEGATIVE (NEGATIVE); URINE LEUK ESTERASE NEGATIVE (NEGATIVE); URINE NITRITE NEGATIVE (NEGATIVE); URINE PROTEIN NEGATIVE (NEGATIVE); URINE UROBILINOGEN NEGATIVE mg/dL (0.2-1.0)
--- NOTE | 2017-12-22 16:02 | EKG ---
Test Reason : Blood Pressure : / mmHG Vent. Rate : 079 BPM Atrial Rate : 234 BPM P-R Int : 000 ms QRS Dur : 104 ms QT Int : 418 ms P-R-T Axes : 000 038 086 degrees QTc Int : 479 ms ATRIAL FIBRILLATION NONSPECIFIC ST AND T WAVE ABNORMALITY PROLONGED QT ABNORMAL ECG WHEN COMPARED WITH ECG OF 07-JUN-2017 10:08, ATRIAL FIBRILLATION HAS REPLACED SINUS RHYTHM Confirmed by LISSETH WILLETT, ORLANDO ([id number]) on 12/22/2017 4:02:21 PM Referred By: Confirmed By:ORLANDO MONTANEZ MD
[2017-12-22] MEDS ORDERED: ACETAMINOPHEN 325 MG TABLET (FP) ONE (20:36)
[2017-12-22] MEDS ORDERED: ACETAMINOPHEN 325 MG TABLET (FP) PO ONE (20:45)
--- NOTE | 2017-12-22 21:10 | HP ---
CHIEF COMPLAINT: nosebleed/headache PCP: [facility] HISTORY OF PRESENT ILLNESS: This is an 87 year old female with a significant PMH of Afib on Eliquis, HTN, HLD, CHF, BrCA, PNA 06/2017 who presented to the ED for nosebleed and headache. Pt also reports "not feeling well" x 10 days. She reports generalized weakness, loss of appetite, lower abdominal pain, headache. She denies N/V/D. She denies chest pain or palpitations. Of note, patient also reports 30 pound weight loss over the past year; however, a review of weights while admitted here does not reflect same. ER course was notable for: (1) Hgb 13.3 (2) CXR with infiltrate (3) CT head and abd/pel unremarkable Recent Travel: pt denies PAST MEDICAL HISTORY: Afib on Eliquis s/p cardioversion x 3, ASHD, CHF, HTN, HLD, COPD, PNA 06/2017, BrCA, gout, kidney stones, endometriosis PAST SURGICAL HISTORY: Left radical mastectomy, right mastectomy with B/L reconstruction/implants appendectomy, cholecystectomy, colon resection (due to endometriosis) Social History: Smoking: Quit 1968 Alcohol: daily glass of wine Drugs: pt denies Family History: mother age 80, CVA, PNA father age 60, lung hemorrhage, smoker sister CVA, myasthenia gravis sister HF, cardiomegaly Allergies codeine [Codeine] Allergy (Severe, Verified 12/22/17 11:24) severe itching timolol [Timolol] Allergy (Severe, Verified 12/22/17 11:24) unsure adhesive Allergy (Intermediate, Verified 12/22/17 11:24) Rash HOME MEDICATIONS: 3 Medication Instructions Recorded Allopurinol 300 mg PO DAILY 12/18/16 Amiodarone HCl 200 mg PO DAILY 12/18/16 Atorvastatin Ca [Lipitor] 10 mg PO HS 12/18/16 Cholecalciferol (Vitamin D3) 2,000 unit PO BID 12/18/16 [Vitamin D3] Furosemide [Lasix -] 20 mg PO DAILY 12/18/16 Potassium Chloride [Klor-Con 10] 10 meq PO BID 12/18/16 Brinzolamide [Azopt] 15 ml OU BID 04/05/17 Ubidecarenone [Coq-10] 100 mg PO DAILY 04/05/17 Apixaban [Eliquis -] 5 mg PO BID tablet 06/10/17 REVIEW OF SYSTEMS CONSTITUTIONAL: generalized weakness, malaise, loss of appetite, weight change Absent: fever, chills, diaphoresis HEENT: Absent: rhinorrhea, nasal congestion, throat pain, throat swelling, difficulty swallowing, mouth swelling, ear pain, eye pain, visual changes CARDIOVASCULAR: Absent: chest pain, syncope, palpitations, irregular heart rate, lightheadedness , peripheral edema RESPIRATORY: Absent: cough, dyspnea with exertion, orthopnea, wheezing, stridor, hemoptysis GASTROINTESTINAL: Absent: abdominal pain, abdominal distension, nausea, vomiting, diarrhea, constipation, melena, hematochezia GENITOURINARY: Absent: dysuria, frequency, urgency, hesitancy, hematuria, flank pain, genital pain MUSCULOSKELETAL: Absent: myalgia, arthralgia, joint swelling, back pain, neck pain SKIN: Absent: rash, itching, pallor HEMATOLOGIC/IMMUNOLOGIC: Absent: easy bleeding, easy bruising, lymphadenopathy, frequent infections ENDOCRINE: Absent: unexplained weight gain, unexplained weight loss, heat intolerance, cold intolerance NEUROLOGIC: Present: headache Absent: focal weakness or paresthesias, dizziness, unsteady gait, seizure, mental status changes, bladder or bowel incontinence PSYCHIATRIC: Absent: anxiety, depression, suicidal or homicidal ideation, hallucinations. PHYSICAL EXAMINATION Vital Signs - 24 hr 3 12/22/17 12/22/17 12/22/17 11:25 13:25 19:44 Temperature 98.0 F Pulse Rate 94 H Pulse Rate [ 78 74 Radial] Respiratory 18 18 18 Rate Blood Pressure 172/99 Blood Pressure 118/87 162/82 [Right Arm] O2 Sat by Pulse 100 99 98 Oximetry (%) GENERAL: Awake, alert, and fully oriented, in no acute distress. HEAD: Normal with no signs of trauma. EYES: Pupils equal, round and reactive to light, extraocular movements intact, sclera anicteric, conjunctiva clear. No lid lag. EARS, NOSE, THROAT: Ears normal, nares patent, oropharynx clear without exudates. Moist mucous membranes. scant dried blood noted to left nare NECK: Normal range of motion, supple without lymphadenopathy, JVD, or masses. LUNGS: Breath sounds equal, clear to auscultation bilaterally. No wheezes, and no crackles. No accessory muscle use. HEART: Irregular rate and rhythm, normal S1 and S2 without murmur, rub or gallop. ABDOMEN: Soft, tender deep palpation B/L LQ, not distended, normoactive bowel sounds, no guarding, no rebound, no masses. No hepatomegaly or splenomegaly. MUSCULOSKELETAL: Normal range of motion at all joints. No bony deformities or tenderness. No CVA tenderness. UPPER EXTREMITIES: 2+ pulses, warm, well-perfused. No cyanosis. No clubbing. No peripheral edema. LOWER EXTREMITIES: 2+ pulses, warm, well-perfused. No calf tenderness. No peripheral edema. NEUROLOGICAL: Cranial nerves II-XII intact. Normal speech. Normal gait. PSYCHIATRIC: Cooperative. Good eye contact. Appropriate mood and affect. SKIN: Warm, dry, normal turgor, no rashes or lesions noted, normal capillary refill. Laboratory Results - last 24 hr 3 12/22/17 12/22/17 12/22/17 12/22/17 11:49 11:49 11:49 12:24 WBC 7.7 RBC 4.37 Hgb 13.5 Hct 40.4 MCV 92.6 MCH 30.9 MCHC 33.4 RDW 14.5 Plt Count 349 D MPV 7.8 Absolute Neuts (auto) 5.8 Neutrophils % 75.8 Lymphocytes % 9.1 D Monocytes % 8.5 Eosinophils % 5.9 H D Basophils % 0.7 Nucleated RBC % 0 PT with INR 16.80 H INR 1.49 H PTT (Actin FS) 35.5 Sodium 139 Potassium 3.9 Chloride 103 Carbon Dioxide 26 Anion Gap 10 BUN 15 Creatinine 0.7 Creat Clearance w eGFR > 60 Random Glucose 93 Calcium 8.9 Total Bilirubin 0.4 D AST 54 H ALT 85 H Alkaline Phosphatase 147 H Total Protein 6.6 Albumin 3.2 L Lipase 150 Urine Color Urine Appearance Urine pH Ur Specific [place] Urine Protein Urine Glucose (UA) Urine Ketones Urine Blood Urine Nitrite Urine Bilirubin Urine Urobilinogen Ur Leukocyte Esterase 3 Urine Color Straw 12/22/17 14:55 Urine Appearance Clear 12/22/17 14:55 Urine pH 7.0 (5.0-8.0) 12/22/17 14:55 Ur Specific [place] 1.004 (1.001-1.035) 12/22/17 14:55 Urine Protein Negative (NEGATIVE) 06/20/18 14:55 Urine Glucose (UA) Negative (NEGATIVE) 12/22/17 14:55 Urine Ketones Negative (NEGATIVE) 12/22/17 14:55 Urine Blood Negative (NEGATIVE) 12/22/17 14:55 Urine Nitrite Negative (NEGATIVE) 12/22/17 14:55 Urine Bilirubin Negative (<2.0 mg/dL) 12/22/17 14:55 Ur Leukocyte Esterase Negative (NEGATIVE) 12/22/17 14:55 ECG Atrial fibrillation vent rate 79, QTC [address]/T wave abnormality, no acute GRISELDA/STD Radiology Reports Chest xray-PA Impression : New congestive and infiltrative changes with some pleural fluid. Bilateral breast implants. Large heart. Sclerotic knob. Reported By: Twin Mckeon MD 12/22/[address] abd/pel without contrast IMPRESSION: No definite CT findings of acute pathology are identified. In comparison to a prior CT exam of 03/26/2017 there has been interval passage/ removal of a distal right ureteral calculus with resolution of mild ipsilateral hydronephrosis. The remainder of the exam demonstrates no definite interval change. Several punctate 1 to 2 mm nonobstructing left renal calculi identified on the previous exam cannot be appreciated on the current contrast-enhanced study. Minimal to mild sigmoid diverticulosis. Stable 2 cm splenic artery aneurysm to Status post cholecystectomy. Mild stable common bile duct dilatation. Clinical/laboratory correlation is suggested. Hepatic cysts. Reported By: Nam Sherwood MD 12/22/[address] head IMPRESSION: Moderate atrophy and chronic microvascular ischemic disease changes. Interval small focal low-attenuation density in the right frontal lobe along the anteroinferior margin of the right basal ganglia suggestive of focal encephalomalacia/chronic infarct. Correlate clinically for further evaluation and follow-up. Reported By: Mally Schulz MD 12/22/17 1544 ASSESSMENT/PLAN: 87yF with PMH Afib on Eliquis s/p cardioversion x 3, ASHD, CHF, HTN, HLD, COPD, PNA 06/2017, BrCA, gout, kidney stones, endometriosis presented to the ED with epistaxis, headache, generalized weakness, poor appetite and weight loss. Pneumonia-CAP - will cont levaquin - pulmonary consult COPD - cont home nebs and inhalers epistaxis - hold eliquis for now, restart in am if no further bleeding - consider ENT consult weight loss - pt reports 30 pound weight loss - chart review shows 2kg weight loss x 6 months, less than 1kg weight loss x 3months - actual weights not reflective of pt report - no further intervention Afib - hold eliquis due to nose bleed - cont home amiodarone for rate control HTN/HLD/CAD - cont home lipitor, lasix, no other antihypertensives, monitor BP and initiate as indicated Gout - cont home allopurinol DVT PPX - heparin contraindicated due to epistaxis, resume eliquis if no further bleeding FEN - tolerating po fluid - BMP in am - low sodium diet Dispo: Pt currently requires further inpatient management of her emergent condition. Visit type - Emergency Visit Emergency Visit: Yes ED Registration Date: 12/22/17 Care time: The patient presented to the Emergency Department on the above date and was hospitalized for further evaluation of their emergent condition. - New Patient This patient is new to me today: Yes Date on this admission: 12/22/17 - Critical Care Critical Care patient: No Hospitalist Screening - Colonoscopy Questionnaire Colonoscopy Questionnaire: Colonoscopy Questionnaire - Patient: 50 - 75 years old and never had a screening colonoscopy: No History of colon or rectal polyps, or CA: No History of IBD, Crohn's disease or UC: No History of abdominal radiation therapy as a child: No - Relative: 1 with colon or rectal CA, or polyps at age 60 or younger: No Colon or rectal CA diagnosed at age 45 or younger: No Multiple relatives with colon or rectal CA: No - Outcome: Screening Result: Negative Screen
[2017-12-22] MEDS ORDERED: PATIENT'S OWN MEDICATION (NON-FORMULARY) (Brinzolamide [Azopt] 1 DROP) OU SCH (22:00)
[2017-12-22] MEDS ORDERED: POTASSIUM CHLORIDE TABS 10 MEQ TABLET.ER (FP) ONE (22:53)
[2017-12-22] MEDS ORDERED: HEPARIN NA (PORCINE) 5,000 UNITS/ML 1ML VIAL ONE (22:53)
[2017-12-22] MEDS: ATORVASTATIN CA 10 MG TABLET (FP) PO SCH (23:03)
[2017-12-22] MEDS: POTASSIUM CHLORIDE TABS 20 MEQ TABLET.ER (FP) PO SCH (23:03)
[2017-12-22] MEDS: CHOLECALCIFEROL (VITAMIN D3) 1,000 UNIT TABLET (FP) PO SCH (23:03)
[2017-12-22] MEDS: HEPARIN NA (PORCINE) 5,000 UNITS/ML 1ML VIAL SQ SCH (23:03)
[2017-12-23 07:16] LABS: BASO % 0.7 % (0-2.0); EOS % 4.4 % (0-4.5); HEMATOCRIT 41.4 % (32.4-45.2); HEMOGLOBIN 13.9 GM/dL (10.7-15.3); LYMPH % 18.9 % (8-40); MCH 31.1 pg (25.7-33.7); MCHC 33.5 g/dl (32.0-36.0); MEAN CELL VOLUME 92.9 fl (80-96); MEAN PLT VOLUME 8.1 fl (7.5-11.1); MONO % 8.1 % (3.8-10.2); NEUT % 67.9 % (42.8-82.8); PLATELET COUNT 352 K/MM3 (134-434); RBC 4.46 M/mm3 (3.60-5.2); WHITE BLOOD COUNT 6.1 K/mm3 (4.0-10.0)
[2017-12-23 08:34] LABS: CHLORIDE 102 mmol/L (98-107); POTASSIUM 4.1 mmol/L (3.5-5.1); SODIUM 140 mmol/L (136-145)
[2017-12-23 08:51] LABS: ANION GAP 9 (8-16); BLOOD UREA NITROGEN 11 mg/dL (7-18); CALCIUM 9.3 mg/dL (8.5-10.1); CO2 29 mmol/L (21-32); CREATININE 0.7 mg/dL (0.55-1.02); GLUCOSE,RANDOM 82 mg/dL (74-106); MAGNESIUM 2.1 mg/dL (1.8-2.4)
[2017-12-23] MEDS ORDERED: PT OWN MED DRAWER 7, Y5N ONE ×2 (09:18→10:52)
[2017-12-23] MEDS: POTASSIUM CHLORIDE TABS 20 MEQ TABLET.ER (FP) PO SCH ×2 (09:47→21:47)
[2017-12-23] MEDS: CHOLECALCIFEROL (VITAMIN D3) 1,000 UNIT TABLET (FP) PO SCH ×2 (09:47→21:47)
[2017-12-23] MEDS: ALLOPURINOL 300 MG TABLET (FP) PO SCH (09:47)
[2017-12-23] MEDS: HEPARIN NA (PORCINE) 5,000 UNITS/ML 1ML VIAL SQ SCH ×2 (09:47→21:45)
[2017-12-23] MEDS: FUROSEMIDE 40 MG TABLET (FP) PO SCH (09:47)
[2017-12-23] MEDS ORDERED: PATIENT'S OWN MEDICATION (NON-FORMULARY) (Ubidecarenone [Coq-10] 100 MG) PO SCH (10:00)
--- NOTE | 2017-12-23 12:07 | CON.PULM ---
Consult Consult Specialty:: PULMONARY Referred by:: Dr. Pepper Reason for Consultation:: r/o pneumonia - History of Present Illness Chief Complaint: epistaxis History of Present Illness: 87yo female with h/o HTN, hyperlipidemia, COPD/chronic bronchitis, atrial fibrillation on anticoagulation, breast cancer, LV diastolic dysfunction, mitral /tricuspid regurgitation who was admitted after having episode of epistaxis. She does report some generalized weakness and dizziness but without shortness of breath. Reports occasional nonproductive cough and denies wheezing. She is a remote smoker quit in 1967. Has an inhaler at home but never uses it. Admission CXR showing bilateral infiltrates. - History Source History Provided By: Patient, Medical Record Limitations to Obtaining History: No Limitations - Past Medical History Cardio/Vascular: Yes: AFIB, CAD, HTN, Hyperlipdemia Gastrointestinal: Yes: GERD Rheumatology: Yes: Gout - Past Surgical History Past Surgical History: Yes: Appendectomy, Cholecystectomy - Alcohol/Substance Use Hx Alcohol Use: Yes (GLASS OF WINE EVERY NIGHT) History of Substance Use: reports: None - Smoking History Smoking history: Former smoker Have you smoked in the past 12 months: No If you are a former smoker, when did you quit?: 1967 - Social History ADL: Independent History of Recent Travel: Yes Home Medications - Allergies Allergies/Adverse Reactions: Allergies Allergy/AdvReac Type Severity Reaction Status Date / Time codeine [Codeine] Allergy Severe Verified 12/22/17 11:24 timolol [Timolol] Allergy Severe Verified 12/22/17 11:24 adhesive Allergy Intermediate Rash Verified 12/22/17 11:24 - Home Medications Home Medications: Ambulatory Orders Allopurinol 300 mg PO DAILY 12/18/16 Amiodarone HCl 200 mg PO DAILY 12/18/16 Atorvastatin Ca [Lipitor] 10 mg PO HS 12/18/16 Cholecalciferol (Vitamin D3) [Vitamin D3] 2,000 unit PO BID 12/18/16 Furosemide [Lasix -] 20 mg PO DAILY 12/18/16 Potassium Chloride [Klor-Con 10] 10 meq PO BID 12/18/16 Brinzolamide [Azopt] 15 ml OU BID 04/05/17 Ubidecarenone [Coq-10] 100 mg PO DAILY 04/05/17 Apixaban [Eliquis -] 5 mg PO BID tablet 06/10/17 Family Disease History - Family Disease History Family Disease History: Heart Disease: Sister (cardiomegaly), CA: Father (lung) , Other: Mother (CVA) Review of Systems - Review of Systems Constitutional: reports: Night Sweats. denies: Chills, Fever Eyes: denies: Recent Change in Vision HENT: reports: Epistaxis. denies: Throat Pain Neck: denies: Stiffness, Tenderness Cardiovascular: denies: Chest Pain, Edema, Palpitations, Shortness of Breath Respiratory: reports: Cough. denies: Hemoptysis, SOB on Exertion, Wheezing Gastrointestinal: reports: Diarrhea. denies: Abdominal Pain, Nausea, Vomiting Genitourinary: denies: Dysuria, Hematuria Neurological: reports: Dizziness. denies: Headache Endocrine: reports: Unexplained Weight Loss Physical Exam Vital Sings: Vital Signs Temperature 97.6 F 12/23/17 09:00 Pulse Rate 95 H 12/23/17 09:00 Respiratory Rate 20 12/23/17 09:00 Blood Pressure 129/85 12/23/17 09:00 O2 Sat by Pulse Oximetry (%) 95 12/23/17 09:00 Constitutional: Yes: Calm Eyes: Yes: Conjunctiva Clear, EOM Intact HENT: Yes: Atraumatic, Normocephalic Neck: Yes: Supple, Trachea Midline Cardiovascular: Yes: Pulse Irregular Respiratory: Yes: Regular, Diminished (decreased breath sounds at the bases) ...Clubbing: No Gastrointestinal: Yes: Normal Bowel Sounds, Soft. No: Tenderness Edema: No Neurological: Yes: Alert, Oriented Labs: CBC, BMP 12/23/17 06:00 12/23/17 06:00 Imaging - Results Chest X-ray: Report Reviewed, Image Reviewed Cat Scan: Image Reviewed (no infiltrates) Problem List - Problems (1) Epistaxis Code(s): R04.0 - EPISTAXIS (2) COPD (chronic obstructive pulmonary disease) Code(s): J44.9 - CHRONIC OBSTRUCTIVE PULMONARY DISEASE, UNSPECIFIED Qualifiers: COPD type: COPD with acute exacerbation Qualified Code(s): J44.1 - Chronic obstructive pulmonary disease with (acute) exacerbation (3) Chronic atrial fibrillation Code(s): I48.2 - CHRONIC ATRIAL FIBRILLATION (4) HLD (hyperlipidemia) Code(s): E78.5 - HYPERLIPIDEMIA, UNSPECIFIED (5) HTN (hypertension) Code(s): I10 - ESSENTIAL (PRIMARY) HYPERTENSION (6) Weakness generalized Code(s): R53.1 - WEAKNESS Assessment/Plan Epistaxis Atrial Fibrillation on anticoagulation LV Diastolic Dysfunction Mitral/Tricuspid Regurgitation HTN Hyperlipidemia h/o Breast Ca COPD/Chronic Bronchitis - reviewed CT chest which does not show any evidence of infiltrates, CXR findings likely due to bilateral breast implants - pt without fevers, cough or any other respiratory complaints, can d/c antibiotics - inhaled bronchodilators as needed - outpt PFTs - DVT prophylaxis Thank you for this consult Bello Goodman MD
--- NOTE | 2017-12-23 12:27 | PN ---
Progress Note, Physician Chief Complaint: Patient denies cp, sob, n/v. However complains of weakness and unsteadiness. Also just generalized "not feeling well". - Current Medication List Current Medications: Active Medications Allopurinol (Zyloprim -) 300 mg PO DAILY [facility] Last Admin: 12/23/17 09:47 Dose: 300 mg Amiodarone HCl (Cordarone -) 200 mg PO DAILY [facility] Atorvastatin Calcium (Lipitor -) 10 mg PO HS [facility] Last Admin: 12/22/17 23:03 Dose: 10 mg Cholecalciferol (Vitamin D3 -) 2,000 unit PO BID [facility] Last Admin: 12/23/17 09:47 Dose: 2,000 unit Furosemide (Lasix -) 20 mg PO DAILY [facility] Last Admin: 12/23/17 09:47 Dose: 20 mg Heparin Sodium (Porcine) (Heparin -) 5,000 unit SQ BID [facility] Last Admin: 12/23/17 09:47 Dose: Not Given Non-Formulary Medication (Brinzolamide [Azopt]) 1 drop OU BID [facility] Non-Formulary Medication (Ubidecarenone [Coq-10]) 100 mg PO DAILY [facility] Potassium Chloride (K-Dur -) 10 meq PO BID [facility] Last Admin: 12/23/17 09:47 Dose: 10 meq - Objective Vital Signs: Vital Signs Temperature 36.4 C 12/23/17 09:00 Pulse Rate 95 H 12/23/17 09:00 Respiratory Rate 20 12/23/17 09:00 Blood Pressure 129/85 12/23/17 09:00 O2 Sat by Pulse Oximetry (%) 95 12/23/17 09:00 Constitutional: Yes: Well Nourished, No Distress, Calm Cardiovascular: Yes: Regular Rate and Rhythm. No: Gallop, Murmur, Rub Respiratory: Yes: Regular, CTA Bilaterally. No: Rales, Rhonchi, Wheezes Gastrointestinal: Yes: Normal Bowel Sounds, Soft. No: Distention, Tenderness Extremities: Yes: WNL Edema: No Labs: CBC, BMP 12/23/17 06:00 12/23/17 06:00 INR, PTT INR 1.49 (0.82-1.09) H 12/22/17 11:49 Problem List - Problems (1) Epistaxis Assessment/Plan: -resolved -however now patient is concerned to take AC -will consult cardiology Code(s): R04.0 - EPISTAXIS (2) CHF (congestive heart failure) Assessment/Plan: -controlled, not in exacerbation -continue lasix Code(s): I50.9 - HEART FAILURE, UNSPECIFIED Qualifiers: Qualified Code(s): I50.22 - Chronic systolic (congestive) heart failure (3) COPD (chronic obstructive pulmonary disease) Assessment/Plan: -appreciate pulmonary assistance -no pneumonia -controlled Code(s): J44.9 - CHRONIC OBSTRUCTIVE PULMONARY DISEASE, UNSPECIFIED Qualifiers: COPD type: COPD with acute exacerbation Qualified Code(s): J44.1 - Chronic obstructive pulmonary disease with (acute) exacerbation (4) HLD (hyperlipidemia) Assessment/Plan: -continue lipitor Code(s): E78.5 - HYPERLIPIDEMIA, UNSPECIFIED (5) HTN (hypertension) Assessment/Plan: -well controlled Code(s): I10 - ESSENTIAL (PRIMARY) HYPERTENSION (6) Weakness generalized Assessment/Plan: -PT consult -also check ESR and CRP in am since elevated as outpatient Code(s): R53.1 - WEAKNESS (7) Chronic atrial fibrillation Assessment/Plan: -rhythm controlled -continue amiodarone -cardiology consulted Code(s): I48.2 - CHRONIC ATRIAL FIBRILLATION
[2017-12-23] MEDS: AMIODARONE HCL 200 MG TABLET (FP) PO SCH (13:34)
[2017-12-23] MEDS: ATORVASTATIN CA 10 MG TABLET (FP) PO SCH (21:47)
[2017-12-24 07:12] LABS: BASO % 0.8 % (0-2.0); EOS % 5.4 % (0-4.5); HEMATOCRIT 37.7 % (32.4-45.2); HEMOGLOBIN 12.7 GM/dL (10.7-15.3); LYMPH % 16.1 % (8-40); MCH 31.1 pg (25.7-33.7); MCHC 33.8 g/dl (32.0-36.0); MEAN CELL VOLUME 92.2 fl (80-96); MEAN PLT VOLUME 8.1 fl (7.5-11.1); MONO % 10.2 % (3.8-10.2); NEUT % 67.5 % (42.8-82.8); PLATELET COUNT 296 K/MM3 (134-434); RBC 4.09 M/mm3 (3.60-5.2); RDW 14.8 % (11.6-15.6); WHITE BLOOD COUNT 5.7 K/mm3 (4.0-10.0)
[2017-12-24 07:29] LABS: CHLORIDE 105 mmol/L (98-107); POTASSIUM 3.8 mmol/L (3.5-5.1); SODIUM 140 mmol/L (136-145)
[2017-12-24 07:37] LABS: ANION GAP 9 (8-16); BLOOD UREA NITROGEN 12 mg/dL (7-18); CALCIUM 8.7 mg/dL (8.5-10.1); CO2 26 mmol/L (21-32); CREATININE 0.7 mg/dL (0.55-1.02); GLUCOSE,RANDOM 100 mg/dL (74-106); PHOSPHOROUS 3.9 mg/dL (2.5-4.9)
[2017-12-24] MEDS: ALLOPURINOL 300 MG TABLET (FP) PO SCH (09:53)
[2017-12-24] MEDS: AMIODARONE HCL 200 MG TABLET (FP) PO SCH (09:53)
[2017-12-24] MEDS: CHOLECALCIFEROL (VITAMIN D3) 1,000 UNIT TABLET (FP) PO SCH (09:53)
[2017-12-24] MEDS: FUROSEMIDE 40 MG TABLET (FP) PO SCH (09:53)
[2017-12-24] MEDS: POTASSIUM CHLORIDE TABS 20 MEQ TABLET.ER (FP) PO SCH (09:53)
[2017-12-24] MEDS: HEPARIN NA (PORCINE) 5,000 UNITS/ML 1ML VIAL SQ SCH (09:54)
[2017-12-24 10:13] VITALS: BP 152/87; PULSE 79; TEMP 97.8
--- NOTE | 2017-12-24 11:37 | CON.CARD ---
Cardiology Consult (text) - Consultation Consultation Note: cc: nose bleed hpi: 87 f hx afib, hld, htn, breast ca here with nose bleed. Started yesterday spontaneously. No other sxs. No cp, sob, palps, dizzy, loc, pnd, orthopnea, le edema. Nose bleed resolved in ER. Sees dr garza for cardio. pmh: per hpi psh: cholecystectomy, cataract surgery social: ex tob fam: no premature cad ros: per hpi; no nvd, rash, wt loss, gib, hematuria, vision changes, muscle pain meds: Home Medications Medication Instructions Recorded Allopurinol 300 mg PO DAILY 12/18/16 Amiodarone HCl 200 mg PO DAILY 12/18/16 Atorvastatin Ca [Lipitor] 10 mg PO HS 12/18/16 Cholecalciferol (Vitamin D3) 2,000 unit PO BID 12/18/16 [Vitamin D3] Furosemide [Lasix -] 20 mg PO DAILY 12/18/16 Potassium Chloride [Klor-Con 10] 10 meq PO BID 12/18/16 Brinzolamide [Azopt] 15 ml OU BID 04/05/17 Ubidecarenone [Coq-10] 100 mg PO DAILY 04/05/17 Apixaban [Eliquis -] 5 mg PO BID tablet 06/10/17 pe: Vital Signs Period Temp Pulse Resp BP Sys/Bender Pulse Ox Last 24 Hr 97 F-98.3 F 76-88 18-20 142-152/76-87 95 nad, no jvd irreg, s1s2 no mrg cta bl nl eff no le e/c/c abd nt nd pos bs aaox3 no jaundice diaphoresis pos dp pt no carotid bruits Laboratory Last Values WBC 5.7 K/mm3 (4.0-10.0) 12/24/17 06:35 RBC 4.09 M/mm3 (3.60-5.2) 12/24/17 06:35 Hgb 12.7 GM/dL (10.7-15.3) 12/24/17 06:35 Hct 37.7 % (32.4-45.2) 12/24/17 06:35 MCV 92.2 fl (80-96) 12/24/17 06:35 MCH 31.1 pg (25.7-33.7) 12/24/17 06:35 MCHC 33.8 g/dl (32.0-36.0) 12/24/17 06:35 RDW 14.8 % (11.6-15.6) 12/24/17 06:35 Plt Count 296 K/MM3 (134-434) 12/24/17 06:35 MPV 8.1 fl (7.5-11.1) 12/24/17 06:35 Absolute Neuts (auto) 3.8 # 12/24/17 06:35 Neutrophils % 67.5 % (42.8-82.8) 12/24/17 06:35 Lymphocytes % 16.1 % (8-40) 12/24/17 06:35 Monocytes % 10.2 % (3.8-10.2) 12/24/17 06:35 Eosinophils % 5.4 % (0-4.5) H 12/24/17 06:35 Basophils % 0.8 % (0-2.0) 12/24/17 06:35 Nucleated RBC % 0 % (0-0) 12/24/17 06:35 ESR 29 mm/hr (0-30) 12/24/17 06:45 PT with INR 16.80 SEC (9.7-13.0) H 12/22/17 11:49 INR 1.49 (0.82-1.09) H 12/22/17 11:49 PTT (Actin FS) 35.5 SECONDS (25.2-36.5) 12/22/17 11:49 Sodium 140 mmol/L (136-145) 12/24/17 06:35 Potassium 3.8 mmol/L (3.5-5.1) 12/24/17 06:35 Chloride 105 mmol/L (98-107) 12/24/17 06:35 Carbon Dioxide 26 mmol/L (21-32) 12/24/17 06:35 Anion Gap 9 (8-16) 12/24/17 06:35 BUN 12 mg/dL (7-18) 12/24/17 06:35 Creatinine 0.7 mg/dL (0.55-1.02) 12/24/17 06:35 Creat Clearance w eGFR > 60 (>60) 12/24/17 06:35 Random Glucose 100 mg/dL (74-106) 12/24/17 06:35 Calcium 8.7 mg/dL (8.5-10.1) 12/24/17 06:35 Phosphorus 3.9 mg/dL (2.5-4.9) 12/24/17 06:35 Magnesium 2.0 mg/dL (1.8-2.4) 12/24/17 06:35 Total Bilirubin 0.4 mg/dL (0.2-1.0) D 12/22/17 11:49 AST 54 U/L (15-37) H 12/22/17 11:49 ALT 85 U/L (12-78) H 12/22/17 11:49 Alkaline Phosphatase 147 U/L (45-117) H 12/22/17 11:49 C-Reactive Protein 0.9 MG/DL (0.00-0.3) H 12/24/17 06:35 Total Protein 6.6 g/dl (6.4-8.2) 12/22/17 11:49 Albumin 3.2 g/dl (3.4-5.0) L 12/22/17 11:49 Lipase 150 U/L (73-393) 12/22/17 12:24 Urine Color Straw 12/22/17 14:55 Urine Appearance Clear 12/22/17 14:55 Urine pH 7.0 (5.0-8.0) 12/22/17 14:55 Ur Specific Capulin 1.004 (1.001-1.035) 12/22/17 14:55 Urine Protein Negative (NEGATIVE) 12/22/17 14:55 Urine Glucose (UA) Negative (NEGATIVE) 12/22/17 14:55 Urine Ketones Negative (NEGATIVE) 12/22/17 14:55 Urine Blood Negative (NEGATIVE) 12/22/17 14:55 Urine Nitrite Negative (NEGATIVE) 12/22/17 14:55 Urine Bilirubin Negative (<2.0 mg/dL) 12/22/17 14:55 Urine Urobilinogen Negative mg/dL (0.2-1.0) 12/22/17 14:55 Ur Leukocyte Esterase Negative (NEGATIVE) 12/22/17 14:55 echo 03/2015: tds, nl lv/rv, mild lae, no sig valve path echo 08/2016: nl lv/rv, mod dwayne, mod-sev mr/tr, nl rvsp, mild-mod ar...on my review trace ar, mod mr, mild tr ecg: afib, rate ok, no ischmeic changes cxr: no chf a/p: 87 f hx afib, hld, htn, breast ca here with nose bleed. epistaxis: -resolved now, hgb stable -would resume eliquis and monitor for recurrence-->if recurs would hold ac and have pt see ENT for possible cauterization chronic diast chf: -stable, cont home lasix afib: -has had several jorge/dccv in past but now back in afib, on maintenance amio -Rate controlled -resume ac as above hld: -cont statin htn: -stable cardiac maxwell stable for dc
--- NOTE | 2017-12-24 12:57 | DS ---
Physical Examination Vital Signs: Vital Signs Temperature 36.6 C 12/24/17 10:00 Pulse Rate 79 12/24/17 10:00 Respiratory Rate 20 12/24/17 10:00 Blood Pressure 152/87 12/24/17 10:00 O2 Sat by Pulse Oximetry (%) 95 12/23/17 21:00 Constitutional: Yes: Well Nourished, No Distress, Calm Cardiovascular: Yes: Regular Rate and Rhythm. No: Gallop, Murmur, Rub Respiratory: Yes: Regular, CTA Bilaterally. No: Rales, Rhonchi, Wheezes Gastrointestinal: Yes: Normal Bowel Sounds, Soft. No: Distention, Tenderness Extremities: Yes: WNL Edema: No Labs: CBC, BMP 12/24/17 06:35 12/24/17 06:35 Discharge Summary Reason For Visit: PNEUMONIA Current Active Problems Epistaxis (Acute) Pneumonia (Acute) Hospital Course: (1) Epistaxis Code(s): R04.0 - EPISTAXIS (2) CHF (congestive heart failure) Code(s): I50.9 - HEART FAILURE, UNSPECIFIED Qualifiers: Qualified Code(s): I50.22 - Chronic systolic (congestive) heart failure (3) COPD (chronic obstructive pulmonary disease) Code(s): J44.9 - CHRONIC OBSTRUCTIVE PULMONARY DISEASE, UNSPECIFIED Qualifiers: COPD type: COPD with acute exacerbation Qualified Code(s): J44.1 - Chronic obstructive pulmonary disease with (acute) exacerbation (4) HLD (hyperlipidemia) Code(s): E78.5 - HYPERLIPIDEMIA, UNSPECIFIED (5) HTN (hypertension) Code(s): I10 - ESSENTIAL (PRIMARY) HYPERTENSION (6) Weakness generalized Code(s): R53.1 - WEAKNESS (7) Chronic atrial fibrillation Code(s): I48.2 - CHRONIC ATRIAL FIBRILLATION Mrs Vasquez is a very pleasant 87 year old woman who comes in with epistaxis and weakness. She was admitted to the hospital. There was concern for pneumonia but this is negative. Her eliquis was held and her epistaxis stopped. She was seen by PT and ambulated well. She is willing to restart her eliquis. She is safe for discharge home today. Condition: Good - Instructions Diet, Activity, Other Instructions: resume previous diet and activity Referrals: Feliz Parker MD [Primary Care Provider] - Favian Askew MD [Staff Physician] - Disposition: HOME - Home Medications Comprehensive Discharge Medication List: Ambulatory Orders Allopurinol 300 mg PO DAILY 12/18/16 Amiodarone HCl 200 mg PO DAILY 12/18/16 Atorvastatin Ca [Lipitor] 10 mg PO HS 12/18/16 Cholecalciferol (Vitamin D3) [Vitamin D3] 2,000 unit PO BID 12/18/16 Furosemide [Lasix -] 20 mg PO DAILY 12/18/16 Potassium Chloride [Klor-Con 10] 10 meq PO BID 12/18/16 Brinzolamide [Azopt] 15 ml OU BID 04/05/17 Ubidecarenone [Coq-10] 100 mg PO DAILY 04/05/17 Apixaban [Eliquis -] 5 mg PO BID tablet 06/10/17
[2017-12-25 10:54] VITALS: BMI 21.6
== END 2017-12-24 14:08 | disposition home or self-care (01) | DRG 151 ==
LOC: JER 11:22 → JERBED 18:00 → J7W 12-23 02:30
PROVIDERS: ADMIT Internal Medicine; ATTEND Internal Medicine
DX: R04.0 Epistaxis (principal); I50.32 Chronic diastolic (congestive) heart failure; I11.0 Hypertensive heart disease with heart failure; I48.2 Chronic atrial fibrillation; I36.1 Nonrheumatic tricuspid (valve) insufficiency; I34.0 Nonrheumatic mitral (valve) insufficiency; K76.89 Other specified diseases of liver; Z79.01 Long term (current) use of anticoagulants; I25.10 Atherosclerotic heart disease of native coronary artery without angina pectoris; Z85.3 Personal history of malignant neoplasm of breast; E78.5 Hyperlipidemia, unspecified; J44.9 Chronic obstructive pulmonary disease, unspecified; M10.9 Gout, unspecified; K75.9 Inflammatory liver disease, unspecified; Z90.13 Acquired absence of bilateral breasts and nipples; Z87.891 Personal history of nicotine dependence; R63.4 Abnormal weight loss; Z68.21 Body mass index [BMI] 21.0-21.9, adult; K57.30 Diverticulosis of large intestine without perforation or abscess without bleeding
CPT/HCPCS: 36415; 70450-TC; 71045-TC-FY; 71250-TC; 74177-TC; 80048; 80053; 81003; 83690; 83735; 84100; 85025; 85610; 85651; 85730; 86140; 87040; 93005; 93010; 97116-GP; 97161-GP; 99285-25; J1644

== ENCOUNTER 2019-03-02 07:27 | Emergency (ER) | payer OTHER, BC ==
--- NOTE | 2019-03-02 07:49 | PDOC ---
History of Present Illness - General Stated Complaint: NASAL BLEED Time Seen by Provider: 03/02/19 07:33 - History of Present Illness Initial Comments: 03/02/19 07:46 88F AFib(off Pradaxa for procedure tomorrow) , ASHD, CHF, breast cancer, pneumonia(hospitalization 08/05/16), hypertension, hyperlipidemia, and hepatitis, coming today for nosebleed from the left nostril that woke her up this morning around 630. She pinched her nose which seemed to help somewhat but it kept coming from her mouth. The bleed resolved as EMS brought her to her ED room here at 730. Patient denies headache, chest pain, sob or weakness. Has been off Pradaxa for 4 days for Spinal injection tomorrow for spinal stenosis. Past History - Past Medical History Allergies/Adverse Reactions: Allergies Allergy/AdvReac Type Severity Reaction Status Date / Time codeine [Codeine] Allergy Severe Verified 03/02/19 07:49 timolol [Timolol] Allergy Severe Verified 03/02/19 07:49 adhesive Allergy Intermediate Rash Verified 03/02/19 07:49 scallops AdvReac Verified 03/02/19 07:49 Home Medications: Ambulatory Orders Allopurinol 300 mg PO DAILY 12/18/16 Atorvastatin Ca [Lipitor] 10 mg PO HS 12/18/16 Cholecalciferol (Vitamin D3) [Vitamin D3] 2,000 unit PO BID 12/18/16 Furosemide [Lasix -] 20 mg PO DAILY 12/18/16 Potassium Chloride [Klor-Con 10] 10 meq PO BID 12/18/16 Brinzolamide [Azopt] 15 ml OU BID 04/05/17 Ubidecarenone [Coq-10] 100 mg PO DAILY 04/05/17 Apixaban [Eliquis -] 2.5 mg PO BID 03/02/19 Diltiazem [Cardizem -] 60 mg PO BID 03/02/19 Anemia: No Asthma: No Cancer: Yes (BREAST CA, left breast mastectomy) Cardiac Disorders: Yes (A Fib on eliquis) CVA: No COPD: Yes CHF: Yes Dementia: No Diabetes: No GI Disorders: No Disorders: Yes (kidney stones) HTN: No Hypercholesterolemia: Yes Liver Disease: No Seizures: No Thyroid Disease: No - Surgical History Abdominal Surgery: Yes (exp lap) Appendectomy: Yes Cardiac Surgery: Yes (CARDIOVERSION x 3) Cholecystectomy: Yes GI Surgery: Yes (colon resection, exploratory for endometriosis) Lung Surgery: No Neurologic Surgery: No Orthopedic Surgery: Yes (left knee) - Suicide/Smoking/Psychosocial Hx Smoking History: Former smoker Have you smoked in the past 12 months: No If you are a former smoker, when did you quit?: 1967 'Breaking Loose' booklet given: 12/18/16 Hx Alcohol Use: Yes (GLASS OF WINE EVERY NIGHT) Drug/Substance Use Hx: No Substance Use Type: None Hx Substance Use Treatment: No Review of Systems - Review of Systems Able to Perform ROS?: Yes Is the patient limited Hungarian proficient: No Constitutional: No: Symptoms Reported HEENTM: Yes: See HPI Respiratory: No: Symptoms reported Cardiac (ROS): No: Symptoms Reported ABD/GI: No: Symptoms Reported : No: Symptoms Reported Musculoskeletal: No: Symptoms Reported Integumentary: No: Symptoms Reported Neurological: No: Symptoms reported All Other Systems: Reviewed and Negative *Physical Exam - Physical Exam General Appearance: Yes: Nourished, Appropriately Dressed. No: Apparent Distress HEENT: positive: Other (Difficulty to observe source of bleed in left nostril, clot anteriorly, and dried blood around the mouth. ) Respiratory/Chest: positive: Lungs Clear, Normal Breath Sounds. negative: Chest Tender, Respiratory Distress Cardiovascular: positive: Regular Rhythm, Regular Rate, S1, S2 Gastrointestinal/Abdominal: positive: Normal Bowel Sounds, Flat, Soft. negative : Tender Extremity: positive: Normal Capillary Refill, Normal Inspection, Normal Range of Motion Integumentary: positive: Normal Color, Dry, Warm Neurologic: positive: Fully Oriented, Alert, Normal Mood/Affect, Normal Response Medical Decision Making - Medical Decision Making 03/02/19 08:12 88F usually on Pradaxa, off for 4 days presents with left epistaxis from 630 to 730, now resolved. Will attempt to bring pressure down with home dose of Diltiazem. Will defer getting labs at this time as patient can probably just be observed to make sure she doesn't bleed again. 03/02/19 09:22 Pressure now 134/86. Will give some Afrin to the left nostril and send patient home. *DC/Admit/Observation/Transfer Diagnosis at time of Disposition: Epistaxis not due to trauma - Discharge Dispostion Disposition: HOME Condition at time of disposition: Improved Decision to Admit order: No - Referrals Referrals: Feliz Parker MD [Primary Care Provider] - - Patient Instructions Printed Discharge Instructions: DI for Nosebleed Additional Instructions: Come back to the emergency department for any new, worsening or concerning symptom. Follow up with you primary care physician within the next 2-3 days. - Post Discharge Activity
[2019-03-02] MEDS ORDERED: dilTIAZem HCL 60 MG TABLET (FP) PO ONE (07:55)
[2019-03-02] MEDS ORDERED: dilTIAZem HCL 60 MG TABLET (FP) ONE (07:56)
[2019-03-02 07:57] VITALS: TEMP 97.5; BMI 18.6
[2019-03-02] MEDS ORDERED: OXYMETAZOLINE 0.05% NASAL SOLUTION 15 ML BOTTLE NS ONE (09:19)
--- NOTE | 2019-03-02 09:49 | PDOC ---
Documentation entered by Марина Starks SCRIBE, acting as scribe for Moustapha Reese MD. Moustapha Reese MD: This documentation has been prepared by the Raudel curry Adrianna, SCRIBE, under my direction and personally reviewed by me in its entirety. I confirm that the documentation accurately reflects all work, treatment, procedures, and medical decision making performed by me. Attending Attestation - Resident Resident Name: Renato Lambert - ED Attending Attestation I have performed the following: I have examined & evaluated the patient, The case was reviewed & discussed with the resident, I agree w/resident's findings & plan - HPI HPI: 03/02/19 09:45 88-year-old female with history of hypertension, atrial fibrillation on eliquis but off x4d pending spinal injection scheduled for tomorrow presents with epistaxis. Began yesterday but self-resolved, returned while asleep this morning with heavy bleeding. Applied pressure and bleeding now controlled. no airway/respiratory issues, no cp/palp/near syncope. no URI/injury. no h/o recurring epistaxis or procedures to the area. - Physicial Exam PE: 03/02/19 09:47 Hypertensive on arrival, blood pressure now 137/87, heart rate 80s Well-appearing, smiling, seated comfortably in stretcher speaking full sentences There is a scant amount of oozing coming from the left naris, about 2 mm area in the anterior left naris with oozing blood op clear, neck supple no other stigmata of bleeding - Medical Decision Making 03/02/19 09:48 88-year-old female with atraumatic epistaxis, spontaneously resolved with pressure and hemodynamically stable. Has not had a dose of this for 4 days. Bleeding almost completely stopped, will apply Afrin-soaked gauze and pressure Reassess and disposition accordingly Heart Score/ECG Review #1 ECG reviewed & interpreted by me at: 07:46 General ECG Interpretation: Normal Rate (afib with PVC at 88), Normal Intervals , No acute ischemic changes (T wave flattening lateral leads)
[2019-03-02 09:52] VITALS: BP 131/85; PULSE 81
--- NOTE | 2019-03-02 10:31 | EKG ---
Test Reason : Blood Pressure : / mmHG Vent. Rate : 088 BPM Atrial Rate : 097 BPM P-R Int : 000 ms QRS Dur : 104 ms QT Int : 382 ms P-R-T Axes : 000 028 169 degrees QTc Int : 462 ms ATRIAL FIBRILLATION WITH PREMATURE VENTRICULAR OR ABERRANTLY CONDUCTED COMPLEXES CANNOT RULE OUT ANTERIOR INFARCT , AGE UNDETERMINED ABNORMAL ECG WHEN COMPARED WITH ECG OF 22-DEC-2017 11:49, NO SIGNIFICANT CHANGE WAS FOUND Confirmed by GLADIS WILLETT, KULWINDER ([id number]) on 03/02/2019 10:31:09 AM Referred By: Confirmed By:KULWINDER GRIFFITH MD
== END 2019-03-02 10:23 | disposition home or self-care (01) ==
LOC: JER 07:27
PROC: 093K7ZZ Control Bleeding in Nasal Mucosa and Soft Tissue, Via Natural or Artificial Opening (ICD-10-PCS; principal; 2019-03-02)
DX: R04.0 Epistaxis (principal); I48.91 Unspecified atrial fibrillation; Z79.01 Long term (current) use of anticoagulants; I25.10 Atherosclerotic heart disease of native coronary artery without angina pectoris; I11.0 Hypertensive heart disease with heart failure; I50.9 Heart failure, unspecified; E78.5 Hyperlipidemia, unspecified; Z85.3 Personal history of malignant neoplasm of breast; Z90.12 Acquired absence of left breast and nipple; Z87.01 Personal history of pneumonia (recurrent)
CPT/HCPCS: 93005; 93010; 99282-25

== ENCOUNTER 2019-08-29 08:26 | Day surgery (SDC) | payer OTHER, BC ==
[2019-08-28 18:11] VITALS: BMI 21.0
[2019-08-29] MEDS ORDERED: MIDAZOLAM HCL 2 MG/2 ML SINGLE DOSE VIAL ONE (10:45)
[2019-08-29] MEDS ORDERED: ceFAZolin SODIUM 1 GM VIAL IVPB ONE (10:52)
--- NOTE | 2019-08-29 11:42 | OP ---
Operative Note - Note: Operative Date: 08/29/19 Pre-Operative Diagnosis: Right renal stone Operation: Right Lithotripsy Post-Operative Diagnosis: Same as Pre-op Surgeon: Reinier Mathur MD. Anesthesia: General Operative Report Dictated: Yes
[2019-08-29] MEDS ORDERED: ELECTROLYTE-148 SOLN 1,000 ML IV SCH (11:45)
--- NOTE | 2019-08-29 14:23 | OP ---
DATE OF OPERATION: 08/29/2019 PREOPERATIVE DIAGNOSIS: Right renal calculus. POSTOPERATIVE DIAGNOSIS: Right renal calculus. PROCEDURE: Right lithotripsy. HISTORY: This is an 88-year-old female with a long history of renal calculi, status post prior multiple procedures for stone fragmentation. Preoperative imaging revealed 6 and 7-mm renal calculi. Discussing treatment options, including observation, the patient elected to undergo the above-stated procedure. Risks and benefits of treatment were discussed in detail. All questions were answered. BRIEF OPERATIVE NOTE: Patient brought to the operating room and placed in supine position. Once the stone was localized using ultrasonography and 3-D fluoroscopy, timeout was performed, intravenous antibiotics were given. At this time, 2500 shocks were delivered in fashion. Patient tolerated procedure well and was brought to recovery room in stable and satisfactory condition. PATRICK LEWIS M.D. [id number]
[2019-08-29 15:31] VITALS: BP 112/55; PULSE 88; TEMP 97.4
== END 2019-08-29 14:00 | disposition home or self-care (01) ==
LOC: JASU-SURG 08:26
PROVIDERS: ATTEND Urology
PROC: 0TF3XZZ Fragmentation in Right Kidney Pelvis, External Approach (ICD-10-PCS; principal; 2019-08-29 10:30)
DX: N20.0 Calculus of kidney (principal)